=== PATIENT | male | born 1950 | race Caucasian/White ===

== ENCOUNTER 2017-01-23 07:28 | Inpatient (IN) | payer OTHER ==
--- NOTE | 2017-01-08 10:39 | HP ---
DATE OF ADMISSION: 01/23/2017 DATE OF DICTATION: 12/09/2016 Patient to be admitted through the [facility]. HISTORY: This is a 66-year-old man who presents for reduction and repair of a chronically incarcerated ventral hernia, which may or may not require component separation. According to the patient, he noticed the mass several months ago. He is quite overweight and the hernia very likely has been present for quite some time. No underlying GI, , or respiratory complaints to suggest predisposition to hernia formation. Patient's past medical history is significant for GERD, hypertension, hypercholesterolemia, diabetes, and arthritis. Patient also has had diverticulitis in the past. ALLERGIES: None known. Current medications are multiple and include Lipitor, Cozaar, Inderal, baby aspirin, glipizide, amlodipine, Lovaza, Lantus, Victoza injections. SOCIAL HISTORY: Negative tobacco. Patient was a previous smoker. Negative alcohol. FAMILY HISTORY: Nil. REVIEW OF SYSTEMS: Nil. PHYSICAL EXAMINATION: Patient examined in erect, supine position. The abdomen is large, obese, soft and nontender. There is a fist size palpable mass in the supraumbilical midline extending off to the right side of the abdomen. In the supine position, it is partially but not entirely reducible. The groins are unremarkable. IMPRESSION: Chronically incarcerated ventral hernia. PLAN: Reduction and repair of chronically incarcerated ventral hernia with mesh , with or without component separation. Indications, alternatives, possible complications are reviewed. Consent obtained. Patient to be seen preoperatively by Dr. 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 Please refer to those notes for those medical details. ROWNEA ADAMS M.D. CHRIS/[id number] cc: Farhad Maciel MD; Raj Irby MD [facility]
[2017-01-23] MEDS ORDERED: TAMSULOSIN HCL 0.4 MG CAP.ER.24H (FP) ONE (07:52)
[2017-01-23 08:11] VITALS: BMI 36.1
[2017-01-23] MEDS ORDERED: SCOPOLAMINE HYDROBROMIDE 1 PATCH PATCH.TD72 ONE (10:42)
[2017-01-23] MEDS ORDERED: PROPOFOL 20 ML ONE (11:19)
[2017-01-23] MEDS ORDERED: ROCURONIUM BROMIDE 50 MG/5 ML VIAL ONE ×2 (11:20→12:26)
[2017-01-23] MEDS ORDERED: SUCCINYLCHOLINE CHLORIDE 200 MG/10 ML VIAL ONE (11:20)
[2017-01-23] MEDS ORDERED: MIDAZOLAM HCL 2 MG/2 ML SINGLE DOSE VIAL ONE (11:20)
[2017-01-23] MEDS ORDERED: ceFAZolin SODIUM 1 GM VIAL ONE (11:54)
[2017-01-23] MEDS ORDERED: ONDANSETRON 4 MG/2 ML VIAL ONE ×2 (12:06→13:26)
[2017-01-23] MEDS ORDERED: DEXAMETHASONE SOD PHOSPHATE 4 MG/1 ML VIAL ONE (12:06)
[2017-01-23] MEDS ORDERED: GLYCOPYRROLATE 0.2 MG/1 ML VIAL ONE (13:26)
[2017-01-23] MEDS ORDERED: NEOSTIGMINE METHYLSULFATE 0.5 MG/ML - 10 ML MDV ONE (13:26)
[2017-01-23] MEDS ORDERED: ACETAMINOPHEN INJECTION 100 ML IVPB ONE (13:38)
[2017-01-23] MEDS ORDERED: PROMETHAZINE HCL 25 MG/1 ML VIAL IVPUSH PRN (13:51)
[2017-01-23] MEDS ORDERED: ONDANSETRON 4 MG/2 ML VIAL IVPUSH PRN (13:51)
[2017-01-23] MEDS ORDERED: oxyCODONE HCL 5 MG TABLET PO PRN ×2 (13:51→14:45)
[2017-01-23] MEDS: HYDROmorphone HCL CARPU-JECT 1 MG/1 ML DISP.SYRIN IVPUSH PRN ×6 (13:55→14:40)
[2017-01-23] MEDS ORDERED: ACETAMINOPHEN 1000 MG/100 ML VIAL (NON FORMULARY) IVPB ONE (14:00)
[2017-01-23] MEDS ORDERED: LACTATED RINGERS SOLUTION 1,000 ML IV SCH (14:00)
[2017-01-23] MEDS ORDERED: KETOROLAC TROMETHAMINE 15 MG/ML VIAL IVPUSH PRN (14:38)
[2017-01-23] MEDS ORDERED: ONDANSETRON 4 MG/2 ML VIAL IVPB PRN (14:41)
[2017-01-23] MEDS ORDERED: D5-1/2NS+20 MEQ KCL - 1,000 ML IV SCH (14:45)
[2017-01-23] MEDS ORDERED: PROMETHAZINE HCL 25 MG/1 ML VIAL ONE (14:54)
--- NOTE | 2017-01-23 15:42 | OP ---
DATE OF OPERATION: 01/23/2017 PREOPERATIVE DIAGNOSIS: Large chronically incarcerated ventral hernia. POSTOPERATIVE DIAGNOSIS: Complex chronic incarcerated ventral hernia. PROCEDURE: Bilateral component separation repair of complex chronically incarcerated ventral hernia with mesh. OPERATING SURGEON: Froylan Cottrell MD SCIENCE INTERPRETER: Minor Rodriguez MD ANESTHESIA: Quentin Groves MD (general) HISTORY: A 66-year-old man who presented to the office with a very large chronically incarcerated anterior abdominal wall hernia. The hernia was in the supraumbilical midline. At the time of surgery there were multiple defects along the midline approaching the xiphoid process. Indications, alternatives, and possible complications reviewed. Consent obtained. DESCRIPTION OF PROCEDURE: With the patient in supine position, under general anesthesia, the abdomen was prepped and draped in the usual sterile fashion using chlorhexidine. A generous upper abdominal midline incision was made and deepened into the subcutaneous space. The large incarcerated hernia sac was easily encountered. The sac was opened and found to contain small bowel and omentum. Lysis of adhesions ensued, reducing these structures. Evaluation of the abdominal wall revealed a string of multiple small defects approaching the xiphoid process. The bridges between these defects were divided , creating 1 larger defect. First beginning on the right side, the posterior rectus sheath was from the overlying rectus musculature and mobilized in the inferior, lateral, and superior directions approaching the junction with the oblique musculature. The oblique muscles were then from the underlying transversus muscle, allowing the dissection to continue inferiorly, laterally, and medially. Now directing our attention to the contralateral side, again the posterior sheath was from the overlying rectus musculature. Again the juncture of the rectus with the obliques was approached. Separation on the left was performed, again the left oblique muscles from the underlying transversus musculature and again moving in the superior, lateral , and inferior directions. Using 3-0 Maxon, the posterior midline was recreated, approximating the posterior sheath in the midline in a continuous fashion. For the repair, a composite mesh was made at the table which consisted of a piece of Phasix mesh measuring 15 x 20 cm in size. A similar size of ProGrip mesh was sutured to the Phasix using interrupted 3-0 Vicryl sutures. The composite mesh was then placed in the retrorectus space and fanned out along the course of the dissection. The mesh was fixed circumferentially with an AbsorbaTacker and counter palpation. It was also fixed at interrupted sites with [id number] 0 Prolene sutures. Ultimately, the anterior rectus sheath was closed using a continuous No. 1 PDS suture. This was accomplished beginning at each end of the wound was the suture ultimately tied in the wound midpoint, leaving the composite mesh entirely in the retrorectus space. The anterior rectus sheath was of poor quality and very thin. Ultimately, a Chavo-Jones drain was placed in the subcutaneous space and left to exit through a separate stab wound in the inferior aspect of the anterior abdominal wall where it was tacked to the skin with suture material. After adequate hemostasis and irrigation, the wound was closed in layers. The subcutaneous tissues were reapproximated with 3-0 chromic suture. Subcuticular was approximated with 4-0 Biosyn suture. The skin was reapproximated using metallic clips. At the end of the procedure, needle and instrument count correct. ESTIMATED BLOOD LOSS: Minimal. SPECIMENS: None. DRAINS: One MAYKEL. IMPLANT: Phasix mesh (20 x 15 cm)/ProGrip mesh (20 x 15 cm). Patient was transferred to recovery. Alberta [id number] MTDD
[2017-01-23] MEDS ORDERED: PT OWN MED DRAWER 7, Y5N ONE (16:13)
[2017-01-23] MEDS: morphine CARPU-JECT 4 MG/1 ML DISP.SYRIN IVPB PRN ×2 (16:23→21:33)
[2017-01-23] MEDS: CEFAZOLIN (PRE-DOCKED) 50 ML IVPB SCH ×2 (16:24→21:49)
[2017-01-23] MEDS: FAMOTIDINE 20 MG TABLET PO SCH (21:35)
[2017-01-23] MEDS ORDERED: LOSARTAN POTASSIUM 50 MG TABLET (FP) PO SCH (22:00)
[2017-01-24] MEDS: CEFAZOLIN (PRE-DOCKED) 50 ML IVPB SCH (03:28)
[2017-01-24] MEDS: morphine CARPU-JECT 4 MG/1 ML DISP.SYRIN IVPB PRN (05:51)
[2017-01-24 06:31] VITALS: BP 146/85; PULSE 88; TEMP 98.2
[2017-01-24] MEDS ORDERED: INSULIN SLIDING SCALE (NOVOLOG) 1 VIAL SQ SCH (07:00)
[2017-01-24] MEDS: FAMOTIDINE 20 MG TABLET PO SCH (09:23)
[2017-01-24] MEDS ORDERED: ENOXAPARIN NA (PORCINE) 40 MG/0.4 ML DISP.SYRIN SQ SCH (10:00)
--- NOTE | 2017-01-24 10:59 | DS ---
DATE OF ADMISSION: 01/23/2017 DATE OF DISCHARGE: 01/24/2017 ADMITTING DIAGNOSIS: Status post repair of incarcerated ventral hernia with component separation, as well as postoperative pain with preexisting hypertension, hyperlipidemia, diabetes, and arthritis. DISCHARGE DIAGNOSIS: Status post repair of incarcerated ventral hernia with component separation, as well as postoperative pain with preexisting hypertension, hyperlipidemia, diabetes, and arthritis. BRIEF HISTORY: This is a 66-year-old male who was admitted to [facility] on January 23 for surgical management of an incarcerated ventral hernia. He underwent repair of the ventral hernia utilizing mesh as well as component separation and myofascial release. Please reference Dr. Martinez operative notes for more precise details. Postoperatively, he required admission due to postoperative pain, and he received morphine as well as Toradol. Today, January 24, his pain is controlled with oral narcotics. He is also tolerating a diet. He will be discharged to home with a prescription for Percocet. He will take 1 or 2 as needed every 4 to 6 hours, with a maximum dose of 6 a day. He will stay on a light diet until he has a bowel movement, which is not expected to happen for 4 to 5 days. He will go home with his drain, which he will empty daily and record the output or empty when full. He will call for an appointment with Dr. Cottrell on Thursday for next week to be evaluated for drain removal. He will resume his usual home medications. He is okay to walk. He is okay to climb stairs. He will not lift anything more than 20 pounds, and he will only sponge bathe. DO BETTY SILVEIRA/[id number]
== END 2017-01-24 13:37 | disposition home or self-care (01) | DRG 337 ==
LOC: FASU 07:28 → FM/S 13:30
PROVIDERS: ADMIT Surgery; ATTEND Surgery
PROC: 0DNW0ZZ Release Peritoneum, Open Approach (ICD-10-PCS; 2017-01-23)
PROC: 0W9F00Z Drainage of Abdominal Wall with Drainage Device, Open Approach (ICD-10-PCS; 2017-01-23)
PROC: 0WUF0JZ Supplement Abdominal Wall with Synthetic Substitute, Open Approach (ICD-10-PCS; principal; 2017-01-23 09:00)
DX: K43.6 Other and unspecified ventral hernia with obstruction, without gangrene (principal); K66.0 Peritoneal adhesions (postprocedural) (postinfection); K21.9 Gastro-esophageal reflux disease without esophagitis; I10 Essential (primary) hypertension; E78.00 Pure hypercholesterolemia, unspecified; E11.9 Type 2 diabetes mellitus without complications; Z87.891 Personal history of nicotine dependence; I25.10 Atherosclerotic heart disease of native coronary artery without angina pectoris; K76.0 Fatty (change of) liver, not elsewhere classified; E66.9 Obesity, unspecified; Z68.38 Body mass index [BMI] 38.0-38.9, adult; Z79.4 Long term (current) use of insulin
CPT/HCPCS: 94010; 94760

== ENCOUNTER 2017-11-25 22:40 | Inpatient (IN) | payer OTHER ==
--- NOTE | 2017-11-25 22:51 | PDOC ---
History of Present Illness - General Chief Complaint: Cold Symptoms Stated Complaint: FEVER/PAIN UPON URINATION Time Seen by Provider: 11/25/17 22:50 History Source: Patient, Spouse Exam Limitations: No Limitations - History of Present Illness Initial Comments: 11/26/17 00:08 67M PMHx IDDM, HTN, HLD with cc of myalgias, nausea, dizziness and general malaise since this evening after dinner. dx with influenza last week and has recovered. + subjective fever. Also with discomfort when passing urine, no burning nor blood noted in urine. States that "its a little bit difficult to push the urine out". Denies cough, denies abd pain/vomiting. No LE swelling/ pain. Past History - Past Medical History Allergies/Adverse Reactions: Allergies Allergy/AdvReac Type Severity Reaction Status Date / Time No Known Allergies Allergy Verified 01/23/17 08:21 Home Medications: Ambulatory Orders Cholecalciferol (Vitamin D3) [Vitamin D3] 1,000 unit PO DAILY tablet 12/01/13 Glipizide [Glipizide ER] 10 mg PO BID tablet 12/02/16 Aspirin [Ecotrin] 81 mg PO DAILY 01/19/17 Insulin Glargine,Hum.rec.anlog [Lantus Solostar PEN -] 60 units SQ HS 01/19/17 [place]-3 Acid Ethyl Esters [Lovaza] 2 gm PO BID 01/19/17 Anemia: No Asthma: Yes Cancer: No Cardiac Disorders: Yes (CAD,PALPITATIONS,NUCLEAR STRESS 01/26 NEGATIVE) CVA: No COPD: No CHF: No Dementia: No Diabetes: Yes (DX 1997) GI Disorders: Yes (DIVERTICULOSIS/DIVERTICULITIS) Disorders: Yes (KIDNEY STONES-LAST 01/2012) HTN: Yes (DX ) Hypercholesterolemia: Yes (DIET CONTROLLED) Kidney Stones: Yes Liver Disease: No Seizures: No Thyroid Disease: No - Surgical History Abdominal Surgery: No Appendectomy: No Cardiac Surgery: No Cholecystectomy: No Lung Surgery: No Neurologic Surgery: No Orthopedic Surgery: Yes (RIGHT KNEE AND RIGHT ACHILLES TENDON) - Immunization History Immunization Up to Date: Yes - Suicide/Smoking/Psychosocial Hx Smoking Status: Yes Smoking History: Former smoker Have you smoked in the past 12 months: No Number of Cigarettes Smoked Daily: 0 If you are a former smoker, when did you quit?: 2005 Cigars Per Day: 0 Information on smoking cessation initiated: No Hx Alcohol Use: No Drug/Substance Use Hx: No Substance Use Type: None Hx Substance Use Treatment: No Review of Systems - Review of Systems Able to Perform ROS?: Yes Is the patient limited Turkmen proficient: No Constitutional: Yes: Chills Respiratory: Yes: Cough ABD/GI: Yes: Nausea. No: Vomiting Musculoskeletal: Yes: Muscle Pain, Other (generalized feeling of weakness) Neurological: Yes: Dizziness *Physical Exam - Vital Signs Last Vital Signs Temp Pulse Resp BP Pulse Ox 100.8 F H 115 H 14 125/63 95 11/25/17 22:42 11/25/17 22:42 11/25/17 22:42 11/25/17 22:42 11/25/17 22:42 - Physical Exam General Appearance: Yes: Appropriately Dressed, Other (mildly uncomfortable appearing). No: Apparent Distress Neck: positive: Trachea midline Respiratory/Chest: positive: Lungs Clear, Normal Breath Sounds. negative: Respiratory Distress, Accessory Muscle Use, Labored Respiration, Crackles, Rales , Wheezing Cardiovascular: positive: Regular Rhythm, S1, S2, Tachycardia Gastrointestinal/Abdominal: positive: Other (obese, +healed surgical scar superior to umbilicus (hernia repair), nontender/nondistended) Lymphatic: negative: Tenderness Musculoskeletal: negative: CVA Tenderness (R), Decreased Range of Motion Extremity: positive: Normal Capillary Refill, Normal Inspection Neurologic: positive: Fully Oriented, Alert ED Treatment Course - LABORATORY CBC & Chemistry Diagram: 11/25/17 23:05 11/25/17 23:05 - Medications Given in the ED: 11/26/17 00:33 1L IVF ceftriaxone 1000mg IV azithromycin 500mg IV toradol 30mg IV Medical Decision Making - Medical Decision Making 11/26/17 00:12 Pt presenting with myalgias, fever, tachycardia, recent exposure to flu. Overall , most likely dx is influenza though pt's illness has progressed quite rapidly since onset. Based on age, comorbidities and systemic response, I anticipate admission. - IVF, antipyretics - CXR - flu swab - labs including lactate - likely admission 11/26/17 00:26 CXR reviewed - LLL with questionable infiltrate/atelectasis. Will treat for CAP with ceftriaxone/azithromycin. CBC with diff revealed 15% bandemia, WBC 11. Lactate and flu swab pending. EKG with sinus tachycardia. Based on age, comorbidities, likely pna and probable influenza, with high risk for decompensation at home, will admit to hospital. 11/26/17 00:34 Contact info for Anna: H [phone] C [phone] *DC/Admit/Observation/Transfer Diagnosis at time of Disposition: Fever - Discharge Dispostion Condition at time of disposition: Fair Admit: Yes - Referrals - Patient Instructions - Post Discharge Activity
[2017-11-25] MEDS ORDERED: ACETAMINOPHEN 650 MG/20.3 ML ORAL SOLUTION (CUPS) PO ONE (23:01)
[2017-11-25] MEDS ORDERED: SODIUM CHLORIDE 1,000 ML IV STA (23:01)
[2017-11-25] MEDS ORDERED: ONDANSETRON 4 MG/2 ML VIAL IVPUSH ONE (23:02)
[2017-11-25 23:18] LABS: PH,URINE 5.5 (4.5-8); URINE APPEARANCE Clear; URINE BILIRUBIN Negative (NEGATIVE); URINE GLUCOSE (UA) 2+ (NEGATIVE); URINE KETONE Trace (NEGATIVE); URINE NITRITE Negative (NEGATIVE); URINE PROTEIN Negative (NEGATIVE); URINE UROBILINOGEN 0.2 (0.2-1.0)
[2017-11-25] MEDS ORDERED: ONDANSETRON 4 MG/2 ML VIAL ONE (23:20)
[2017-11-25 23:23] LABS: URINE BLOOD Trace-intact (NEGATIVE); URINE COLOR YELLOW; URINE LEUK ESTERASE TRACE (NEGATIVE)
[2017-11-25] MEDS ORDERED: KETOROLAC TROMETHAMINE 30 MG/1 ML VIAL ONE (23:23)
[2017-11-25 23:25] LABS: HEMATOCRIT 42.5 % (35.4-49); HEMOGLOBIN 14.3 GM/dl (11.7-16.9); MCH 28.4 pg (25.7-33.7); MCHC 33.7 g/dl (32.0-35.9); MEAN CELL VOLUME 84.2 fl (80-96); PLATELET COUNT 173 K/MM3 (134-434); RBC 5.05 M/mm3 (4.00-5.60); RDW 13.7 % (11.9-15.9); WHITE BLOOD COUNT 10.9 K/mm3 (4.0-10.8)
[2017-11-25 23:29] LABS: ALBUMIN 3.9 g/dl (3.5-5.0); ALK PHOS 78 U/L (32-92); ANION GAP 10 (8-16); BILIRUBIN,TOTAL 0.5 mg/dl (0.2-1.0); BLOOD UREA NITROGEN 21 mg/dl (7-18); CALCIUM 9.5 mg/dl (8.4-10.2); CHLORIDE 102 mmol/L (98-107); CO2 23 mmol/L (22-28); CREATININE 1.1 mg/dl (0.6-1.3); GLUCOSE,RANDOM 248 mg/dl (74-106); POTASSIUM 4.3 mmol/L (3.5-5.1); SGOT/AST 27 U/L (10-42); SGPT/ALT 37 U/L (10-40); SODIUM 135 mmol/L (136-145); TOT PROT 7.3 g/dl (6.4-8.3)
[2017-11-25 23:43] LABS: PLATELET ESTIMATE ADEQUATE
[2017-11-25] MEDS ORDERED: KETOROLAC TROMETHAMINE 30 MG/1 ML VIAL IVPUSH ONE (23:43)
[2017-11-25 23:44] LABS: URINE BACTERIA FEW /hpf (NEGATIVE)
[2017-11-26] MEDS ORDERED: AZITHROMYCIN IVPB 500 MG in DEXTROSE 5%-WATER - 250 ML IVPB ONE (00:20)
[2017-11-26] MEDS ORDERED: CEFTRIAXONE 1 GM in DEXTROSE 5%-WATER - 50 ML IVPB ONE (00:20)
[2017-11-26] MEDS ORDERED: AZITHROMYCIN 500 MG VIAL IVPB ONE (00:24)
[2017-11-26] MEDS ORDERED: cefTRIAXone SODIUM 1 GM VIAL ONE (00:24)
[2017-11-26] MEDS ORDERED: OSELTAMIVIR PHOSPHATE 75 MG CAPSULE PO ONE (00:39)
[2017-11-26] MEDS ORDERED: OSELTAMIVIR PHOSPHATE 75 MG CAPSULE ONE (00:43)
[2017-11-26 00:51] LABS: LIPASE 546 U/L (73-393)
[2017-11-26] MEDS ORDERED: SODIUM CHLORIDE 1,000 ML IV SCH ×2 (01:15→10:00)
[2017-11-26] MEDS ORDERED: SODIUM CHLORIDE 500 ML IV STA (01:17)
[2017-11-26 02:26] VITALS: BMI 37.1
[2017-11-26] MEDS: METOCLOPRAMIDE HCL INJECTION 10 MG/2 ML VIAL IVPUSH PRN ×2 (02:44→07:50)
[2017-11-26] MEDS: HEPARIN NA (PORCINE) 5,000 UNITS/ML 1ML VIAL SQ SCH ×3 (05:52→21:31)
[2017-11-26] MEDS ORDERED: MAG HYDROX/AL HYDROX/SIMETH 30 ML UNIT-DOSE CUP PO ONE (05:58)
[2017-11-26 07:46] LABS: ANION GAP 7 (8-16); BLOOD UREA NITROGEN 20 mg/dl (7-18); CALCIUM 8.1 mg/dl (8.4-10.2); CHLORIDE 105 mmol/L (98-107); CO2 22 mmol/L (22-28); CREATININE 1.1 mg/dl (0.6-1.3); GLUCOSE,RANDOM 238 mg/dl (74-106); POTASSIUM 3.9 mmol/L (3.5-5.1); SODIUM 134 mmol/L (136-145)
[2017-11-26 07:50] LABS: MAGNESIUM 1.3 mg/dL (1.8-2.4); PHOSPHOROUS 3.2 mg/dl (2.5-4.6)
[2017-11-26 08:09] LABS: BASO % 0.1 % (0-2.0); EOS % 0.3 % (0-4.5); HEMATOCRIT 36.7 % (35.4-49); HEMOGLOBIN 12.7 GM/dl (11.7-16.9); MCH 29.2 pg (25.7-33.7); MCHC 34.6 g/dl (32.0-35.9); MEAN CELL VOLUME 84.3 fl (80-96); MEAN PLT VOLUME 9.3 fl (7.5-11.1); MONO % 6.1 % (3.8-10.2); NEUT % 86.5 % (42.8-82.8); PLATELET COUNT 112 K/MM3 (134-434); RBC 4.36 M/mm3 (4.00-5.60); RDW 13.2 % (11.9-15.9); WHITE BLOOD COUNT 6.9 K/mm3 (4.0-10.8)
[2017-11-26] MEDS ORDERED: MAGNESIUM SULFATE 2 GM in SODIUM CHLORIDE 100 ML IVPB ONE (08:49)
--- NOTE | 2017-11-26 09:20 | HP ---
CHIEF COMPLAINT: nausea PCP: Dr Maciel HISTORY OF PRESENT ILLNESS: patient is a 67 y/o male with a past medical history of DM, HTN, and HLD. Patient reports ongoing general malaise and nausea since yesterday evening. Patient reports his was recently diagnosed with influenza last week. Patient does report subjective fever for the past 24 hours. ER course was notable for: (1) temp 100.8 (2) lactic acid 2.5 (3)chest xray large heart, no infilitrate Recent Travel: none PAST MEDICAL HISTORY: see hpi PAST SURGICAL HISTORY: incarcerated ventral hernia repair Social History: resides at home with Smoking:none Alcohol:none Drugs: none Family History: non contributory to this admission Allergies No Known Allergies Allergy (Verified 01/23/17 08:21) HOME MEDICATIONS: Home Medications Medication Instructions Recorded Cholecalciferol (Vitamin D3) 1,000 unit PO DAILY tablet 12/01/13 [Vitamin D3] Glipizide [Glipizide ER] 10 mg PO BID tablet 12/02/16 Aspirin [Ecotrin] 81 mg PO DAILY 01/19/17 Insulin Glargine,Hum.rec.anlog 60 units SQ HS 01/19/17 [Lantus Solostar PEN -] [place]-3 Acid Ethyl Esters [Lovaza] 2 gm PO BID 01/19/17 REVIEW OF SYSTEMS CONSTITUTIONAL: present: fever, generalized weakness, malaise, loss of appetite, Absent: chills, diaphoresis, weight change HEENT: Absent: rhinorrhea, nasal congestion, throat pain, throat swelling, difficulty swallowing, mouth swelling, ear pain, eye pain, visual changes CARDIOVASCULAR: Absent: chest pain, syncope, palpitations, irregular heart rate, lightheadedness , peripheral edema RESPIRATORY: Absent: cough, shortness of breath, dyspnea with exertion, orthopnea, wheezing, stridor, hemoptysis GASTROINTESTINAL: present: nausea, vomiting Absent: abdominal pain, abdominal distension, diarrhea, constipation, melena, hematochezia GENITOURINARY: Absent: dysuria, frequency, urgency, hesitancy, hematuria, flank pain, genital pain MUSCULOSKELETAL: Absent: myalgia, arthralgia, joint swelling, back pain, neck pain SKIN: Absent: rash, itching, pallor HEMATOLOGIC/IMMUNOLOGIC: Absent: easy bleeding, easy bruising, lymphadenopathy, frequent infections ENDOCRINE: Absent: unexplained weight gain, unexplained weight loss, heat intolerance, cold intolerance NEUROLOGIC: Absent: headache, focal weakness or paresthesias, dizziness, unsteady gait, seizure, mental status changes, bladder or bowel incontinence PSYCHIATRIC: Absent: anxiety, depression, suicidal or homicidal ideation, hallucinations. PHYSICAL EXAMINATION Vital Signs - 24 hr 11/25/17 11/25/17 11/26/17 22:42 23:17 00:54 Temperature 100.8 F H 99.6 F Pulse Rate 115 H 115 H 110 H Respiratory 14 18 Rate Blood Pressure 125/63 136/54 O2 Sat by Pulse 95 96 93 L Oximetry (%) 11/26/17 11/26/17 01:44 06:00 Temperature 99.6 F 99.3 F Pulse Rate 110 H 112 H Respiratory 18 20 Rate Blood Pressure 136/54 158/64 O2 Sat by Pulse 93 L 95 Oximetry (%) GENERAL: Awake, alert, and fully oriented, in no acute distress. HEAD: Normal with no signs of trauma. EYES: Pupils equal, round and reactive to light, extraocular movements intact, sclera anicteric, conjunctiva clear. No lid lag. EARS, NOSE, THROAT: Ears normal, nares patent, oropharynx clear without exudates. Moist mucous membranes. NECK: Normal range of motion, supple without lymphadenopathy, JVD, or masses. LUNGS: Breath sounds equal, clear to auscultation bilaterally. No wheezes, and no crackles. No accessory muscle use. HEART: Regular rate and rhythm, normal S1 and S2 without murmur, rub or gallop. ABDOMEN: Soft, obese, healed lower abd surgical site, nontender, not distended, normoactive bowel sounds, no guarding, no rebound, no masses. No hepatomegaly or splenomegaly. MUSCULOSKELETAL: Normal range of motion at all joints. No bony deformities or tenderness. No CVA tenderness. UPPER EXTREMITIES: 2+ pulses, warm, well-perfused. No cyanosis. No clubbing. No peripheral edema. LOWER EXTREMITIES: 2+ pulses, warm, well-perfused. No calf tenderness. No peripheral edema. NEUROLOGICAL: Cranial nerves II-XII intact. Normal speech. Normal gait. PSYCHIATRIC: Cooperative. Good eye contact. Appropriate mood and affect. SKIN: Warm, dry, normal turgor, no rashes or lesions noted, normal capillary refill. Laboratory Results - last 24 hr 11/25/17 11/25/17 11/25/17 23:05 23:05 23:05 WBC 10.9 H D RBC 5.05 Hgb 14.3 Hct 42.5 MCV 84.2 MCH 28.4 MCHC 33.7 RDW 13.7 Plt Count 173 MPV 9.0 Neutrophils % No Result Required. Neutrophils % (Manual) 67.0 Band Neutrophils % 15.0 H Lymphocytes % No Result Required. Lymphocytes % (Manual) 11.0 Monocytes % Monocytes % (Manual) 5 Eosinophils % Eosinophils % (Manual) 2.0 Basophils % Platelet Estimate Adequate Sodium 135 L Potassium 4.3 Chloride 102 Carbon Dioxide 23 Anion Gap 10 BUN 21 H D Creatinine 1.1 Creat Clearance w eGFR > 60 POC Glucometer Random Glucose 248 H Lactic Acid Calcium 9.5 Phosphorus Magnesium Total Bilirubin 0.5 D AST 27 ALT 37 Alkaline Phosphatase 78 Creatine Kinase 115 Troponin I < 0.03 Total Protein 7.3 Albumin 3.9 Lipase 546 H Urine Color Urine Appearance Urine pH Ur Specific Ruby Urine Protein Urine Glucose (UA) Urine Ketones Urine Blood Urine Nitrite Urine Bilirubin Urine Urobilinogen Ur Leukocyte Esterase Urine RBC Urine WBC Urine Bacteria 11/25/17 11/25/17 11/26/17 23:05 23:10 06:00 WBC RBC Hgb Hct MCV MCH MCHC RDW Plt Count MPV Neutrophils % Neutrophils % (Manual) Band Neutrophils % Lymphocytes % Lymphocytes % (Manual) Monocytes % Monocytes % (Manual) Eosinophils % Eosinophils % (Manual) Basophils % Platelet Estimate Sodium 134 L Potassium 3.9 Chloride 105 Carbon Dioxide 22 Anion Gap 7 L BUN 20 H Creatinine 1.1 Creat Clearance w eGFR POC Glucometer Random Glucose 238 H Lactic Acid 3.8 H* Calcium 8.1 L Phosphorus Magnesium Total Bilirubin AST ALT Alkaline Phosphatase Creatine Kinase Troponin I Total Protein Albumin Lipase Urine Color Yellow Urine Appearance Clear Urine pH 5.5 Ur Specific Ruby 1.015 Urine Protein Negative Urine Glucose (UA) 2+ H Urine Ketones Trace Urine Blood Trace-intact H Urine Nitrite Negative Urine Bilirubin Negative Urine Urobilinogen 0.2 Ur Leukocyte Esterase Trace H Urine RBC 2-4 Urine WBC 10-20 Urine Bacteria Few 11/26/17 11/26/17 11/26/17 06:00 06:00 06:00 WBC 6.9 D RBC 4.36 Hgb 12.7 D Hct 36.7 MCV 84.3 MCH 29.2 MCHC 34.6 RDW 13.2 Plt Count 112 L D MPV 9.3 Neutrophils % 86.5 H D Neutrophils % (Manual) Band Neutrophils % Lymphocytes % 7.0 L D Lymphocytes % (Manual) Monocytes % 6.1 Monocytes % (Manual) Eosinophils % 0.3 D Eosinophils % (Manual) Basophils % 0.1 Platelet Estimate Sodium Potassium Chloride Carbon Dioxide Anion Gap BUN Creatinine Creat Clearance w eGFR POC Glucometer Random Glucose Lactic Acid 2.5 H* Calcium Phosphorus 3.2 Magnesium 1.3 L D Total Bilirubin AST ALT Alkaline Phosphatase Creatine Kinase Troponin I Total Protein Albumin Lipase Urine Color Urine Appearance Urine pH Ur Specific Ruby Urine Protein Urine Glucose (UA) Urine Ketones Urine Blood Urine Nitrite Urine Bilirubin Urine Urobilinogen Ur Leukocyte Esterase Urine RBC Urine WBC Urine Bacteria 11/26/17 06:33 WBC RBC Hgb Hct MCV MCH MCHC RDW Plt Count MPV Neutrophils % Neutrophils % (Manual) Band Neutrophils % Lymphocytes % Lymphocytes % (Manual) Monocytes % Monocytes % (Manual) Eosinophils % Eosinophils % (Manual) Basophils % Platelet Estimate Sodium Potassium Chloride Carbon Dioxide Anion Gap BUN Creatinine Creat Clearance w eGFR POC Glucometer 282 Random Glucose Lactic Acid Calcium Phosphorus Magnesium Total Bilirubin AST ALT Alkaline Phosphatase Creatine Kinase Troponin I Total Protein Albumin Lipase Urine Color Urine Appearance Urine pH Ur Specific Ruby Urine Protein Urine Glucose (UA) Urine Ketones Urine Blood Urine Nitrite Urine Bilirubin Urine Urobilinogen Ur Leukocyte Esterase Urine RBC Urine WBC Urine Bacteria ASSESSMENT/PLAN: f/e/n - low sodium diet - replete magnesium ppx - heparin - protonix - scd - oob Problem List - Problem (1) Lactic acid acidosis Assessment/Plan: - lactic acid 2.5 after 2liter of normal saline, trending downward, continue ns @ 125ml/hr repeat lactic acid at 12pm - pending urine culture and blood cultures ordered Code(s): E87.2 - ACIDOSIS (2) Pancreatitis Assessment/Plan: - elevated lipase, continue to trend, no abdominal pain upon exam, pending ct scan of abd/pelvis Code(s): K85.90 - ACUTE PANCREATITIS WITHOUT NECROSIS OR INFECTION, UNSP Qualifiers: Chronicity: acute (3) Hypertension Assessment/Plan: - continue losartan, b/p at goal Code(s): I10 - ESSENTIAL (PRIMARY) HYPERTENSION Visit type - Emergency Visit Emergency Visit: Yes ED Registration Date: 11/26/17 Care time: The patient presented to the Emergency Department on the above date and was hospitalized for further evaluation of their emergent condition. - New Patient This patient is new to me today: No - Critical Care Critical Care patient: No
[2017-11-26] MEDS ORDERED: MAGNESIUM SULFATE IN WATER 2 GM/50 ML IVPB IVPB ONE (09:30)
[2017-11-26] MEDS: OSELTAMIVIR PHOSPHATE 75 MG CAPSULE PO SCH ×2 (09:56→21:33)
[2017-11-26] MEDS ORDERED: PROPRANOLOL HCL 160 MG PO SCH (10:00)
[2017-11-26] MEDS ORDERED: ONDANSETRON 4 MG/2 ML VIAL IVPB ONE (10:25)
[2017-11-26 10:46] LABS: ALBUMIN 3.6 g/dl (3.5-5.0); ALK PHOS 65 U/L (32-92); BILIRUBIN,DIRECT 0.2 mg/dL (0.0-0.3); BILIRUBIN,TOTAL 0.9 mg/dl (0.2-1.0); SGOT/AST 24 U/L (10-42); SGPT/ALT 32 U/L (10-40); TOT PROT 6.7 g/dl (6.4-8.3)
--- NOTE | 2017-11-26 10:53 | EKG ---
Test Reason : Blood Pressure : / mmHG Vent. Rate : 118 BPM Atrial Rate : 118 BPM P-R Int : 142 ms QRS Dur : 096 ms QT Int : 334 ms P-R-T Axes : 081 -43 087 degrees QTc Int : 468 ms SINUS TACHYCARDIA LEFT AXIS DEVIATION POOR R WAVE PROGRESSION NO PREVIOUS ECGS AVAILABLE Confirmed by DARIUS GLOVER MD ([id number]) on 11/26/2017 10:53:45 AM Referred By: MD GRACE Confirmed By:DARIUS GLOVER MD
[2017-11-26] MEDS ORDERED: PT OWN MED DRAWER 7, Y5N ONE (11:29)
[2017-11-26] MEDS: OMEGA-3 ACID ETHYL ESTERS (FATTY-ACIDS) 1 GM CAPSULE (FP) PO SCH ×2 (11:34→21:32)
[2017-11-26] MEDS: ASPIRIN COATED 81 MG TABLET.EC PO SCH (11:34)
[2017-11-26] MEDS: CHOLECALCIFEROL (VITAMIN D3) 1,000 UNIT TABLET (FP) PO SCH (11:41)
[2017-11-26] MEDS: PANTOPRAZOLE SODIUM 40 MG VIAL IVPUSH SCH (11:42)
[2017-11-26] MEDS ORDERED: INSULIN (NOVOLOG) ASPART 100 UNITS/ML 10ML VIAL ONE ×3 (11:51→21:35)
[2017-11-26] MEDS: INSULIN SLIDING SCALE (NOVOLOG) 1 VIAL SQ SCH ×3 (11:57→21:40)
[2017-11-26 12:37] LABS: CHOLESTEROL 89 mg/dl; HDL CHOLESTEROL 28 mg/dl (29-89); TRIGLYCERIDES 128 mg/dl (35-160)
[2017-11-26 12:39] LABS: LDL CHOLESTEROL (ONLY SJRH) 35 mg/dL (5-100)
[2017-11-26] MEDS: ACETAMINOPHEN 325 MG TABLET (FP) PO PRN (13:38)
[2017-11-26] MEDS: CEFTRIAXONE 1 G/50 ML PREMIX 50 ML IVPB SCH (21:29)
[2017-11-26] MEDS: ATORVASTATIN CA 20 MG TABLET (FP) PO SCH (21:31)
[2017-11-26] MEDS: INSULIN DETEMIR 100 UNITS/ML MDV SQ SCH (21:31)
[2017-11-26] MEDS: LOSARTAN POTASSIUM 50 MG TABLET (FP) PO SCH (21:31)
[2017-11-26] MEDS ORDERED: PATIENT'S OWN MEDICATION (NON-FORMULARY) (Insulin Glargine,Hum.Rec.Anlog 60 UNITS) SQ SCH (22:00)
[2017-11-26] MEDS: MELATONIN 5 MG TABLETS PO PRN (22:25)
[2017-11-26] MEDS: AZITHROMYCIN IVPB 250 ML IVPB SCH (22:25)
[2017-11-27] MEDS: ACETAMINOPHEN 325 MG TABLET (FP) PO PRN ×3 (05:49→21:29)
[2017-11-27] MEDS: HEPARIN NA (PORCINE) 5,000 UNITS/ML 1ML VIAL SQ SCH ×3 (05:50→21:24)
[2017-11-27] MEDS: INSULIN SLIDING SCALE (NOVOLOG) 1 VIAL SQ SCH ×4 (06:18→21:35)
[2017-11-27 08:50] LABS: BASO % 0.4 % (0-2.0); HEMATOCRIT 32.5 % (35.4-49); HEMOGLOBIN 11.2 GM/dl (11.7-16.9); MCH 29.1 pg (25.7-33.7); MCHC 34.3 g/dl (32.0-35.9); MEAN CELL VOLUME 84.8 fl (80-96); MEAN PLT VOLUME 9.1 fl (7.5-11.1); MONO % 9.9 % (3.8-10.2); NEUT % 64.7 % (42.8-82.8); PLATELET COUNT 83 K/MM3 (134-434); RBC 3.84 M/mm3 (4.00-5.60); RDW 13.4 % (11.9-15.9); WHITE BLOOD COUNT 6.1 K/mm3 (4.0-10.8)
[2017-11-27 09:15] LABS: AMYLASE 76 U/L (25-125)
[2017-11-27 09:29] LABS: ALBUMIN 2.9 g/dl (3.5-5.0); BILIRUBIN,TOTAL 0.7 mg/dl (0.2-1.0); BLOOD UREA NITROGEN 13 mg/dl (7-18); MAGNESIUM 1.9 mg/dL (1.8-2.4); SGOT/AST 16 U/L (10-42); SGPT/ALT 23 U/L (10-40); TOT PROT 5.8 g/dl (6.4-8.3)
[2017-11-27] MEDS ORDERED: PT OWN MED DRAWER 7, Y5N ONE ×2 (09:37→21:18)
[2017-11-27 09:55] LABS: ALK PHOS 48 U/L (32-92); ANION GAP 5 (8-16); CALCIUM 7.8 mg/dl (8.4-10.2); CHLORIDE 105 mmol/L (98-107); CO2 24 mmol/L (22-28); GLUCOSE,RANDOM 163 mg/dl (74-106); PHOSPHOROUS 2.6 mg/dl (2.5-4.6); POTASSIUM 3.6 mmol/L (3.5-5.1); SODIUM 134 mmol/L (136-145)
[2017-11-27] MEDS: ASPIRIN COATED 81 MG TABLET.EC PO SCH (10:09)
[2017-11-27] MEDS: OMEGA-3 ACID ETHYL ESTERS (FATTY-ACIDS) 1 GM CAPSULE (FP) PO SCH ×2 (10:10→23:27)
[2017-11-27] MEDS: PANTOPRAZOLE SODIUM 40 MG VIAL IVPUSH SCH (10:10)
[2017-11-27] MEDS: OSELTAMIVIR PHOSPHATE 75 MG CAPSULE PO SCH ×2 (10:10→21:24)
[2017-11-27] MEDS: CHOLECALCIFEROL (VITAMIN D3) 1,000 UNIT TABLET (FP) PO SCH (10:10)
[2017-11-27 10:36] LABS: LIPASE 342 U/L (73-393)
--- NOTE | 2017-11-27 11:23 | PN ---
Physical Exam: SUBJECTIVE: Patient seen and examined, patient is sitting in bedside chair, feeling much improved tolerating diet. OBJECTIVE: patient is a 67 y/o male with a past medical history of DM, HTN, and HLD. patient was admitted from the emergency department for emergent condition. Vital Signs Period Temp Pulse Resp BP Sys/Alaniz Pulse Ox Last 24 Hr 98.4 F-98.8 F 93-105 20-20 102-152/48-72 92-98 GENERAL: The patient is awake, alert, and fully oriented, in no acute distress. HEAD: Normal with no signs of trauma. EYES: PERRL, extraocular movements intact, sclera anicteric, conjunctiva clear. No ptosis. ENT: Ears normal, nares patent, oropharynx clear without exudates, moist mucous membranes. NECK: Trachea midline, full range of motion, supple. LUNGS: Breath sounds equal, clear to auscultation bilaterally, no wheezes, no crackles, no accessory muscle use. HEART: Regular rate and rhythm, S1, S2 without murmur, rub or gallop. ABDOMEN: Soft, nontender, nondistended, normoactive bowel sounds, no guarding, no rebound, no hepatosplenomegaly, no masses. EXTREMITIES: 2+ pulses, warm, well-perfused, no edema. NEUROLOGICAL: Cranial nerves II through XII grossly intact. Normal speech, gait not observed. PSYCH: Normal mood, normal affect. SKIN: Warm, dry, normal turgor, no rashes or lesions noted Laboratory Results - last 24 hr CBC WBC 6.1 K/mm3 (4.0-10.8) 11/27/17 07:00 RBC 3.84 M/mm3 (4.00-5.60) L 11/27/17 07:00 Hgb 11.2 GM/dl (11.7-16.9) L D 11/27/17 07:00 Hct 32.5 % (35.4-49) L 11/27/17 07:00 MCV 84.8 fl (80-96) 11/27/17 07:00 MCH 29.1 pg (25.7-33.7) 11/27/17 07:00 MCHC 34.3 g/dl (32.0-35.9) 11/27/17 07:00 RDW 13.4 % (11.9-15.9) 11/27/17 07:00 Plt Count 83 K/MM3 (134-434) L D 11/27/17 07:00 MPV 9.1 fl (7.5-11.1) 11/27/17 07:00 Neutrophils % 64.7 % (42.8-82.8) D 11/27/17 07:00 Neutrophils % (Manual) 67.0 % (42.8-82.8) 11/25/17 23:05 Band Neutrophils % 15.0 % (0-10) H 11/25/17 23:05 Lymphocytes % 23.0 % (8-40) D 11/27/17 07:00 Lymphocytes % (Manual) 11.0 % (8-40) 11/25/17 23:05 Monocytes % 9.9 % (3.8-10.2) 11/27/17 07:00 Monocytes % (Manual) 5 % (3.8-10.2) 11/25/17 23:05 Eosinophils % 2.0 % (0-4.5) D 11/27/17 07:00 Eosinophils % (Manual) 2.0 % (0-4.5) 11/25/17 23:05 Basophils % 0.4 % (0-2.0) D 11/27/17 07:00 Platelet Estimate Adequate 11/25/17 23:05 CMP Sodium 134 mmol/L (136-145) L 11/27/17 07:00 Potassium 3.6 mmol/L (3.5-5.1) 11/27/17 07:00 Chloride 105 mmol/L (98-107) 11/27/17 07:00 Carbon Dioxide 24 mmol/L (22-28) 11/27/17 07:00 Anion Gap 5 (8-16) L 11/27/17 07:00 BUN 13 mg/dl (7-18) D 11/27/17 07:00 Creatinine 1.0 mg/dl (0.6-1.3) 11/27/17 07:00 Creat Clearance w eGFR > 60 (>60) 11/27/17 07:00 POC Glucometer 144 UNITS (80-120) 11/27/17 05:53 Random Glucose 163 mg/dl (74-106) H D 11/27/17 07:00 Hemoglobin A1c % 8.4 % (4.8-6.0) H D 11/26/17 06:00 Lactic Acid 1.0 mmol/L (0.0-2.0) 11/27/17 07:00 Calcium 7.8 mg/dl (8.4-10.2) L 11/27/17 07:00 Phosphorus 2.6 mg/dl (2.5-4.6) 11/27/17 07:00 Magnesium 1.9 mg/dL (1.8-2.4) D 11/27/17 07:00 Total Bilirubin 0.7 mg/dl (0.2-1.0) D 11/27/17 07:00 Direct Bilirubin 0.2 mg/dL (0.0-0.3) 11/26/17 06:00 AST 16 U/L (10-42) D 11/27/17 07:00 ALT 23 U/L (10-40) D 11/27/17 07:00 Alkaline Phosphatase 48 U/L (32-92) D 11/27/17 07:00 Creatine Kinase 115 IU/L (39-308) 11/25/17 23:05 Troponin I < 0.03 ng/ml (0.00-0.06) 11/25/17 23:05 Total Protein 5.8 g/dl (6.4-8.3) L 11/27/17 07:00 Albumin 2.9 g/dl (3.5-5.0) L 11/27/17 07:00 Triglycerides 128 mg/dl (35-160) 11/26/17 06:00 Cholesterol 89 mg/dl 11/26/17 06:00 Total LDL Cholesterol 35 mg/dL (5-100) 11/26/17 06:00 HDL Cholesterol 28 mg/dl (29-89) L 11/26/17 06:00 Total Amylase 76 U/L (25-125) D 11/27/17 07:00 Lipase 342 U/L (73-393) 11/27/17 07:00 Active Medications Generic Name Dose Route Start Last Admin Trade Name Freq PRN Reason Stop Dose Admin Acetaminophen 650 mg 11/26/17 09:44 11/27/17 05:49 Tylenol - PO 650 mg Q4H PRN Administration PAIN OR FEVER Aspirin 81 mg 11/26/17 10:00 11/27/17 10:09 Ecotrin - PO 81 mg DAILY ADALBERTO Administration Atorvastatin Calcium 20 mg 11/26/17 22:00 11/26/17 21:31 Lipitor - PO 20 mg HS ADALBERTO Administration Cholecalciferol 1,000 unit 11/26/17 10:00 11/27/17 10:10 Vitamin D3 - PO 1,000 unit DAILY ADALBERTO Administration Heparin Sodium (Porcine) 5,000 unit 11/26/17 06:00 11/27/17 05:50 Heparin - SQ 5,000 unit TID ADALBERTO Administration Azithromycin 250 mls @ 250 mls/hr 11/26/17 22:00 11/26/17 22:25 Zithromax 500mg Ivpb (Pre-Docked) IVPB 250 mls/hr HS ADALBERTO Administration CEFTRIAXONE 1 G/50 ML PREMIX 50 mls @ 100 mls/hr 11/26/17 22:00 11/26/17 21: 29 Ceftriaxone 1 Gm-D5w Bag IVPB 100 mls/hr HS ADALBERTO Administration Sodium Chloride 1,000 mls @ 125 mls/hr 11/26/17 10:00 11/26/17 11:34 Normal Saline - IV 125 mls/hr ASDIR ADALBERTO Administration Insulin Aspart 1 vial 11/26/17 11:00 11/27/17 06:18 Novolog Vial Sliding Scale - SQ Not Given ACHS [facility] Protocol Insulin Detemir 60 units 11/26/17 22:00 11/26/17 21:31 Levemir Vial SQ 60 units HS ADALBERTO Administration Losartan Potassium 100 mg 11/26/17 22:00 11/26/17 21:31 Cozaar - PO 100 mg HS ADALBERTO Administration Melatonin 5 mg 11/26/17 22:00 11/26/17 22:25 Melatonin PO 5 mg HS PRN Administration INSOMNIA Edyrk-5-Jdum Ethyl Esters 2 gm 11/26/17 10:00 11/27/17 10:10 Lovaza - PO 2 gm BID ADALBERTO Administration Oseltamivir Phosphate 75 mg 11/26/17 10:00 11/27/17 10:10 Tamiflu - PO 12/01/17 09:59 75 mg BID ADALBERTO Administration Pantoprazole Sodium 40 mg 11/26/17 10:30 11/27/17 10:10 Protonix Iv IVPUSH 40 mg DAILY ADALBERTO Administration Propranolol HCl 160 mg 11/26/17 10:00 11/27/17 10:10 Inderal La - PO 160 mg DAILY ADALBERTO Administration Microbiology 11/26/17 12:23 Blood - Peripheral Venous Blood Culture - Preliminary NO GROWTH OBTAINED AFTER 24 HOURS, INCUBATION TO CONTINUE FOR 4 DAYS. 11/26/17 12:17 Blood - Peripheral Venous Blood Culture - Preliminary NO GROWTH OBTAINED AFTER 24 HOURS, INCUBATION TO CONTINUE FOR 4 DAYS. 11/25/17 23:10 Urine - Urine Clean Catch Urine Culture - Preliminary Lactose Fermenting Neg Bacilli 11/25/17 23:10 Nasopharyngeal Swab Influenza Types A,B Antigen (MILIND) - Preliminary 11/25/17 23:10 Nasopharyngeal Swab - Preliminary IMAGING ct of chest/abd/pelvis w/o contrast: subsolid pulmonary nodules or opacities in upper lobe,measuring up to 9mm inflammatory vs infectious, follow up non contract ct in 3-6months, prostatomeglay ASSESSMENT/PLAN: 1) ID sepsis - likely secondary to uti and PNA, + urine culture prelim, continue rocephin and zithromax, lactic acidosis resolved - leukocytosis resolved, low grade temp noted, monitor cbc and fever curve 2) PULM pna - continue zithromax and rocephin - pending urine antigens - incentive spirometer - ct scan of chest reviewed, patient will require outpatient follow up - appreciate pulmonary input 3) GI pancreatitis - lipase wnl, patient is tolerating regular diet 4) Cardiovascular hypertension - continue losartan and propanolol b/p at goal - strict b/p monitoring q4h f/e/n - low sodium diet - replete magnesium ppx - heparin - protonix - scd - oob Problem List - Problems (1) Lactic acid acidosis Code(s): E87.2 - ACIDOSIS (2) Pancreatitis Code(s): K85.90 - ACUTE PANCREATITIS WITHOUT NECROSIS OR INFECTION, UNSP Qualifiers: Chronicity: acute (3) Hypertension Code(s): I10 - ESSENTIAL (PRIMARY) HYPERTENSION Visit type - Emergency Visit Emergency Visit: Yes ED Registration Date: 11/26/17 Care time: The patient presented to the Emergency Department on the above date and was hospitalized for further evaluation of their emergent condition. - New Patient This patient is new to me today: No - Critical Care Critical Care patient: No - Discharge Referral Referred to [facility] Med P.C.: No
[2017-11-27] MEDS ORDERED: MAGNESIUM SULF 50% (8.12 MEQ/2 ML-1 GM VIAL) IVPB ONE (14:39)
[2017-11-27] MEDS: LACTOBACILLUS ACIDOPHILUS 1 EACH TAB (FP) PO SCH (14:56)
[2017-11-27] MEDS ORDERED: POTASSIUM CHLORIDE TABS 20 MEQ TABLET.ER (FP) PO ONE (15:00)
[2017-11-27] MEDS ORDERED: MAGNESIUM 1GM/D5W - 1 GM/100 ML IVPB IVPB ONE (15:15)
[2017-11-27] MEDS ORDERED: INSULIN (NOVOLOG) ASPART 100 UNITS/ML 10ML VIAL ONE (16:44)
--- NOTE | 2017-11-27 18:22 | CON.PULM ---
Consult Consult Specialty:: PULMONARY Referred by:: RICHIE Reason for Consultation:: ABNORMAL CHEST CT - History of Present Illness Chief Complaint: COUGH/FEVER/WEAKNESS History of Present Illness: 67 M[employer]LY OBESE WHITE MALE FORMER SMOKER WITH RECENT EXPOSURE TO INFLUENZA ( ) PRESENTS TO ER WITH WEAKNESS GENERAL AND MALAISE WITH FEVER. 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: No: Alzheimer's, CVA, Dementia, Migraine, Multiple Sclerosis, Peripheral Neuropathy, Parkinson's, Seizure, Syncope, TIA, Vertigo, Other Cardio/Vascular: Yes: HTN, Hyperlipdemia Pulmonary: Yes: COPD Gastrointestinal: No: Ascites, Cancer, Constipation, Crohn's Disease, Diverticulitis, Diverticulosis, Esophageal Varices, Gastritis, GERD, GI Bleed, Hemorrhoids, Hiatal Hernia, Inflamatory Bowel Disease, Irritable Bowel Disease, Pancreatitis, Peptic Ulcer Disease, Ulcerative Colitis, Other Renal/: No: Renal Failure, Renal Inusuff, BPH, Cancer, Hematuria, Hemodialysis , Neurogenic Bladder, Renal Calculi, UTI, Other Endocrine: Yes: Diabetes Mellitus - Alcohol/Substance Use Hx Alcohol Use: No - Smoking History Smoking history: Former smoker Have you smoked in the past 12 months: No Aproximately how many cigarettes per day: 0 If you are a former smoker, when did you quit?: 2006 - Social History Usual Living Arrangement: With Spouse Place of : [facility] History of Recent Travel: No Home Medications - Allergies Allergies/Adverse Reactions: Allergies Allergy/AdvReac Type Severity Reaction Status Date / Time No Known Allergies Allergy Verified 01/23/17 08:21 - Home Medications Home Medications: Ambulatory Orders Cholecalciferol (Vitamin D3) [Vitamin D3] 1,000 unit PO DAILY tablet 12/01/13 Glipizide [Glipizide ER] 10 mg PO BID tablet 12/02/16 Aspirin [Ecotrin] 81 mg PO DAILY 01/19/17 Insulin Glargine,Hum.rec.anlog [Lantus Solostar PEN -] 60 units SQ HS 01/19/17 Taswell-3 Acid Ethyl Esters [Lovaza] 2 gm PO BID 01/19/17 Family Disease History - Family Disease History Family History: Unremarkable Review of Systems - Review of Systems Constitutional: reports: Fever, Lethargy Gastrointestinal: reports: Nausea Physical Exam Vital Sings: Vital Signs Temperature 99.3 F 11/27/17 14:12 Pulse Rate 79 11/27/17 14:12 Respiratory Rate 18 11/27/17 14:12 Blood Pressure 122/66 11/27/17 14:12 O2 Sat by Pulse Oximetry (%) 95 11/27/17 14:12 Constitutional: Yes: Calm Eyes: Yes: EOM Intact HENT: Yes: Normocephalic, Rhinnorhea Cardiovascular: Yes: S1, S2 Respiratory: Yes: CTA Bilaterally Gastrointestinal: Yes: Soft, Abdomen, Obese Extremities: Yes: WNL Labs: CBC, BMP 11/27/17 07:00 11/27/17 07:00 REST REVIEWED Imaging - Results Chest X-ray: Report Reviewed, Image Reviewed Cat Scan: Report Reviewed, Image Reviewed EKG: Report Reviewed Problem List - Problems (1) Diabetes Code(s): E11.9 - TYPE 2 DIABETES MELLITUS WITHOUT COMPLICATIONS (2) Fever Code(s): R50.9 - FEVER, UNSPECIFIED (3) Hypertension Code(s): I10 - ESSENTIAL (PRIMARY) HYPERTENSION (4) UTI (urinary tract infection) Code(s): N39.0 - URINARY TRACT INFECTION, SITE NOT SPECIFIED Assessment/Plan AGREE WITH CURRENT USE OF ANTIBIOTICS WOULD ADJUST AFTER URINE CULTURE CT CHEST OFFERS NO EVIDENCE OF CABP HOWEVER HE DOES HAVE LUNG NODULES WHICH REQUIRE OUTPATIENT FOLLOW UP (FORMER SMOKER) APPEARS COMFORTABLE ON ROOM AIR WOULD COMPLETE COURSE OF TAMIFLU NEEDS PSG OUTPATIENT TO R/O OSAS GLYCEMIC CONTROL THANK YOU R YESSY HERNANDES
[2017-11-27] MEDS: LOSARTAN POTASSIUM 50 MG TABLET (FP) PO SCH (21:23)
[2017-11-27] MEDS: ATORVASTATIN CA 20 MG TABLET (FP) PO SCH (21:23)
[2017-11-27] MEDS: CEFTRIAXONE 1 G/50 ML PREMIX 50 ML IVPB SCH (21:23)
[2017-11-27] MEDS: MELATONIN 5 MG TABLETS PO PRN (21:29)
[2017-11-27] MEDS: INSULIN DETEMIR 100 UNITS/ML MDV SQ SCH (21:34)
[2017-11-27] MEDS: AZITHROMYCIN IVPB 250 ML IVPB SCH (21:36)
[2017-11-28] MEDS: HEPARIN NA (PORCINE) 5,000 UNITS/ML 1ML VIAL SQ SCH (06:06)
[2017-11-28] MEDS: INSULIN SLIDING SCALE (NOVOLOG) 1 VIAL SQ SCH ×4 (06:26→21:33)
[2017-11-28] MEDS ORDERED: PT OWN MED DRAWER 7, Y5N ONE ×2 (09:28→21:21)
--- NOTE | 2017-11-28 09:33 | PN ---
Physical Exam: SUBJECTIVE: Patient seen and examined. Pt reports weakness , mild nausea and intermittent dry cough,denies cp, sob, palpitations, abdominal pain,vomiting,diarrhea or urinary symptoms. OBJECTIVE: Vital Signs Period Temp Pulse Resp BP Sys/Alaniz Pulse Ox Last 24 Hr 98.4 F-99.3 F 78-79 18-20 122-142/65-66 95-96 GENERAL: The patient is awake, alert, and fully oriented, in no acute distress. HEAD: Normal with no signs of trauma. EYES: PERRL, extraocular movements intact, sclera anicteric, conjunctiva clear. No ptosis. ENT: Ears normal, nares patent, oropharynx clear without exudates, moist mucous membranes. NECK: Trachea midline, full range of motion, supple. LUNGS: Breath sounds equal, clear to auscultation bilaterally, no wheezes, no crackles, no accessory muscle use. HEART: Regular rate and rhythm, S1, S2 without murmur, rub or gallop. ABDOMEN: Soft, nontender, nondistended, normoactive bowel sounds, no guarding, no rebound, no hepatosplenomegaly, no masses. EXTREMITIES: 2+ pulses, warm, well-perfused, no edema. NEUROLOGICAL: Cranial nerves II through XII grossly intact. Normal speech, gait not observed. PSYCH: Normal mood, normal affect. SKIN: Warm, dry, normal turgor, no rashes or lesions noted Laboratory Results - last 24 hr 11/27/17 11/27/17 11/27/17 07:00 07:00 07:00 Sodium 134 L Potassium 3.6 Chloride 105 Carbon Dioxide 24 Anion Gap 5 L BUN 13 D Creatinine 1.0 Creat Clearance w eGFR > 60 POC Glucometer Random Glucose 163 H D Lactic Acid 1.0 Calcium 7.8 L Phosphorus 2.6 Magnesium 1.9 D Total Bilirubin 0.7 D AST 16 D ALT 23 D Alkaline Phosphatase 48 D Total Protein 5.8 L Albumin 2.9 L Lipase 342 11/27/17 11/27/17 11/28/17 16:30 21:32 06:25 Sodium Potassium Chloride Carbon Dioxide Anion Gap BUN Creatinine Creat Clearance w eGFR POC Glucometer 269 336 215 Random Glucose Lactic Acid Calcium Phosphorus Magnesium Total Bilirubin AST ALT Alkaline Phosphatase Total Protein Albumin Lipase Active Medications Generic Name Dose Route Start Last Admin Trade Name Freq PRN Reason Stop Dose Admin Acetaminophen 650 mg 11/26/17 09:44 11/27/17 21:29 Tylenol - PO 650 mg Q4H PRN Administration PAIN OR FEVER Aspirin 81 mg 11/26/17 10:00 11/27/17 10:09 Ecotrin - PO 81 mg DAILY ADALBERTO Administration Atorvastatin Calcium 20 mg 11/26/17 22:00 11/27/17 21:23 Lipitor - PO 20 mg HS ADALBERTO Administration Cholecalciferol 1,000 unit 11/26/17 10:00 11/27/17 10:10 Vitamin D3 - PO 1,000 unit DAILY ADALBERTO Administration Azithromycin 250 mls @ 250 mls/hr 11/26/17 22:00 11/27/17 21:36 Zithromax 500mg Ivpb (Pre-Docked) IVPB 250 mls/hr HS ADALBERTO Administration CEFTRIAXONE 1 G/50 ML PREMIX 50 mls @ 100 mls/hr 11/26/17 22:00 11/27/17 21: 23 Ceftriaxone 1 Gm-D5w Bag IVPB 100 mls/hr HS ADALBERTO Administration Insulin Aspart 1 vial 11/26/17 11:00 11/28/17 06:26 Novolog Vial Sliding Scale - SQ 4 units ACHS ADALBERTO Administration Protocol Insulin Detemir 60 units 11/26/17 22:00 11/27/17 21:34 Levemir Vial SQ 60 units HS ADALBERTO Administration Lactobacillus Acidophilus 1 tab 11/27/17 14:45 11/27/17 14:56 Bacid - PO 1 tab DAILY ADALBERTO Administration Losartan Potassium 100 mg 11/26/17 22:00 11/27/17 21:23 Cozaar - PO 100 mg HS ADALBERTO Administration Melatonin 5 mg 11/26/17 22:00 11/27/17 21:29 Melatonin PO 5 mg HS PRN Administration INSOMNIA Eshna-9-Zcho Ethyl Esters 2 gm 11/26/17 10:00 11/27/17 23:27 Lovaza - PO Not Given BID ADALBERTO Oseltamivir Phosphate 75 mg 11/26/17 10:00 11/27/17 21:24 Tamiflu - PO 12/01/17 09:59 75 mg BID ADALBERTO Administration Pantoprazole Sodium 40 mg 11/26/17 10:30 11/27/17 10:10 Protonix Iv IVPUSH 40 mg DAILY ADALBERTO Administration Propranolol HCl 160 mg 11/26/17 10:00 11/27/17 10:10 Inderal La - PO 160 mg DAILY ADALBERTO Administration 11/26/17 12:23 Blood - Peripheral Venous Blood Culture - Preliminary NO GROWTH OBTAINED AFTER 24 HOURS, INCUBATION TO CONTINUE FOR 4 DAYS. 11/26/17 12:17 Blood - Peripheral Venous Blood Culture - Preliminary NO GROWTH OBTAINED AFTER 24 HOURS, INCUBATION TO CONTINUE FOR 4 DAYS. 11/25/17 23:10 Urine - Urine Clean Catch Urine Culture - Preliminary Lactose Fermenting Neg Bacilli 11/25/17 23:10 Nasopharyngeal Swab Influenza Types A,B Antigen (MILIND) - Preliminary- negative IMAGING CT of chest/abd/pelvis w/o contrast: subsolid pulmonary nodules or opacities in upper lobe,measuring up to 9mm inflammatory vs infectious, follow up non contract ct in 3-6months, prostatomeglay ASSESSMENT/PLAN: The patient is a 67 y/o male with a past medical history of DM, HTN, and HLD. Patient reports ongoing general malaise and nausea since yesterday evening. Patient reports his was recently diagnosed with influenza last week. Patient does report subjective fever for the past 24 hours. 1) ID *sepsis- likely secondary to uti and PNA, + urine culture prelim, continue rocephin and zithromax, lactic acidosis resolved - leukocytosis resolved, - afebrile now - BC preliminary negative 2) PULM *pna - continue Zithromax and Rocephin - pending urine antigens -encouraged to use incentive spirometer - ct scan of chest reviewed, patient will require outpatient follow up - appreciate pulmonary input 3) GI *Pancreatitis- asymptomatic - lipase level normalized -tolerating diet 4) Cardiovascular *Hypertension- BP stable - continue losartan and propanolol 5) * DM- BS elevated - will continue on Lantus and Insulin sliding scale -checked Hgb Alc 8.4 - FS AC& HS - consistent carbohydrate diet 6) * Influenza exposed - will cont on Tamiflu * Anemia - mild drop in H/H likley dilutional - no signs of bleeding noted - will f/u on CBC * Mild hyponatremia- chronic - at baseline * HDL- will cotn on Statin * f/e/n - low sodium diet - replete magnesium ppx - heparin- discontinued, PLT level trending down - protonix - scd - oob Visit type - Emergency Visit Emergency Visit: Yes ED Registration Date: 02/15/18 Care time: The patient presented to the Emergency Department on the above date and was hospitalized for further evaluation of their emergent condition. - New Patient This patient is new to me today: Yes Date on this admission: 11/28/17 - Critical Care Critical Care patient: No - Discharge Referral Referred to [facility] Med P.C.: No
[2017-11-28] MEDS: PANTOPRAZOLE SODIUM 40 MG VIAL IVPUSH SCH (09:37)
[2017-11-28] MEDS: LACTOBACILLUS ACIDOPHILUS 1 EACH TAB (FP) PO SCH (09:39)
[2017-11-28] MEDS: ASPIRIN COATED 81 MG TABLET.EC PO SCH (09:40)
[2017-11-28] MEDS: OMEGA-3 ACID ETHYL ESTERS (FATTY-ACIDS) 1 GM CAPSULE (FP) PO SCH ×2 (09:41→21:25)
[2017-11-28] MEDS: OSELTAMIVIR PHOSPHATE 75 MG CAPSULE PO SCH ×2 (09:41→21:27)
[2017-11-28] MEDS: CHOLECALCIFEROL (VITAMIN D3) 1,000 UNIT TABLET (FP) PO SCH (09:41)
[2017-11-28] MEDS: MELATONIN 5 MG TABLETS PO PRN (21:25)
[2017-11-28] MEDS: ATORVASTATIN CA 20 MG TABLET (FP) PO SCH (21:26)
[2017-11-28] MEDS: LOSARTAN POTASSIUM 50 MG TABLET (FP) PO SCH (21:26)
[2017-11-28] MEDS: ACETAMINOPHEN 325 MG TABLET (FP) PO PRN (21:26)
[2017-11-28] MEDS: INSULIN DETEMIR 100 UNITS/ML MDV SQ SCH (21:28)
[2017-11-28] MEDS: CEFTRIAXONE 1 G/50 ML PREMIX 50 ML IVPB SCH (21:29)
[2017-11-28] MEDS: AZITHROMYCIN IVPB 250 ML IVPB SCH (21:29)
[2017-11-29] MEDS: INSULIN SLIDING SCALE (NOVOLOG) 1 VIAL SQ SCH ×4 (06:59→21:32)
[2017-11-29 08:35] LABS: BASO % 0.8 % (0-2.0); EOS % 5.6 % (0-4.5); HEMATOCRIT 33.2 % (35.4-49); HEMOGLOBIN 11.6 GM/dl (11.7-16.9); LYMPH % 29.9 % (8-40); MCH 29.7 pg (25.7-33.7); MEAN CELL VOLUME 84.9 fl (80-96); MEAN PLT VOLUME 9.9 fl (7.5-11.1); NEUT % 45.7 % (42.8-82.8); PLATELET COUNT 94 K/MM3 (134-434); RBC 3.91 M/mm3 (4.00-5.60); RDW 13.3 % (11.9-15.9); WHITE BLOOD COUNT 5.4 K/mm3 (4.0-10.8)
[2017-11-29] MEDS: PANTOPRAZOLE SODIUM 40 MG VIAL IVPUSH SCH (09:28)
[2017-11-29] MEDS: OSELTAMIVIR PHOSPHATE 75 MG CAPSULE PO SCH ×2 (09:28→21:31)
[2017-11-29] MEDS: CHOLECALCIFEROL (VITAMIN D3) 1,000 UNIT TABLET (FP) PO SCH (09:28)
[2017-11-29] MEDS: ASPIRIN COATED 81 MG TABLET.EC PO SCH (09:28)
[2017-11-29] MEDS: LACTOBACILLUS ACIDOPHILUS 1 EACH TAB (FP) PO SCH (09:29)
[2017-11-29] MEDS: OMEGA-3 ACID ETHYL ESTERS (FATTY-ACIDS) 1 GM CAPSULE (FP) PO SCH ×2 (09:29→21:31)
--- NOTE | 2017-11-29 13:45 | PN ---
Physical Exam: SUBJECTIVE: Patient seen and examined while sitting up in chair. His is at bedside. No current complaints. He said she had wheezing last evening but currently lungs clear. OBJECTIVE: Vital Signs Period Temp Pulse Resp BP Sys/Alaniz Pulse Ox Last 24 Hr 98 F-98.4 F 73-84 18-19 130-139/68-86 96-98 GENERAL: The patient is awake, alert, and fully oriented, in no acute distress. LUNGS: Breath sounds equal, clear to auscultation bilaterally, no wheezes, HEART: Regular rate and rhythm, S1, S2 without murmur, rub or gallop. ABDOMEN: Soft, nontender, nondistended, . EXTREMITIES: 2+ pulses, warm, well-perfused, no edema. NEUROLOGICAL: Cranial nerves II through XII grossly intact. Normal speech, gait not observed. PSYCH: Normal mood, normal affect. SKIN: Warm, dry, normal turgor, no rashes or lesions noted Laboratory Results - last 24 hr 11/28/17 11/28/17 11/29/17 16:09 21:30 06:16 WBC RBC Hgb Hct MCV MCH MCHC RDW Plt Count MPV Neutrophils % Lymphocytes % Monocytes % Eosinophils % Basophils % POC Glucometer 240 265 176 11/29/17 11/29/17 07:00 11:48 WBC 5.4 RBC 3.91 L Hgb 11.6 L Hct 33.2 L MCV 84.9 MCH 29.7 MCHC 35.0 RDW 13.3 Plt Count 94 L MPV 9.9 Neutrophils % 45.7 D Lymphocytes % 29.9 D Monocytes % 18.0 H D Eosinophils % 5.6 H D Basophils % 0.8 POC Glucometer 202 Active Medications Generic Name Dose Route Start Last Admin Trade Name Freq PRN Reason Stop Dose Admin Acetaminophen 650 mg 11/26/17 09:44 11/28/17 21:26 Tylenol - PO 650 mg Q4H PRN Administration PAIN OR FEVER Aspirin 81 mg 11/26/17 10:00 11/29/17 09:28 Ecotrin - PO 81 mg DAILY ADALBERTO Administration Atorvastatin Calcium 20 mg 11/26/17 22:00 11/28/17 21:26 Lipitor - PO 20 mg HS ADALBERTO Administration Cholecalciferol 1,000 unit 11/26/17 10:00 11/29/17 09:28 Vitamin D3 - PO 1,000 unit DAILY ADALBERTO Administration Azithromycin 250 mls @ 250 mls/hr 11/26/17 22:00 11/28/17 21:29 Zithromax 500mg Ivpb (Pre-Docked) IVPB 250 mls/hr HS ADALBERTO Administration CEFTRIAXONE 1 G/50 ML PREMIX 50 mls @ 100 mls/hr 11/26/17 22:00 11/28/17 21: 29 Ceftriaxone 1 Gm-D5w Bag IVPB 100 mls/hr HS ADALBERTO Administration Insulin Aspart 1 vial 11/26/17 11:00 11/29/17 11:50 Novolog Vial Sliding Scale - SQ 2 units ACHS ADALBERTO Administration Protocol Insulin Detemir 60 units 11/26/17 22:00 11/28/17 21:28 Levemir Vial SQ 60 units HS ADALBERTO Administration Lactobacillus Acidophilus 1 tab 11/27/17 14:45 11/29/17 09:29 Bacid - PO 1 tab DAILY ADALBERTO Administration Losartan Potassium 100 mg 11/26/17 22:00 11/28/17 21:26 Cozaar - PO 100 mg HS ADALBERTO Administration Melatonin 5 mg 11/26/17 22:00 11/28/17 21:25 Melatonin PO 5 mg HS PRN Administration INSOMNIA Ruxjt-1-Sxzs Ethyl Esters 2 gm 11/26/17 10:00 11/29/17 09:29 Lovaza - PO 2 gm BID ADALBERTO Administration Oseltamivir Phosphate 75 mg 11/26/17 10:00 11/29/17 09:28 Tamiflu - PO 12/01/17 09:59 75 mg BID ADALBERTO Administration Pantoprazole Sodium 40 mg 11/26/17 10:30 11/29/17 09:28 Protonix Iv IVPUSH 40 mg DAILY ADALBERTO Administration Propranolol HCl 160 mg 11/26/17 10:00 11/29/17 09:28 Inderal La - PO 160 mg DAILY ADALBERTO Administration ASSESSMENT/PLAN: The patient is a 67 y/o male with a past medical history of DM, HTN, and HLD. Patient reports ongoing general malaise and nausea prior to coming in. Patient reports his was recently diagnosed with influenza last week and he was in a crowded area of [place] where he may have contracted illness. Influenza neg on swab. 1) ID *sepsis- likely secondary to uti and PNA, + urine culture prelim, continue rocephin and zithromax, lactic acidosis resolved - leukocytosis resolved, - afebrile now - BC preliminary negative 2) PULM *pna - continue Zithromax (day 4/5) and Rocephin -encouraged to use incentive spirometer - ct scan of chest reviewed, patient will require outpatient follow up - appreciate pulmonary input 3) GI *Pancreatitis- asymptomatic resolving - lipase level normalized -tolerating diet 4) Cardiovascular *Hypertension- BP stable - continue losartan and propanolol 5) * DM- BS elevated - will continue on Lantus and Insulin sliding scale -checked Hgb Alc 8.4 - FS AC& HS 6) * Influenza exposed - tamiflu completed. 7) * UTI -Ecoli in urine -covered by rocephin as well -appreciate ID follow up * Anemia resolved - no signs of bleeding noted - will f/u on CBC * Mild hyponatremia- chronic - at baseline * HDL- will cotn on Statin * f/e/n - low sodium diet ppx - heparin- discontinued, PLT level trending down - protonix - scd - oob Dispo: continues to require inpt admission for IV antibiotics Visit type - Emergency Visit Emergency Visit: Yes ED Registration Date: 11/26/17 Care time: The patient presented to the Emergency Department on the above date and was hospitalized for further evaluation of their emergent condition. - New Patient This patient is new to me today: Yes Date on this admission: 11/29/17 - Critical Care Critical Care patient: No - Discharge Referral Referred to [facility] Med P.C.: No
[2017-11-29] MEDS ORDERED: ALBUTEROL SO4 2.5/IPRATROPIUM 0.5 INH SOL 3 ML VIAL.NEB. NEB PRN (13:54)
[2017-11-29] MEDS: TAMSULOSIN HCL 0.4 MG CAP.ER.24H (FP) PO SCH (15:06)
[2017-11-29] MEDS ORDERED: PT OWN MED DRAWER 7, Y5N ONE ×2 (21:18→21:33)
[2017-11-29] MEDS: LOSARTAN POTASSIUM 50 MG TABLET (FP) PO SCH (21:31)
[2017-11-29] MEDS: CEFTRIAXONE 1 G/50 ML PREMIX 50 ML IVPB SCH (21:31)
[2017-11-29] MEDS: ATORVASTATIN CA 20 MG TABLET (FP) PO SCH (21:31)
[2017-11-29] MEDS: INSULIN DETEMIR 100 UNITS/ML MDV SQ SCH (21:32)
[2017-11-29] MEDS: AZITHROMYCIN IVPB 250 ML IVPB SCH (22:11)
[2017-11-30] MEDS: INSULIN SLIDING SCALE (NOVOLOG) 1 VIAL SQ SCH ×4 (07:23→22:11)
[2017-11-30] MEDS: TAMSULOSIN HCL 0.4 MG CAP.ER.24H (FP) PO SCH (08:51)
[2017-11-30 09:13] LABS: ACTIVATED PTT 27.1 SECONDS (24.0-38.9)
[2017-11-30 09:18] LABS: HEMATOCRIT 36.3 % (35.4-49); HEMOGLOBIN 12.4 GM/dl (11.7-16.9); INR 1.08 (0.82-1.09); MCH 28.7 pg (25.7-33.7); MEAN CELL VOLUME 84.4 fl (80-96); MEAN PLT VOLUME 9.6 fl (7.5-11.1); PLATELET COUNT 135 K/MM3 (134-434); PROTHROMBIN TIME (PATIENT) 12.1 SEC (10.2-13.0); RBC 4.31 M/mm3 (4.00-5.60); RDW 13.3 % (11.9-15.9); WHITE BLOOD COUNT 6.2 K/mm3 (4.0-10.8)
[2017-11-30] MEDS ORDERED: PT OWN MED DRAWER 7, Y5N ONE ×4 (09:18→21:06)
[2017-11-30 09:19] LABS: ALBUMIN 3.1 g/dl (3.5-5.0); ALK PHOS 56 U/L (32-92); ANION GAP 6 (8-16); BLOOD UREA NITROGEN 13 mg/dl (7-18); CALCIUM 8.8 mg/dl (8.4-10.2); CHLORIDE 102 mmol/L (98-107); CO2 26 mmol/L (22-28); CREATININE 1.1 mg/dl (0.6-1.3); GLUCOSE,RANDOM 208 mg/dl (74-106); PHOSPHOROUS 4.2 mg/dl (2.5-4.6); POTASSIUM 4.5 mmol/L (3.5-5.1); SGOT/AST 20 U/L (10-42); SGPT/ALT 27 U/L (10-40); SODIUM 134 mmol/L (136-145); TOT PROT 6.7 g/dl (6.4-8.3)
[2017-11-30] MEDS: PANTOPRAZOLE SODIUM 40 MG VIAL IVPUSH SCH (09:26)
[2017-11-30] MEDS: OMEGA-3 ACID ETHYL ESTERS (FATTY-ACIDS) 1 GM CAPSULE (FP) PO SCH ×2 (09:27→21:28)
[2017-11-30] MEDS: CHOLECALCIFEROL (VITAMIN D3) 1,000 UNIT TABLET (FP) PO SCH (09:28)
[2017-11-30] MEDS: glipiZIDE-XL 10 MG TAB.ER.24 (FP) PO SCH ×2 (09:28→16:43)
[2017-11-30] MEDS: ASPIRIN COATED 81 MG TABLET.EC PO SCH (09:28)
[2017-11-30] MEDS: OSELTAMIVIR PHOSPHATE 75 MG CAPSULE PO SCH ×2 (09:28→21:09)
[2017-11-30] MEDS: ALBUTEROL SO4 2.5/IPRATROPIUM 0.5 INH SOL 3 ML VIAL.NEB. NEB SCH ×4 (09:29→21:08)
[2017-11-30] MEDS: LACTOBACILLUS ACIDOPHILUS 1 EACH TAB (FP) PO SCH (09:29)
[2017-11-30] MEDS: LIRAGLUTIDE 0.6 MG/0.1 ML PEN.INJCTR SQ SCH (09:30)
[2017-11-30 09:38] LABS: BILIRUBIN,TOTAL < 0.5 mg/dl (0.2-1.0)
--- NOTE | 2017-11-30 09:58 | PN ---
Progress Note, Physician History of Present Illness: PULMONARY ALERT,OOB-CHAIR,+OCC COUGH,+WHEEZES - Current Medication List Current Medications: Active Medications Acetaminophen (Tylenol -) 650 mg PO Q4H PRN PRN Reason: PAIN OR FEVER Last Admin: 11/28/17 21:26 Dose: 650 mg Albuterol/Ipratropium (Duoneb -) 1 amp NEB RQID [facility] Last Admin: 11/30/17 09:29 Dose: 1 amp Aspirin (Ecotrin -) 81 mg PO DAILY [facility] Last Admin: 11/30/17 09:28 Dose: 81 mg Atorvastatin Calcium (Lipitor -) 20 mg PO HS [facility] Last Admin: 11/29/17 21:31 Dose: 20 mg Cholecalciferol (Vitamin D3 -) 1,000 unit PO DAILY [facility] Last Admin: 11/30/17 09:28 Dose: 1,000 unit Glipizide (Glucotrol Xl -) 10 mg PO BIDI [facility] Last Admin: 11/30/17 09:28 Dose: 10 mg Azithromycin (Zithromax 500mg Ivpb (Pre-Docked)) 250 mls @ 250 mls/hr IVPB [facility] Last Admin: 11/29/17 22:11 Dose: 250 mls/hr CEFTRIAXONE 1 G/50 ML PREMIX (Ceftriaxone 1 Gm-D5w Bag) 50 mls @ 100 mls/hr IVPB [facility] Last Admin: 11/29/17 21:31 Dose: 100 mls/hr Insulin Aspart (Novolog Vial Sliding Scale -) 1 vial SQ ACHS [facility] PRN Reason: Protocol Last Admin: 11/30/17 07:23 Dose: 4 units Insulin Detemir (Levemir Vial) 60 units SQ HS [facility] Last Admin: 11/29/17 21:32 Dose: 60 units Lactobacillus Acidophilus (Bacid -) 1 tab PO DAILY [facility] Last Admin: 11/30/17 09:29 Dose: 1 tab Liraglutide (Victoza -) 1.8 mg SQ AM [facility] Last Admin: 11/30/17 09:30 Dose: 1.8 mg Losartan Potassium (Cozaar -) 100 mg PO HS [facility] Last Admin: 11/29/17 21:31 Dose: 100 mg Melatonin (Melatonin) 5 mg PO HS PRN PRN Reason: INSOMNIA Last Admin: 11/28/17 21:25 Dose: 5 mg Non-Formulary Medication (Alogliptin Niles/Metformin Hcl [Kazano 12.5-1,000 Mg Tablet]) 1 each PO BID [facility] [place]-[place] Ethyl Esters (Lovaza -) 2 gm PO BID [facility] Last Admin: 11/30/17 09:27 Dose: 2 gm Oseltamivir Phosphate (Tamiflu -) 75 mg PO BID [facility] Stop: 12/01/17 09:59 Last Admin: 11/30/17 09:28 Dose: 75 mg Pantoprazole Sodium (Protonix Iv) 40 mg IVPUSH DAILY [facility] Last Admin: 11/30/17 09:26 Dose: 40 mg Propranolol HCl (Inderal La -) 160 mg PO DAILY [facility] Last Admin: 11/30/17 09:28 Dose: 160 mg Tamsulosin HCl (Flomax -) 0.4 mg PO DAILY@0830 [facility] Last Admin: 11/30/17 08:51 Dose: 0.4 mg - Objective Vital Signs: Vital Signs Temperature 97.8 F 11/30/17 06:00 Pulse Rate 69 11/30/17 06:00 Respiratory Rate 18 11/30/17 07:55 Blood Pressure 158/80 11/30/17 06:00 O2 Sat by Pulse Oximetry (%) 97 11/30/17 07:55 Constitutional: Yes: Well Nourished, Calm Eyes: Yes: WNL HENT: Yes: WNL Neck: Yes: WNL Cardiovascular: Yes: Regular Rate and Rhythm, S1, S2 Respiratory: Yes: Wheezes (FEW SCATTERED WHEEZES) Gastrointestinal: Yes: Normal Bowel Sounds, Soft Extremities: Yes: WNL Edema: No Labs: CBC, BMP 11/30/17 07:15 11/30/17 07:15 INR, PTT INR 1.08 (0.82-1.09) 11/30/17 07:15 Problem List - Problems (1) Lung nodule < 6cm on CT Code(s): R91.1 - SOLITARY PULMONARY NODULE Assessment/Plan Problem List - Problems (1) Diabetes Code(s): E11.9 - TYPE 2 DIABETES MELLITUS WITHOUT COMPLICATIONS (2) Fever Code(s): R50.9 - FEVER, UNSPECIFIED (3) Hypertension Code(s): I10 - ESSENTIAL (PRIMARY) HYPERTENSION (4) UTI (urinary tract infection) Code(s): N39.0 - URINARY TRACT INFECTION, SITE NOT SPECIFIED 6 BRONCHOSPASM Assessment/Plan ANTIBIOTICS CT CHEST OFFERS NO EVIDENCE OF CABP HOWEVER HE DOES HAVE LUNG NODULES WHICH REQUIRE OUTPATIENT FOLLOW UP (FORMER SMOKER) INHALED BRONCHODILATORS WOULD COMPLETE COURSE OF TAMIFLU NEEDS PSG OUTPATIENT TO R/O [facility] GLYCEMIC CONTROL DR ANTONIO
--- NOTE | 2017-11-30 10:19 | PN ---
Physical Exam: SUBJECTIVE: Patient seen and examined, patient reports ongoing cough, denies any chest pain or shortness of breath. OBJECTIVE:patient is a 67 y/o male with a past medical history of DM, HTN, and HLD. patient was admitted from the emergency department for emergent condition. Vital Signs Period Temp Pulse Resp BP Sys/Alaniz Pulse Ox Last 24 Hr 97.6 F-98.3 F 69-71 18-19 141-158/71-80 96-98 GENERAL: The patient is awake, alert, and fully oriented, in no acute distress. LUNGS: Breath sounds equal, course rhonchi bilaterally to apexes, diminished to bases, no wheezes, HEART: Regular rate and rhythm, S1, S2 without murmur, rub or gallop. ABDOMEN: Soft, nontender, nondistended, . EXTREMITIES: 2+ pulses, warm, well-perfused, no edema. NEUROLOGICAL: Cranial nerves II through XII grossly intact. Normal speech, gait not observed. PSYCH: Normal mood, normal affect. SKIN: Warm, dry, normal turgor, no rashes or lesions noted Laboratory Results - last 24 hr 11/29/17 11/29/17 11/29/17 11:48 17:06 21:22 WBC RBC Hgb Hct MCV MCH MCHC RDW Plt Count MPV PT with INR INR PTT (Actin FS) Sodium Potassium Chloride Carbon Dioxide Anion Gap BUN Creatinine Creat Clearance w eGFR POC Glucometer 202 239 311 Random Glucose Calcium Phosphorus Total Bilirubin AST ALT Alkaline Phosphatase Total Protein Albumin 11/30/17 11/30/17 11/30/17 06:27 07:15 07:15 WBC 6.2 RBC 4.31 Hgb 12.4 Hct 36.3 MCV 84.4 MCH 28.7 MCHC 34.0 RDW 13.3 Plt Count 135 D MPV 9.6 PT with INR 12.1 INR 1.08 PTT (Actin FS) 27.1 Sodium Potassium Chloride Carbon Dioxide Anion Gap BUN Creatinine Creat Clearance w eGFR POC Glucometer 230 Random Glucose Calcium Phosphorus Total Bilirubin AST ALT Alkaline Phosphatase Total Protein Albumin 11/30/17 07:15 WBC RBC Hgb Hct MCV MCH MCHC RDW Plt Count MPV PT with INR INR PTT (Actin FS) Sodium 134 L Potassium 4.5 D Chloride 102 Carbon Dioxide 26 Anion Gap 6 L BUN 13 Creatinine 1.1 Creat Clearance w eGFR > 60 POC Glucometer Random Glucose 208 H D Calcium 8.8 Phosphorus 4.2 D Total Bilirubin < 0.5 D AST 20 D ALT 27 Alkaline Phosphatase 56 Total Protein 6.7 Albumin 3.1 L Active Medications Generic Name Dose Route Start Last Admin Trade Name Freq PRN Reason Stop Dose Admin Acetaminophen 650 mg 11/26/17 09:44 11/28/17 21:26 Tylenol - PO 650 mg Q4H PRN Administration PAIN OR FEVER Albuterol/Ipratropium 1 amp 11/30/17 08:45 11/30/17 09:29 Duoneb - NEB 1 amp RQID [facility] Administration Aspirin 81 mg 11/26/17 10:00 11/30/17 09:28 Ecotrin - PO 81 mg DAILY [facility] Administration Atorvastatin Calcium 20 mg 11/26/17 22:00 11/29/17 21:31 Lipitor - PO 20 mg HS [facility]O Administration Budesonide/Formoterol Fumarate 2 puff 11/30/17 10:15 Symbicort 160/4.5mcg - IH BID [facility]O Cholecalciferol 1,000 unit 11/26/17 10:00 11/30/17 09:28 Vitamin D3 - PO 1,000 unit DAILY [facility] Administration Glipizide 10 mg 11/30/17 09:30 11/30/17 09:28 Glucotrol Xl - PO 10 mg BIDI [facility] Administration Azithromycin 250 mls @ 250 mls/hr 11/26/17 22:00 11/29/17 22:11 Zithromax 500mg Ivpb (Pre-Docked) IVPB 250 mls/hr HS [facility] Administration CEFTRIAXONE 1 G/50 ML PREMIX 50 mls @ 100 mls/hr 11/26/17 22:00 11/29/17 21: 31 Ceftriaxone 1 Gm-D5w Bag IVPB 100 mls/hr HS [facility] Administration Insulin Aspart 1 vial 11/26/17 11:00 11/30/17 07:23 Novolog Vial Sliding Scale - SQ 4 units ACHS [facility] Administration Protocol Insulin Detemir 60 units 11/26/17 22:00 11/29/17 21:32 Levemir Vial SQ 60 units HS [facility] Administration Lactobacillus Acidophilus 1 tab 11/27/17 14:45 11/30/17 09:29 Bacid - PO 1 tab DAILY [facility] Administration Liraglutide 1.8 mg 11/30/17 09:30 11/30/17 09:30 Victoza - SQ 1.8 mg AM [facility] Administration Losartan Potassium 100 mg 11/26/17 22:00 11/29/17 21:31 Cozaar - PO 100 mg HS [facility] Administration Melatonin 5 mg 11/26/17 22:00 11/28/17 21:25 Melatonin PO 5 mg HS PRN Administration INSOMNIA Non-Formulary Medication 1 each 11/30/17 10:00 Alogliptin Niles/Metformin Hcl [Kazano 12.5-1,000 Mg Tablet] PO BID [facility] Hvffs-4-Jogb Ethyl Esters 2 gm 11/26/17 10:00 11/30/17 09:27 Lovaza - PO 2 gm BID [facility] Administration Oseltamivir Phosphate 75 mg 11/26/17 10:00 11/30/17 09:28 Tamiflu - PO 12/01/17 09:59 75 mg BID [facility] Administration Pantoprazole Sodium 40 mg 11/26/17 10:30 11/30/17 09:26 Protonix Iv IVPUSH 40 mg DAILY [facility] Administration Propranolol HCl 160 mg 11/26/17 10:00 11/30/17 09:28 Inderal La - PO 160 mg DAILY [facility] Administration Tamsulosin HCl 0.4 mg 11/29/17 14:00 11/30/17 08:51 Flomax - PO 0.4 mg DAILY@0830 [facility] Administration Microbiology 11/26/17 12:23 Blood - Peripheral Venous Blood Culture - Preliminary NO GROWTH OBTAINED AFTER 72 HOURS, INCUBATION TO CONTINUE FOR 2 DAYS. 11/26/17 12:17 Blood - Peripheral Venous Blood Culture - Preliminary NO GROWTH OBTAINED AFTER 72 HOURS, INCUBATION TO CONTINUE FOR 2 DAYS. 11/25/17 23:10 Urine - Urine Clean Catch Urine Culture - Final Escherichia Coli 11/27/17 16:00 Urine - Urine Clean Catch Legionella Antigen - Final, negative 11/27/17 16:00 Urine - Urine Clean Catch Streptococcus pneumoniae Antigen ( M - Final 11/25/17 23:10 Nasopharyngeal Swab Influenza Types A,B Antigen (MILIND) - Preliminary, negative 11/25/17 23:10 Nasopharyngeal Swab - Preliminary IMAGING CT of chest/abd/pelvis w/o contrast: subsolid pulmonary nodules or opacities in upper lobe,measuring up to 9mm inflammatory vs infectious, follow up non contract ct in 3-6months, prostatomeglay ASSESSMENT/PLAN: 1) ID sepsis - secondary to uti and pna, continue rocephin and zithromax - pt reports being exposed to influenza from , continue tamiflu, last dose is tomm. - pt is afebrile, no leukocytosis 2) pulm pna - continue zithromax and rocephin - rhonchin noted on exam will start scheduled combivent nebulizers and symbicort - pt will require outpatient follow in 3months for repeat ct scan - pulmonary (Vernon/Julianne consulted and following) 3) GI Pancreatitis - resolved, tolerating diet 4) Cardiovascular Hypertension - BP stable - continue losartan and propanolol 5)endo DM- BS elevated - will continue on Lantus and Insulin sliding scale, restart victoza, glibiride , and alogitipin - Hgb Alc 8.4, appreciate dietary consult - FS AC& HS 6) acute UTI -Ecoli in urine cultures sensitive to rocephin, continue - prostalomagly noted on ct scan, pt will require outpatient follow up with urologist 7) heme Anemia resolved, secondary to dilution - no signs of bleeding noted thrombocytopenia - resolved, secondary to sepsis f/e/n - low sodium diet ppx - heparin- discontinued, PLT level trending down, mechanical AC only - protonix - scd - oob Dispo: continues to require inpt admission for IV antibiotics Problem List - Problems (1) Lactic acid acidosis Code(s): E87.2 - ACIDOSIS (2) Pancreatitis Code(s): K85.90 - ACUTE PANCREATITIS WITHOUT NECROSIS OR INFECTION, UNSP Qualifiers: Chronicity: acute (3) Hypertension Code(s): I10 - ESSENTIAL (PRIMARY) HYPERTENSION Visit type - Emergency Visit Emergency Visit: Yes ED Registration Date: 11/26/17 Care time: The patient presented to the Emergency Department on the above date and was hospitalized for further evaluation of their emergent condition. - New Patient This patient is new to me today: No - Critical Care Critical Care patient: No - Discharge Referral Referred to [facility] No
[2017-11-30] MEDS: BUDESONIDE/FORMETEROL FUMARATE 160/4.5 mcg INHALER IH SCH ×2 (10:35→22:12)
[2017-11-30] MEDS: ALOGLIPTIN BENZ PO SCH (16:45)
[2017-11-30] MEDS: METFORMIN HCL PO SCH (16:45)
[2017-11-30] MEDS: [UNRECOGNIZED DRUG - OTHER] PO SCH (16:45)
[2017-11-30] MEDS: LOSARTAN POTASSIUM 50 MG TABLET (FP) PO SCH (21:09)
[2017-11-30] MEDS: ATORVASTATIN CA 20 MG TABLET (FP) PO SCH (21:09)
[2017-11-30] MEDS: MELATONIN 5 MG TABLETS PO PRN (22:11)
[2017-11-30] MEDS: INSULIN DETEMIR 100 UNITS/ML MDV SQ SCH (22:11)
[2017-11-30] MEDS: CEFTRIAXONE 1 G/50 ML PREMIX 50 ML IVPB SCH (22:11)
[2017-11-30] MEDS: AZITHROMYCIN IVPB 250 ML IVPB SCH (22:12)
[2017-12-01] MEDS ORDERED: PT OWN MED DRAWER 7, Y5N ONE ×2 (06:09→08:45)
[2017-12-01] MEDS: glipiZIDE-XL 10 MG TAB.ER.24 (FP) PO SCH (06:10)
[2017-12-01] MEDS: INSULIN SLIDING SCALE (NOVOLOG) 1 VIAL SQ SCH (06:10)
[2017-12-01] MEDS: LIRAGLUTIDE 0.6 MG/0.1 ML PEN.INJCTR SQ SCH (06:10)
--- NOTE | 2017-12-01 07:38 | PN ---
Progress Note, Physician History of Present Illness: pulmonary alert,no distress,min cough,-sob,-wheezes - Current Medication List Current Medications: Active Medications Acetaminophen (Tylenol -) 650 mg PO Q4H PRN PRN Reason: PAIN OR FEVER Last Admin: 11/28/17 21:26 Dose: 650 mg Albuterol/Ipratropium (Duoneb -) 1 amp NEB RQID [facility] Last Admin: 11/30/17 21:08 Dose: 1 amp Aspirin (Ecotrin -) 81 mg PO DAILY [facility] Last Admin: 11/30/17 09:28 Dose: 81 mg Atorvastatin Calcium (Lipitor -) 20 mg PO [facility] Last Admin: 11/30/17 21:09 Dose: 20 mg Budesonide/Formoterol Fumarate (Symbicort 160/4.5mcg -) 2 puff IH BID [facility] Last Admin: 11/30/17 22:12 Dose: 2 puff Cholecalciferol (Vitamin D3 -) 1,000 unit PO DAILY [facility] Last Admin: 11/30/17 09:28 Dose: 1,000 unit Glipizide (Glucotrol Xl -) 10 mg PO BIDI [facility] Last Admin: 12/01/17 06:10 Dose: 10 mg Azithromycin (Zithromax 500mg Ivpb (Pre-Docked)) 250 mls @ 250 mls/hr IVPB [facility] Last Admin: 11/30/17 22:12 Dose: 250 mls/hr CEFTRIAXONE 1 G/50 ML PREMIX (Ceftriaxone 1 Gm-D5w Bag) 50 mls @ 100 mls/hr IVPB [facility] Last Admin: 11/30/17 22:11 Dose: 100 mls/hr Insulin Aspart (Novolog Vial Sliding Scale -) 1 vial SQ ACHS [facility] PRN Reason: Protocol Last Admin: 12/01/17 06:10 Dose: 2 units Insulin Detemir (Levemir Vial) 60 units SQ [facility] Last Admin: 11/30/17 22:11 Dose: 60 units Lactobacillus Acidophilus (Bacid -) 1 tab PO DAILY [facility] Last Admin: 11/30/17 09:29 Dose: 1 tab Liraglutide (Victoza -) 1.8 mg SQ AM [facility] Last Admin: 12/01/17 06:10 Dose: 1.8 mg Losartan Potassium (Cozaar -) 100 mg PO [facility] Last Admin: 11/30/17 21:09 Dose: 100 mg Melatonin (Melatonin) 5 mg PO HS PRN PRN Reason: INSOMNIA Last Admin: 11/30/17 22:11 Dose: 5 mg Non-Formulary Medication (Alogliptin Niles/Metformin Hcl [Kazano 12.5-1,000 Mg Tablet]) 1 each PO BIDWM [facility] Last Admin: 11/30/17 16:45 Dose: 1 each Pfivd-5-Asdt Ethyl Esters (Lovaza -) 2 gm PO BID [facility] Last Admin: 11/30/17 21:28 Dose: 2 gm Oseltamivir Phosphate (Tamiflu -) 75 mg PO BID [facility] Stop: 12/01/17 09:59 Last Admin: 11/30/17 21:09 Dose: 75 mg Pantoprazole Sodium (Protonix Iv) 40 mg IVPUSH DAILY [facility] Last Admin: 11/30/17 09:26 Dose: 40 mg Propranolol HCl (Inderal La -) 160 mg PO DAILY [facility] Last Admin: 11/30/17 09:28 Dose: 160 mg Tamsulosin HCl (Flomax -) 0.4 mg PO DAILY@0830 [facility] Last Admin: 11/30/17 08:51 Dose: 0.4 mg - Objective Vital Signs: Vital Signs Temperature 98.1 F 12/01/17 06:12 Pulse Rate 78 12/01/17 06:12 Respiratory Rate 20 12/01/17 06:12 Blood Pressure 134/95 12/01/17 06:12 O2 Sat by Pulse Oximetry (%) 98 12/01/17 06:12 Constitutional: Yes: Well Nourished, Calm Eyes: Yes: WNL HENT: Yes: WNL Neck: Yes: WNL Cardiovascular: Yes: Regular Rate and Rhythm, S1, S2 Respiratory: Yes: CTA Bilaterally Gastrointestinal: Yes: Normal Bowel Sounds, Soft Extremities: Yes: WNL Edema: No Labs: CBC, BMP Problem List - Problems (1) Lung nodule < 6cm on CT Code(s): R91.1 - SOLITARY PULMONARY NODULE Assessment/Plan Problem List - Problems (1) Diabetes Code(s): E11.9 - TYPE 2 DIABETES MELLITUS WITHOUT COMPLICATIONS (2) Fever Code(s): R50.9 - FEVER, UNSPECIFIED (3) Hypertension Code(s): I10 - ESSENTIAL (PRIMARY) HYPERTENSION (4) UTI (urinary tract infection) Code(s): N39.0 - URINARY TRACT INFECTION, SITE NOT SPECIFIED 6 BRONCHOSPASM Assessment/Plan ANTIBIOTICS CT CHEST OUTPATIENT INHALED BRONCHODILATORS NEEDS PSG OUTPATIENT TO R/O [facility] PFTS OUTPATIENT DR ANTONIO
[2017-12-01] MEDS: ALBUTEROL SO4 2.5/IPRATROPIUM 0.5 INH SOL 3 ML VIAL.NEB. NEB SCH (08:46)
[2017-12-01] MEDS: TAMSULOSIN HCL 0.4 MG CAP.ER.24H (FP) PO SCH (08:50)
[2017-12-01] MEDS: ALOGLIPTIN BENZ PO SCH (08:52)
[2017-12-01] MEDS: METFORMIN HCL PO SCH (08:52)
[2017-12-01] MEDS: [UNRECOGNIZED DRUG - OTHER] PO SCH (08:52)
--- NOTE | 2017-12-01 09:49 | DS ---
Physical Examination Vital Signs: Vital Signs Temperature 98.1 F 12/01/17 06:12 Pulse Rate 78 12/01/17 06:12 Respiratory Rate 20 12/01/17 06:12 Blood Pressure 134/95 12/01/17 06:12 O2 Sat by Pulse Oximetry (%) 98 12/01/17 06:12 Labs: CBC, BMP 11/30/17 07:15 11/30/17 07:15 Discharge Summary Reason For Visit: FEVER Current Active Problems Diabetes (Acute) Fever (Acute) Hypertension (Acute) Lactic acid acidosis (Acute) Lung nodule < 6cm on CT (Acute) Pancreatitis (Acute) Hospital Course: Presumed influenza ( with recent influenza) Condition: Improved - Instructions Diet, Activity, Other Instructions: Please return to the ED with new, persistent, or worsening symptoms. Please follow-up with providers as indicated. 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 Maciel within 2-3 days for further evaluation of your prostamegaly and for PSA testing) Rafael Zarate MD [Staff Physician] - (Please follow-up with surgery within 2- 3 weeks for a surgical evaluation of your right inguinal hernia) Jas Garrido MD [Staff Physician] - (Please follow-up with Dr. Garrido within 1 week to schedule your outpatient colonoscopy) Disposition: HOME - Home Medications Comprehensive Discharge Medication List: Ambulatory Orders Cholecalciferol (Vitamin D3) [Vitamin D3] 1,000 unit PO DAILY tablet 12/01/13 Glipizide [Glipizide ER] 10 mg PO BID tablet 12/02/16 Aspirin [Ecotrin] 81 mg PO DAILY 01/19/17 Insulin Glargine,Hum.rec.anlog [Lantus Solostar PEN -] 60 units SQ HS 01/19/17 [place]-3 Acid Ethyl Esters [Lovaza] 2 gm PO BID 01/19/17 Acetaminophen [Tylenol .Regular Strength -] 650 mg PO Q4H PRN tablet 12/01/17 Albuterol 2.5/Ipratropium 0.5 [Duoneb -] 1 amp NEB Q6H PRN #120 amp 12/01/17 Albuterol Sulfate Inhaler - [Ventolin HFA Inhaler -] 1 - 2 inh PO QID PRN #1 inhaler 12/01/17 Budesonide/Formeterol Fumarate [SYMBICORT 160/4.5mcg -] 2 puff IH BID #1 inhaler 12/01/17 Cefuroxime Axetil [Ceftin -] 500 mg PO Q12H #4 tablet 12/01/17 Lactobacillus Acidophilus [Bacid -] 1 tab PO DAILY #30 tab 12/01/17 Nebulizer [Aeroeclipse II] 1 each [facility] ASDIR PRN #1 each 12/01/17 Tamsulosin HCl [Flomax -] 0.4 mg PO DAILY@0830 #30 cap.er.24h 12/01/17 - Discharge Referral Referred to [facility] No
[2017-12-01] MEDS: ASPIRIN COATED 81 MG TABLET.EC PO SCH (10:23)
[2017-12-01] MEDS: PANTOPRAZOLE SODIUM 40 MG VIAL IVPUSH SCH (10:23)
[2017-12-01] MEDS: LACTOBACILLUS ACIDOPHILUS 1 EACH TAB (FP) PO SCH (10:23)
[2017-12-01] MEDS: OMEGA-3 ACID ETHYL ESTERS (FATTY-ACIDS) 1 GM CAPSULE (FP) PO SCH (10:23)
[2017-12-01] MEDS: BUDESONIDE/FORMETEROL FUMARATE 160/4.5 mcg INHALER IH SCH (10:24)
[2017-12-01] MEDS: CHOLECALCIFEROL (VITAMIN D3) 1,000 UNIT TABLET (FP) PO SCH (10:24)
[2017-12-01 10:25] VITALS: BP 143/83; PULSE 94; TEMP 98.3
== END 2017-12-01 11:33 | disposition home or self-care (01) | DRG 871 ==
LOC: FER 22:40 → FM/S 11-26 00:54
PROVIDERS: ADMIT Internal Medicine; ATTEND Registered Nurse
DX: A41.9 Sepsis, unspecified organism (principal); K85.90 Acute pancreatitis without necrosis or infection, unspecified; J18.9 Pneumonia, unspecified organism; J98.11 Atelectasis; E87.2 Acidosis; N39.0 Urinary tract infection, site not specified; E87.1 Hypo-osmolality and hyponatremia; E11.9 Type 2 diabetes mellitus without complications; I10 Essential (primary) hypertension; E78.5 Hyperlipidemia, unspecified; M79.1 Myalgia; I25.10 Atherosclerotic heart disease of native coronary artery without angina pectoris; J45.909 Unspecified asthma, uncomplicated; E66.8 Other obesity; Z68.37 Body mass index [BMI] 37.0-37.9, adult; B96.20 Unspecified Escherichia coli [E. coli] as the cause of diseases classified elsewhere; K57.90 Diverticulosis of intestine, part unspecified, without perforation or abscess without bleeding; D64.9 Anemia, unspecified; D69.6 Thrombocytopenia, unspecified; R91.1 Solitary pulmonary nodule; Z87.891 Personal history of nicotine dependence; Z87.442 Personal history of urinary calculi
CPT/HCPCS: 36415; 71045-TC-FY; 71250-TC; 74176-TC; 80048; 80053; 80061; 80076; 81003; 81015; 82150; 82550; 82962; 83036; 83605; 83690; 83721; 83735; 84100; 84484; 85025; 85027; 85610; 85730; 87040; 87086; 87186; 87804; 87899; 93005; 94010; 94640; 99283-25; J1644

== ENCOUNTER 2018-03-02 20:54 | Inpatient (IN) | payer OTHER ==
[2018-03-02] MEDS ORDERED: HEMOQUE TEST 1 EACH EACH ONE (21:08)
--- NOTE | 2018-03-02 21:18 | PDOC ---
History of Present Illness - General History Source: Patient, Significant Other, Spouse, Old Records Exam Limitations: No Limitations - History of Present Illness Initial Comments: 03/02/18 21:51 The patient is a 67 year old male, accompanied by , with a past medical history of hypertension, diabetes, and diverticulitis who presents to the emergency department with headache, fever, and nausea, since this afternoon. The patient reports that his symptoms began as a headache then progressed to fever and nausea with associated vomiting, weakness, and chills. The patients reports a home temperature of 100.9 and notes that she gave the patient 2 Tylenol at 7:30. The patients states that he started vomiting 15 minutes prior to arrival and has had 3 episodes of vomiting since. In the emergency department, patient was found to have a temperature of 102.9. BRYANT has resolved on ED presentation. He denies abdominal pain, chest pain, shortness of breath, and difficulty breathing He denies sore throat, cough, and recent sick contacts. <Orlin Garcia - Last Filed: 03/02/18 21:50> <Heidy Quintanilla - Last Filed: 03/03/18 02:13> - General Chief Complaint: Nausea/Vomiting Stated Complaint: NAUSEA & VOMITING Time Seen by Provider: 03/02/18 21:00 Past History <Orlin Garcia - Last Filed: 03/02/18 21:50> - Past Medical History Anemia: No Asthma: Yes Cancer: No Cardiac Disorders: Yes (CAD,PALPITATIONS,NUCLEAR STRESS 01/26 NEGATIVE) CVA: No COPD: No CHF: No Dementia: No Diabetes: Yes (DX 1997) GI Disorders: Yes (DIVERTICULOSIS/DIVERTICULITIS) Disorders: Yes (KIDNEY STONES-LAST 01/2012) HTN: Yes (DX ) Hypercholesterolemia: Yes (DIET CONTROLLED) Kidney Stones: Yes Liver Disease: No Seizures: No Thyroid Disease: No - Surgical History Abdominal Surgery: No Appendectomy: No Cardiac Surgery: No Cholecystectomy: No Lung Surgery: No Neurologic Surgery: No Orthopedic Surgery: Yes (RIGHT KNEE AND RIGHT ACHILLES TENDON) - Immunization History Immunization Up to Date: Yes - Suicide/Smoking/Psychosocial Hx Smoking Status: Yes Smoking History: Former smoker Have you smoked in the past 12 months: No Number of Cigarettes Smoked Daily: 0 If you are a former smoker, when did you quit?: 2006 Cigars Per Day: 0 Hx Alcohol Use: No Drug/Substance Use Hx: No Substance Use Type: None Hx Substance Use Treatment: No <Heidy Quintanilla - Last Filed: 03/03/18 02:13> - Past Medical History Allergies/Adverse Reactions: Allergies Allergy/AdvReac Type Severity Reaction Status Date / Time No Known Allergies Allergy Verified 01/23/17 08:21 Home Medications: Ambulatory Orders Cholecalciferol (Vitamin D3) [Vitamin D3] 1,000 unit PO DAILY tablet 12/01/13 Glipizide [Glipizide ER] 10 mg PO BID tablet 12/02/16 Aspirin [Ecotrin] 81 mg PO DAILY 01/19/17 Insulin Glargine,Hum.rec.anlog [Lantus Solostar PEN -] 70 units SQ HS 01/19/17 [place]-3 Acid Ethyl Esters [Lovaza] 2 gm PO BID 01/19/17 Acetaminophen [Tylenol .Regular Strength -] 650 mg PO Q4H PRN tablet 12/01/17 Famotidine 30 mg PO DAILY 03/02/18 Tamsulosin HCl [Flomax -] 0.4 mg PO PRN 03/02/18 Review of Systems - Review of Systems Able to Perform ROS?: Yes Comments:: 03/02/18 21:51 See HPI. All other systems reviewed and unremarkable <Orlin Garcia - Last Filed: 03/02/18 21:50> *Physical Exam - Physical Exam Comments: 03/02/18 21:51 GENERAL: pale, ill-appearing, A&O x 3 HEENT: EOMI, WAYNE MMM, OP WNL NECK: NCAT, no midline cervical tenderness, no meningismus CARDIOVASCULAR: RRR, nl s1/s2, no m/r/g LUNGS: CTABL, no w/r/r ABDOMEN: Soft, NTND, BS WNL EXTREMITIES: No edema, WWP, no rash NEURO: Neuro grossly intact, gait WNL, moving all 4. A&O x 3, mood/affect WNL. SKIN: Warm, Dry, normal turgor, no rashes or lesions noted. <Orlin Garcia - Last Filed: 03/02/18 21:50> Heart Score/ECG Review #1 Compared to previous ECG there are: No significant change 03/02/18 21:57 S.tachy at 109, otherwise nonischemic. <Heidy Quintanilla - Last Filed: 03/03/18 02:13> ED Treatment Course - LABORATORY CBC & Chemistry Diagram: 03/02/18 21:35 03/02/18 21:35 - ADDITIONAL ORDERS Additional order review: 03/03/18 02:10 Laboratory Tests 03/02/18 03/02/18 03/02/18 21:35 21:35 23:20 Lactic Acid 4.3 H* Total Bilirubin 0.6 AST 30 ALT 34 Alkaline Phosphatase 76 Troponin I Lipase 880 H Acetone, Qual Negative 03/03/18 00:50 Lactic Acid Total Bilirubin AST ALT Alkaline Phosphatase Troponin I < 0.02 Lipase Acetone, Qual Elevated lactate w/ normal pH 7.38 Lipase 880 AG neg, ketones neg, no e/o DKA. Trop neg x 2. - RADIOLOGY Chest X-Ray Result: No Infiltrates <Heidy Quintanilla - Last Filed: 03/03/18 02:13> Medical Decision Making - Medical Decision Making 03/02/18 21:51 Documentation prepared by Orlin Garcia, acting as medical technologist hematology for Heidy Quintanilla MD. <Orlin Garcia - Last Filed: 03/02/18 21:50> - Medical Decision Making 03/03/18 02:12 Acute pancreatitis w/ fever, elevated lactate, lipase 880 trop neg x 2, ekg nonischemic symptoms improving w/ abx, temp control, ivf, antiemetics. P: CTAP trend lactate admit <Heidy Quintanilla - Last Filed: 03/03/18 02:13> *DC/Admit/Observation/Transfer <Orlin Garcia - Last Filed: 03/02/18 21:50> - Discharge Dispostion Decision to Admit order: Yes Decision to Admit order Date/Time: 03/02/18 23:52 fever improved 100.3F after IV tylenol no more vomiting, pt persists to feel unwell tachycaridia and mild hypoxia persist. Lactate > 4 given broad spectum abx. pending ua, repeat tn/lactate/vbg. <Heidy Quintanilla - Last Filed: 03/03/18 02:13> - Discharge Dispostion Condition at time of disposition: Good - Referrals Referrals: Farhad Maciel MD [Primary Care Provider] - - Patient Instructions - Post Discharge Activity
[2018-03-02] MEDS ORDERED: SODIUM CHLORIDE 1,000 ML IV STA (21:21)
[2018-03-02] MEDS ORDERED: ONDANSETRON 4 MG/2 ML VIAL IVPUSH ONE (21:21)
[2018-03-02] MEDS ORDERED: ACETAMINOPHEN 1000 MG/100 ML VIAL (NON FORMULARY) IVPB ONE (21:22)
[2018-03-02] MEDS ORDERED: FAMOTIDINE IV 20 MG/12 ML VIAL IVPUSH ONE (21:22)
[2018-03-02] MEDS ORDERED: ONDANSETRON 4 MG/2 ML VIAL ONE (21:24)
[2018-03-02] MEDS ORDERED: ACETAMINOPHEN INJECTION 100 ML IVPB ONE (21:25)
[2018-03-02] MEDS ORDERED: FAMOTIDINE 20 MG/50 ML IVPB 20 MG/50 ML MG IVPB ONE (21:56)
[2018-03-02] MEDS ORDERED: PIPERACILLIN/TAZOB 4.5 GM 4.5 GM in DEXTROSE 5%-WATER 100 ML IVPB ONE (22:18)
[2018-03-02 22:19] LABS: BASO % 0.5 % (0-2.0); EOS % 2.4 % (0-4.5); HEMATOCRIT 45.6 % (35.4-49); HEMOGLOBIN 15.3 GM/dl (11.7-16.9); LYMPH % 8.3 % (8-40); MCH 28.4 pg (25.7-33.7); MCHC 33.5 g/dl (32.0-35.9); MEAN CELL VOLUME 84.7 fl (80-96); MEAN PLT VOLUME 9.8 fl (7.5-11.1); MONO % 0.9 % (3.8-10.2); NEUT % 87.9 % (42.8-82.8); PLATELET COUNT 182 K/MM3 (134-434); RBC 5.39 M/mm3 (4.00-5.60); RDW 13.8 % (11.9-15.9); WHITE BLOOD COUNT 6.8 K/mm3 (4.0-10.8)
[2018-03-02] MEDS ORDERED: VANCOMYCIN 1,000 MG in DEXTROSE 5%-WATER - 250 ML IVPB ONE (22:20)
[2018-03-02 22:30] LABS: ACTIVATED PTT 22.3 SECONDS (24.0-38.9)
[2018-03-02] MEDS ORDERED: SODIUM CHLORIDE 0.9% 500 ML INFUS.BAG IV ONE (22:30)
[2018-03-02 22:34] LABS: ALBUMIN 3.9 g/dl (3.5-5.0); ALK PHOS 76 U/L (32-92); ANION GAP 13 (8-16); BILIRUBIN,TOTAL 0.6 mg/dl (0.2-1.0); BLOOD UREA NITROGEN 17 mg/dl (7-18); CALCIUM 8.4 mg/dl (8.4-10.2); CHLORIDE 99 mmol/L (98-107); CO2 21 mmol/L (22-28); CREATININE 1.1 mg/dl (0.6-1.3); GLUCOSE,RANDOM 225 mg/dl (74-106); INR 1.12 (0.82-1.09); POTASSIUM 4.1 mmol/L (3.5-5.1); PROTHROMBIN TIME (PATIENT) 12.5 SEC (10.2-13.0); SGOT/AST 30 U/L (10-42); SGPT/ALT 34 U/L (10-40); SODIUM 133 mmol/L (136-145); TOT PROT 7.3 g/dl (6.4-8.3)
[2018-03-02] MEDS ORDERED: PIPERACILLIN/TAZOBACTAM 4.5 GM VIAL IVPB ONE (22:39)
[2018-03-02] MEDS ORDERED: VANCOMYCIN 1,000 MG VIAL (RESTRICTED TO ID ONLY) ONE (22:39)
[2018-03-02 22:59] LABS: VENOUS PC02 37.8 mmHg (38-52); VENOUS PH 7.37 (7.32-7.42); VENOUS PO2 34.4 mmHg (28-48)
[2018-03-02 23:01] LABS: ACETONE SERUM NEGATIVE (NEGATIVE)
[2018-03-03] MEDS ORDERED: ONDANSETRON 4 MG/2 ML VIAL IVPUSH PRN (00:04)
[2018-03-03] MEDS ORDERED: ALBUTEROL SO4 0.083% IH SOL 2.5 MG/3 ML VIAL.NEB. NEB ONE (00:20)
[2018-03-03] MEDS: SODIUM CHLORIDE 1,000 ML IV SCH ×2 (01:30→09:11)
[2018-03-03 02:40] LABS: URINE APPEARANCE SLCLOUDY; URINE BILIRUBIN NEGATIVE (<2.0 mg/dL); URINE COLOR LTYELLOW; URINE GLUCOSE (UA) 3+ (NEGATIVE); URINE KETONE TRACE (NEGATIVE); URINE LEUK ESTERASE NEGATIVE (NEGATIVE); URINE NITRITE NEGATIVE (NEGATIVE); URINE PROTEIN NEGATIVE (NEGATIVE); URINE UROBILINOGEN NEGATIVE mg/dL (0.2-1.0)
[2018-03-03] MEDS ORDERED: HEMOQUE TEST 1 EACH EACH ONE (04:06)
[2018-03-03] MEDS ORDERED: INSULIN (NOVOLOG) ASPART 100 UNITS/ML 10ML VIAL ONE ×3 (04:21→16:22)
[2018-03-03] MEDS ORDERED: ACETAMINOPHEN 325 MG TABLET (FP) ONE (05:49)
[2018-03-03 07:37] LABS: ANION GAP 8 (8-16); BLOOD UREA NITROGEN 14 mg/dL (7-18); CALCIUM 7.7 mg/dL (8.5-10.1); CHLORIDE 106 mmol/L (98-107); CO2 24 mmol/L (21-32); CREATININE 1.2 mg/dL (0.7-1.3); GLUCOSE,RANDOM 181 mg/dL (74-106); PHOSPHOROUS 3.6 mg/dL (2.5-4.9); SODIUM 138 mmol/L (136-145)
[2018-03-03 07:54] LABS: LIPASE 432 U/L (73-393); MAGNESIUM 1.7 mg/dL (1.8-2.4); POTASSIUM 4.4 mmol/L (3.5-5.1)
--- NOTE | 2018-03-03 08:01 | HP ---
CHIEF COMPLAINT: nausea vomiting and fever PCP:Dr. Maciel Server Engineer: Dr. Vijay Meier HISTORY OF PRESENT ILLNESS: patient is a 67-year-old obese male, the past medical history of hypertension, coronary artery disease, insulin-dependent diabetes and BPH. Patient reports feeling tired for the past 24 hours with decreased appetite. he reports eating a ham sandwich yesterday early afternoon. He reports by yesterday evening he developed tactile fever and chills and began to vomit. As a result, he sought evaluation in the emergency department. ER course was notable for: (1) oral temperature 102.7 upon arrival to the emergency department. (2) lactic acid 4.6 (3)chest x-ray no infiltrates no effusion (4) CT of abdomen and pelvis with contrast N small hiatus hernia small to moderate fat-containing right inguinal hernia hepatosplenomegaly with fatty infiltration of liver normal-appearing pancreas without CT evidence of pancreatitis, diverticulosis coli with suggestion of thickening of the mid sigmoid colon chronic thickening vs mild diverticulitis Recent Travel:none PAST MEDICAL HISTORY: coronary artery disease, hypertension, insulin dependent diabetes, BPH, diverticulitis. PAST SURGICAL HISTORY:orthopedic surgery Social History: retired resides at home with Smoking: none Alcohol: none Drugs: none Family History: non contributory to this admission Allergies No Known Allergies Allergy (Verified 01/23/17 08:21) HOME MEDICATIONS: Home Medications Medication Instructions Recorded Cholecalciferol (Vitamin D3) 1,000 unit PO DAILY tablet 12/01/13 [Vitamin D3] Glipizide [Glipizide ER] 10 mg PO BID tablet 12/02/16 Aspirin [Ecotrin] 81 mg PO DAILY 01/19/17 Insulin Glargine,Hum.rec.anlog 70 units SQ HS 01/19/17 [Lantus Solostar PEN -] [place]-3 Acid Ethyl Esters [Lovaza] 2 gm PO BID 01/19/17 Acetaminophen [Tylenol .Regular 650 mg PO Q4H PRN tablet 12/01/17 Strength -] Famotidine 30 mg PO DAILY 03/02/18 Tamsulosin HCl [Flomax -] 0.4 mg PO PRN 03/02/18 REVIEW OF SYSTEMS CONSTITUTIONAL: Absent: fever, chills, diaphoresis, generalized weakness, malaise, loss of appetite, weight change HEENT: Absent: rhinorrhea, nasal congestion, throat pain, throat swelling, difficulty swallowing, mouth swelling, ear pain, eye pain, visual changes CARDIOVASCULAR: Absent: chest pain, syncope, palpitations, irregular heart rate, lightheadedness , peripheral edema RESPIRATORY: Absent: cough, shortness of breath, dyspnea with exertion, orthopnea, wheezing, stridor, hemoptysis GASTROINTESTINAL: Present: nausea, vomiting, Absent: abdominal pain, abdominal distension,diarrhea, constipation, melena, hematochezia GENITOURINARY: Absent: dysuria, frequency, urgency, hesitancy, hematuria, flank pain, genital pain MUSCULOSKELETAL: Absent: myalgia, arthralgia, joint swelling, back pain, neck pain SKIN: Absent: rash, itching, pallor HEMATOLOGIC/IMMUNOLOGIC: Absent: easy bleeding, easy bruising, lymphadenopathy, frequent infections ENDOCRINE: Absent: unexplained weight gain, unexplained weight loss, heat intolerance, cold intolerance NEUROLOGIC: Absent: headache, focal weakness or paresthesias, dizziness, unsteady gait, seizure, mental status changes, bladder or bowel incontinence PSYCHIATRIC: Absent: anxiety, depression, suicidal or homicidal ideation, hallucinations. PHYSICAL EXAMINATION Vital Signs - 24 hr 03/02/18 03/02/18 03/02/18 20:55 21:30 22:30 Temperature 102.9 F H Pulse Rate 116 H Pulse Rate [ 114 H 112 H Apical] Respiratory 30 H 28 H 28 H Rate Blood Pressure 143/74 Blood Pressure 157/85 119/73 [Left Arm] O2 Sat by Pulse 97 95 94 L Oximetry (%) 03/02/18 03/03/18 03/03/18 23:30 03:00 03:16 Temperature 100.9 F H 98.9 F Pulse Rate Pulse Rate [ 107 H 97 H Apical] Respiratory 26 H 22 Rate Blood Pressure Blood Pressure 111/64 118/74 [Left Arm] O2 Sat by Pulse 95 94 L Oximetry (%) 03/03/18 03/03/18 03:22 06:57 Temperature 98.9 F 98.7 F Pulse Rate 65 Pulse Rate [ 95 H Apical] Respiratory 22 19 Rate Blood Pressure 114/75 Blood Pressure 118/74 [Left Arm] O2 Sat by Pulse 94 L Oximetry (%) GENERAL: Awake, alert, and fully oriented, in no acute distress. HEAD: Normal with no signs of trauma. EYES: Pupils equal, round and reactive to light, extraocular movements intact, sclera anicteric, conjunctiva clear. No lid lag. EARS, NOSE, THROAT: Ears normal, nares patent, oropharynx clear without exudates. Moist mucous membranes. NECK: Normal range of motion, supple without lymphadenopathy, JVD, or masses. LUNGS: Breath sounds equal, clear to auscultation bilaterally. No wheezes, and no crackles. No accessory muscle use. HEART: Regular rate and rhythm, normal S1 and S2 without murmur, rub or gallop. ABDOMEN: Soft, obese, nontender, not distended, normoactive bowel sounds, no guarding, no rebound, no masses. No hepatomegaly or splenomegaly. MUSCULOSKELETAL: Normal range of motion at all joints. No bony deformities or tenderness. No CVA tenderness. UPPER EXTREMITIES: 2+ pulses, warm, well-perfused. No cyanosis. No clubbing. No peripheral edema. LOWER EXTREMITIES: 2+ pulses, warm, well-perfused. No calf tenderness. No peripheral edema. NEUROLOGICAL: Cranial nerves II-XII intact. Normal speech. Normal gait. PSYCHIATRIC: Cooperative. Good eye contact. Appropriate mood and affect. SKIN: Warm, dry, normal turgor, no rashes or lesions noted, normal capillary refill. Laboratory Results - last 24 hr 03/02/18 03/02/18 03/02/18 21:35 21:35 21:35 WBC 6.8 RBC 5.39 Hgb 15.3 D Hct 45.6 MCV 84.7 MCH 28.4 MCHC 33.5 RDW 13.8 Plt Count 182 MPV 9.8 Neutrophils % 87.9 H D Lymphocytes % 8.3 D Monocytes % 0.9 L D Eosinophils % 2.4 Basophils % 0.5 PT with INR 12.5 INR 1.12 PTT (Actin FS) 22.3 L VBG pH 7.37 POC VBG pCO2 37.8 L POC VBG pO2 34.4 Mixed VBG HCO3 21.4 Sodium Potassium Chloride Carbon Dioxide Anion Gap BUN Creatinine Creat Clearance w eGFR Random Glucose Lactic Acid Calcium Phosphorus Magnesium Total Bilirubin AST ALT Alkaline Phosphatase Creatine Kinase Troponin I Total Protein Albumin Lipase Urine Color Urine Appearance Urine pH Ur Specific [place] Urine Protein Urine Glucose (UA) Urine Ketones Urine Blood Urine Nitrite Urine Bilirubin Urine Urobilinogen Ur Leukocyte Esterase Acetone, Qual 05/22/18 05/22/18 05/22/18 21:35 21:35 21:35 WBC RBC Hgb Hct MCV MCH MCHC RDW Plt Count MPV Neutrophils % Lymphocytes % Monocytes % Eosinophils % Basophils % PT with INR INR PTT (Actin FS) VBG pH POC VBG pCO2 POC VBG pO2 Mixed VBG HCO3 Sodium 133 L Potassium 4.1 Chloride 99 Carbon Dioxide 21 L Anion Gap 13 BUN 17 D Creatinine 1.1 Creat Clearance w eGFR > 60 Random Glucose 225 H D Lactic Acid 4.3 H* Calcium 8.4 Phosphorus Magnesium Total Bilirubin 0.6 AST 30 ALT 34 Alkaline Phosphatase 76 Creatine Kinase 114 Troponin I < 0.03 Total Protein 7.3 Albumin 3.9 Lipase Urine Color Urine Appearance Urine pH Ur Specific [place] Urine Protein Urine Glucose (UA) Urine Ketones Urine Blood Urine Nitrite Urine Bilirubin Urine Urobilinogen Ur Leukocyte Esterase Acetone, Qual Negative 03/02/18 03/03/18 03/03/18 23:20 00:50 00:50 WBC RBC Hgb Hct MCV MCH MCHC RDW Plt Count MPV Neutrophils % Lymphocytes % Monocytes % Eosinophils % Basophils % PT with INR INR PTT (Actin FS) VBG pH POC VBG pCO2 POC VBG pO2 Mixed VBG HCO3 Sodium Potassium Chloride Carbon Dioxide Anion Gap BUN Creatinine Creat Clearance w eGFR Random Glucose Lactic Acid 2.6 H* Calcium Phosphorus Magnesium Total Bilirubin AST ALT Alkaline Phosphatase Creatine Kinase Troponin I < 0.02 Total Protein Albumin Lipase 880 H Urine Color Urine Appearance Urine pH Ur Specific [place] Urine Protein Urine Glucose (UA) Urine Ketones Urine Blood Urine Nitrite Urine Bilirubin Urine Urobilinogen Ur Leukocyte Esterase Acetone, Qual 03/03/18 03/03/18 02:00 06:00 WBC RBC Hgb Hct MCV MCH MCHC RDW Plt Count MPV Neutrophils % Lymphocytes % Monocytes % Eosinophils % Basophils % PT with INR INR PTT (Actin FS) VBG pH POC VBG pCO2 POC VBG pO2 Mixed VBG HCO3 Sodium 138 Potassium 4.4 Chloride 106 Carbon Dioxide 24 Anion Gap 8 BUN 14 Creatinine 1.2 Creat Clearance w eGFR Random Glucose 181 H Lactic Acid Calcium 7.7 L Phosphorus 3.6 Magnesium 1.7 L Total Bilirubin AST ALT Alkaline Phosphatase Creatine Kinase Troponin I Total Protein Albumin Lipase 432 H Urine Color Ltyellow Urine Appearance Slcloudy Urine pH 5.0 Ur Specific [place] 1.025 Urine Protein Negative Urine Glucose (UA) 3+ H Urine Ketones Trace H Urine Blood Negative Urine Nitrite Negative Urine Bilirubin Negative Urine Urobilinogen Negative Ur Leukocyte Esterase Negative Acetone, Qual ASSESSMENT/PLAN: 1) GI pancreatitis - benign abdominal exam, lipase trending downward. Pending final read of CT scan of abdomen and pelvis by radiologist. - unknown etiology, maybe secondary to victoza or kazano, appreciate GI input, Dr Garrido, patient's private social sciences instructor - continue to trend lipase nausea/vomiting - patient denies any vomiting or nausea at this time, will trial clear liquids ? diverticulitis - CT scan of abdomen and pelvis reviewed, patient reports he has a known history of diverticulitis in the past, no leukocytosis noted no abdominal pain elicited on exam 2) cardiology coronary artery diseas - troponin 2 WNL EKG sinus tachycardia nonspecific ST abnormalities unchanged from prior. - Continuous telemetry monitoring Hypertension - Continue Inderal and losartan blood pressure remains at goal strict monitoring 3) fever and lactic acidosis - Secondary to pancreatitis and hypovolemia lactic acidosis is trending downward with IV hydration - Will hold off on IV antibiotics pending urine and blood cultures - Infectious disease input appreciated f/e/n - clear liquid diet - replete magnesium ppx - oob - scd - heparin - pepcid dispo:pt requires telemetry observation Visit type - Emergency Visit Emergency Visit: Yes ED Registration Date: 03/03/18 Care time: The patient presented to the Emergency Department on the above date and was hospitalized for further evaluation of their emergent condition. - New Patient This patient is new to me today: Yes Date on this admission: 03/09/18 - Critical Care Critical Care patient: No Hospitalist Screening - Colonoscopy Questionnaire Colonoscopy Questionnaire: Colonoscopy Questionnaire - Patient: 50 - 75 years old and never had a screening colonoscopy: No History of colon or rectal polyps, or CA: No History of IBD, Crohn's disease or UC: No History of abdominal radiation therapy as a child: No - Relative: 1 with colon or rectal CA, or polyps at age 60 or younger: No Colon or rectal CA diagnosed at age 45 or younger: No Multiple relatives with colon or rectal CA: No - Outcome: Screening Result: Negative Screen
[2018-03-03] MEDS ORDERED: MAGNESIUM SULF 50% (8.12 MEQ/2 ML-1 GM VIAL) IVPB ONE (08:07)
[2018-03-03 08:39] VITALS: BMI 35.3
[2018-03-03] MEDS: INSULIN SLIDING SCALE (NOVOLOG) 1 VIAL SQ SCH ×3 (09:11→16:23)
[2018-03-03 09:24] LABS: BASO % 0.2 % (0-2.0); EOS % 0.2 % (0-4.5); HEMATOCRIT 35.1 % (35.4-49); LYMPH % 7.7 % (8-40); MCH 28.9 pg (25.7-33.7); MCHC 34.1 g/dl (32.0-35.9); MEAN CELL VOLUME 84.6 fl (80-96); MEAN PLT VOLUME 9.7 fl (7.5-11.1); MONO % 7.3 % (3.8-10.2); NEUT % 84.6 % (42.8-82.8); PLATELET COUNT 98 K/MM3 (134-434); RBC 4.16 M/mm3 (4.00-5.60); RDW 13.8 % (11.9-15.9); WHITE BLOOD COUNT 7.5 K/mm3 (4.0-10.8)
[2018-03-03 10:00] LABS: ALBUMIN 3.4 g/dl (3.5-5.0); ALK PHOS 54 U/L (32-92); BILIRUBIN,TOTAL 0.7 mg/dl (0.2-1.0); SGOT/AST 25 U/L (10-42); SGPT/ALT 27 U/L (10-40); TOT PROT 6.3 g/dl (6.4-8.3)
--- NOTE | 2018-03-03 10:03 | PN ---
Progress Note (short form) - Note Progress Note: ID consult dictated High grade fever, chills, N/V , lactic acidosis, elevated lipase ? sepsis secondary to GI focus Await c/s Continue zosyn GI evaluation/ follow up
[2018-03-03 10:15] LABS: BILIRUBIN,DIRECT < 0.2 mg/dL (0.0-0.3)
[2018-03-03] MEDS: PIPERACILLIN/TAZOB 3.375 GM 3.375 GM/50 ML BAG IVPB SCH ×2 (10:55→17:14)
--- NOTE | 2018-03-03 11:13 | EKG ---
Test Reason : Blood Pressure : / mmHG Vent. Rate : 109 BPM Atrial Rate : 109 BPM P-R Int : 150 ms QRS Dur : 092 ms QT Int : 340 ms P-R-T Axes : 066 -35 078 degrees QTc Int : 457 ms SINUS TACHYCARDIA LEFT AXIS DEVIATION NONSPECIFIC T WAVE ABNORMALITY ABNORMAL ECG WHEN COMPARED WITH ECG OF 25-NOV-2017 23:26, NO SIGNIFICANT CHANGE WAS FOUND Confirmed by DOROTEO HERNANDES, SHYAM ([id number]) on 03/03/2018 11:13:28 AM Referred By: SHAUNA Confirmed By:SHYAM SADLER MD
[2018-03-03] MEDS ORDERED: LACTOBACILLUS ACIDOPHILUS 1 TABLET PO SCH (12:00)
[2018-03-03] MEDS ORDERED: ACETAMINOPHEN/CAFFEINE/BUTALBITAL 1 TAB PO ONE (12:00)
[2018-03-03 15:50] LABS: AMYLASE 91 U/L (25-125)
[2018-03-03 16:19] LABS: LIPASE 440 U/L (73-393)
[2018-03-03] MEDS ORDERED: OMEGA-3 ACID ETHYL ESTERS (FATTY-ACIDS) 1 GM CAPSULE (FP) PO SCH (22:00)
[2018-03-03] MEDS ORDERED: INSULIN (LEVEMIR) 100 UNITS/ML UNITS SQ SCH (22:00)
[2018-03-03] MEDS ORDERED: LOSARTAN POTASSIUM 50 MG TABLET (FP) PO SCH (22:00)
[2018-03-03] MEDS ORDERED: INSULIN SLIDING SCALE (NOVOLOG) 1 VIAL SQ SCH (22:00)
--- NOTE | 2018-03-03 22:16 | PN ---
Progress Note (short form) - Note Progress Note: Patient seen and consult dictated. Patient with recent fever ?etiology and labs show elevated serum lipase with normal amylase and LFTs. CT does not show evidence of pancreatitis and patient without abdominal pain. Clinically doubt acute pancreatitis but the elevated lipase is of note and needs to be repeated. Would begin clear liquids PO and will follow.
[2018-03-04] MEDS: PIPERACILLIN/TAZOB 3.375 GM 3.375 GM/50 ML BAG IVPB SCH (01:39)
[2018-03-04] MEDS ORDERED: INSULIN (NOVOLOG) ASPART 100 UNITS/ML 10ML VIAL ONE (06:19)
[2018-03-04] MEDS: INSULIN SLIDING SCALE (NOVOLOG) 1 VIAL SQ SCH (06:21)
[2018-03-04] MEDS ORDERED: TAMSULOSIN HCL 0.4 MG CAP.ER.24H (FP) PO SCH (08:30)
--- NOTE | 2018-03-04 08:44 | CONS ---
DATE OF CONSULTATION: 03/03/2018 REASON FOR CONSULTATION: I was asked to evaluate this 67-year-old gentleman with elevated serum lipase level and possible acute pancreatitis. HISTORY OF PRESENT ILLNESS: The patient is a 67-year-old gentleman with a past history of hypertension, diabetes, and diverticular disease. He was admitted via the emergency room with headache, fever, chills, and nausea, and a temperature at home of 100.9. In the emergency room, he was noted to have a temperature of 102.9. Since his admission, he has not had any fever, although he has been on antibiotics. He had a workup in the emergency room, which showed an elevated serum lipase level of 440 with normal liver chemistries and a normal amylase level. His white count on admission was 6.8 and hemoglobin of 15.3. His electrolytes were normal. Th patients hospital course has been notable for a CT scan of the abdomen and pelvis which did not show evidence of acute pancreatitis. Specifically, the pancreas was described as being within normal limits in size and enhancement, and the peripancreatic fat was clear. The patient has had no abdominal pain prior to or during admission. He has no prior history of pancreatitis and has currently no abdominal complaints at all. His temperature has been normal throughout. PHYSICAL EXAMINATION: General: He is a well-developed, obese gentleman with pink conjunctiva. Lungs: Clear lungs. Cardiac: Regular rate and rhythm. Abdomen: Soft, normoactive bowel sounds, and no tenderness. The patient was seen by Infectious Disease, and in view of his initial fever, chills, and elevated temperature, started on Zosyn. As mentioned, he has had no further fever, and his white count is normal. Repeat serum lipase pending, although as mentioned, his amylase level and LFTs were normal. IMPRESSION: Patient with possible viral illness versus bacterial illness seen for elevated serum lipase. This is in the setting of a normal amylase level, normal liver chemistries, and a normal CT scan with regards to the hepatobiliary system and pancreas. Unclear if this is a lab error and have suggested a repeat lipase level be obtained. In the interim, would begin patient on a clear liquid diet and monitor for any signs of abdominal pain. Will follow as needed. AGATA CONROY M.D. SCOTT/[id number]
[2018-03-04] MEDS ORDERED: PT OWN MED DRAWER 7, Y5N ONE (09:10)
[2018-03-04 09:21] LABS: ALBUMIN 3.2 g/dl (3.5-5.0); BILIRUBIN,DIRECT 0.2 mg/dL (0.0-0.3); BILIRUBIN,TOTAL 0.9 mg/dl (0.2-1.0); TOT PROT 6.4 g/dl (6.4-8.3)
--- NOTE | 2018-03-04 09:31 | PN ---
Progress Note, Physician History of Present Illness: Awake, alert Supine in bed No complaints No abdominal pain No N/V No BM Tolerating liquids Temps down Afebrile BC no growth - Current Medication List Current Medications: Active Medications Aspirin (Ecotrin -) 81 mg PO DAILY [facility] Atorvastatin Calcium (Lipitor -) 20 mg PO HS [facility] Cholecalciferol (Vitamin D3 -) 1,000 unit PO DAILY [facility] Sodium Chloride (Normal Saline -) 1,000 mls @ 125 mls/hr IV ASDIR [facility] Last Admin: 03/03/18 09:11 Dose: Not Given Piperacillin Sod/Tazobactam Sod (Zosyn 3.375gm Ivpb (Pre-Docked)) 3.375 gm in 50 mls @ 100 mls/hr IVPB Q8H-IV [facility]; Protocol Last Admin: 03/04/18 01:39 Dose: 100 mls/hr Insulin Aspart (Novolog Vial Sliding Scale -) 0 vial SQ HS [facility]; Protocol Last Admin: 03/03/18 04:30 Dose: 4 units Insulin Aspart (Novolog Vial Sliding Scale -) 0 vial SQ TIDAC [facility]; Protocol Last Admin: 03/04/18 06:21 Dose: 2 units Insulin Detemir (Levemir Vial) 70 units SQ [facility] Last Admin: 03/03/18 21:48 Dose: 70 units Lactobacillus Acidophilus (Bacid -) 1 tab PO DAILY [facility] Last Admin: 03/03/18 12:47 Dose: 1 tab Losartan Potassium (Cozaar -) 100 mg PO HS [facility] Last Admin: 03/03/18 21:48 Dose: 100 mg [id number] Ethyl Esters (Lovaza -) 2 gm PO BID [facility] Last Admin: 03/03/18 21:51 Dose: Not Given Ondansetron HCl (Zofran Injection) 4 mg IVPUSH Q6H PRN PRN Reason: NAUSEA Propranolol HCl (Inderal La -) 160 mg PO DAILY [facility] Tamsulosin HCl (Flomax -) 0.4 mg PO DAILY@0830 [facility] - Objective Vital Signs: Vital Signs Temperature 98.6 F 03/04/18 05:29 Pulse Rate 88 03/04/18 05:29 Respiratory Rate 18 03/04/18 05:29 Blood Pressure 110/73 03/04/18 05:29 O2 Sat by Pulse Oximetry (%) 95 03/04/18 05:29 Constitutional: Yes: No Distress, Obese Eyes: Yes: Conjunctiva Clear Cardiovascular: Yes: Regular Rate and Rhythm, S1, S2 Respiratory: Yes: CTA Bilaterally Gastrointestinal: Yes: Normal Bowel Sounds, Soft, Abdomen, Obese. No: Tenderness Labs: INR, PTT INR 1.12 (0.82-1.09) 03/02/18 21:35 Assessment/Plan High grade fever/ N/V / Lactic acidosis- resolved Elevated serum lipase- improved ? pancreatitis Presently pain free, afebrile, normal WBC, negative cultures D/C antibiotics, observe GI follow up
[2018-03-04] MEDS ORDERED: ASPIRIN COATED 81 MG TABLET.EC PO SCH (10:00)
[2018-03-04] MEDS ORDERED: CHOLECALCIFEROL (VITAMIN D3) 1,000 UNIT TABLET (FP) PO SCH (10:00)
[2018-03-04] MEDS ORDERED: ATORVASTATIN CA 20 MG TABLET (FP) PO SCH (10:00)
--- NOTE | 2018-03-04 10:04 | PN ---
Progress Note (short form) - Note Progress Note: Patient asymptomatic; no fever or abdominal pain. Tolerating PO liquids. Repeat lipase pending VSS Afebrile Abdomen obese +BS nontender Await repeat serum lipase; if improved/normal would advance diet and consider for discharge
[2018-03-04 10:12] LABS: BASO % 0.6 % (0-2.0); EOS % 1.9 % (0-4.5); HEMOGLOBIN 12.3 GM/dl (11.7-16.9); LYMPH % 28.5 % (8-40); MCH 29.3 pg (25.7-33.7); MEAN CELL VOLUME 83.7 fl (80-96); MEAN PLT VOLUME 9.8 fl (7.5-11.1); MONO % 17.5 % (3.8-10.2); NEUT % 51.5 % (42.8-82.8); PLATELET COUNT 93 K/MM3 (134-434); RBC 4.19 M/mm3 (4.00-5.60); RDW 13.9 % (11.9-15.9)
[2018-03-04 12:09] LABS: BLOOD UREA NITROGEN 10 mg/dl (7-18); CALCIUM 8.2 mg/dl (8.4-10.2); CHLORIDE 104 mmol/L (98-107); CO2 19 mmol/L (22-28); CREATININE 1.1 mg/dl (0.6-1.3); GLUCOSE,RANDOM 147 mg/dl (74-106); POTASSIUM 3.8 mmol/L (3.5-5.1); TOT PROT 6.5 g/dl (6.4-8.3)
[2018-03-04 12:10] LABS: ALBUMIN 3.3 g/dl (3.5-5.0); ALK PHOS 50 U/L (32-92); ANION GAP 11 (8-16); BILIRUBIN,TOTAL 0.9 mg/dl (0.2-1.0); SGOT/AST 29 U/L (10-42); SGPT/ALT 26 U/L (10-40); SODIUM 134 mmol/L (136-145)
[2018-03-04 14:24] VITALS: BP 120/63; PULSE 77; TEMP 98.3
--- NOTE | 2018-03-04 14:36 | DS ---
Physical Exam: SUBJECTIVE: Patient seen and examined OBJECTIVE: Vital Signs Period Temp Pulse Resp BP Sys/Alaniz Pulse Ox Last 24 Hr 98.3 F-98.6 F 77-88 18-19 110-120/63-73 94-95 PHYSICAL EXAM GENERAL: The patient is awake, alert, and fully oriented, in no acute distress. HEAD: Normal with no signs of trauma. EYES: PERRL, extraocular movements intact, sclera anicteric, conjunctiva clear. ENT: Ears normal, nares patent, oropharynx clear without exudates, moist mucous membranes. NECK: Trachea midline, full range of motion, supple. LUNGS: Breath sounds equal, clear to auscultation bilaterally, no wheezes, no crackles, no accessory muscle use. HEART: Regular rate and rhythm, S1, S2 without murmur, rub or gallop. ABDOMEN: Soft, nontender, nondistended, normoactive bowel sounds, no guarding, no rebound, no hepatosplenomegaly, no masses. EXTREMITIES: 2+ pulses, warm, well-perfused, no edema. NEUROLOGICAL: Cranial nerves II through XII grossly intact. Normal speech, gait not observed. PSYCH: Normal mood, normal affect. SKIN: Warm, dry, normal turgor, no rashes or lesions noted. LABS Laboratory Results - last 24 hr 03/03/18 03/03/18 03/03/18 08:00 16:16 21:35 WBC RBC Hgb Hct MCV MCH MCHC RDW Plt Count MPV Neutrophils % Lymphocytes % Monocytes % Eosinophils % Basophils % Sodium Potassium Chloride Carbon Dioxide Anion Gap BUN Creatinine Creat Clearance w eGFR POC Glucometer 166 172 Random Glucose Calcium Total Bilirubin Direct Bilirubin AST ALT Alkaline Phosphatase Total Protein Albumin Total Amylase 91 D Lipase 440 H 03/04/18 03/04/18 03/04/18 06:13 07:30 07:30 WBC 4.0 D RBC 4.19 Hgb 12.3 Hct 35.0 L MCV 83.7 MCH 29.3 MCHC 35.0 RDW 13.9 Plt Count 93 L MPV 9.8 Neutrophils % 51.5 D Lymphocytes % 28.5 D Monocytes % 17.5 H D Eosinophils % 1.9 D Basophils % 0.6 Sodium 134 L Potassium 3.8 Chloride 104 Carbon Dioxide 19 L Anion Gap 11 BUN 10 D Creatinine 1.1 Creat Clearance w eGFR > 60 POC Glucometer 159 Random Glucose 147 H D Calcium 8.2 L Total Bilirubin 0.9 D Direct Bilirubin AST 29 ALT 26 Alkaline Phosphatase 50 Total Protein 6.5 Albumin 3.3 L Total Amylase Lipase 03/04/18 08:27 WBC RBC Hgb Hct MCV MCH MCHC RDW Plt Count MPV Neutrophils % Lymphocytes % Monocytes % Eosinophils % Basophils % Sodium Potassium Chloride Carbon Dioxide Anion Gap BUN Creatinine Creat Clearance w eGFR POC Glucometer Random Glucose Calcium Total Bilirubin 0.9 Direct Bilirubin 0.2 AST 28 ALT 25 Alkaline Phosphatase 48 Total Protein 6.4 Albumin 3.2 L Total Amylase 85 Lipase 456 H HOSPITAL COURSE: Date of Admission:03/03/18 Date of Discharge: 03/04/18 Discharge Summary Reason For Visit: FEVER,SEPSIS,NAUSEA AND VOMITING Condition: Good - Instructions Referrals: Farhad Maciel MD [Staff Physician] - - Home Medications Comprehensive Discharge Medication List: Ambulatory Orders Cholecalciferol (Vitamin D3) [Vitamin D3] 1,000 unit PO DAILY tablet 12/01/13 Glipizide [Glipizide ER] 10 mg PO BID tablet 12/02/16 Aspirin [Ecotrin] 81 mg PO DAILY 01/19/17 Insulin Glargine,Hum.rec.anlog [Lantus Solostar PEN -] 70 units SQ HS 01/19/17 [place]-3 Acid Ethyl Esters [Lovaza] 2 gm PO BID 01/19/17 Acetaminophen [Tylenol .Regular Strength -] 650 mg PO Q4H PRN tablet 12/01/17 Famotidine 30 mg PO DAILY 03/02/18 Tamsulosin HCl [Flomax -] 0.4 mg PO PRN 03/02/18
== END 2018-03-04 04:30 | disposition home or self-care (01) | DRG 392 ==
LOC: FER 20:54 → FM/S 03-03 00:04 → UNDOADMOB 03-03 03:48 → FM/S 03-03 03:48 → OBSVTOIN 03-03 19:00
PROVIDERS: ADMIT Internal Medicine; ATTEND Nurse Practitioner Family
DX: K57.32 Diverticulitis of large intestine without perforation or abscess without bleeding (principal); E87.2 Acidosis; I10 Essential (primary) hypertension; E11.9 Type 2 diabetes mellitus without complications; Z79.4 Long term (current) use of insulin; J45.909 Unspecified asthma, uncomplicated; I25.10 Atherosclerotic heart disease of native coronary artery without angina pectoris; E78.5 Hyperlipidemia, unspecified; Z87.891 Personal history of nicotine dependence; R09.02 Hypoxemia; E66.9 Obesity, unspecified; Z68.35 Body mass index [BMI] 35.0-35.9, adult; N40.0 Benign prostatic hyperplasia without lower urinary tract symptoms; R00.0 Tachycardia, unspecified; K44.9 Diaphragmatic hernia without obstruction or gangrene; K76.0 Fatty (change of) liver, not elsewhere classified; K40.90 Unilateral inguinal hernia, without obstruction or gangrene, not specified as recurrent
CPT/HCPCS: 36415; 71045-TC-FY; 74177-TC; 80048; 80053; 80076; 81003; 82009; 82150; 82550; 82803; 82962; 83036; 83605; 83690; 83735; 84100; 84484; 85025; 85610; 85730; 87040; 87086; 93005; 99285-25; G0378; J0131; J7030

== ENCOUNTER 2018-06-17 12:25 | Emergency (ER) | payer OTHER ==
[2018-06-17] MEDS ORDERED: HEMOQUE CONTROL SOLUTION ONE (12:28)
[2018-06-17] MEDS ORDERED: HEMOQUE TEST 1 EACH EACH ONE (12:32)
[2018-06-17 12:40] VITALS: BP 152/85; PULSE 112; TEMP 99.7; BMI 35.6
[2018-06-17 12:42] LABS: PH,URINE 5.5 (4.5-8); URINE APPEARANCE Cloudy; URINE BILIRUBIN Negative (NEGATIVE); URINE COLOR Yellow; URINE GLUCOSE (UA) Negative (NEGATIVE); URINE KETONE Negative (NEGATIVE); URINE NITRITE Negative (NEGATIVE); URINE UROBILINOGEN 0.2 (0.2-1.0)
--- NOTE | 2018-06-17 12:44 | PDOC ---
History of Present Illness - General Chief Complaint: Lightheaded Stated Complaint: FREQUENT URINATION/FEEL OFF BALANCE Time Seen by Provider: 06/17/18 12:43 History Source: Patient Exam Limitations: No Limitations - History of Present Illness Initial Comments: 06/17/18 13:03 68 year old male with PMH HTN. CAD, diverticulitis, nephrolithiasis, asthma, sciatica presenting to ED for burning with urination since today. He admits to increased urinary frequency, nausea. He denies abdominal pain, vomiting, diarrhea, constipation, chest pain, shortness of breath, lightheadedness, dizziness, headache, blood in stool, hematuria, chills, sweats, fever. He also complains of left hand tremor and shuffling gait x1 month. Family history - mother - [place] - 40-50s Denies other family history of [place] PCP - Dr. Maciel Allergies - NKDA Past History - Past Medical History Allergies/Adverse Reactions: Allergies Allergy/AdvReac Type Severity Reaction Status Date / Time No Known Allergies Allergy Verified 06/17/18 12:26 Home Medications: Ambulatory Orders Cholecalciferol (Vitamin D3) [Vitamin D3] 1,000 unit PO DAILY tablet 12/01/13 Glipizide [Glipizide ER] 10 mg PO BID tablet 12/02/16 Aspirin [Ecotrin] 81 mg PO DAILY 01/19/17 Insulin Glargine,Hum.rec.anlog [Lantus Solostar PEN -] 70 units SQ HS 01/19/17 [place]-3 Acid Ethyl Esters [Lovaza] 2 gm PO BID 01/19/17 Acetaminophen [Tylenol .Regular Strength -] 650 mg PO Q4H PRN tablet 12/01/17 Famotidine 30 mg PO DAILY 03/02/18 Tamsulosin HCl [Flomax -] 0.4 mg PO PRN 03/02/18 Lactobacillus Acidophilus [Bacid -] 1 tab PO DAILY tab 03/04/18 Phenazopyridine HCl [Pyridium] 200 mg PO TID #6 tablet 06/17/18 Sulfamethoxazole/Trimethoprim [Bactrim Ds -] 1 tab PO BID #5 tablet 06/17/18 Anemia: No Asthma: Yes Cancer: No Cardiac Disorders: Yes (CAD,PALPITATIONS,NUCLEAR STRESS 01/26 NEGATIVE) CVA: No COPD: No CHF: No Dementia: No Diabetes: Yes (DX 1997) GI Disorders: Yes (DIVERTICULOSIS/DIVERTICULITIS) Disorders: Yes (KIDNEY STONES-LAST 01/2012) HTN: Yes (DX ) Hypercholesterolemia: Yes (DIET CONTROLLED) Kidney Stones: Yes Liver Disease: No Seizures: No Thyroid Disease: No - Surgical History Abdominal Surgery: Yes Appendectomy: No Cardiac Surgery: No Cholecystectomy: No Lung Surgery: No Neurologic Surgery: No Orthopedic Surgery: Yes (RIGHT KNEE AND RIGHT ACHILLES TENDON) - Immunization History Immunization Up to Date: Yes - Suicide/Smoking/Psychosocial Hx Smoking Status: Yes Smoking History: Former smoker Have you smoked in the past 12 months: No Number of Cigarettes Smoked Daily: 0 If you are a former smoker, when did you quit?: 10 years ago Cigars Per Day: 0 Information on smoking cessation initiated: No Hx Alcohol Use: No Drug/Substance Use Hx: No Substance Use Type: None Hx Substance Use Treatment: No Review of Systems - Review of Systems Able to Perform ROS?: Yes Comments:: 06/17/18 13:02 General: denies fever, chills, night sweats, generalized weakness. HEENT: denies sore throat, rhinorrhea, ear pain. Heart: denies chest pain, palpitations, syncope, lower extremity swelling, diaphoresis. Respiratory: denies shortness of breath, cough, sputum production, hematemesis. Abdomen: aadmits to nausea. denies abdominal pain, vomiting, diarrhea, constipation, blood in stool. : admits to dysuria. denies hematuria, urinary incontinence, flank pain. Musculoskeletal: denies joint pain, muscle pain, joint swelling. Neurological: denies headache, dizziness, numbness, tingling, weakness. Skin: denies rash, laceration, abrasion. Psych: denies suicidal or homicidal ideation. *Physical Exam - Vital Signs Last Vital Signs Temp Pulse Resp BP Pulse Ox 99.7 F H 112 H 19 152/85 97 06/17/18 12:38 06/17/18 12:38 06/17/18 12:38 06/17/18 12:38 06/17/18 12:38 - Physical Exam Comments: 06/17/18 13:00 Appearance: comfortable. obese. HEENT: head is normocephalic, atraumatic. EOMI. PERRLA. Neck: supple. Full ROM. Heart: regular rhythm. no murmurs, rubs or gallops. Lungs: clear to auscultation bilaterally. no crackles, rhonchi or wheezing. no stridor. Abdomen: soft, nontender. normal bowel sounds. no rebound, guarding, masses. CVA tenderness negative bilaterally. Extremities: radial pulse 2+ bilaterally. DSP pulse 1+ bilaterally. No lower extremity edema. Neurological: Alert. Oriented x3. CN 2-12 grossly intact. Moves all four extremities. pt takes small steps. 06/17/18 13:43 : normal external genetalia. no urethral stricture. no penile or testicular lesions. Rectal examination: no external hemorrhoids. good rectal tone. no prostate tenderness to palpation. hard stool palpated. 06/17/18 14:23 Pt ambulating unassisted, normal gait. Heart Score/ECG Review - ECG Impressions Comment:: 06/17/18 13:09 EKG performed at 12:45 06/17/18: rate 109, regular rhythm, no acute ST changes. Medical Decision Making - Medical Decision Making 06/17/18 13:07 68 year old male with PMH HTN. CAD, diverticulitis, nephrolithiasis, asthma, sciatica presenting to ED for burning with urination since today. He admits to increased urinary frequency, nausea. Initial Vital Signs Temp Pulse Resp BP Pulse Ox 99.7 F H 112 H 19 152/85 97 06/17/18 12:38 06/17/18 12:38 06/17/18 12:38 06/17/18 12:38 06/17/18 12:38 Febrile. Tachycardic. Hypertensive. No hypoxia. EKG performed at 12:45 06/17/18: rate 109, regular rhythm, no acute ST changes. Pending UA. 06/17/18 13:44 UA - 2+ LE, 2+ blood, 3+ protein, specific gravity >1.030 Pending micro. 06/17/18 14:14 Urine micro - >100 WBC 06/17/18 14:21 1st dose Bactrim given. I spoke with the patient about the plan for his care, with which he agrees. Pt will be discharged with urology referral, follow up instructions, prescriptions for Bactrim and Pyridium, as well as strict return precautions. *DC/Admit/Observation/Transfer Diagnosis at time of Disposition: Urinary tract infection - Discharge Dispostion Disposition: HOME Condition at time of disposition: Stable Decision to Admit order: No - Prescriptions Prescriptions: Phenazopyridine HCl [Pyridium] 200 mg PO TID #6 tablet Sulfamethoxazole/Trimethoprim [Bactrim Ds -] 1 tab PO BID #5 tablet - Referrals Referrals: Farhad Maciel MD [Primary Care Provider] - Alfredito Paige MD [Staff Physician] - - Patient Instructions Printed Discharge Instructions: DI for Urinary Tract Infection (UTI) Additional Instructions: You were seen today for burning with urination. Your urine analysis revealed a urinary tract infection. You were given the first dose of an antibiotic to treat your infection. I have prescribed you Bactrim (an antibiotic) and sent the prescription to your pharmacy. I ahev sent a prescription for Pyridium to help with the burning with urination. Take all of your pills as instructed, do not miss any doses of your antibiotic. Please follow up with your primary care provider within 7 days. Please bring the paperwork given to you today with you for this appointment. Return to the Emergency Department for increasing pain, blood in urine, flank pain, back pain, abdominal pain, fever, chills, chest pain, shortness of breath , nausea, vomiting or any other new, worsening or concerning symptoms. - Post Discharge Activity
[2018-06-17 12:48] LABS: URINE LEUK ESTERASE 2+ (NEGATIVE); URINE PROTEIN 3+ (NEGATIVE)
[2018-06-17 13:59] LABS: EPI CELLS FEW /HPF; URINE BACTERIA MANY /hpf (NEGATIVE); URINE RBC 20-30 /hpf (0-3); URINE WBC >100 (0-2)
[2018-06-17] MEDS ORDERED: SULFAMETHOXAZOLE/TRIMETHOPRIM 800MG/160MG D.S. TABLET PO ONE (14:13)
[2018-06-17] MEDS ORDERED: SULFAMETHOXAZOLE/TRIMETHOPRIM 800MG/160MG D.S. TABLET ONE (14:18)
--- NOTE | 2018-06-17 15:57 | PDOC ---
Attending Attestation - Resident Resident Name: Leela Odom - ED Attending Attestation I have performed the following: I have examined & evaluated the patient, The case was reviewed & discussed with the resident, I agree w/resident's findings & plan, Exceptions are as noted - HPI HPI: 06/17/18 15:56 Patient appears to have 2 complaints. One is dysuria since this morning described as a burning with urination. The other is a hand tremor and shuffling gait for several months. No history of kidney disease, recurrent UTIs, or prostatic disease. No chest pain, shortness of breath, abdominal pain, nausea, vomiting, diarrhea, visual or focal neurologic symptoms, lightheadedness, dizziness, vertigo 06/17/18 15:58 06/17/18 17:18 - Physicial Exam PE: 06/17/18 17:19 Physical exam: Alert and oriented, moderately obese, no acute distress, cooperative Afebrile, vital signs normal except for mild tachycardia. PERRLA, fundi benign, ENT clear Neck supple without bruit mass or nodes Chest clear CV regular without murmur rub or gallop Abdomen benign Genitalia normal. No urethral irritation or discharge. Prostate mildly enlarged but no nodules no tenderness. Neurological intact. There is a very slight resting tremor in the arms and hands , but shuffling gait was not noted. There was no muscle rigidity. EKG was performed which showed a mild sinus tachycardia 109 bpm. Normal axes and intervals. Mild nonspecific ST-T wave changes, primarily consisting of flattening of the ST segments in leads 1 aVL and V6. These changes were noted to be old upon reviewing prior cardiograms. No acute changes. - Medical Decision Making 06/17/18 17:21 Impression and plan: The patient probably has a UTI based on symptoms and urinalysis. However, culture is pending. Empiric treatment with antibiotics until culture results. The patient may have symptoms of early Parkinson's disease. He was encouraged to schedule an appointment with a neurologist, being advised that this is a clinical diagnosis best made by a neurological specialist. No suggestion of acute cardiac or neurological disease. Fully ambulatory and stable of gait upon discharge to follow-up with his primary physician and neurologist as recommended
--- NOTE | 2018-06-17 15:57 | EKG ---
Test Reason : Blood Pressure : / mmHG Vent. Rate : 109 BPM Atrial Rate : 109 BPM P-R Int : 152 ms QRS Dur : 094 ms QT Int : 348 ms P-R-T Axes : 078 -25 048 degrees QTc Int : 468 ms SINUS TACHYCARDIA NONSPECIFIC T WAVE ABNORMALITY ABNORMAL ECG WHEN COMPARED WITH ECG OF 02-MAR-2018 21:14, NONSPECIFIC T WAVE ABNORMALITY NOW EVIDENT IN INFERIOR LEADS Confirmed by JODI HERNANDES, VEL ([id number]) on 06/17/2018 3:57:09 PM Referred By: DESTIN CHRISTOPHER Confirmed By:VEL ZAPATA MD
== END 2018-06-17 14:27 | disposition home or self-care (01) ==
LOC: FER 12:25
DX: N39.0 Urinary tract infection, site not specified (principal); Z87.891 Personal history of nicotine dependence; E11.9 Type 2 diabetes mellitus without complications; I10 Essential (primary) hypertension; I25.10 Atherosclerotic heart disease of native coronary artery without angina pectoris
CPT/HCPCS: 81003; 81015; 82962; 87086; 87186; 93005; 99281-25

== ENCOUNTER 2018-06-18 22:52 | Inpatient (IN) | payer OTHER ==
[2018-06-18] MEDS ORDERED: SODIUM CHLORIDE 1,000 ML IV STA (23:01)
--- NOTE | 2018-06-18 23:04 | PDOC ---
History of Present Illness - History of Present Illness Initial Comments: 06/18/18 23:27 The patient is a year old male, with a significant past medical history of HTN, HLD, DM, CAD, diverticulitis, nephrolithiasis, asthma, sciatica, who presents to the emergency department with, weakness. As per patient, he was seen in the ED yesterday and diagnosed with a UTI, sent home on Bactrim. Today he reports to the ED with, increased weakness, fevers, diaphoresis, and chills. His Tmax was 102 degrees Fahrenheit. As per patient, he has taken Tylenol for his symptoms, with minimal relief. The patient also endorses increased tremors of the bilateral arms (initial onset 1 month ago). The patient reports similar symptoms in the past when he has had an infection. He denies any recent headache or dizziness. He denies any recent nausea, vomit, diarrhea or constipation. He denies any recent chest pain or shortness of breath. PAST MEDICAL HISTORY: HTN, HLD, DM, CAD, diverticulitis, nephrolithiasis, asthma, sciatica PAST SURGICAL HISTORY: no significant history FAMILY HISTORY: no pertinent history SOCIAL HISTORY: Pt lives with family and is employed. MEDICATIONS: reviewed ALLERGIES: As per nursing notes ROS: General: Weakness, fever, chills. No weight loss HEENT: No change in vision. No sore throat,. No ear pain CardioVascular: No chest pain or shortness of breath Respiratory:No cough, or wheezing. Gastrointestinal: no nausea, vomiting, diarrhea or constipation, No rectal bleeding Genitourinary: No dysuria, hematuria, or frequency Musculoskeletal: No joint or muscle pain or swelling Neurologic: No headache, vertigo, dizziness or loss of consciousness Psychiatric: nor depression +Skin: Diaphoretic. No rashes or easy bruising Endocrine: no increased thirst or abnormal weight change Allergic: no skin or latex allergy All other systems reviewed and normal Physical Exam: General: Well-nourished well-developed individual, no acute distress HEENT: Throat: Normal, tonsils normal, no erythema or exudate Neck: Supple, no meningeal signs, no lymphadenopathy Eyes:Pupils equal reactive and round, extraocular motion intact Chest: Nontender to palpation Cardiac: S1-S2 normal, regular rate and rhythm, no murmurs rubs or gallops Respiratory: Lungs clear to auscultation bilateral Abdomen: Soft, nondistended, normal bowel sounds, nontender to palpation diffusely Extremities: Warm, dry, no cyanosis, clubbing, or edema +Skin: Diaphoretic. No rashes Neuro: Alert and oriented x3, nonfocal exam, grossly intact, normal gait Psych: Normal mood and affect <Tasha Chacko - Last Filed: 06/18/18 23:27> - General History Source: Patient Exam Limitations: No Limitations - History of Present Illness Initial Comments: 06/18/18 23:18 A portion of this note was documented by scribe services under my direction. I have reviewed the details of the note, within reason, and agree with the documentation. The case summary and management plan written by me. Medical decision making: This is a 68-year-old male who is had about 2 weeks of progressive feeling poorly weakness and was here yesterday in the ED diagnosed with a urinary tract infection and sent home on Bactrim. Patient now returns worse complaining of a fever of 102 prior to coming in took some Tylenol and his fever here Y had broke and was 99. Patient has history significant for diabetes and has failed outpatient treatment. A workup was initiated including sepsis protocol order set. I will follow up on the results and patient will be admitted to an inpatient bed <Adenike Coronado I - Last Filed: 06/19/18 00:59> - General Stated Complaint: FEVER/NAUSEA/ Time Seen by Provider: 06/18/18 22:57 Past History <Tasha Chacko - Last Filed: 06/18/18 23:27> - Past Medical History Anemia: No Asthma: Yes Cancer: No Cardiac Disorders: Yes (CAD,PALPITATIONS,NUCLEAR STRESS 01/26 NEGATIVE) CVA: No COPD: No CHF: No Dementia: No Diabetes: Yes (DX 1997) GI Disorders: Yes (DIVERTICULOSIS/DIVERTICULITIS) Disorders: Yes (KIDNEY STONES-LAST 01/2012) HTN: Yes (DX ) Hypercholesterolemia: Yes (DIET CONTROLLED) Kidney Stones: Yes Liver Disease: No Seizures: No Thyroid Disease: No - Surgical History Abdominal Surgery: Yes Appendectomy: No Cardiac Surgery: No Cholecystectomy: No Lung Surgery: No Neurologic Surgery: No Orthopedic Surgery: Yes (RIGHT KNEE AND RIGHT ACHILLES TENDON) - Immunization History Immunization Up to Date: Yes - Suicide/Smoking/Psychosocial Hx Smoking Status: Yes Smoking History: Former smoker Have you smoked in the past 12 months: No Number of Cigarettes Smoked Daily: 0 If you are a former smoker, when did you quit?: 10 years ago Cigars Per Day: 0 Hx Alcohol Use: No Drug/Substance Use Hx: No Substance Use Type: None Hx Substance Use Treatment: No <Adenike Coronado I - Last Filed: 06/19/18 00:59> - Past Medical History Allergies/Adverse Reactions: Allergies Allergy/AdvReac Type Severity Reaction Status Date / Time No Known Allergies Allergy Verified 06/17/18 12:26 Home Medications: Ambulatory Orders Cholecalciferol (Vitamin D3) [Vitamin D3] 1,000 unit PO DAILY tablet 12/01/13 Glipizide [Glipizide ER] 10 mg PO BID tablet 12/02/16 Aspirin [Ecotrin] 81 mg PO DAILY 01/19/17 Insulin Glargine,Hum.rec.anlog [Lantus Solostar PEN -] 70 units SQ HS 01/19/17 [place]-3 Acid Ethyl Esters [Lovaza] 2 gm PO BID 01/19/17 Acetaminophen [Tylenol .Regular Strength -] 650 mg PO Q4H PRN tablet 12/01/17 Famotidine 30 mg PO DAILY 03/02/18 Tamsulosin HCl [Flomax -] 0.4 mg PO PRN 03/02/18 Lactobacillus Acidophilus [Bacid -] 1 tab PO DAILY tab 03/04/18 Phenazopyridine HCl [Pyridium] 200 mg PO TID #6 tablet 06/17/18 Sulfamethoxazole/Trimethoprim [Bactrim Ds -] 1 tab PO BID #5 tablet 06/17/18 *Physical Exam - Vital Signs Last Vital Signs Temp Pulse Resp BP Pulse Ox 99.7 F H 101 H 18 110/80 98 06/18/18 22:59 06/18/18 22:59 06/18/18 22:59 06/18/18 22:59 06/18/18 22:59 <Tasha Chacko - Last Filed: 06/18/18 23:27> ED Treatment Course - LABORATORY CBC & Chemistry Diagram: 06/18/18 23:20 06/18/18 23:20 <Tasha Chacko - Last Filed: 06/18/18 23:27> - LABORATORY CBC & Chemistry Diagram: 06/18/18 23:20 06/18/18 23:20 <Adenike Coronado I - Last Filed: 06/19/18 00:59> *DC/Admit/Observation/Transfer - Attestations Scribe Attestion: 06/18/18 23:27 Documentation prepared by Tasha Chacko, acting as medical dir for Adenike Coronado MD. <Tasha Chacko - Last Filed: 06/18/18 23:27> - Discharge Dispostion Decision to Admit order: Yes <Adenike Coronado I - Last Filed: 06/19/18 00:59> Diagnosis at time of Disposition: Sepsis due to Gram negative bacteria - Referrals Referrals: Farhad Maciel MD [Primary Care Provider] - - Patient Instructions - Post Discharge Activity
[2018-06-18 23:30] LABS: EOS % 0.4 % (0-4.5); HEMATOCRIT 41.8 % (35.4-49); HEMOGLOBIN 13.8 GM/dl (11.7-16.9); LYMPH % 11.1 % (8-40); MCH 28.2 pg (25.7-33.7); MEAN CELL VOLUME 85.5 fl (80-96); MONO % 11.3 % (3.8-10.2); NEUT % 75.2 % (42.8-82.8); PLATELET COUNT 144 K/MM3 (134-434); RBC 4.89 M/mm3 (4.00-5.60); RDW 13.7 % (11.9-15.9); WHITE BLOOD COUNT 10.6 K/mm3 (4.0-10.8)
[2018-06-18 23:42] LABS: ACTIVATED PTT 27.2 SECONDS (25.2-36.5)
[2018-06-18 23:44] LABS: ALBUMIN 3.6 g/dl (3.5-5.0); ALK PHOS 76 U/L (32-92); ANION GAP 14 MMOL/L (8-16); BILIRUBIN,TOTAL 1.2 mg/dl (0.2-1.0); BLOOD UREA NITROGEN 22 mg/dl (7-18); CALCIUM 8.4 mg/dl (8.4-10.2); CHLORIDE 100 mmol/L (98-107); CO2 17 mmol/L (22-28); CREATININE 1.6 mg/dl (0.6-1.3); GLUCOSE,RANDOM 208 mg/dl (74-106); SGOT/AST 24 U/L (10-42); SGPT/ALT 24 U/L (10-40); SODIUM 131 mmol/L (136-145); TOT PROT 7.7 g/dl (6.4-8.3)
[2018-06-18 23:46] LABS: INR 1.28 (0.82-1.09); PROTHROMBIN TIME (PATIENT) 14.3 SEC (10.2-13.0)
[2018-06-18 23:54] LABS: URINE APPEARANCE Slightly; URINE BILIRUBIN 2+ (NEGATIVE); URINE COLOR Orange; URINE GLUCOSE (UA) 1+ (NEGATIVE); URINE KETONE Trace (NEGATIVE); URINE NITRITE Positive (NEGATIVE)
[2018-06-18 23:55] LABS: URINE LEUK ESTERASE TRACE (NEGATIVE); URINE PROTEIN 3+ (NEGATIVE)
[2018-06-18 23:56] LABS: URINE WBC 20-30 (0-2)
[2018-06-18 23:57] LABS: URINE BACTERIA MODERATE /hpf (NEGATIVE)
[2018-06-18] MEDS ORDERED: ONDANSETRON 4 MG/2 ML VIAL IVPB ONE (23:57)
[2018-06-19] MEDS ORDERED: CEFTRIAXONE 1,000 MG in DEXTROSE 5%-WATER - 50 ML IVPB ONE
[2018-06-19] MEDS ORDERED: cefTRIAXone SODIUM 1 GM VIAL ONE (00:01)
[2018-06-19] MEDS ORDERED: ONDANSETRON 4 MG/2 ML VIAL ONE ×2 (00:01→02:52)
[2018-06-19 00:58] LABS: VENOUS PC02 30.8 mmHg (38-52); VENOUS PH 7.42 (7.32-7.42)
[2018-06-19 00:59] LABS: VENOUS PO2 45.6 mmHg (28-48)
[2018-06-19] MEDS ORDERED: ONDANSETRON 4 MG/2 ML VIAL IVPUSH ONE (02:56)
[2018-06-19 04:39] VITALS: BMI 34.7
[2018-06-19] MEDS ORDERED: METOCLOPRAMIDE HCL INJECTION 10 MG/2 ML VIAL IVPUSH ONE (04:58)
[2018-06-19] MEDS ORDERED: MAG HYDROX/AL HYDROX/SIMETH -MYLANTA- ORAL SUSPENSION PO ONE (05:02)
[2018-06-19] MEDS ORDERED: MAG HYDROX/AL HYDROX/SIMETH 30 ML UNIT-DOSE CUP PO ONE (05:15)
[2018-06-19] MEDS ORDERED: ACETAMINOPHEN 325 MG TABLET (FP) PO PRN ×2 (08:59→09:46)
--- NOTE | 2018-06-19 09:01 | HP ---
Admitting History and Physical - Primary Care Physician PCP: Farhad Maciel - Admission Chief Complaint: Fever withAbdominal pain with nause and vomiting History of Present Illness: 68 yrs old man multiple medical co-morbidities h/O HTN, T2DM on Insulin and oral meds, COPD, pulmonary nodule (PET scan as outpt negative as per pt), BPH ( noncompliant with prescribed Flomax), nephrolithiais with hematuria, presenting to ED with c/o feeling weak, dysuria, urinary frequency, initially patient present to Ed on 06/17/2018 with urinary symptoms and discharged home on PO Bactrim and Phenazopyridine, patient symptoms worsened wuth fever, nausea, vomiting and tachycardia, came to Ed for evaluation, patient w/u shows + UA, WElvated TWBC and elevated Lactic acid , received Ceftriaxone admitted for further management, at the time of examination c/o sever nausea, epigastria pain and vomiting, no c/o hemetmesis or bleeding [place] or diarrhea, patient also c/ o of worsening of his base line b/l hands tremors, no c/o chest [pain SOB or Palpitation. - Past Medical History Cardiovascular: Yes: HTN, Hyperlipdemia Pulmonary: Yes: COPD Gastrointestinal: Yes: Pancreatitis Renal/: Yes: BPH, UTI Endocrine: Yes: Diabetes Mellitus - Past Surgical History Past Surgical History: Yes: Joint Replacement - Smoking History Smoking history: Former smoker Have you smoked in the past 12 months: No Aproximately how many cigarettes per day: 0 If you are a former smoker, when did you quit?: 10 years ago - Alcohol/Substance Use Hx Alcohol Use: No - Social History History of Recent Travel: No Home Medications - Allergies Allergies/Adverse Reactions: Allergies Allergy/AdvReac Type Severity Reaction Status Date / Time No Known Allergies Allergy Verified 06/17/18 12:26 - Home Medications Home Medications: Ambulatory Orders Glipizide [Glipizide ER] 10 mg PO BID tablet 12/02/16 Aspirin [Ecotrin] 81 mg PO DAILY 01/19/17 Insulin Glargine,Hum.rec.anlog [Lantus Solostar PEN -] 70 units SQ HS 01/19/17 [place]-3 Acid Ethyl Esters [Lovaza] 2 gm PO BID 01/19/17 Acetaminophen [Tylenol .Regular Strength -] 650 mg PO Q4H PRN tablet 12/01/17 Phenazopyridine HCl [Pyridium] 200 mg PO TID #6 tablet 06/17/18 Family Disease History - Family Disease History Family History: Unremarkable Review of Systems - Review of Systems Constitutional: reports: Chills, Fever, Lethargy, Malaise Eyes: denies: Blind Spots, Blurred Vision, Double Vision HENT: denies: Difficult Swallowing, Ear Discharge Neck: denies: Decreased ROM, Lumps, Pain on Movement Cardiovascular: denies: Chest Pain, Edema, Palpitations, Shortness of Breath Respiratory: denies: Cough, Exercise Intolerance, Hemoptysis, Orthopnea Gastrointestinal: reports: Abdominal Pain, Nausea, Vomiting. denies: Bloating, Constipation, Diarrhea, Melena Genitourinary: reports: Burning, Dysuria, Frequency. denies: Flank Pain Musculoskeletal: denies: Back Pain, Crepitus, Decreased ROM Neurological: denies: Change in LOC, Change in Speech, Confusion, Dizziness Endocrine: denies: Excessive Sweating, Flushing Hematology/Lymphatic: denies: Easily Bruised, Excessive Bleeding Psychiatric: denies: No Symptoms Physical Examination Vital Signs: Vital Signs Temperature 100 F H 06/19/18 08:18 Pulse Rate 88 06/19/18 04:21 Respiratory Rate 18 06/19/18 08:53 Blood Pressure 141/75 06/19/18 04:21 O2 Sat by Pulse Oximetry (%) 97 06/19/18 08:53 Elderly M no new complaints denies any Chest Pain Or SOB: HEENT: Mm dry, no jaundice PERRLA EOMI NECK: No JVd No Bruit CHEST: CTA B/L CVS: S1S2 R no m/g/r ABD: Epigastric Tenderness, Bs + EXT: No edema feet, no calf tenderness, Pulses + [employer]: AOx3 non focal B/l hand tremors Labs: CBC, BMP 06/18/18 23:20 06/18/18 23:20 U culture Prelim ESBL [facility] - Results Chest X-ray: Report Reviewed (No infiltrates) EKG: Report Reviewed (91 NSR WI 144 QRS 96 QTC 447 aaxis -[address] chnages) Problem List - Problems (1) Sepsis due to Gram negative bacteria Assessment/Plan: Admitted with fever, elevated TWBC , Lactic acid and tachycardia + UA and U Culture grew Possible ESBL GNR Id consulted, IV hydration, Comt Invac F/U final culture result Code(s): A41.50 - GRAM-NEGATIVE SEPSIS, UNSPECIFIED (2) Lactic acid acidosis Assessment/Plan: Tue to Sepsis improved after Hydration Code(s): E87.2 - ACIDOSIS (3) UTI (urinary tract infection) Assessment/Plan: Cont current abx F/U Culture will consider CT abd once renal functions improves Code(s): N39.0 - URINARY TRACT INFECTION, SITE NOT SPECIFIED (4) BASIA (acute kidney injury) Assessment/Plan: Due to sepsis and IV Hydration F/U BMP after Hydration Code(s): N17.9 - ACUTE KIDNEY FAILURE, UNSPECIFIED (5) Hyponatremia Assessment/Plan: F/U BMP after Hydration Code(s): E87.1 - HYPO-OSMOLALITY AND HYPONATREMIA (6) Hypertension Assessment/Plan: Resume home medications Code(s): I10 - ESSENTIAL (PRIMARY) HYPERTENSION (7) T2DM (type 2 diabetes mellitus) Assessment/Plan: Will hold Po Meds victoza on Basoglar 70 units will decrese to 1/2 as patient has poor PO intake cont correction dose insulin Code(s): E11.9 - TYPE 2 DIABETES MELLITUS WITHOUT COMPLICATIONS (8) Nausea & vomiting Assessment/Plan: Due to sepsis NPO except meds cont PPI and Zofran PRNH/O Pancreatiatis F/U Lipase level Code(s): R11.2 - NAUSEA WITH VOMITING, UNSPECIFIED (9) BPH (benign prostatic hyperplasia) Assessment/Plan: cont flomax Code(s): N40.0 - BENIGN PROSTATIC HYPERPLASIA WITHOUT LOWER URINRY TRACT SYMP (10) CAD (coronary artery disease) Assessment/Plan: H/O CAd no intervention cont all home meds normal EKG denies any chest pain. Code(s): I25.10 - ATHSCL HEART DISEASE OF [place] CORONARY ARTERY W/O ANG PCTRS (11) Tremors of nervous system Assessment/Plan: Need evaluation as out patient. Code(s): R25.1 - TREMOR, UNSPECIFIED
[2018-06-19] MEDS ORDERED: ONDANSETRON 4 MG/2 ML VIAL IVPUSH PRN (09:45)
[2018-06-19] MEDS: SODIUM CHLORIDE 1,000 ML IV SCH (09:57)
[2018-06-19] MEDS ORDERED: CEFTRIAXONE 1 GM in DEXTROSE 5%-WATER - 50 ML IVPB SCH (10:00)
[2018-06-19] MEDS ORDERED: PROPRANOLOL HCL 160 MG PO SCH (10:00)
[2018-06-19] MEDS: ATORVASTATIN CA 20 MG TABLET (FP) PO SCH (10:52)
[2018-06-19] MEDS: PANTOPRAZOLE SODIUM 40 MG VIAL IVPUSH SCH (10:52)
[2018-06-19] MEDS: ASPIRIN COATED 81 MG TABLET.EC PO SCH (10:53)
[2018-06-19] MEDS ORDERED: INSULIN SLIDING SCALE (NOVOLOG) 1 VIAL SQ SCH (11:00)
[2018-06-19 12:31] LABS: LIPASE 364 U/L (73-393)
[2018-06-19] MEDS ORDERED: PT OWN MED DRAWER 7, Y5N ONE (12:35)
[2018-06-19] MEDS ORDERED: ERTAPENEM SODIUM 1 GM in SODIUM CHLORIDE 50 ML IVPB SCH (13:30)
--- NOTE | 2018-06-19 13:35 | CON.ID ---
Consult - History of Present Illness History of Present Illness: Asked to evaluate this 68 y.o. male with PMH of uncontrolled IDDM (last HgA1C 7.9), COPD, CAD, HTN, HLD, pulmonary nodule (PET scan as outpt negative as per pt), BPH (noncompliant with prescribed Flomax), nephrolithiais with hematuria,, asthma and sciatica presenting with c/o weakness, fever ( 102F) and chills. Pt states weakness began a couple of weeks ago but came to ER 2 days ago and was d/ c home on Bactrim. Pt returned to the ER the following day due to worsening/ persistent symptoms even though he was due to follow up with his PMD. Reports occasional urinary dribbling/discomfort. He also report b/l hand tremors and "shuffling" walk that began over 1 month ago which led to episode of leg weakness and fall (without head trauma/LOC) while climbing the stairs. In the ER he was noted to be febrile, tachycardic, lactic acid elevated (3.6) with elevated BUN and Creatinine. Currently he is fully alert, without acute distress. Has no other specific complaints. - History Source History Provided By: Patient Limitations to Obtaining History: No Limitations - Past Medical History Cardio/Vascular: Yes: HTN, Hyperlipdemia Pulmonary: Yes: COPD Renal/: Yes: BPH, Renal Calculi Endocrine: Yes: Diabetes Mellitus - Alcohol/Substance Use Hx Alcohol Use: No - Smoking History Smoking history: Former smoker Have you smoked in the past 12 months: No Aproximately how many cigarettes per day: 0 If you are a former smoker, when did you quit?: 10 years ago - Social History Usual Living Arrangement: With Spouse History of Recent Travel: No Home Medications - Allergies Allergies/Adverse Reactions: Allergies Allergy/AdvReac Type Severity Reaction Status Date / Time No Known Allergies Allergy Verified 06/17/18 12:26 - Home Medications Home Medications: Ambulatory Orders Glipizide [Glipizide ER] 10 mg PO BID tablet 12/02/16 Aspirin [Ecotrin] 81 mg PO DAILY 01/19/17 Insulin Glargine,Hum.rec.anlog [Lantus Solostar PEN -] 70 units SQ HS 01/19/17 [place]-3 Acid Ethyl Esters [Lovaza] 2 gm PO BID 01/19/17 Acetaminophen [Tylenol .Regular Strength -] 650 mg PO Q4H PRN tablet 12/01/17 Phenazopyridine HCl [Pyridium] 200 mg PO TID #6 tablet 06/17/18 Review of Systems - Review of Systems Constitutional: reports: Chills, Fever, Malaise. denies: No Symptoms, Diaphoresis, Lethargy, Loss of Appetite, Night Sweats, Unintentional Wgt. Loss, Weakness, Other Eyes: reports: No Symptoms. denies: Blind Spots, Blurred Vision, Double Vision , Eye Pain, Floaters, Photophobia, Recent Change in Vision, Other HENT: reports: No Symptoms. denies: Difficult Swallowing, Ear Discharge, Ear Pain, Epistaxis, Gingival Bleeding, Hearing Loss, Mouth Swelling, Nasal Congestion, Ocular Prosthesis, Throat Pain, Toothache, Ringing in Ears, Other Neck: reports: No Symptoms. denies: Decreased ROM, Lumps, Pain on Movement, Stiffness, Swollen Glands, Tenderness, Other Cardiovascular: reports: No Symptoms. denies: Chest Pain, Edema, Palpitations, Shortness of Breath, Other Respiratory: reports: No Symptoms. denies: Cough, Exercise Intolerance, Hemoptysis, Orthopnea, PND, Snoring, SOB, SOB on Exertion, Wheezing, Other Gastrointestinal: reports: No Symptoms. denies: Abdominal Pain, Bloating, Constipation, Diarrhea, Dysphagia, Indigestion, Melena, Nausea, Rectal Bleeding , Vomiting, Vomiting Blood, Other Genitourinary: reports: Other (occasional "dribbling") Musculoskeletal: reports: No Symptoms. denies: Back Pain, Crepitus, Decreased ROM, Extremity Pain, Joint Pain, Joint Swelling, Muscle Pain, Muscle Cramps, Muscle Weakness, Other Integumentary: reports: No Symptoms. denies: Blister, Bruising, Change in Color , Eczema, Erythema, Incision, Lesions, Lump, Pallor, Pruritis, Rash, Wound, Other Neurological: reports: Tremors (b/l hand), Unsteady Gait ("shuffling walk") Endocrine: reports: No Symptoms. denies: Excessive Sweating, Flushing, Increased Hunger, Increased Thirst, Intolerance to Cold, Intolerance to Heat, Unexplained Weight Gain, Unexplained Weight Loss, Other Hematology/Lymphatic: reports: No Symptoms. denies: Easily Bruised, Excessive Bleeding, Swollen Glands, Other Psychiatric: reports: No Symptoms. denies: Altered Sleep Pattern, Anxiety, Depression, Hallucinations, Panic, Paranoia, Suicidal, Other Physical Exam Vital Signs: Vital Signs Temperature 99.6 F 06/19/18 11:00 Pulse Rate 86 06/19/18 11:00 Respiratory Rate 18 06/19/18 11:00 Blood Pressure 127/65 06/19/18 11:00 O2 Sat by Pulse Oximetry (%) 96 06/19/18 11:00 Constitutional: Yes: No Distress, Calm Eyes: Yes: Conjunctiva Clear HENT: Yes: Atraumatic Neck: Yes: Supple, Trachea Midline Cardiovascular: Yes: Regular Rate and Rhythm Respiratory: Yes: CTA Bilaterally Gastrointestinal: Yes: Normal Bowel Sounds, Soft Renal/: Yes: WNL Musculoskeletal: Yes: WNL Extremities: Yes: WNL Integumentary: Yes: WNL Neurological: Yes: Alert, Oriented Psychiatric: Yes: Alert Labs: CBC, BMP 06/18/18 23:20 06/18/18 23:20 Laboratory Tests 06/18/18 06/18/18 06/18/18 23:20 23:20 23:20 WBC 10.6 RBC 4.89 Hgb 13.8 Hct 41.8 D MCV 85.5 MCH 28.2 MCHC 33.0 RDW 13.7 Plt Count 144 D MPV 9.0 Absolute Neuts (auto) 8.0 Neutrophils % 75.2 D Lymphocytes % 11.1 D Monocytes % 11.3 H Eosinophils % 0.4 Basophils % 2.0 D PT with INR 14.3 H INR 1.28 H PTT (Actin FS) 27.2 VBG pH 7.42 POC VBG pCO2 30.8 L POC VBG pO2 45.6 D Mixed VBG HCO3 19.5 Sodium Potassium Chloride Carbon Dioxide Anion Gap BUN Creatinine Creat Clearance w eGFR POC Glucometer Random Glucose Lactic Acid Calcium Total Bilirubin AST ALT Alkaline Phosphatase Total Protein Albumin Lipase Urine Color Urine Appearance Urine pH Ur Specific [place] Urine Protein Urine Glucose (UA) Urine Ketones Urine Blood Urine Nitrite Urine Bilirubin Urine Urobilinogen Ur Leukocyte Esterase Urine RBC Urine WBC Urine Bacteria 06/18/18 06/18/18 06/18/18 23:20 23:20 23:40 WBC RBC Hgb Hct MCV MCH MCHC RDW Plt Count MPV Absolute Neuts (auto) Neutrophils % Lymphocytes % Monocytes % Eosinophils % Basophils % PT with INR INR PTT (Actin FS) VBG pH POC VBG pCO2 POC VBG pO2 Mixed VBG HCO3 Sodium 131 L Potassium 4.0 Chloride 100 Carbon Dioxide 17 L Anion Gap 14 BUN 22 H Creatinine 1.6 H Creat Clearance w eGFR 43.20 POC Glucometer Random Glucose 208 H D Lactic Acid 3.6 H* Calcium 8.4 Total Bilirubin 1.2 H AST 24 ALT 24 Alkaline Phosphatase 76 Total Protein 7.7 Albumin 3.6 Lipase Urine Color [place] Urine Appearance Slightly Urine pH 5.0 Ur Specific [place] >= 1.030 H Urine Protein 3+ H Urine Glucose (UA) 1+ H Urine Ketones Trace Urine Blood 2+ H Urine Nitrite Positive Urine Bilirubin 2+ H Urine Urobilinogen 2.0 Ur Leukocyte Esterase Trace H D Urine RBC 10-20 Urine WBC 20-30 Urine Bacteria Moderate 06/19/18 06/19/18 06/19/18 01:58 05:24 10:30 WBC RBC Hgb Hct MCV MCH MCHC RDW Plt Count MPV Absolute Neuts (auto) Neutrophils % Lymphocytes % Monocytes % Eosinophils % Basophils % PT with INR INR PTT (Actin FS) VBG pH POC VBG pCO2 POC VBG pO2 Mixed VBG HCO3 Sodium Potassium Chloride Carbon Dioxide Anion Gap BUN Creatinine Creat Clearance w eGFR POC Glucometer 197 Random Glucose Lactic Acid 1.7 Calcium Total Bilirubin AST ALT Alkaline Phosphatase Total Protein Albumin Lipase 364 Urine Color Urine Appearance Urine pH Ur Specific [place] Urine Protein Urine Glucose (UA) Urine Ketones Urine Blood Urine Nitrite Urine Bilirubin Urine Urobilinogen Ur Leukocyte Esterase Urine RBC Urine WBC Urine Bacteria 06/19/18 12:13 WBC RBC Hgb Hct MCV MCH MCHC RDW Plt Count MPV Absolute Neuts (auto) Neutrophils % Lymphocytes % Monocytes % Eosinophils % Basophils % PT with INR INR PTT (Actin FS) VBG pH POC VBG pCO2 POC VBG pO2 Mixed VBG HCO3 Sodium Potassium Chloride Carbon Dioxide Anion Gap BUN Creatinine Creat Clearance w eGFR POC Glucometer 191 Random Glucose Lactic Acid Calcium Total Bilirubin AST ALT Alkaline Phosphatase Total Protein Albumin Lipase Urine Color Urine Appearance Urine pH Ur Specific [place] Urine Protein Urine Glucose (UA) Urine Ketones Urine Blood Urine Nitrite Urine Bilirubin Urine Urobilinogen Ur Leukocyte Esterase Urine RBC Urine WBC Urine Bacteria lactic acid - 3.6 --> 1.7 Urine culture: ESBL + E.coli Imaging - Results Chest X-ray: Report Reviewed Problem List - Problems (1) Sepsis due to Gram negative bacteria Code(s): A41.50 - GRAM-NEGATIVE SEPSIS, UNSPECIFIED (2) Diabetes Code(s): E11.9 - TYPE 2 DIABETES MELLITUS WITHOUT COMPLICATIONS (3) Fever Code(s): R50.9 - FEVER, UNSPECIFIED (4) Lactic acid acidosis Code(s): E87.2 - ACIDOSIS (5) UTI (urinary tract infection) Code(s): N39.0 - URINARY TRACT INFECTION, SITE NOT SPECIFIED Assessment/Plan 68 y.o. male with PMH of IDDM uncontrolled, BPH, nephrolithiasis/hematuria, CAD , COPD, HTN, HLD presenting with fever/chills/weakness, elevated lactic acid, elevated BUN and Creatinine ESBL + E. coli UTI Sepsis BASIA (?CKD) Fever BPH Hx of nephrolithiasis Hand tremors/Unsteady gait -- d/c Ceftriaxone -- start Ertapenem IV -- place on contact precautions -- IVF hydration -- suggest renal sonogram -- f/u blood cultures -- needs glycemic control -- suggest neurology evaluation -- monitor renal function, vitals will follow Thank you
[2018-06-19 15:07] LABS: CHOLESTEROL 103 mg/dL (50-200); TRIGLYCERIDES 156 mg/dL (35-160)
[2018-06-19 15:08] LABS: HDL CHOLESTEROL 22 mg/dL (40-60)
[2018-06-19] MEDS: INSULIN SLIDING SCALE (NOVOLOG) 1 VIAL SQ SCH ×2 (17:25→22:10)
[2018-06-19] MEDS ORDERED: PATIENT'S OWN MEDICATION (NON-FORMULARY) (Insulin Glargine,Hum.Rec.Anlog 50 UNITS) SQ SCH (22:00)
[2018-06-19] MEDS ORDERED: PATIENT'S OWN MEDICATION (NON-FORMULARY) (Insulin Glargine,Hum.Rec.Anlog 70 UNITS) SQ SCH (22:00)
[2018-06-19] MEDS ORDERED: PATIENT'S OWN MEDICATION (NON-FORMULARY) (Losartan Potassium [Cozaar] 100 MG) PO SCH (22:00)
[2018-06-19] MEDS: LOSARTAN POTASSIUM 50 MG TABLET (FP) PO SCH (22:08)
[2018-06-19] MEDS: INSULIN (LEVEMIR) 100 UNITS/ML UNITS SQ SCH (22:08)
[2018-06-20] MEDS: INSULIN SLIDING SCALE (NOVOLOG) 1 VIAL SQ SCH ×4 (06:56→21:06)
[2018-06-20 09:21] LABS: ALBUMIN 2.8 g/dl (3.5-5.0); ALK PHOS 54 U/L (32-92); ANION GAP 6 MMOL/L (8-16); BILIRUBIN,TOTAL 0.9 mg/dl (0.2-1.0); BLOOD UREA NITROGEN 16 mg/dl (7-18); CALCIUM 7.6 mg/dl (8.4-10.2); CHLORIDE 108 mmol/L (98-107); CO2 21 mmol/L (22-28); CREATININE 1.2 mg/dl (0.6-1.3); GLUCOSE,RANDOM 124 mg/dl (74-106); SGOT/AST 16 U/L (10-42); SGPT/ALT 20 U/L (10-40); SODIUM 135 mmol/L (136-145); TOT PROT 6.1 g/dl (6.4-8.3)
[2018-06-20] MEDS: PANTOPRAZOLE SODIUM 40 MG VIAL IVPUSH SCH (09:50)
[2018-06-20] MEDS: ATORVASTATIN CA 20 MG TABLET (FP) PO SCH (09:50)
[2018-06-20] MEDS: ASPIRIN COATED 81 MG TABLET.EC PO SCH (09:51)
[2018-06-20] MEDS: ERTAPENEM SODIUM - 1 GRAM 1 GM/50 ML BAG IVPB SCH (09:51)
[2018-06-20] MEDS: SODIUM CHLORIDE 1,000 ML IV SCH (09:57)
--- NOTE | 2018-06-20 11:21 | PN ---
Physical Exam: SUBJECTIVE: Patient seen and examined. Pt reports feeling better, denies chills abdominal pain,cp, sob, palpitations N/V/D or urinary symptoms. OBJECTIVE: Vital Signs Period Temp Pulse Resp BP Sys/Alaniz Pulse Ox Last 24 Hr 98.8 F-99.5 F 78-87 18-19 110-155/54-72 94-98 GENERAL: The patient is awake, alert, and fully oriented, in no acute distress. HEAD: Normal with no signs of trauma. EYES: PERRL, extraocular movements intact, sclera anicteric, conjunctiva clear. No ptosis. ENT: Ears normal, nares patent, oropharynx clear without exudates, moist mucous membranes. NECK: Trachea midline, full range of motion, supple. LUNGS: Breath sounds equal, clear to auscultation bilaterally, no wheezes, no crackles, no accessory muscle use. HEART: Regular rate and rhythm, S1, S2 without murmur, rub or gallop. ABDOMEN: Soft, nontender, nondistended, normoactive bowel sounds, no guarding, no rebound, no hepatosplenomegaly, no masses. EXTREMITIES: 2+ pulses, warm, well-perfused, no edema. NEUROLOGICAL: Cranial nerves II through XII grossly intact. Normal speech, gait not observed. PSYCH: Normal mood, normal affect. SKIN: Warm, dry, normal turgor, no rashes or lesions noted Laboratory Results - last 24 hr 06/19/18 06/19/18 06/19/18 10:30 12:13 17:14 Sodium Potassium Chloride Carbon Dioxide Anion Gap BUN Creatinine Creat Clearance w eGFR POC Glucometer 191 139 Random Glucose Hemoglobin A1c % Calcium Total Bilirubin AST ALT Alkaline Phosphatase Total Protein Albumin Triglycerides 156 D Cholesterol 103 Total LDL Cholesterol 70 HDL Cholesterol 22 L Lipase 364 06/19/18 06/20/18 06/20/18 22:07 06:51 07:00 Sodium 135 L Potassium 4.0 Chloride 108 H Carbon Dioxide 21 L D Anion Gap 6 L BUN 16 Creatinine 1.2 Creat Clearance w eGFR > 60 POC Glucometer 237 126 Random Glucose 124 H D Hemoglobin A1c % Calcium 7.6 L Total Bilirubin 0.9 AST 16 D ALT 20 Alkaline Phosphatase 54 D Total Protein 6.1 L Albumin 2.8 L Triglycerides Cholesterol Total LDL Cholesterol HDL Cholesterol Lipase 06/20/18 07:00 Sodium Potassium Chloride Carbon Dioxide Anion Gap BUN Creatinine Creat Clearance w eGFR POC Glucometer Random Glucose Hemoglobin A1c % 7.6 H D Calcium Total Bilirubin AST ALT Alkaline Phosphatase Total Protein Albumin Triglycerides Cholesterol Total LDL Cholesterol HDL Cholesterol Lipase Active Medications Generic Name Dose Route Start Last Admin Trade Name Freq PRN Reason Stop Dose Admin Acetaminophen 650 mg 06/19/18 08:59 06/19/18 09:46 Tylenol - PO 650 mg Q6H PRN Administration FEVER Acetaminophen 650 mg 06/19/18 09:46 06/19/18 16:51 Tylenol - PO 650 mg Q4H PRN Administration PAIN OR FEVER Aspirin 81 mg 06/19/18 10:00 06/20/18 09:51 Ecotrin - PO 81 mg DAILY ADALBERTO Administration Atorvastatin Calcium 20 mg 06/19/18 10:00 06/20/18 09:50 Lipitor - PO 20 mg DAILY ADALBERTO Administration Sodium Chloride 1,000 mls @ 75 mls/hr 06/19/18 09:45 06/20/18 09:57 Normal Saline - IV 75 mls/hr ASDIR ADALBERTO Administration Ertapenem 1 gm in 50 mls @ 50 mls/hr 06/20/18 09:16 06/20/18 09:51 Invanz (Pre-Docked) IVPB 50 mls/hr DAILY ADALBERTO Administration Protocol Insulin Aspart 1 vial 06/19/18 17:15 06/20/18 06:56 Novolog Vial Sliding Scale - SQ Not Given ACHS ADALBERTO Protocol Insulin Detemir 35 units 06/19/18 22:00 06/19/18 22:08 Levemir Vial SQ 35 units HS ADALBERTO Administration Losartan Potassium 100 mg 06/19/18 22:00 06/19/18 22:08 Cozaar - PO 100 mg HS ADALBERTO Administration Ondansetron HCl 4 mg 06/19/18 09:45 06/19/18 10:52 Zofran Injection IVPUSH 4 mg Q6H PRN Administration NAUSEA Pantoprazole Sodium 40 mg 06/19/18 10:00 06/20/18 09:50 Protonix Iv IVPUSH 40 mg DAILY ADALBERTO Administration Propranolol HCl 160 mg 06/20/18 11:43 Inderal La - PO DAILY ADALBERTO Propranolol HCl 160 mg 06/19/18 12:30 06/19/18 12:24 Inderal La - PO 160 mg ONCE ADALBERTO Administration CXR- No acute chest pathology ASSESSMENT/PLAN: This is a68 yrs old man multiple medical co-morbidities h/O HTN, T2DM on Insulin and oral meds, COPD, pulmonary nodule (PET scan as outpt negative as per pt), BPH (noncompliant with prescribed Flomax), nephrolithiais, admitted with UTI. *Sepsis due to Gram negative bacteria - lactic acidosis - normalized - afebrile with wbc 10.86 -will cont on Ertapenem - ID following * UTI - improving -out pt tx failure on Bactrim -will abx *BASIA -improved - s/p IV hydration *Hyponatremia- Improved -Na 131-135 *Hypertension -will resume home medications * DM type 2 - Lispro sliding scale and Levemir - victoza on Basoglar -NF) - FS monitoring ACs& HS - Hgb 7.6 * Nausea & vomiting- resolved - yola PO intake * BPH -cont flomax * CAD - asymptomatic - will cotn on ASA, Lipitor and Inderal - o *Tremors - stable - out pt f/u * VTE: Heparin SQ Visit type - Emergency Visit Emergency Visit: Yes ED Registration Date: 06/19/18 Care time: The patient presented to the Emergency Department on the above date and was hospitalized for further evaluation of their emergent condition. - New Patient This patient is new to me today: Yes Date on this admission: 06/25/18 - Critical Care Critical Care patient: No
[2018-06-20] MEDS: LACTOBACILLUS ACIDOPHILUS 1 TABLET PO SCH (12:41)
[2018-06-20] MEDS: HEPARIN NA (PORCINE) 5,000 UNITS/ML 1ML VIAL SQ SCH ×2 (14:00→21:06)
[2018-06-20] MEDS ORDERED: INSULIN (NOVOLOG) ASPART 100 UNITS/ML 10ML VIAL ONE (21:01)
[2018-06-20] MEDS: LOSARTAN POTASSIUM 50 MG TABLET (FP) PO SCH (21:05)
[2018-06-20] MEDS: INSULIN (LEVEMIR) 100 UNITS/ML UNITS SQ SCH (21:06)
[2018-06-20] MEDS ORDERED: MELATONIN 5 MG TABLETS PO ONE (22:00)
[2018-06-21] MEDS ORDERED: INSULIN (NOVOLOG) ASPART 100 UNITS/ML 10ML VIAL ONE (06:46)
[2018-06-21] MEDS: HEPARIN NA (PORCINE) 5,000 UNITS/ML 1ML VIAL SQ SCH ×3 (06:48→21:55)
[2018-06-21] MEDS: INSULIN SLIDING SCALE (NOVOLOG) 1 VIAL SQ SCH ×4 (06:48→21:56)
--- NOTE | 2018-06-21 07:52 | PN ---
Physical Exam: SUBJECTIVE: Patient seen and examined, Patient is ambulatory at bedside reports feeling improved denies any pain denies any tactile fever, tolerating diet OBJECTIVE: patient is a68 yrs old man multiple medical co-morbidities h/O HTN, T2DM on Insulin and oral meds, COPD, pulmonary nodule (PET scan as outpt negative as per pt), BPH (noncompliant with prescribed Flomax), nephrolithiais, admitted with UTI. Vital Signs Period Temp Pulse Resp BP Sys/Alaniz Pulse Ox Last 24 Hr 98.8 F-99.5 F 76-87 18-20 116-155/57-78 95-98 GENERAL: The patient is awake, alert, and fully oriented, in no acute distress. HEAD: Normal with no signs of trauma. EYES: PERRL, extraocular movements intact, sclera anicteric, conjunctiva clear. No ptosis. ENT: Ears normal, nares patent, oropharynx clear without exudates, moist mucous membranes. NECK: Trachea midline, full range of motion, supple. LUNGS: Breath sounds equal, clear to auscultation bilaterally, no wheezes, no crackles, no accessory muscle use. HEART: Regular rate and rhythm, S1, S2 without murmur, rub or gallop. ABDOMEN: Soft, nontender, nondistended, normoactive bowel sounds, no guarding, no rebound, no hepatosplenomegaly, no masses. EXTREMITIES: 2+ pulses, warm, well-perfused, no edema. NEUROLOGICAL: Cranial nerves II through XII grossly intact. Normal speech, gait not observed. PSYCH: Normal mood, normal affect. SKIN: Warm, dry, normal turgor, no rashes or lesions noted Laboratory Results - last 24 hr 06/20/18 06/20/18 06/20/18 07:00 07:00 11:28 Sodium 135 L Potassium 4.0 Chloride 108 H Carbon Dioxide 21 L D Anion Gap 6 L BUN 16 Creatinine 1.2 Creat Clearance w eGFR > 60 POC Glucometer 220 Random Glucose 124 H D Hemoglobin A1c % 7.6 H D Calcium 7.6 L Total Bilirubin 0.9 AST 16 D ALT 20 Alkaline Phosphatase 54 D Total Protein 6.1 L Albumin 2.8 L 06/20/18 06/20/18 06/21/18 16:38 20:54 06:23 Sodium Potassium Chloride Carbon Dioxide Anion Gap BUN Creatinine Creat Clearance w eGFR POC Glucometer 227 300 189 Random Glucose Hemoglobin A1c % Calcium Total Bilirubin AST ALT Alkaline Phosphatase Total Protein Albumin Active Medications Generic Name Dose Route Start Last Admin Trade Name Freq PRN Reason Stop Dose Admin Acetaminophen 650 mg 06/19/18 08:59 06/19/18 09:46 Tylenol - PO 650 mg Q6H PRN Administration FEVER Acetaminophen 650 mg 06/19/18 09:46 06/19/18 16:51 Tylenol - PO 650 mg Q4H PRN Administration PAIN OR FEVER Aspirin 81 mg 06/19/18 10:00 06/20/18 09:51 Ecotrin - PO 81 mg DAILY ADALBERTO Administration Atorvastatin Calcium 20 mg 06/19/18 10:00 06/20/18 09:50 Lipitor - PO 20 mg DAILY ADALBERTO Administration Heparin Sodium (Porcine) 5,000 unit 06/20/18 14:00 06/21/18 06:48 Heparin - SQ 5,000 unit TID ADALBERTO Administration Sodium Chloride 1,000 mls @ 75 mls/hr 06/19/18 09:45 06/20/18 09:57 Normal Saline - IV 75 mls/hr ASDIR ADALBERTO Administration Ertapenem 1 gm in 50 mls @ 50 mls/hr 06/20/18 09:16 06/20/18 09:51 Invanz (Pre-Docked) IVPB 50 mls/hr DAILY ADALBERTO Administration Protocol Insulin Aspart 1 vial 06/19/18 17:15 06/21/18 06:48 Novolog Vial Sliding Scale - SQ 2 units ACHS ADALBERTO Administration Protocol Insulin Detemir 35 units 06/19/18 22:00 06/20/18 21:06 Levemir Vial SQ 35 units HS ADALBERTO Administration Lactobacillus Acidophilus 1 tab 06/20/18 12:00 06/20/18 12:41 Bacid - PO 1 tab DAILY ADALBERTO Administration Losartan Potassium 100 mg 06/19/18 22:00 06/20/18 21:05 Cozaar - PO 100 mg HS ADALBERTO Administration Ondansetron HCl 4 mg 06/19/18 09:45 06/19/18 10:52 Zofran Injection IVPUSH 4 mg Q6H PRN Administration NAUSEA Pantoprazole Sodium 40 mg 06/19/18 10:00 06/20/18 09:50 Protonix Iv IVPUSH 40 mg DAILY ADALBERTO Administration Propranolol HCl 160 mg 06/20/18 11:43 06/20/18 12:35 Inderal La - PO 160 mg DAILY ADALBERTO Administration Microbiology 06/18/18 23:40 Urine Culture - Final Urine - Urine Clean Catch Escherichia Coli Esbl Digital [employer]st 06/18/18 23:20 Blood Culture - Preliminary Blood - Peripheral Venous NO GROWTH OBTAINED AFTER 48 HOURS, INCUBATION TO CONTINUE FOR 3 DAYS. 06/18/18 23:20 Blood Culture - Preliminary Blood - Peripheral Venous NO GROWTH OBTAINED AFTER 48 HOURS, INCUBATION TO CONTINUE FOR 3 DAYS. Imaging Ultrasound of kidney/bladder: Left nephrolithiasis, no hydronephrosis mild prostate enlargement mild post void residual ASSESSMENT/PLAN: 1) ID Sepsis due ecoli esbl - - resolved, Patient is afebrile no leukocytosis noted - Infectious disease physician consulted and following discussed with infectious disease physician patient will require 14 days of IV antibiotic PICC line ordered 2) uTI - ultrasound of kidney/bladder reviewed, mild prostate enlargement noted patient reports he is noncompliant with Flomax PSA pending. - urine culture noted Escherichia coli ESBL continue ertapenem, day 2 3) endo DM type 2 - Lispro sliding scale and Levemir - victoza on Basoglar -NF) - FS monitoring ACs& HS - Hgb 7.6 4) cardiovascular CAD - asymptomatic -continue ASA, Lipitor and Inderal * VTE: Heparin SQ Visit type - Emergency Visit Emergency Visit: Yes ED Registration Date: 06/19/18 Care time: The patient presented to the Emergency Department on the above date and was hospitalized for further evaluation of their emergent condition. - New Patient This patient is new to me today: No - Critical Care Critical Care patient: No - Discharge Referral Referred to [facility] No
[2018-06-21 08:07] LABS: HEMATOCRIT 32.7 % (35.4-49); HEMOGLOBIN 10.9 GM/dl (11.7-16.9); MCH 28.6 pg (25.7-33.7); MCHC 33.2 g/dl (32.0-35.9); MEAN PLT VOLUME 8.9 fl (7.5-11.1); PLATELET COUNT 106 K/MM3 (134-434); RBC 3.81 M/mm3 (4.00-5.60); RDW 13.4 % (11.9-15.9); WHITE BLOOD COUNT 4.4 K/mm3 (4.0-10.8)
[2018-06-21] MEDS: ERTAPENEM SODIUM - 1 GRAM 1 GM/50 ML BAG IVPB SCH (10:01)
[2018-06-21] MEDS: SODIUM CHLORIDE 1,000 ML IV SCH (10:02)
[2018-06-21] MEDS: LACTOBACILLUS ACIDOPHILUS 1 TABLET PO SCH (10:02)
[2018-06-21] MEDS: ATORVASTATIN CA 20 MG TABLET (FP) PO SCH (10:03)
[2018-06-21] MEDS: PANTOPRAZOLE SODIUM 40 MG VIAL IVPUSH SCH (10:03)
[2018-06-21] MEDS: ASPIRIN COATED 81 MG TABLET.EC PO SCH (10:03)
--- NOTE | 2018-06-21 11:22 | EKG ---
Test Reason : Blood Pressure : / mmHG Vent. Rate : 091 BPM Atrial Rate : 091 BPM P-R Int : 144 ms QRS Dur : 096 ms QT Int : 364 ms P-R-T Axes : 071 -26 007 degrees QTc Int : 447 ms NORMAL SINUS RHYTHM WITH SINUS ARRHYTHMIA NORMAL ECG WHEN COMPARED WITH ECG OF 17-JUN-2018 12:45, NO SIGNIFICANT CHANGE WAS FOUND Confirmed by ROB PENDLETON MD ([id number] on 06/21/2018 11:21:52 AM Referred By: MD FAM Confirmed By:ROB PENDLETON MD
[2018-06-21 11:25] LABS: PLATELET ESTIMATE DECREASED
--- NOTE | 2018-06-21 12:13 | PN ---
Progress Note, Physician History of Present Illness: Events noted. Pt states he is feeling better, denies dysuria/abd/suprapubic/ flank pain. Tmax 99.5 (yesterday), currently afebrile. Had 2 episodes of loose BMs last night but no abd cramping/discomfort. Has no other specific complaints. - Current Medication List Current Medications: Active Medications Acetaminophen (Tylenol -) 650 mg PO Q6H PRN PRN Reason: FEVER Last Admin: 06/19/18 09:46 Dose: 650 mg Acetaminophen (Tylenol -) 650 mg PO Q4H PRN PRN Reason: PAIN OR FEVER Last Admin: 06/19/18 16:51 Dose: 650 mg Aspirin (Ecotrin -) 81 mg PO DAILY [facility] Last Admin: 06/21/18 10:03 Dose: 81 mg Atorvastatin Calcium (Lipitor -) 20 mg PO DAILY [facility] Last Admin: 06/21/18 10:03 Dose: 20 mg Heparin Sodium (Porcine) (Heparin -) 5,000 unit SQ TID [facility] Last Admin: 06/21/18 06:48 Dose: 5,000 unit Sodium Chloride (Normal Saline -) 1,000 mls @ 75 mls/hr IV ASDIR ADALBERTO Last Admin: 06/21/18 10:02 Dose: 75 mls/hr Ertapenem (Invanz (Pre-Docked)) 1 gm in 50 mls @ 50 mls/hr IVPB DAILY [facility]; Protocol Last Admin: 06/21/18 10:01 Dose: 50 mls/hr Insulin Aspart (Novolog Vial Sliding Scale -) 1 vial SQ ACHS [facility]; Protocol Last Admin: 06/21/18 06:48 Dose: 2 units Insulin Detemir (Levemir Vial) 35 units SQ HS [facility] Last Admin: 06/20/18 21:06 Dose: 35 units Lactobacillus Acidophilus (Bacid -) 1 tab PO DAILY [facility] Last Admin: 06/21/18 10:02 Dose: 1 tab Losartan Potassium (Cozaar -) 100 mg PO HS [facility] Last Admin: 06/20/18 21:05 Dose: 100 mg Ondansetron HCl (Zofran Injection) 4 mg IVPUSH Q6H PRN PRN Reason: NAUSEA Last Admin: 06/19/18 10:52 Dose: 4 mg Pantoprazole Sodium (Protonix Iv) 40 mg IVPUSH DAILY [facility] Last Admin: 06/21/18 10:03 Dose: 40 mg Propranolol HCl (Inderal La -) 160 mg PO DAILY [facility] Last Admin: 06/21/18 10:03 Dose: 160 mg - Objective Vital Signs: Vital Signs Temperature 98.6 F 06/21/18 09:56 Pulse Rate 72 06/21/18 09:56 Respiratory Rate 18 06/21/18 09:56 Blood Pressure 132/58 06/21/18 09:56 O2 Sat by Pulse Oximetry (%) 97 06/21/18 09:00 Constitutional: Yes: No Distress, Calm Cardiovascular: Yes: Regular Rate and Rhythm Respiratory: Yes: Regular Gastrointestinal: Yes: Normal Bowel Sounds, Soft Genitourinary: Yes: WNL Extremities: Yes: WNL Integumentary: Yes: WNL Neurological: Yes: Alert, Oriented Labs: CBC, BMP 06/21/18 07:30 06/20/18 07:00 INR, PTT INR 1.28 (0.82-1.09) H 06/18/18 23:20 Microbiology 06/18/18 23:40 Urine - Urine Clean Catch Urine Culture - Final Escherichia Coli Esbl 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 06/18/18 23:20 Blood - Peripheral Venous Blood Culture - Preliminary NO GROWTH OBTAINED AFTER 48 HOURS, INCUBATION TO CONTINUE FOR 3 DAYS. - ....Imaging Ultrasound: Report Reviewed (renal/bladder US: no hydronephrosis, + nonobstructive stone in left kidney, small amount post-void residual with enlarged prostate) Problem List - Problems (1) Sepsis due to Gram negative bacteria Code(s): A41.50 - GRAM-NEGATIVE SEPSIS, UNSPECIFIED (2) Diabetes Code(s): E11.9 - TYPE 2 DIABETES MELLITUS WITHOUT COMPLICATIONS (3) Fever Code(s): R50.9 - FEVER, UNSPECIFIED (4) Lactic acid acidosis Code(s): E87.2 - ACIDOSIS (5) UTI (urinary tract infection) Code(s): N39.0 - URINARY TRACT INFECTION, SITE NOT SPECIFIED Assessment/Plan 68 y.o. male with PMH of IDDM uncontrolled, BPH, nephrolithiasis/hematuria, CAD , COPD, HTN, HLD presenting with fever/chills/weakness, elevated lactic acid, elevated BUN and Creatinine ESBL + E. 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
[2018-06-21] MEDS ORDERED: PICC LINE 8 ML FLUSH PROTOCOL IVPUSH PRN (13:45)
[2018-06-21] MEDS ORDERED: MELATONIN 5 MG TABLETS PO PRN (21:54)
[2018-06-21] MEDS: LOSARTAN POTASSIUM 50 MG TABLET (FP) PO SCH (21:55)
[2018-06-21] MEDS: INSULIN (LEVEMIR) 100 UNITS/ML UNITS SQ SCH (21:56)
[2018-06-22] MEDS: HEPARIN NA (PORCINE) 5,000 UNITS/ML 1ML VIAL SQ SCH (06:20)
[2018-06-22] MEDS: INSULIN SLIDING SCALE (NOVOLOG) 1 VIAL SQ SCH ×2 (06:20→12:10)
[2018-06-22 06:47] VITALS: TEMP 98.6
--- NOTE | 2018-06-22 10:47 | DS ---
Physical Exam: SUBJECTIVE: Patient seen and examined, the patient is ambulatory at bedside, denies any chest pain shortness of breath, tolerating diet. PICC inserted today OBJECTIVE:68 yrs old man multiple medical co-morbidities h/O HTN, T2DM on Insulin and oral meds, COPD, pulmonary nodule (PET scan as outpt negative as per pt), BPH (noncompliant with prescribed Flomax), nephrolithiais with hematuria, presenting to ED with c/o feeling weak, dysuria, urinary frequency, initially patient present to Ed on 06/17/2018 with urinary symptoms and discharged home on PO Bactrim and Phenazopyridine, patient symptoms worsened wuth fever, nausea, vomiting and tachycardia, came to Ed for evaluation, patient w/u shows + UA, WElvated TWBC and elevated Lactic acid , received Ceftriaxone admitted for further management, at the time of examination c/o sever nausea, epigastria pain and vomiting, no c/o hemetmesis or bleeding DE or diarrhea, patient also c/o of worsening of his base line b/l hands tremors, no c /o chest [pain SOB or Palpitation. Vital Signs Period Temp Pulse Resp BP Sys/Alaniz Pulse Ox Last 24 Hr 98.5 F-98.8 F 65-71 18-20 128-146/57-68 96-96 PHYSICAL EXAM GENERAL: The patient is awake, alert, and fully oriented, in no acute distress. HEAD: Normal with no signs of trauma. EYES: PERRL, extraocular movements intact, sclera anicteric, conjunctiva clear. ENT: Ears normal, nares patent, oropharynx clear without exudates, moist mucous membranes. NECK: Trachea midline, full range of motion, supple. LUNGS: Breath sounds equal, clear to auscultation bilaterally, no wheezes, no crackles, no accessory muscle use. HEART: Regular rate and rhythm, S1, S2 without murmur, rub or gallop. ABDOMEN: Soft, nontender, nondistended, normoactive bowel sounds, no guarding, no rebound, no hepatosplenomegaly, no masses. EXTREMITIES: 2+ pulses, warm, well-perfused, no edema. NEUROLOGICAL: Cranial nerves II through XII grossly intact. Normal speech, gait not observed. PSYCH: Normal mood, normal affect. SKIN: Warm, dry, normal turgor, no rashes or lesions noted, right upper extremity, PICC noted, no erythema, no induration noted LABS Laboratory Results - last 24 hr 06/21/18 06/21/18 06/21/18 07:30 08:00 11:59 Neutrophils % (Manual) 49.0 Band Neutrophils % 6.0 Lymphocytes % (Manual) 26.0 D Monocytes % (Manual) 13 H D Eosinophils % (Manual) 4.0 D Platelet Estimate Decreased Platelet Comment Rare giant plts POC Glucometer 267 Prostate Specific Ag 10.30 H D 06/21/18 06/21/18 06/22/18 17:00 20:58 05:51 Neutrophils % (Manual) Band Neutrophils % Lymphocytes % (Manual) Monocytes % (Manual) Eosinophils % (Manual) Platelet Estimate Platelet Comment POC Glucometer 276 301 259 Prostate Specific Ag Microbiology 06/18/18 23:20 Blood - Peripheral Venous Blood Culture - Final NO GROWTH AFTER 5 DAYS INCUBATION 06/18/18 23:20 Blood - Peripheral Venous Blood Culture - Final NO GROWTH AFTER 5 DAYS INCUBATION 06/18/18 23:40 Urine - Urine Clean Catch Urine Culture - Final Escherichia Coli Esbl 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 - urine culture noted Escherichia coli ESBL continue ertapenem, day 3 3) DM type 2 - Lispro sliding scale and Levemir - victoza on Basoglar -NF) - FS monitoring ACs& HS - Hgb 7.6 4) CAD - asymptomatic -continue ASA, Lipitor and Inderal PLAN - discharge home with PICC line and ertapenem for a total of 14 days Date of Admission:06/19/18 Date of Discharge: 06/22/18 Minutes to complete discharge: 45 Discharge Summary Reason For Visit: SEPSIS Current Active Problems BASIA (acute kidney injury) (Acute) BPH (benign prostatic hyperplasia) (Acute) CAD (coronary artery disease) (Acute) Hyponatremia (Acute) Nausea & vomiting (Acute) Sepsis due to Gram negative bacteria (Acute) T2DM (type 2 diabetes mellitus) (Acute) Tremors of nervous system (Acute) - Instructions Diet, Activity, Other Instructions: -Resume low sodium diabetic diet - Continue all medications as prescribed - Please return to the infusion center tomorrow to start your daily infusions invanz for the next 10 days - please follow-up with the neurologist and urologist within 1 week - please keep your scheduled appointment with Dr Maciel this week - if any new or persistent symptoms develop please return to the emergency department Referrals: Rony Kim MD [Staff Physician] - Farhad Maciel MD [Primary Care Provider] - Alfredito Paige MD [Staff Physician] - Disposition: HOME - Home Medications Comprehensive Discharge Medication List: Ambulatory Orders RX: Glipizide [Glipizide ER] 10 mg PO BID tablet 12/02/16 RX: Aspirin [Ecotrin] 81 mg PO DAILY 01/19/17 RX: Insulin Glargine,Hum.rec.anlog [Lantus Solostar PEN -] 70 units SQ HS RX: [place]-3 Acid Ethyl Esters [Lovaza] 2 gm PO BID 01/19/17 RX: Acetaminophen [Tylenol .Regular Strength -] 650 mg PO Q4H PRN tablet Phenazopyridine HCl [Pyridium] 200 mg PO TID #6 tablet 06/17/18 This patient is new to me today: No Emergency Visit: Yes ED Registration Date: 06/19/18 Care time: The patient presented to the Emergency Department on the above date and was hospitalized for further evaluation of their emergent condition. Critical Care patient: No - Discharge Referral Referred to [facility] Yes Physician Referral: Farhad Maciel MD (Int Med)
[2018-06-22 10:57] VITALS: BP 148/81; PULSE 71
--- NOTE | 2018-06-22 11:16 | PN ---
Progress Note, Physician History of Present Illness: Pt seen and examined. States he feels better, has been afebrile, no dysuria. Tolerating antibiotics. PICC placed. - Current Medication List Current Medications: Active Medications Acetaminophen (Tylenol -) 650 mg PO Q6H PRN PRN Reason: FEVER Last Admin: 06/19/18 09:46 Dose: 650 mg Acetaminophen (Tylenol -) 650 mg PO Q4H PRN PRN Reason: PAIN OR FEVER Last Admin: 06/19/18 16:51 Dose: 650 mg Aspirin (Ecotrin -) 81 mg PO DAILY [facility] Last Admin: 06/21/18 10:03 Dose: 81 mg Atorvastatin Calcium (Lipitor -) 20 mg PO DAILY DAALB[facility] Last Admin: 06/21/18 10:03 Dose: 20 mg Heparin Sodium (Porcine) (Heparin -) 5,000 unit SQ TID [facility] Last Admin: 06/22/18 06:20 Dose: 5,000 unit IV Flush (Picc Line Flush) 8 ml IVPUSH PRN PRN PRN Reason: Protocol Ertapenem (Invanz (Pre-Docked)) 1 gm in 50 mls @ 50 mls/hr IVPB DAILY [facility]; Protocol Last Admin: 06/21/18 10:01 Dose: 50 mls/hr Insulin Aspart (Novolog Vial Sliding Scale -) 1 vial SQ ACHS [facility]; Protocol Last Admin: 06/22/18 06:20 Dose: 8 units Insulin Detemir (Levemir Vial) 35 units SQ HS [facility] Last Admin: 06/21/18 21:56 Dose: 35 units Lactobacillus Acidophilus (Bacid -) 1 tab PO DAILY [facility] Last Admin: 06/21/18 10:02 Dose: 1 tab Losartan Potassium (Cozaar -) 100 mg PO HS [facility] Last Admin: 06/21/18 21:55 Dose: 100 mg Melatonin (Melatonin) 5 mg PO HS PRN PRN Reason: INSOMNIA Last Admin: 06/21/18 22:21 Dose: 5 mg Ondansetron HCl (Zofran Injection) 4 mg IVPUSH Q6H PRN PRN Reason: NAUSEA Last Admin: 06/19/18 10:52 Dose: 4 mg Pantoprazole Sodium (Protonix Iv) 40 mg IVPUSH DAILY [facility] Last Admin: 06/21/18 10:03 Dose: 40 mg Propranolol HCl (Inderal La -) 160 mg PO DAILY [facility] Last Admin: 06/21/18 10:03 Dose: 160 mg - Objective Vital Signs: Vital Signs Temperature 98.6 F 06/22/18 06:46 Pulse Rate 71 06/22/18 10:00 Respiratory Rate 18 06/22/18 10:00 Blood Pressure 148/81 06/22/18 10:00 O2 Sat by Pulse Oximetry (%) 96 06/22/18 09:00 Constitutional: Yes: No Distress, Calm Neck: Yes: Supple Cardiovascular: Yes: Regular Rate and Rhythm Respiratory: Yes: CTA Bilaterally Gastrointestinal: Yes: Normal Bowel Sounds, Soft Genitourinary: Yes: WNL Extremities: Yes: WNL Integumentary: Yes: WNL Neurological: Yes: Alert, Oriented Labs: CBC, BMP 06/21/18 07:30 06/20/18 07:00 INR, PTT INR 1.28 (0.82-1.09) H 06/18/18 23:20 Microbiology 06/18/18 23:20 Blood - Peripheral Venous Blood Culture - Preliminary NO GROWTH OBTAINED AFTER 72 HOURS, INCUBATION TO CONTINUE FOR 2 DAYS. 06/18/18 23:20 Blood - Peripheral Venous Blood Culture - Preliminary NO GROWTH OBTAINED AFTER 72 HOURS, INCUBATION TO CONTINUE FOR 2 DAYS. 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 male with PMH of IDDM uncontrolled, BPH, nephrolithiasis/hematuria, CAD , COPD, HTN, HLD presenting with fever/chills/weakness, elevated lactic acid, elevated BUN and Creatinine ESBL + E. 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
[2018-06-22] MEDS: LACTOBACILLUS ACIDOPHILUS 1 TABLET PO SCH (11:19)
[2018-06-22] MEDS: ERTAPENEM SODIUM - 1 GRAM 1 GM/50 ML BAG IVPB SCH (11:20)
[2018-06-22] MEDS: PANTOPRAZOLE SODIUM 40 MG VIAL IVPUSH SCH (11:20)
[2018-06-22] MEDS: ASPIRIN COATED 81 MG TABLET.EC PO SCH (11:20)
[2018-06-22] MEDS: ATORVASTATIN CA 20 MG TABLET (FP) PO SCH (11:20)
== END 2018-06-22 13:20 | disposition home or self-care (01) | DRG 872 ==
LOC: FER 22:52 → FM/S 06-19 01:41 → OBSVTOIN 06-19 11:29
PROVIDERS: ADMIT Internal Medicine; ATTEND Nurse Practitioner Family
PROC: 02HV33Z Insertion of Infusion Device into Superior Vena Cava, Percutaneous Approach (ICD-10-PCS; principal; 2018-06-22)
DX: A41.51 Sepsis due to Escherichia coli [E. coli] (principal); N39.0 Urinary tract infection, site not specified; E87.1 Hypo-osmolality and hyponatremia; N17.9 Acute kidney failure, unspecified; E87.2 Acidosis; E11.9 Type 2 diabetes mellitus without complications; N20.0 Calculus of kidney; N40.0 Benign prostatic hyperplasia without lower urinary tract symptoms; I25.10 Atherosclerotic heart disease of native coronary artery without angina pectoris; I10 Essential (primary) hypertension; E78.5 Hyperlipidemia, unspecified
CPT/HCPCS: 36415; 36569; 71045-TC-FY; 76775-TC; 76856-TC; 77001-TC-FY; 80048; 80053; 80061; 81003; 81015; 82803; 82962; 83036; 83605; 83690; 83721; 84153; 85025; 85610; 85730; 87040; 87086; 87186; 93005; 99281-25; 99284-25; C1751; G0378; J1644; J7030

== ENCOUNTER 2018-06-23 09:04 | Day surgery (SDC) | payer OTHER ==
[2018-06-23 09:54] VITALS: TEMP 98
[2018-06-23] MEDS ORDERED: ERTAPENEM SODIUM 1 GM/50 ML PRE-DOCKED IVPB ONE (10:00)
[2018-06-23 10:03] VITALS: BMI 34.9
[2018-06-23 10:37] VITALS: BP 148/74; PULSE 70
== END 2018-06-23 10:35 | disposition home or self-care (01) ==
LOC: FINFUSION 09:04 → FM/S 09:06 → FINFUSION 10:35
PROVIDERS: ATTEND Internal Medicine Infectious Disease
DX: N39.0 Urinary tract infection, site not specified (principal); B96.89 Other specified bacterial agents as the cause of diseases classified elsewhere; Z16.12 Extended spectrum beta lactamase (ESBL) resistance
CPT/HCPCS: 96365; 96366

== ENCOUNTER 2018-06-24 10:02 | Day surgery (SDC) | payer OTHER ==
[2018-06-24 10:35] VITALS: BP 134/85; PULSE 100; TEMP 98.4; BMI 34.9
[2018-06-24] MEDS ORDERED: ERTAPENEM SODIUM 1 GM/50 ML PRE-DOCKED IVPB ONE (10:45)
== END 2018-06-24 11:25 | disposition home or self-care (01) ==
LOC: FINFUSION 10:02 → FM/S 10:14 → FINFUSION 11:25
PROVIDERS: ATTEND Internal Medicine Infectious Disease
DX: N39.0 Urinary tract infection, site not specified (principal); B96.89 Other specified bacterial agents as the cause of diseases classified elsewhere; Z16.12 Extended spectrum beta lactamase (ESBL) resistance
CPT/HCPCS: 96365

== ENCOUNTER 2018-06-25 09:04 | Day surgery (SDC) | payer OTHER ==
[2018-06-25 09:23] VITALS: BP 135/75; PULSE 87; TEMP 98.6; BMI 34.9
[2018-06-25] MEDS ORDERED: ERTAPENEM SODIUM 1 GM/50 ML PRE-DOCKED IVPB ONE (10:00)
== END 2018-06-25 10:30 | disposition home or self-care (01) ==
LOC: FINFUSION 09:04 → FM/S 09:05 → FINFUSION 10:30
PROVIDERS: ATTEND Internal Medicine Infectious Disease
PROC: 3E033GC Introduction of Other Therapeutic Substance into Peripheral Vein, Percutaneous Approach (ICD-10-PCS; principal; 2018-06-25)
DX: N39.0 Urinary tract infection, site not specified (principal); B96.89 Other specified bacterial agents as the cause of diseases classified elsewhere; Z16.12 Extended spectrum beta lactamase (ESBL) resistance
CPT/HCPCS: 96365

== ENCOUNTER 2018-06-26 09:08 | Day surgery (SDC) | payer OTHER ==
[2018-06-26] MEDS ORDERED: ERTAPENEM SODIUM 1 GM/50 ML PRE-DOCKED IVPB SCH (09:30)
[2018-06-26 09:41] VITALS: TEMP 97.7
[2018-06-26 10:14] VITALS: BP 142/78; PULSE 92
== END 2018-06-26 10:17 | disposition home or self-care (01) ==
LOC: FINFUSION 09:08 → FM/S 09:09 → FINFUSION 10:17
PROVIDERS: ATTEND Internal Medicine Infectious Disease
DX: N39.0 Urinary tract infection, site not specified (principal); B96.89 Other specified bacterial agents as the cause of diseases classified elsewhere; Z16.12 Extended spectrum beta lactamase (ESBL) resistance
CPT/HCPCS: 96365; 96366

== ENCOUNTER 2018-06-27 09:24 | Day surgery (SDC) | payer OTHER ==
[2018-06-27 09:44] VITALS: TEMP 97.8
[2018-06-27] MEDS ORDERED: ERTAPENEM SODIUM 1 GM in SODIUM CHLORIDE 50 ML IVPB ONE (09:46)
[2018-06-27 10:17] VITALS: BP 128/77; PULSE 88
== END 2018-06-27 10:17 | disposition home or self-care (01) ==
LOC: FINFUSION 09:24
PROVIDERS: ATTEND Internal Medicine Infectious Disease
DX: N39.0 Urinary tract infection, site not specified (principal); Z16.12 Extended spectrum beta lactamase (ESBL) resistance; B96.89 Other specified bacterial agents as the cause of diseases classified elsewhere
CPT/HCPCS: 96365

== ENCOUNTER 2018-06-28 10:53 | Day surgery (SDC) | payer OTHER ==
[2018-06-28 11:15] VITALS: TEMP 98.4
[2018-06-28] MEDS ORDERED: ERTAPENEM SODIUM 1 GM/50 ML PRE-DOCKED IVPB ONE (11:30)
[2018-06-28 11:58] VITALS: BP 140/82; PULSE 90
== END 2018-06-28 11:50 | disposition home or self-care (01) ==
LOC: FINFUSION 10:53 → FM/S 10:54 → FINFUSION 11:50
PROVIDERS: ATTEND Internal Medicine Infectious Disease
DX: N39.0 Urinary tract infection, site not specified (principal); Z16.12 Extended spectrum beta lactamase (ESBL) resistance; B96.89 Other specified bacterial agents as the cause of diseases classified elsewhere
CPT/HCPCS: 96365

== ENCOUNTER 2018-06-29 10:40 | Day surgery (SDC) | payer OTHER ==
[2018-06-29] MEDS ORDERED: ERTAPENEM SODIUM 1 GM/50 ML PRE-DOCKED IVPB ONE (11:30)
[2018-06-29 13:07] VITALS: BP 150/78; PULSE 77
[2018-06-29 13:08] VITALS: TEMP 98.4
== END 2018-06-29 12:30 | disposition home or self-care (01) ==
LOC: FINFUSION 10:40 → FM/S 10:51 → FINFUSION 12:30
PROVIDERS: ATTEND Internal Medicine Infectious Disease
DX: N39.0 Urinary tract infection, site not specified (principal); Z16.12 Extended spectrum beta lactamase (ESBL) resistance; B96.89 Other specified bacterial agents as the cause of diseases classified elsewhere
CPT/HCPCS: 96365

== ENCOUNTER 2018-06-30 10:15 | Day surgery (SDC) | payer OTHER ==
[2018-06-30] MEDS ORDERED: ERTAPENEM SODIUM 1 GM/50 ML PRE-DOCKED IVPB ONE (10:45)
[2018-06-30 10:48] VITALS: TEMP 98.6; BMI 34.9
[2018-06-30 11:54] VITALS: BP 136/74; PULSE 80
== END 2018-06-30 11:50 | disposition home or self-care (01) ==
LOC: FM/S 10:15 → FINFUSION 10:15
PROVIDERS: ATTEND Internal Medicine Infectious Disease
DX: N39.0 Urinary tract infection, site not specified (principal); Z16.12 Extended spectrum beta lactamase (ESBL) resistance; B96.89 Other specified bacterial agents as the cause of diseases classified elsewhere
CPT/HCPCS: 96365; 96366

== ENCOUNTER 2018-07-01 09:37 | Day surgery (SDC) | payer OTHER ==
[2018-07-01] MEDS ORDERED: REFRIGERATED ANITBIOTICS ONE (09:48)
[2018-07-01 10:07] VITALS: TEMP 98.4
[2018-07-01] MEDS ORDERED: ERTAPENEM SODIUM 1 GM/50 ML PRE-DOCKED IVPB ONE (10:15)
[2018-07-01 10:51] VITALS: BP 133/70; PULSE 86
[2018-07-01 10:54] VITALS: BMI 34.2
== END 2018-07-01 10:54 | disposition home or self-care (01) ==
LOC: FM/S 09:37 → FINFUSION 09:37
PROVIDERS: ATTEND Internal Medicine Infectious Disease
DX: N39.0 Urinary tract infection, site not specified (principal); B96.89 Other specified bacterial agents as the cause of diseases classified elsewhere; Z16.12 Extended spectrum beta lactamase (ESBL) resistance
CPT/HCPCS: 96365; 96366

== ENCOUNTER 2018-07-02 09:29 | Day surgery (SDC) | payer OTHER ==
[2018-07-02] MEDS ORDERED: ERTAPENEM SODIUM 1 GM/50 ML PRE-DOCKED IVPB ONE (10:00)
[2018-07-02 11:04] VITALS: BP 149/74; PULSE 88; TEMP 98.3
== END 2018-07-02 11:15 | disposition home or self-care (01) ==
LOC: FINFUSION 09:29 → FM/S 09:29 → FINFUSION 11:15
PROVIDERS: ATTEND Internal Medicine Infectious Disease
DX: N39.0 Urinary tract infection, site not specified (principal); B96.89 Other specified bacterial agents as the cause of diseases classified elsewhere; Z16.12 Extended spectrum beta lactamase (ESBL) resistance
CPT/HCPCS: 96365

== ENCOUNTER 2018-07-10 09:33 | Observation (INO) | payer OTHER ==
[2018-07-10] MEDS ORDERED: SODIUM CHLORIDE 0.9% 500 ML INFUS.BAG IV ONE (10:59)
[2018-07-10] MEDS ORDERED: ACETAMINOPHEN 1000 MG/100 ML VIAL (NON FORMULARY) IVPB ONE (10:59)
--- NOTE | 2018-07-10 11:06 | PDOC ---
History of Present Illness - General Chief Complaint: Pain Stated Complaint: LEFT LOWER ABD PAIN Time Seen by Provider: 07/10/18 10:05 - History of Present Illness Initial Comments: The patient is a 68M w/ a history of HTN, T2DM, and diverticulitis who presents for evaluation of 5days worsening, intermittent, cramping, non-radiating, LLQ abdominal pain. His pain in exacerbated by deep inspiration and alleviated by recumbency. The patient endorses associated nausea and diarrhea. He denies fevers/chills, BRYANT, emesis, chest pain, cough, dyspnea, dysuria, hematuria, or blood in his stool. The patient reports a history of two previous admissions for acute diverticulitis and endorses this pain feeling similar to the pain he had at the time of those incidents. Further, he endorses decreased PO intake nausea. He was seen by Dr. Garrido previously 07/10/18 11:01 Past History - Past Medical History Allergies/Adverse Reactions: Allergies Allergy/AdvReac Type Severity Reaction Status Date / Time No Known Allergies Allergy Verified 06/17/18 12:26 Home Medications: Ambulatory Orders Glipizide [Glipizide ER] 10 mg PO BID tablet 12/02/16 Aspirin [Ecotrin] 81 mg PO DAILY 01/19/17 Insulin Glargine,Hum.rec.anlog [Lantus Solostar PEN -] 70 units SQ HS 01/19/17 [place]-3 Acid Ethyl Esters [Lovaza] 2 gm PO BID 01/19/17 Phenazopyridine HCl [Pyridium] 200 mg PO TID #6 tablet 06/17/18 Acetaminophen [Tylenol .Regular Strength -] 650 mg PO Q4H PRN tablet 06/22/18 Lactobacillus Acidophilus [Bacid -] 1 tab PO DAILY #30 tab 06/22/18 Melatonin 5 mg PO HS PRN tab 06/22/18 Anemia: No Asthma: Yes Cancer: No Cardiac Disorders: Yes (CAD,PALPITATIONS,NUCLEAR STRESS 01/26 NEGATIVE) CVA: No COPD: No CHF: No Dementia: No Diabetes: Yes (DX 1997) GI Disorders: Yes (DIVERTICULOSIS/DIVERTICULITIS) Disorders: Yes (KIDNEY STONES-LAST 01/2012) HTN: Yes (DX ) Hypercholesterolemia: Yes (DIET CONTROLLED) Kidney Stones: Yes Liver Disease: No Seizures: No Thyroid Disease: No - Surgical History Abdominal Surgery: Yes Appendectomy: No Cardiac Surgery: No Cholecystectomy: No Lung Surgery: No Neurologic Surgery: No Orthopedic Surgery: Yes (RIGHT KNEE AND RIGHT ACHILLES TENDON) - Immunization History Immunization Up to Date: Yes - Suicide/Smoking/Psychosocial Hx Smoking Status: Yes Smoking History: Never smoked Have you smoked in the past 12 months: No Number of Cigarettes Smoked Daily: 0 If you are a former smoker, when did you quit?: 10 years ago Cigars Per Day: 0 Information on smoking cessation initiated: No Hx Alcohol Use: No Drug/Substance Use Hx: No Substance Use Type: None Hx Substance Use Treatment: No Review of Systems - Review of Systems Able to Perform ROS?: Yes Comments:: GENERAL/CONSTITUTIONAL: No fever or chills. No weakness HEAD, EYES, EARS, NOSE AND THROAT: No change in vision. No ear pain or discharge. No sore throat CARDIOVASCULAR: No chest pain or shortness of breath RESPIRATORY: No cough, wheezing, or hemoptysis GASTROINTESTINAL: + nausea/diarrhea; denies vomiting GENITOURINARY: No dysuria, frequency, or change in urination MUSCULOSKELETAL: No joint or muscle swelling or pain SKIN: No rash NEUROLOGIC: No headache, loss of consciousness, or change in strength/sensation HEMATOLOGIC/LYMPHATIC: Denies anemia, easy bleeding, or history of blood clots ALLERGIC/IMMUNOLOGIC: No hives or skin allergy 07/10/18 11:06 Is the patient limited Danish proficient: No *Physical Exam - Vital Signs Last Vital Signs Temp Pulse Resp BP Pulse Ox 98.5 F 86 20 149/80 98 07/10/18 09:34 07/10/18 09:34 07/10/18 09:34 07/10/18 09:34 07/10/18 09:34 - Physical Exam Comments: GENERAL: Awake, alert, and fully oriented, in no acute distress HEAD: No signs of trauma, normocephalic, atraumatic EYES: PERRL, EOMI, sclera anicteric, conjunctiva clear ENT: Hearing grossly normal, nares patent, oropharynx clear without exudates. Moist mucosa NECK: Normal ROM, supple, no lymphadenopathy LUNGS: No distress, speaks full sentences, clear to auscultation bilaterally; Abd pain illicited w/ deep inspiration HEART:Regular rate and rhythm, peripheral pulses normal and equal bilaterally ABDOMEN: LLQ TTP without rebound or guarding, soft, non-distended, +BS, -fluid wave; well healed midline incision from previous ventral hernia repair EXTREMITIES : Normal inspection, Normal range of motion, no edema. No clubbing or cyanosis NEUROLOGICAL: Cranial nerves II through XII grossly intact. Normal speech, normal gait, no focal sensorimotor deficits SKIN: Warm, Dry, normal turgor, no rashes or lesions noted 07/10/18 11:08 ED Treatment Course - LABORATORY CBC & Chemistry Diagram: 07/10/18 11:02 07/10/18 11:02 Medical Decision Making - Medical Decision Making The patient is a 68M w/ a history of HTN, T2DM, and diverticulitis who presents for 5d of worsening LLQ abdominal pain w/ associated nausea and diarrhea Ddx: acute diverticulitis v v nephrolithiasis v UTI/pyelo v vascular dz v shingles; considered colitis, perforation ED Course CMP, CBC, Lipase UA ECG UA w/o evidence of UTI CT w/ evidence of acute diverticulitis No leukocytosis Will start Levofloxacin 750 IV once, Flagyl 500 IV once Patient not able to tolerate PO 2/2 abd pain and nausea Plan for Obs admit for IVF, IV abx, bowel rest, and pain control Plan discussed with patient who is in agreement and verbalizes understanding Dispo: Obs Admit 07/10/18 11:14 *DC/Admit/Observation/Transfer Diagnosis at time of Disposition: Acute diverticulitis, LLQ abdominal pain - Discharge Dispostion Condition at time of disposition: Good Decision to Admit order: Yes - Referrals - Patient Instructions - Post Discharge Activity
[2018-07-10] MEDS ORDERED: ACETAMINOPHEN INJECTION 100 ML IVPB ONE (11:13)
[2018-07-10 11:44] LABS: URINE APPEARANCE Clear; URINE BILIRUBIN Negative (NEGATIVE); URINE COLOR Yellow; URINE GLUCOSE (UA) Negative (NEGATIVE); URINE KETONE Negative (NEGATIVE); URINE LEUK ESTERASE Negative (NEGATIVE); URINE NITRITE Negative (NEGATIVE); URINE PROTEIN Trace (NEGATIVE); URINE UROBILINOGEN 0.2 (0.2-1.0)
[2018-07-10 11:59] LABS: ALBUMIN 3.6 g/dl (3.5-5.0); ALK PHOS 72 U/L (32-92); ANION GAP 10 MMOL/L (8-16); BILIRUBIN,TOTAL 1.3 mg/dl (0.2-1.0); BLOOD UREA NITROGEN 12 mg/dl (7-18); CALCIUM 8.7 mg/dl (8.4-10.2); CHLORIDE 101 mmol/L (98-107); CO2 23 mmol/L (22-28); CREATININE 1.1 mg/dl (0.6-1.3); GLUCOSE,RANDOM 135 mg/dl (74-106); SGOT/AST 24 U/L (10-42); SGPT/ALT 32 U/L (10-40); SODIUM 134 mmol/L (136-145); TOT PROT 7.3 g/dl (6.4-8.3)
[2018-07-10 12:03] LABS: HEMATOCRIT 38.6 % (35.4-49); HEMOGLOBIN 12.6 GM/dl (11.7-16.9); MCHC 32.6 g/dl (32.0-35.9); MEAN CELL VOLUME 85.8 fl (80-96); MEAN PLT VOLUME 9.6 fl (7.5-11.1); PLATELET COUNT 140 K/MM3 (134-434); RDW 14.4 % (11.9-15.9); WHITE BLOOD COUNT 8.2 K/mm3 (4.0-10.8)
--- NOTE | 2018-07-10 13:32 | PDOC ---
Attending Attestation - Resident Resident Name: Cristobla Pérez - ED Attending Attestation I have performed the following: I have examined & evaluated the patient, The case was reviewed & discussed with the resident, I agree w/resident's findings & plan - HPI HPI: 07/10/18 13:28 68-year-old man presents complaining of abdominal and left lower quadrant pain for several days. Pain gets worse with eating and he is unable to eat because of the pain. He has nausea but no vomiting. He has diarrhea and soft stools. He denies fever. He has a prior history of diverticulitis, last episode was 8 years ago, 2 prior episodes in the past. - Physicial Exam PE: 07/10/18 13:28 On examination he is awake and alert. He is uncomfortable. Abdominal examination is notable for tenderness in the left lower quadrant. There is no guarding or rebound tenderness. The remainder of his examination is normal. - Medical Decision Making 07/10/18 13:29 CT scan of the abdomen and pelvis was reviewed. In the descending colon there is diverticulitis with pericolonic fat stranding. There is no abscess or perforation. Impression: Acute diverticulitis with abdominal pain and abnormal CT scan. Patient is afebrile with normal white blood cell count (although increased bands ). I discussed the option of outpatient antibiotic treatment with him, however , his pain is too severe and he is unable to tolerate oral intake. He will be placed on observation status for IV Levaquin and Flagyl. Once he is able to tolerate adequate hydration and nutritional intake by mouth, he can potentially be switched to oral therapy.
--- NOTE | 2018-07-10 13:40 | HP ---
CHIEF COMPLAINT: Abdominal pain, nausea and diarrhea. PCP:Raheem Irby HISTORY OF PRESENT ILLNESS: The patient is a 68 year old male with primary medical history significant for HTN,T2DM on Insulin and oral meds, COPD, hx of diverticulitis, pulmonary nodule (PET scan as outpt negative as per pt), BPH, nephrolithiais, obesity and UTI, who presents to ER c/o worsening LLQ abdominal pain. Pt reports crampy intermittent LLQ pain which started 5 days ago, with nausea,diarrhea x1,poor po intake,no hematochezia,denies cp, sob, palpitations, dizziness, weakness, fever ,chills, vomiting or urinary symptoms. ER course was notable for: (1) Afebrile, wbc 8.2 (2) NA 134, Lipase 412, T.B 1.3 (3) CT abdomen/Pelvis: Acute diverticulitis,left mid colon, no evidence of abscess. Recent Travel: No PAST MEDICAL HISTORY: as mentioned above PAST SURGICAL HISTORY: Abdominal Hernia repaired RT meniscus repaired Rt Achilles tendon sx Social History: Smoking: Former, quit 10 yrs ago Alcohol:No Drugs: No Family History: Mother - CAD Maternal grandmother - DM Fraternal grandparents - DM Allergies No Known Allergies Allergy (Verified 06/17/18 12:26) HOME MEDICATIONS: Home Medications Medication Instructions Recorded Glipizide [Glipizide ER] 10 mg PO BID tablet 12/02/16 Aspirin [Ecotrin] 81 mg PO DAILY 01/19/17 Insulin Glargine,Hum.rec.anlog 70 units SQ HS 01/19/17 [Lantus Solostar PEN -] [place]-3 Acid Ethyl Esters [Lovaza] 2 gm PO BID 01/19/17 Phenazopyridine HCl [Pyridium] 200 mg PO TID #6 tablet 06/17/18 Acetaminophen [Tylenol .Regular 650 mg PO Q4H PRN tablet 06/22/18 Strength -] Lactobacillus Acidophilus [Bacid -] 1 tab PO DAILY #30 tab 06/22/18 Melatonin 5 mg PO HS PRN tab 06/22/18 REVIEW OF SYSTEMS CONSTITUTIONAL: Absent: fever, chills, diaphoresis, generalized weakness, malaise, loss of appetite, weight change HEENT: Absent: rhinorrhea, nasal congestion, throat pain, throat swelling, difficulty swallowing, mouth swelling, ear pain, eye pain, visual changes CARDIOVASCULAR: Absent: chest pain, syncope, palpitations, irregular heart rate, lightheadedness , peripheral edema RESPIRATORY: Absent: cough, shortness of breath, dyspnea with exertion, orthopnea, wheezing, stridor, hemoptysis GASTROINTESTINAL:Abdominal pain, + nausea, no abdominal distension, vomiting, diarrhea, constipation, melena, hematochezia GENITOURINARY: Absent: dysuria, frequency, urgency, hesitancy, hematuria, flank pain, genital pain MUSCULOSKELETAL: Absent: myalgia, arthralgia, joint swelling, back pain, neck pain SKIN: Absent: rash, itching, pallor HEMATOLOGIC/IMMUNOLOGIC: Absent: easy bleeding, easy bruising, lymphadenopathy, frequent infections ENDOCRINE: Absent: unexplained weight gain, unexplained weight loss, heat intolerance, cold intolerance NEUROLOGIC: Absent: headache, focal weakness or paresthesias, dizziness, unsteady gait, seizure, mental status changes, bladder or bowel incontinence PSYCHIATRIC: Absent: anxiety, depression, suicidal or homicidal ideation, hallucinations. PHYSICAL EXAMINATION Vital Signs - 24 hr 07/10/18 09:34 Temperature 98.5 F Pulse Rate 86 Respiratory 20 Rate Blood Pressure 149/80 O2 Sat by Pulse 98 Oximetry (%) GENERAL: Awake, alert, and fully oriented, in no acute distress. HEAD: Normal with no signs of trauma. EYES: Pupils equal, round and reactive to light, extraocular movements intact, sclera anicteric, conjunctiva clear. No lid lag. EARS, NOSE, THROAT: Ears normal, nares patent, oropharynx clear without exudates. Moist mucous membranes. NECK: Normal range of motion, supple without lymphadenopathy, JVD, or masses. LUNGS: Breath sounds equal, clear to auscultation bilaterally. No wheezes, and no crackles. No accessory muscle use. HEART: Regular rate and rhythm, normal S1 and S2 without murmur, rub or gallop. ABDOMEN: Soft, + tenderness LLQ, not distended, normoactive bowel sounds, no guarding, no rebound, no masses. No hepatomegaly or splenomegaly. MUSCULOSKELETAL: Normal range of motion at all joints. No bony deformities or tenderness. No CVA tenderness. UPPER EXTREMITIES: 2+ pulses, warm, well-perfused. No cyanosis. No clubbing. No peripheral edema. LOWER EXTREMITIES: 2+ pulses, warm, well-perfused. No calf tenderness. No peripheral edema. NEUROLOGICAL: Cranial nerves II-XII intact. Normal speech. Normal gait. PSYCHIATRIC: Cooperative. Good eye contact. Appropriate mood and affect. SKIN: Warm, dry, normal turgor, no rashes or lesions noted, normal capillary refill. Laboratory Results - last 24 hr 07/10/18 07/10/18 07/10/18 11:02 11:02 11:02 WBC 8.2 RBC 4.50 Hgb 12.6 Hct 38.6 MCV 85.8 MCH 28.0 MCHC 32.6 RDW 14.4 Plt Count 140 D MPV 9.6 Sodium 134 L Potassium 4.0 Chloride 101 Carbon Dioxide 23 Anion Gap 10 BUN 12 Creatinine 1.1 Creat Clearance w eGFR > 60 Random Glucose 135 H Calcium 8.7 Total Bilirubin 1.3 H AST 24 D ALT 32 D Alkaline Phosphatase 72 D Total Protein 7.3 Albumin 3.6 Urine Color Yellow Urine Appearance Clear Urine pH 5.0 Ur Specific [place] <= 1.005 Urine Protein Trace Urine Glucose (UA) Negative Urine Ketones Negative Urine Blood Negative Urine Nitrite Negative Urine Bilirubin Negative Urine Urobilinogen 0.2 Ur Leukocyte Esterase Negative ASSESSMENT/PLAN: This is a68 yrs old man multiple medical co-morbidities h/O HTN, T2DM on Insulin and oral meds, COPD, pulmonary nodule (PET scan as outpt negative as per pt), BPH (noncompliant with prescribed Flomax), nephrolithiais and UTI, who presents to ER c/o abdominal pain, admitted with acute diverticulitis. * Acute diverticulitis - will cont on IV abxs - Levaquin and Flagyl - will start on clears and will advance diet as tolerated - afebrile with no leukocytosis - stool studies if diarrhea recur *Mild Hyponatremia -Na 134 - s/p IVF *Hypertension -will resume home medications * DM type 2 - Lispro sliding scale and Levemir -lower dose while on clears, victoza on Basoglar -NF) - FS monitoring ACs& HS - Hgb recent 7.6 * BPH -cont flomax * CAD - asymptomatic - will cont on ASA, Lipitor and Inderal * VTE: Heparin SQ Visit type - Emergency Visit Emergency Visit: Yes ED Registration Date: 07/10/18 Care time: The patient presented to the Emergency Department on the above date and was hospitalized for further evaluation of their emergent condition. - New Patient This patient is new to me today: Yes Date on this admission: 07/11/18 - Critical Care Critical Care patient: No Hospitalist Screening - Colonoscopy Questionnaire Colonoscopy Questionnaire: Colonoscopy Questionnaire - Patient: 50 - 75 years old and never had a screening colonoscopy: Yes History of colon or rectal polyps, or CA: No History of IBD, Crohn's disease or UC: No History of abdominal radiation therapy as a child: No - Relative: 1 with colon or rectal CA, or polyps at age 60 or younger: No Colon or rectal CA diagnosed at age 45 or younger: No Multiple relatives with colon or rectal CA: No - Outcome: Screening Result: Positive Screen
[2018-07-10 13:48] LABS: LIPASE 412 U/L (73-393)
[2018-07-10] MEDS ORDERED: ACETAMINOPHEN 325 MG TABLET (FP) PO PRN (14:30)
[2018-07-10] MEDS ORDERED: MELATONIN 5 MG TABLETS PO PRN (14:30)
[2018-07-10 15:37] VITALS: BMI 35.2
[2018-07-10] MEDS: HEPARIN NA (PORCINE) 5,000 UNITS/ML 1ML VIAL SQ SCH ×2 (15:48→21:16)
[2018-07-10] MEDS: INSULIN SLIDING SCALE (NOVOLOG) 1 VIAL SQ SCH ×2 (15:49→21:20)
[2018-07-10] MEDS ORDERED: LOSARTAN POTASSIUM 50 MG TABLET (FP) PO SCH (22:00)
[2018-07-10] MEDS ORDERED: INSULIN (LEVEMIR) 100 UNITS/ML UNITS SQ SCH (22:00)
[2018-07-10] MEDS ORDERED: PATIENT'S OWN MEDICATION (NON-FORMULARY) (Insulin Glargine,Hum.Rec.Anlog 70 UNITS) SQ SCH (22:00)
--- NOTE | 2018-07-10 23:22 | EKG ---
Test Reason : Blood Pressure : / mmHG Vent. Rate : 077 BPM Atrial Rate : 077 BPM P-R Int : 148 ms QRS Dur : 096 ms QT Int : 380 ms P-R-T Axes : 074 -18 -03 degrees QTc Int : 430 ms NORMAL SINUS RHYTHM NONSPECIFIC T WAVE ABNORMALITY ABNORMAL ECG WHEN COMPARED WITH ECG OF 18-JUN-2018 23:38, NO SIGNIFICANT CHANGE WAS FOUND Confirmed by VINAY HERNANDES, RAUL ([id number]) on 07/10/2018 11:22:14 PM Referred By: ROJELIO WOODS Confirmed By:RAUL MCLEAN MD
[2018-07-11] MEDS: HEPARIN NA (PORCINE) 5,000 UNITS/ML 1ML VIAL SQ SCH (06:06)
[2018-07-11] MEDS: INSULIN SLIDING SCALE (NOVOLOG) 1 VIAL SQ SCH ×2 (06:06→11:58)
[2018-07-11 06:50] VITALS: BP 103/47; PULSE 89; TEMP 98.3
[2018-07-11] MEDS ORDERED: ASPIRIN COATED 81 MG TABLET.EC PO SCH (10:00)
[2018-07-11] MEDS ORDERED: ATORVASTATIN CA 20 MG TABLET (FP) PO SCH (10:00)
[2018-07-11] MEDS ORDERED: LACTOBACILLUS ACIDOPHILUS 1 TABLET PO SCH ×2 (10:00)
[2018-07-11 12:53] LABS: ANION GAP 11 MMOL/L (8-16); BILIRUBIN,TOTAL 1.3 mg/dl (0.2-1.0); BLOOD UREA NITROGEN 10 mg/dl (7-18); CALCIUM 8.7 mg/dl (8.4-10.2); CHLORIDE 101 mmol/L (98-107); CO2 23 mmol/L (22-28); CREATININE 1.1 mg/dl (0.6-1.3); GLUCOSE,RANDOM 139 mg/dl (74-106); POTASSIUM 4.1 mmol/L (3.5-5.1); SODIUM 135 mmol/L (136-145)
--- NOTE | 2018-07-11 13:35 | DS ---
Physical Exam: SUBJECTIVE: Patient seen and examined. Pt reports feeling better,LLQ pain improved, mild pain with deep breathing, denies N/V/D. OBJECTIVE: Vital Signs Period Temp Pulse Resp BP Sys/Alaniz Pulse Ox Last 24 Hr 98.2 F-98.6 F 80-89 18-18 103-126/47-86 95-96 PHYSICAL EXAM GENERAL: The patient is awake, alert, and fully oriented, in no acute distress. HEAD: Normal with no signs of trauma. EYES: PERRL, extraocular movements intact, sclera anicteric, conjunctiva clear. ENT: Ears normal, nares patent, oropharynx clear without exudates, moist mucous membranes. NECK: Trachea midline, full range of motion, supple. LUNGS: Breath sounds equal, clear to auscultation bilaterally, no wheezes, no crackles, no accessory muscle use. HEART: Regular rate and rhythm, S1, S2 without murmur, rub or gallop. ABDOMEN: Soft, nontender, nondistended, normoactive bowel sounds, no guarding, no rebound, no hepatosplenomegaly, no masses. EXTREMITIES: 2+ pulses, warm, well-perfused, no edema. NEUROLOGICAL: Cranial nerves II through XII grossly intact. Normal speech, gait not observed. PSYCH: Normal mood, normal affect. SKIN: Warm, dry, normal turgor, no rashes or lesions noted. LABS Laboratory Results - last 24 hr 07/10/18 07/10/18 07/10/18 11:02 15:47 21:19 Sodium Potassium Chloride Carbon Dioxide Anion Gap BUN Creatinine Creat Clearance w eGFR POC Glucometer 92 91 Random Glucose Calcium Total Bilirubin Lipase 412 H 07/11/18 07/11/18 07/11/18 05:56 11:34 12:00 Sodium 135 L Potassium 4.1 Chloride 101 Carbon Dioxide 23 Anion Gap 11 BUN 10 Creatinine 1.1 Creat Clearance w eGFR > 60 POC Glucometer 112 141 Random Glucose 139 H Calcium 8.7 Total Bilirubin 1.[address] abdomen/Pelvis: Acute diverticulitis,left mid colon, no evidence of abscess. HOSPITAL COURSE: Date of Admission:07/10/18 Date of Discharge: 07/11/18 This is a68 yrs old man multiple medical co-morbidities h/O HTN, T2DM on Insulin and oral meds, COPD, pulmonary nodule (PET scan as outpt negative as per pt), BPH (noncompliant with prescribed Flomax), nephrolithiais and UTI, who presents to ER c/o abdominal pain, admitted with acute diverticulitis. Pt received Levaquin and Flagyl with improvement. Pt remains afebrile with no leukocytosis, diet tolerated well, rec low fiber, lactose free diet. Will resume on oral Levaquin and Flagyl to complete the course, and out pt GI followup with Dr. Garrido. *Mild Hyponatremia:Na 134>135,s/p IVF *Hypertension:Will resume home medications * DM type 2 : Will resume home dose Levemir and victoza on Basoglar - * BPH :Will cont on flomax * CAD - asymptomatic,will cont on ASA, Lipitor and Inderal Minutes to complete discharge: 40 Discharge Summary Reason For Visit: ACUTE DIVERTICULITIS Current Active Problems Acute diverticulitis (Acute) LLQ abdominal pain (Acute) Condition: Good - Instructions - Home Medications Comprehensive Discharge Medication List: Ambulatory Orders Glipizide [Glipizide ER] 10 mg PO BID tablet 12/02/16 Aspirin [Ecotrin] 81 mg PO DAILY 01/19/17 Insulin Glargine,Hum.rec.anlog [Lantus Solostar PEN -] 70 units SQ HS 01/19/17 [place]-3 Acid Ethyl Esters [Lovaza] 2 gm PO BID 01/19/17 Acetaminophen [Tylenol .Regular Strength -] 650 mg PO Q4H PRN tablet 06/22/18 Lactobacillus Acidophilus [Bacid -] 1 tab PO DAILY #30 tab 06/22/18 Melatonin 5 mg PO HS PRN tab 06/22/18 levoFLOXacin [Levaquin -] 500 mg PO DAILY 8 Days #8 tablet 07/11/18 metroNIDAZOLE [Flagyl -] 500 mg PO Q8H 9 Days #26 tablet 07/11/18 This patient is new to me today: Yes Date on this admission: 07/11/18 Emergency Visit: Yes ED Registration Date: 07/10/18 Care time: The patient presented to the Emergency Department on the above date and was hospitalized for further evaluation of their emergent condition. Critical Care patient: No - Discharge Referral Referred to [facility] Med [facility] No
[2018-07-11 14:40] LABS: LIPASE 411 U/L (73-393)
== END 2018-07-11 14:10 | disposition home or self-care (01) ==
LOC: FER 09:33 → FM/S 13:30
PROVIDERS: ADMIT Hospitalist; ATTEND Nurse Practitioner Family
PROC: 3E03329 Introduction of Other Anti-infective into Peripheral Vein, Percutaneous Approach (ICD-10-PCS; principal; 2018-07-10)
PROC: 3E0337Z Introduction of Electrolytic and Water Balance Substance into Peripheral Vein, Percutaneous Approach (ICD-10-PCS; 2018-07-10)
DX: K57.32 Diverticulitis of large intestine without perforation or abscess without bleeding (principal); E87.1 Hypo-osmolality and hyponatremia; R10.32 Left lower quadrant pain; I10 Essential (primary) hypertension; E11.9 Type 2 diabetes mellitus without complications; I25.10 Atherosclerotic heart disease of native coronary artery without angina pectoris; N40.0 Benign prostatic hyperplasia without lower urinary tract symptoms
CPT/HCPCS: 36415; 74177-TC; 80048; 80053; 81003; 82247; 82962; 83690; 85027; 93005; 96365; 96375; 99283-25; G0378; J0131; J1644

== ENCOUNTER 2018-09-19 22:03 | Emergency (ER) | payer OTHER ==
--- NOTE | 2018-09-19 22:20 | PDOC ---
History of Present Illness - General History Source: Patient, Spouse Exam Limitations: No Limitations - History of Present Illness Initial Comments: 09/19/18 22:22 The patient is a 68 year old male, with a significant past medical history of HTN, HLD, DM, CAD, diverticulitis, nephrolithiasis, asthma, and sciatica, who presents to the emergency department with, fever, diffuse body aches, and urinary frequency. Patient notes a Tmax of 99.6 degrees Fahrenheit. He endorses similar episodes in the past which were due to urinary tract infections, prompting his visit to the ER. He also notes indigestion and that he has not taken his night medications, prior to his arrival. He denies any recent dysuria or hematuria. He denies any palpitations or shortness of breath. He denies any recent headache or dizziness. He denies any recent nausea, vomit, diarrhea or constipation. Allergies: NKDA Social History: Up to date with flu shot. Former smoker. Denies EtOH use and recreational drug use. Primary Care Physician: Dr. Maciel <Tasha Chacko - Last Filed: 09/19/18 22:59> <Skip Clayton - Last Filed: 09/20/18 01:57> - General Chief Complaint: Urinary Catheter Problem Stated Complaint: UTRINARY SYMPTOMS Time Seen by Provider: 09/19/18 22:05 Past History <Tahsa Chacko - Last Filed: 09/19/18 22:59> - Past Medical History Anemia: No Asthma: Yes Cancer: No Cardiac Disorders: Yes (CAD,PALPITATIONS,NUCLEAR STRESS 01/26 NEGATIVE) CVA: No COPD: No CHF: No Dementia: No Diabetes: Yes (DX 1997) GI Disorders: Yes (DIVERTICULOSIS/DIVERTICULITIS) Disorders: Yes (KIDNEY STONES-LAST 01/2012) HTN: Yes (DX ) Hypercholesterolemia: Yes (DIET CONTROLLED) Kidney Stones: Yes Liver Disease: No Seizures: No Thyroid Disease: No - Surgical History Abdominal Surgery: Yes Appendectomy: No Cardiac Surgery: No Cholecystectomy: No Lung Surgery: No Neurologic Surgery: No Orthopedic Surgery: Yes (RIGHT KNEE AND RIGHT ACHILLES TENDON) - Immunization History Immunization Up to Date: Yes - Suicide/Smoking/Psychosocial Hx Smoking Status: Yes Smoking History: Never smoked Have you smoked in the past 12 months: No Number of Cigarettes Smoked Daily: 0 If you are a former smoker, when did you quit?: 10 years ago Cigars Per Day: 0 Hx Alcohol Use: No Drug/Substance Use Hx: No Substance Use Type: None Hx Substance Use Treatment: No <Skip Clayton - Last Filed: 09/20/18 01:57> - Past Medical History Allergies/Adverse Reactions: Allergies Allergy/AdvReac Type Severity Reaction Status Date / Time No Known Allergies Allergy Verified 09/19/18 22:04 Home Medications: Ambulatory Orders Glipizide [Glipizide ER] 10 mg PO BID tablet 12/02/16 Aspirin [Ecotrin] 81 mg PO DAILY 01/19/17 Insulin Glargine,Hum.rec.anlog [Lantus Solostar PEN -] 70 units SQ HS 01/19/17 [place]-3 Acid Ethyl Esters [Lovaza] 2 gm PO BID 01/19/17 Acetaminophen [Tylenol .Regular Strength -] 650 mg PO Q4H PRN tablet 06/22/18 Lactobacillus Acidophilus [Bacid -] 1 tab PO DAILY #30 tab 06/22/18 Melatonin 5 mg PO HS PRN tab 06/22/18 Review of Systems - Review of Systems Able to Perform ROS?: Yes Comments:: 09/19/18 22:23 +GENERAL/CONSTITUTIONAL:Fever. Diffuse body aches. HEAD, EYES, EARS, NOSE AND THROAT: No change in vision. No ear pain or discharge. No sore throat. CARDIOVASCULAR: No chest pain or shortness of breath. RESPIRATORY: No cough, wheezing, or hemoptysis. GASTROINTESTINAL: No nausea, vomiting, diarrhea or constipation. +GENITOURINARY: Frequency. No dysuria or hematuria. MUSCULOSKELETAL: No neck or back pain. SKIN: No rash NEUROLOGIC: No headache, vertigo, loss of consciousness, or change in strength/ sensation. ENDOCRINE: No increased thirst. No abnormal weight change. HEMATOLOGIC/LYMPHATIC: No anemia, easy bleeding, or history of blood clots. ALLERGIC/IMMUNOLOGIC: No hives or skin allergy. All Other Systems: Reviewed and Negative <Tasha Chacko - Last Filed: 09/19/18 22:59> *Physical Exam - Vital Signs Last Vital Signs Temp Pulse Resp BP Pulse Ox 99.9 F H 102 H 20 170/92 98 09/19/18 22:03 09/19/18 22:03 09/19/18 22:03 09/19/18 22:03 09/19/18 22:03 - Physical Exam Comments: 09/19/18 22:23 GENERAL: Awake, alert, and fully oriented, in no acute distress HEAD: No signs of trauma EYES: PERRLA, EOMI, sclera anicteric, conjunctiva clear ENT: Auricles normal inspection, hearing grossly normal, nares patent, oropharynx clear without exudates. Moist mucosa NECK: Normal ROM, supple, no lymphadenopathy, JVD, or masses ABDOMEN: Soft, nontender, normoactive bowel sounds. No guarding, no rebound. No masses EXTREMITIES: Normal range of motion, no edema. No clubbing or cyanosis. No cords, erythema, or tenderness NEUROLOGICAL: Cranial nerves II through XII grossly intact. Normal speech, normal gait SKIN: Warm, Dry, normal turgor, no rashes or lesions noted. <Tasha Chacko - Last Filed: 09/19/18 22:59> Moderate Sedation - Procedure Monitoring Vital Signs: Procedure Monitoring Vital Signs Temperature 99.9 F H 09/19/18 22:03 Pulse Rate 102 H 09/19/18 22:03 Respiratory Rate 20 09/19/18 22:03 Blood Pressure 170/92 09/19/18 22:03 O2 Sat by Pulse Oximetry (%) 98 09/19/18 22:03 <Tasha Chacko - Last Filed: 09/19/18 22:59> Heart Score/ECG Review #1 09/19/18 22:59 Sinus 99 Left axis Normal intervals No acute ischemic findings Unchanged from previous EKG <Tasha Chacko - Last Filed: 09/19/18 22:59> ED Treatment Course - LABORATORY CBC & Chemistry Diagram: 09/19/18 22:53 09/19/18 22:53 <Tasha Chacko - Last Filed: 09/19/18 22:59> - LABORATORY CBC & Chemistry Diagram: 09/19/18 22:53 09/19/18 22:53 <Skip Clayton - Last Filed: 09/20/18 01:57> Medical Decision Making - Medical Decision Making 09/20/18 01:42 CXR: unchanged from normal film 2017, as read by me, referred to radiology for definitive review observed in ED x 3 hours no acute infection identified on PE or ED brown Hyperglycemia treated with IV fluid HR rechecked=86 <Skip Clayton - Last Filed: 09/20/18 01:57> *DC/Admit/Observation/Transfer - Attestations Scribe Attestion: 09/19/18 22:23 Documentation prepared by Tasha Chacko, acting as medical laboratory scientist for Skip Clayton MD. <Tasha Chacko - Last Filed: 09/19/18 22:59> <Skip Clayton - Last Filed: 09/20/18 01:57> Diagnosis at time of Disposition: Hyperglycemia - Discharge Dispostion Disposition: HOME Condition at time of disposition: Good - Patient Instructions Printed Discharge Instructions: DI for Hyperglycemia -- Adult
[2018-09-19 22:21] VITALS: BP 170/92; PULSE 102; BMI 36.0
[2018-09-19] MEDS ORDERED: FAMOTIDINE 20 MG/50 ML IVPB 20 MG/50 ML MG IVPB ONE ×2 (22:22→22:56)
[2018-09-19 22:54] LABS: URINE APPEARANCE Clear; URINE BILIRUBIN Negative (NEGATIVE); URINE COLOR Yellow; URINE GLUCOSE (UA) 3+ (NEGATIVE); URINE KETONE Negative (NEGATIVE); URINE LEUK ESTERASE Negative (NEGATIVE); URINE NITRITE Negative (NEGATIVE); URINE PROTEIN Negative (NEGATIVE); URINE UROBILINOGEN 0.2 (0.2-1.0)
[2018-09-19 23:06] LABS: AMORP URATES 1+ /hpf (NONE SEEN); EPI CELLS 1+ /HPF; URINE BACTERIA 1+ /hpf (NEGATIVE)
[2018-09-19 23:06] LABS: BASO % 1.4 % (0-2.0); EOS % 2.1 % (0-4.5); HEMATOCRIT 42.6 % (35.4-49); LYMPH % 15.2 % (8-40); MCH 28.6 pg (25.7-33.7); MCHC 32.8 g/dl (32.0-35.9); MEAN CELL VOLUME 87.2 fl (80-96); MEAN PLT VOLUME 9.1 fl (7.5-11.1); NEUT % 72.3 % (42.8-82.8); PLATELET COUNT 142 K/MM3 (134-434); RBC 4.89 M/mm3 (4.00-5.60); RDW 14.9 % (11.9-15.9); WHITE BLOOD COUNT 11.2 K/mm3 (4.0-10.8)
[2018-09-19 23:22] LABS: ALBUMIN 4.2 g/dl (3.5-5.0); ALK PHOS 81 U/L (32-92); ANION GAP 11 MMOL/L (8-16); BILIRUBIN,TOTAL 0.8 mg/dl (0.2-1.0); BLOOD UREA NITROGEN 18 mg/dl (7-18); CALCIUM 9.5 mg/dl (8.4-10.2); CHLORIDE 103 mmol/L (98-107); CO2 22 mmol/L (22-28); CREATININE 1.1 mg/dl (0.6-1.3); POTASSIUM 4.6 mmol/L (3.5-5.1); SGOT/AST 31 U/L (10-42); SGPT/ALT 45 U/L (10-40); SODIUM 136 mmol/L (136-145)
[2018-09-19 23:27] LABS: GLUCOSE,RANDOM 330 mg/dl (74-106)
[2018-09-20 00:44] VITALS: TEMP 99
[2018-09-20 01:15] LABS: LIPASE 725 U/L (73-393)
--- NOTE | 2018-09-20 15:23 | EKG ---
Test Reason : Blood Pressure : / mmHG Vent. Rate : 099 BPM Atrial Rate : 099 BPM P-R Int : 146 ms QRS Dur : 104 ms QT Int : 364 ms P-R-T Axes : 071 -32 073 degrees QTc Int : 467 ms NORMAL SINUS RHYTHM LEFT AXIS DEVIATION ABNORMAL ECG WHEN COMPARED WITH ECG OF 10-JUL-2018 11:34, T WAVE VARIATION Confirmed by ROB PENDLETON MD ([id number]) on 09/20/2018 3:23:13 PM Referred By: HEIKE NUNEZ Confirmed By:ROB PENDLETON MD
== END 2018-09-20 00:46 | disposition home or self-care (01) ==
LOC: FER 22:03
PROC: 3E0337Z Introduction of Electrolytic and Water Balance Substance into Peripheral Vein, Percutaneous Approach (ICD-10-PCS; principal; 2018-09-19)
DX: E11.65 Type 2 diabetes mellitus with hyperglycemia (principal); J45.909 Unspecified asthma, uncomplicated; I25.10 Atherosclerotic heart disease of native coronary artery without angina pectoris; Z87.891 Personal history of nicotine dependence; I10 Essential (primary) hypertension
CPT/HCPCS: 36415; 71046-TC-FY; 80053; 81003; 81015; 83690; 84484; 85025; 87040; 87086; 87186; 93005; 99283-25

== ENCOUNTER 2018-09-20 21:42 | Emergency (ER) | payer OTHER ==
--- NOTE | 2018-09-20 21:59 | PDOC ---
History of Present Illness - History of Present Illness Initial Comments: This is a 68 year old male, with a significant past medical history of HTN, HLD , DM, CAD, diverticulitis, nephrolithiasis, asthma, and sciatica, who presents to the emergency department today complaining of subjective fever, diffuse body aches, vomit, and urinary frequency with minimal output for 2 days. Patient was seen in the emergency department yesterday for the same symptoms, but he is not feeling any better and reports feeling weaker. Patient reports throwing up his meals 2 times earlier today, and threw up once in the ED which was primarily flem. He also reports dizziness for 1 month, describing it as rocking on a boat sensation. He reports similar history of symptoms, related to UTIs. The patient denies chest pain, shortness of breath, and headache. Denies chills, diarrhea, and constipation. Denies dysuria and hematuria. PAST MEDICAL HISTORY: no significant history PAST SURGICAL HISTORY: no significant history FAMILY HISTORY: no pertinent history SOCIAL HISTORY: Pt lives with family and is employed. MEDICATIONS: reviewed ALLERGIES: As per nursing notes ROS General: +Subjective fever. +General weakness. No chills, no weight loss. HEENT: No change in vision. No sore throat. No ear pain CardioVascular: No chest pain or shortness of breath. Respiratory:No cough, or wheezing. Gastrointestinal: +Nausea +Vomit No diarrhea or constipation, No rectal bleeding Genitourinary: +Urinary frequency with minimal output. No dysuria, no hematuria. Musculoskeletal: +Diffuse body aches. No joint or muscle swelling. Neurologic: +Dizziness No headache, vertigo, or loss of consciousness Psychiatric: nor depression Skin: No rashes or easy bruising Endocrine: no increased thirst or abnormal weight change Allergic: no skin or latex allergy All other systems reviewed and normal Exam: General: Well-nourished well-developed individual, no acute distress HEENT: Throat: Normal, tonsils normal, no erythema or exudate Neck: Supple, no meningeal signs, no lymphadenopathy Eyes::Pupils equal reactive and round, extraocular motion intact Chest: Nontender to palpation Cardiac: S1-S2 normal, regular rate and rhythm, no murmurs rubs or gallops Respiratory: Lungs clear to auscultation bilateral Abdomen: Soft, nondistended, normal bowel sounds, nontender to palpation diffusely Extremities: Warm, dry, no cyanosis, clubbing, or edema Skin: No rashes Neuro: Alert and oriented x3, nonfocal exam, grossly intact, normal gait Psych: Normal mood and affect 09/20/18 22:40 <Gina Welsh - Last Filed: 09/20/18 22:40> - General History Source: Patient Exam Limitations: No Limitations - History of Present Illness Initial Comments: 09/20/18 22:36 A portion of this note was documented by scribe services under my direction. I have reviewed the details of the note, within reason, and agree with the documentation with the following case summary and management plan written by me. Patient treated in the ED. Nursing notes are reviewed and incorporated into the medical decision-making. Vital signs reviewed. Assessment and plan: This is a 68-year-old male who comes in complaining of multiple somatic complaints including feeling dizzy 1 month, nausea, vomited 2 today and one in the emergency room primarily phlegm, patient denies any chest pain, cough, congestion, shortness of breath. Patient had a workup here yesterday that revealed a glucose of 3:30 however fingerstick glucose here was 230. Patient was afebrile and his vitals were otherwise unremarkable. Basic workup was initiated including CBC, comp and lipase as his lipase yesterday was elevated. Patient has a chronic elevation of his lipase 09/20/18 23:12 Patient's white count is elevated a little bit more at 13.2 over yesterday of 11.2. Patient had a urine culture that was done however the results are still pending however and review of patient's labs from the past his urine usually grows an E coli that is ESBL film producer. The resistance/sensitivity profile on this particular Escherichia coli is sensitive to Macrobid so patient will be started on Macrobid and given first dose here and he sees his primary care doctor in the morning who can determine whether or not he wants him to continue it based upon the sensitivity results of the current culture. <Adenike Coronado I - Last Filed: 09/20/18 23:18> - General Chief Complaint: Lightheaded Stated Complaint: FEVER/DIZZY Time Seen by Provider: 09/20/18 21:59 Past History <Gina Welsh - Last Filed: 09/20/18 22:40> - Past Medical History Anemia: No Asthma: Yes Cancer: No Cardiac Disorders: Yes (CAD,PALPITATIONS,NUCLEAR STRESS 01/26 NEGATIVE) CVA: No COPD: No CHF: No Dementia: No Diabetes: Yes (DX 1997) GI Disorders: Yes (DIVERTICULOSIS/DIVERTICULITIS) Disorders: Yes (KIDNEY STONES-LAST 01/2012) HTN: Yes (DX ) Hypercholesterolemia: Yes (DIET CONTROLLED) Kidney Stones: Yes Liver Disease: No Seizures: No Thyroid Disease: No - Surgical History Abdominal Surgery: Yes Appendectomy: No Cardiac Surgery: No Cholecystectomy: No Lung Surgery: No Neurologic Surgery: No Orthopedic Surgery: Yes (RIGHT KNEE AND RIGHT ACHILLES TENDON) - Immunization History Immunization Up to Date: Yes - Suicide/Smoking/Psychosocial Hx Smoking Status: Yes Smoking History: Never smoked Have you smoked in the past 12 months: No Number of Cigarettes Smoked Daily: 0 If you are a former smoker, when did you quit?: 10 years ago Cigars Per Day: 0 Hx Alcohol Use: No Drug/Substance Use Hx: No Substance Use Type: None Hx Substance Use Treatment: No <Adenike Coronado I - Last Filed: 09/20/18 23:18> - Past Medical History Allergies/Adverse Reactions: Allergies Allergy/AdvReac Type Severity Reaction Status Date / Time No Known Allergies Allergy Verified 09/20/18 22:29 Home Medications: Ambulatory Orders Glipizide [Glipizide ER] 10 mg PO BID tablet 12/02/16 Aspirin [Ecotrin] 81 mg PO DAILY 01/19/17 Insulin Glargine,Hum.rec.anlog [Lantus Solostar PEN -] 70 units SQ HS 01/19/17 [place]-3 Acid Ethyl Esters [Lovaza] 2 gm PO BID 01/19/17 Acetaminophen [Tylenol .Regular Strength -] 650 mg PO Q4H PRN tablet 06/22/18 Lactobacillus Acidophilus [Bacid -] 1 tab PO DAILY #30 tab 06/22/18 Melatonin 5 mg PO HS PRN tab 06/22/18 Nitrofurantoin Macrocrystal [Macrodantin] 100 mg PO BID #14 capsule 09/20/18 Ondansetron [Zofran Odt -] 4 mg SL TID #12 od.tablet 09/20/18 *Physical Exam - Vital Signs Last Vital Signs Temp Pulse Resp BP Pulse Ox 98.9 F 96 H 16 156/93 98 09/20/18 22:30 09/20/18 22:30 09/20/18 22:30 09/20/18 22:30 09/20/18 22:30 <Gina Welsh - Last Filed: 09/20/18 22:40> Moderate Sedation - Procedure Monitoring Vital Signs: Procedure Monitoring Vital Signs Temperature 98.9 F 09/20/18 22:30 Pulse Rate 96 H 09/20/18 22:30 Respiratory Rate 16 09/20/18 22:30 Blood Pressure 156/93 09/20/18 22:30 O2 Sat by Pulse Oximetry (%) 98 09/20/18 22:30 <Gina Welsh - Last Filed: 09/20/18 22:40> ED Treatment Course - Medications Given in the ED: ED Medications Discontinued Medications Generic Name Dose Route Start Last Admin Trade Name Freq PRN Reason Stop Dose Admin Ondansetron HCl 4 mg 09/20/18 22:32 09/20/18 22:40 Zofran Odt - SL 09/20/18 22:33 4 mg ONCE ONE Administration <Gina Welsh - Last Filed: 09/20/18 22:40> - LABORATORY CBC & Chemistry Diagram: 09/20/18 22:30 09/20/18 22:30 <Adenike Coronado I - Last Filed: 09/20/18 23:18> *DC/Admit/Observation/Transfer - Attestations Scribe Attestion: 09/20/18 22:41 Documentation prepared by DANA Kolb, acting as medical authorization specialist for Adenike Coronado MD. <Gina Welsh - Last Filed: 09/20/18 22:40> - Discharge Dispostion Decision to Admit order: No <Adenike Coronado I - Last Filed: 09/20/18 23:18> Diagnosis at time of Disposition: Leukocytosis Qualifiers: Leukocytosis type: unspecified Qualified Code(s): D72.829 - Elevated white blood cell count, unspecified - Discharge Dispostion Disposition: HOME Condition at time of disposition: Stable - Referrals Referrals: Farhad Maciel MD [Primary Care Provider] - - Patient Instructions Additional Instructions: I still don't have the results of your urine culture from yesterday however given the fact her white count is got up since yesterday I am going to start You on treatment for a urinary tract infection as you had similar symptoms in the past with urinary tract infection. I gave your first dose of an antibiotic and you woke get the prescription filled and continue it twice a day for 7 days. When you follow-up with your doctor in the morning that your doctor know that he was started on the antibiotic and discuss whether or not the doctor once she to continue it. For nausea have sent a prescription to her pharmacy for a antinausea medication that you can take 3 times a day it is called Ric. Return to the emergency department immediately with ANY new, persistent or worsening symptoms. Continue any medications as previously prescribed by your physician. You should follow up with your primary doctor as soon as possible regarding today's emergency department visit. . Please make sure your doctor reviews the results of your emergency evaluation. Thank you for coming to the Emergency Department today for your care. It was a pleasure to see you today. Please note that your evaluation is INCOMPLETE until you follow-up with your doctor. - Post Discharge Activity
[2018-09-20] MEDS ORDERED: HEMOQUE TEST 1 EACH EACH ONE (22:15)
[2018-09-20] MEDS ORDERED: HEMOQUE CONTROL SOLUTION ONE (22:20)
[2018-09-20] MEDS ORDERED: ONDANSETRON *ODT* 4 MG TABLET SL ONE (22:32)
[2018-09-20] MEDS ORDERED: ONDANSETRON *ODT* 4 MG TABLET ONE (22:32)
[2018-09-20 22:39] VITALS: BP 156/93; PULSE 96; TEMP 98.9; BMI 34.9
[2018-09-20 22:57] LABS: HEMOGLOBIN 13.9 GM/dl (11.7-16.9); MCHC 33.4 g/dl (32.0-35.9)
[2018-09-20 23:01] LABS: BASO % 2.6 % (0-2.0); HEMATOCRIT 41.6 % (35.4-49); LYMPH % 12.4 % (8-40); MCH 28.9 pg (25.7-33.7); MEAN CELL VOLUME 86.4 fl (80-96); MEAN PLT VOLUME 9.4 fl (7.5-11.1); MONO % 8.1 % (3.8-10.2); NEUT % 75.9 % (42.8-82.8); PLATELET COUNT 136 K/MM3 (134-434); RBC 4.81 M/mm3 (4.00-5.60); RDW 14.6 % (11.9-15.9); WHITE BLOOD COUNT 13.8 K/mm3 (4.0-10.8)
[2018-09-20 23:07] LABS: ALK PHOS 67 U/L (32-92); ANION GAP 14 MMOL/L (8-16); BILIRUBIN,TOTAL 0.9 mg/dl (0.2-1.0); BLOOD UREA NITROGEN 13 mg/dl (7-18); CALCIUM 9.3 mg/dl (8.4-10.2); CHLORIDE 101 mmol/L (98-107); CO2 18 mmol/L (22-28); CREATININE 1.1 mg/dl (0.6-1.3); GLUCOSE,RANDOM 239 mg/dl (74-106); POTASSIUM 4.2 mmol/L (3.5-5.1); SGOT/AST 24 U/L (10-42); SGPT/ALT 35 U/L (10-40); SODIUM 133 mmol/L (136-145)
[2018-09-20] MEDS ORDERED: NITROFURANTOIN MACROCRYSTAL 50 MG CAPSULE (FP) ONE (23:12)
[2018-09-20] MEDS ORDERED: NITROFURANTOIN MACROCRYSTAL 50 MG CAPSULE (FP) PO SCH (23:15)
[2018-09-21 00:17] LABS: LIPASE 306 U/L (73-393)
== END 2018-09-20 23:21 | disposition home or self-care (01) ==
LOC: FER 21:42
DX: D72.829 Elevated white blood cell count, unspecified (principal); I25.10 Atherosclerotic heart disease of native coronary artery without angina pectoris; J45.909 Unspecified asthma, uncomplicated; R00.2 Palpitations; I10 Essential (primary) hypertension; Z87.891 Personal history of nicotine dependence
CPT/HCPCS: 36415; 80053; 82962; 83690; 85025; 99281-25; Q0162

== ENCOUNTER 2018-09-21 13:43 | Emergency (ER) | payer OTHER ==
[2018-09-21 14:03] VITALS: BMI 34.9
[2018-09-21] MEDS ORDERED: SODIUM CHLORIDE 1,000 ML IV STA (14:05)
[2018-09-21] MEDS ORDERED: FAMOTIDINE 20 MG/50 ML IVPB 20 MG/50 ML MG IVPB ONE ×2 (14:05→14:24)
[2018-09-21] MEDS ORDERED: ONDANSETRON 4 MG/2 ML VIAL IVPB ONE (14:05)
[2018-09-21] MEDS ORDERED: ONDANSETRON 4 MG/2 ML VIAL ONE (14:24)
[2018-09-21 14:30] LABS: BASO % 2.2 % (0-2.0); EOS % 0.2 % (0-4.5); HEMOGLOBIN 13.8 GM/dl (11.7-16.9); LYMPH % 14.6 % (8-40); MCH 28.6 pg (25.7-33.7); MCHC 32.8 g/dl (32.0-35.9); MEAN CELL VOLUME 87.4 fl (80-96); MEAN PLT VOLUME 9.4 fl (7.5-11.1); MONO % 10.4 % (3.8-10.2); NEUT % 72.6 % (42.8-82.8); PLATELET COUNT 140 K/MM3 (134-434); RDW 14.7 % (11.9-15.9); WHITE BLOOD COUNT 13.5 K/mm3 (4.0-10.8)
--- NOTE | 2018-09-21 14:49 | PDOC ---
History of Present Illness <Tasha Chacko - Last Filed: 09/21/18 15:59> - History of Present Illness Initial Comments: 09/21/18 14:07 68 M with h/o HTN, T2DM on Insulin, COPD, diverticulitis, presenting with 3 days of malaise and urinary frequency. Pt was seen here yesterday and the day before. Pt had labs done and was diagnosed with a UTI. However, pt states that after he left the ER yesterday he vomited up the antibiotics he was given in the ED. Pt did not fill his nausea meds or abx, and today he returns to ER with persistent generalized malaise and dysuria with urinary frequency. Pt states he is concerned he is dehydrated. Denies any recent F/C. Denies BRYANT/neck pain. Denies abdominal pain. Currently denies any nausea/vomiting/diarrhea. Denies CP/ SOB. <Rafael Nassar - Last Filed: 09/21/18 16:11> - General Chief Complaint: Weakness Stated Complaint: DRIBBLING URINE WEAK Time Seen by Provider: 09/21/18 13:46 Past History <Tasha Chacko - Last Filed: 09/21/18 15:59> - Past Medical History Anemia: No Asthma: Yes Cancer: No Cardiac Disorders: Yes (CAD,PALPITATIONS,NUCLEAR STRESS 01/26 NEGATIVE) CVA: No COPD: No CHF: No Dementia: No Diabetes: Yes (DX 1997) GI Disorders: Yes (DIVERTICULOSIS/DIVERTICULITIS) Disorders: Yes (KIDNEY STONES-LAST 01/2012) HTN: Yes (DX ) Hypercholesterolemia: Yes (DIET CONTROLLED) Kidney Stones: Yes Liver Disease: No Seizures: No Thyroid Disease: No - Surgical History Abdominal Surgery: Yes Appendectomy: No Cardiac Surgery: No Cholecystectomy: No Lung Surgery: No Neurologic Surgery: No Orthopedic Surgery: Yes (RIGHT KNEE AND RIGHT ACHILLES TENDON) - Immunization History Immunization Up to Date: Yes - Suicide/Smoking/Psychosocial Hx Smoking Status: Yes Smoking History: Former smoker Have you smoked in the past 12 months: No Number of Cigarettes Smoked Daily: 0 If you are a former smoker, when did you quit?: 10 YEARS Cigars Per Day: 0 Information on smoking cessation initiated: No Hx Alcohol Use: No Drug/Substance Use Hx: No Substance Use Type: None Hx Substance Use Treatment: No <Ou,Rafael - Last Filed: 09/21/18 16:11> - Past Medical History Allergies/Adverse Reactions: Allergies Allergy/AdvReac Type Severity Reaction Status Date / Time No Known Allergies Allergy Verified 09/21/18 13:45 Home Medications: Ambulatory Orders Glipizide [Glipizide ER] 10 mg PO BID tablet 12/02/16 Aspirin [Ecotrin] 81 mg PO DAILY 01/19/17 Insulin Glargine,Hum.rec.anlog [Lantus Solostar PEN -] 70 units SQ HS 01/19/17 [place]-3 Acid Ethyl Esters [Lovaza] 2 gm PO BID 01/19/17 Acetaminophen [Tylenol .Regular Strength -] 650 mg PO Q4H PRN tablet 06/22/18 Melatonin 5 mg PO HS PRN tab 06/22/18 Nitrofurantoin Macrocrystal [Macrodantin] 100 mg PO BID #14 capsule 09/20/18 Ondansetron [Zofran Odt -] 4 mg SL TID #12 od.tablet 09/20/18 Ondansetron HCl [Zofran] 4 mg PO TID PRN #12 tablet 09/21/18 Review of Systems - Review of Systems Comments:: 09/21/18 14:54 "GENERAL/CONSTITUTIONAL: +malaise, No fever or chills HEAD, EYES, EARS, NOSE AND THROAT: No change in vision. No ear pain or discharge. No sore throat. CARDIOVASCULAR: No chest pain, no shortness of breath, no loss of consciousness RESPIRATORY: No cough, wheezing, or hemoptysis. GASTROINTESTINAL: No nausea, vomiting, diarrhea or constipation. GENITOURINARY: + dysuria, + frequency MUSCULOSKELETAL: No joint or muscle swelling or pain. No neck or back pain. SKIN: No rash NEUROLOGIC: No vertigo, no change in strength/sensation. ENDOCRINE: No increased thirst. No abnormal weight change. HEMATOLOGIC/LYMPHATIC: No anemia, easy bleeding, or history of blood clots. ALLERGIC/IMMUNOLOGIC: No hives or skin allergy. <Rafael Nassar - Last Filed: 09/21/18 16:11> *Physical Exam - Vital Signs Last Vital Signs Temp Pulse Resp BP Pulse Ox 98.9 F 112 H 20 150/93 96 09/21/18 13:45 09/21/18 13:45 09/21/18 13:45 09/21/18 13:45 09/21/18 13:45 <Tasha Chacko - Last Filed: 09/21/18 15:59> - Vital Signs Last Vital Signs Temp Pulse Resp BP Pulse Ox 98.9 F 112 H 20 150/93 96 09/21/18 13:45 09/21/18 13:45 09/21/18 13:45 09/21/18 13:45 09/21/18 13:45 - Physical Exam Comments: 09/21/18 14:55 "GENERAL: Awake, alert, and fully oriented, in no acute distress. HEAD: No signs of trauma EYES: PERRLA, EOMI, sclera anicteric, conjunctiva clear ENT: Auricles normal inspection, hearing grossly normal, nares patent, oropharynx clear without exudates. Moist mucosa NECK: Nontender, no stepoffs, Normal ROM, supple, no lymphadenopathy, JVD, or masses LUNGS: Breath sounds equal, clear to auscultation bilaterally. No wheezes, and no crackles HEART: Regular rate and rhythm, normal S1 and S2, no murmurs, rubs or gallops ABDOMEN: Soft, nontender, normoactive bowel sounds. No guarding, no rebound. No masses EXTREMITIES: Normal range of motion, no edema. No clubbing or cyanosis. No cords, erythema, or tenderness NEUROLOGICAL: Cranial nerves II through XII intact. 5/5 strength and sensation in all extremities, Normal speech, normal gait, normal cerebellar function SKIN: Warm, Dry, normal turgor, no rashes or lesions noted." <Rafael Nassar - Last Filed: 09/21/18 16:11> Moderate Sedation - Procedure Monitoring Vital Signs: Procedure Monitoring Vital Signs Temperature 98.9 F 09/21/18 13:45 Pulse Rate 112 H 09/21/18 13:45 Respiratory Rate 20 09/21/18 13:45 Blood Pressure 150/93 09/21/18 13:45 O2 Sat by Pulse Oximetry (%) 96 09/21/18 13:45 <Tasha Chacko - Last Filed: 09/21/18 15:59> - Procedure Monitoring Vital Signs: Procedure Monitoring Vital Signs Temperature 98.9 F 09/21/18 13:45 Pulse Rate 112 H 09/21/18 13:45 Respiratory Rate 20 09/21/18 13:45 Blood Pressure 150/93 09/21/18 13:45 O2 Sat by Pulse Oximetry (%) 96 09/21/18 13:45 <CesarioRafael - Last Filed: 09/21/18 16:11> ED Treatment Course - LABORATORY CBC & Chemistry Diagram: 09/21/18 14:18 09/21/18 14:18 - ADDITIONAL ORDERS Additional order review: Laboratory Results 09/21/18 09/21/18 14:22 14:18 Sodium 131 L Potassium 4.1 Chloride 98 Carbon Dioxide 22 D Anion Gap 11 BUN 16 Creatinine 1.2 Creat Clearance w eGFR > 60 Random Glucose 213 H Calcium 8.7 Total Bilirubin 1.0 AST 24 ALT 30 Alkaline Phosphatase 62 Total Protein 7.8 Albumin 3.9 Urine Color Cancelled Urine Appearance Cancelled Urine pH Cancelled Ur Specific [place] Cancelled Urine Protein Cancelled Urine Glucose (UA) Cancelled Urine Ketones Cancelled Urine Blood Cancelled Urine Nitrite Cancelled Urine Bilirubin Cancelled Urine Urobilinogen Cancelled Ur Leukocyte Esterase Cancelled 09/21/18 14:18 RBC 4.80 MCV 87.4 MCHC 32.8 RDW 14.7 MPV 9.4 Neutrophils % 72.6 Lymphocytes % 14.6 Monocytes % 10.4 H Eosinophils % 0.2 Basophils % 2.2 H - Medications Given in the ED: ED Medications Discontinued Medications Generic Name Dose Route Start Last Admin Trade Name Freq PRN Reason Stop Dose Admin Famotidine/Sodium Chloride 20 mg in 50 mls @ 100 mls/hr 09/21/18 14:05 14:29 Pepcid 20 Mg Premixed Ivpb - IVPB 09/21/18 14:34 100 mls/hr ONCE ONE Administration Sodium Chloride 1,000 mls @ 1,000 mls/hr 09/21/18 14:05 09/21/18 14:22 Normal Saline - IV 09/21/18 15:04 1,000 mls/hr ASDIR STA Administration Ceftriaxone Sodium 1 gm/ 100 mls @ 200 mls/hr 09/21/18 15:06 09/21/18 15:14 Dextrose IVPB 09/21/18 15:35 200 mls/hr ONCE ONE Administration Protocol Ondansetron HCl 4 mg 09/21/18 14:05 09/21/18 14:25 Zofran Injection IVPB 09/21/18 14:06 4 mg ONCE ONE Administration <Tasha Chacko - Last Filed: 09/21/18 15:59> - LABORATORY CBC & Chemistry Diagram: 09/21/18 14:18 09/21/18 14:18 <Rafael Nassar - Last Filed: 09/21/18 16:11> Medical Decision Making - Medical Decision Making 09/21/18 15:[address] Maciel, patient's PCP, case was discussed, agrees with plan. <Tasha Chacko - Last Filed: 09/21/18 15:59> - Medical Decision Making 09/21/18 15:01 68 M returning for 3rd day in a row with malaise and dysuria. Diagnosed with UTI yesterday. Urine culture grew GNRs (no sensitivities yet). Pt returns to ED because he does not feel any better, but has not been taking prescribed antibiotics. Pt appears well in ED and has benign exam with nontender abdomen. - Labs - IVF, abx 09/21/18 15:45 Labs unremarkable today WBC slightly improved Cr is stable, no evidence of BASIA or dehydration Pt PO challenged in ED and able to tolerate water and ice chips Pt reassessed - reports improvement in malaise with fluids Pt is very well appearing at this time, vitals now normalized 09/21/18 16:08 Discussed case with pt's PMD, Dr. Maciel. Results reviewed, and he is in agreement with plan to DC and f/u in office. Pt is well appearing, with normal vitals. Clinically stable for DC at this time. I discussed the physical exam findings, ancillary test results and final diagnoses with the patient. I answered all of the patient's questions. The patient was satisfied with the care received and felt comfortable with the discharge plan and treatment plan. The patient agrees to follow up with the primary care physician within 24-72 hours. <Rafael Nassar - Last Filed: 09/21/18 16:11> *DC/Admit/Observation/Transfer - Attestations Scribe Attestion: 09/21/18 16:00 Documentation prepared by Tasha Chacko, acting as district medical examiner for Rafael Nassar MD. <Tasha Chacko - Last Filed: 09/21/18 15:59> - Attestations Physician Attestion: 09/21/18 16:11 I, Dr. Rafael Nassar MD, attest that this document has been prepared under my direction and personally reviewed by me in its entirety. I further attest, that it accurately reflects all work, treatment, procedures and medical decision -making performed by me. 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 I have sent a new prescription for nausea medication in tablet form (not the dissolvable form). Take it as needed for nausea. If you experience worsening nausea, vomiting, abdominal pain, fevers, fatigue, or any other concerning symptoms, return to the ER immediately. Otherwise, follow up with your primary doctor within 1 week.
[2018-09-21] MEDS ORDERED: CEFTRIAXONE 1 GM in DEXTROSE 5%-WATER - 100 ML IVPB ONE (15:06)
[2018-09-21] MEDS ORDERED: cefTRIAXone SODIUM 1 GM VIAL ONE (15:08)
[2018-09-21 15:14] LABS: ALBUMIN 3.9 g/dl (3.5-5.0); ALK PHOS 62 U/L (32-92); ANION GAP 11 MMOL/L (8-16); BLOOD UREA NITROGEN 16 mg/dl (7-18); CALCIUM 8.7 mg/dl (8.4-10.2); CHLORIDE 98 mmol/L (98-107); CO2 22 mmol/L (22-28); CREATININE 1.2 mg/dl (0.6-1.3); GLUCOSE,RANDOM 213 mg/dl (74-106); POTASSIUM 4.1 mmol/L (3.5-5.1); SGOT/AST 24 U/L (10-42); SGPT/ALT 30 U/L (10-40); SODIUM 131 mmol/L (136-145); TOT PROT 7.8 g/dl (6.4-8.3)
[2018-09-21 16:07] VITALS: BP 132/76; PULSE 96; TEMP 98.7
== END 2018-09-21 16:38 | disposition home or self-care (01) ==
LOC: FER 13:43
PROC: 3E03329 Introduction of Other Anti-infective into Peripheral Vein, Percutaneous Approach (ICD-10-PCS; principal; 2018-09-21)
PROC: 3E033GC Introduction of Other Therapeutic Substance into Peripheral Vein, Percutaneous Approach (ICD-10-PCS; 2018-09-21)
PROC: 3E0337Z Introduction of Electrolytic and Water Balance Substance into Peripheral Vein, Percutaneous Approach (ICD-10-PCS; 2018-09-21)
DX: N39.0 Urinary tract infection, site not specified (principal)
CPT/HCPCS: 36415; 80053; 85025; 87086; 87186; 87804; 96361; 96365; 96367; 96375; 99282-25; J7030

== ENCOUNTER 2018-10-22 09:58 | Inpatient (IN) | payer OTHER ==
--- NOTE | 2018-10-22 10:01 | PDOC ---
History of Present Illness - General Chief Complaint: Urinary Problem Stated Complaint: KIDNEY STONE Time Seen by Provider: 10/22/18 10:01 - History of Present Illness Initial Comments: 10/22/18 10:02 Mr. Anderson is a 68 yo male w/ pmh of HTN, DMII, COPD, and diverticulitis who presents with complaints of "I think I'm passing a kidney stone." Patient reports pain started this morning and feels similar to his previous kidney stones. He localizes pain to his left flank and reports it has been constant since this morning. Patient also endorses difficulty urinating and reports urine has been coming out at a dribble. Finally, Mr. Anderson reports he feels very cold during interview and is shaking. The patient denies chest pain, shortness of breath, headache and dizziness. Denies fever, chills, nausea, vomit, diarrhea and constipation. Denies dysuria, frequency, urgency and hematuria. Past History - Past Medical History Allergies/Adverse Reactions: Allergies Allergy/AdvReac Type Severity Reaction Status Date / Time No Known Allergies Allergy Verified 09/21/18 13:45 Home Medications: Ambulatory Orders Glipizide [Glipizide ER] 10 mg PO BID tablet 12/02/16 Aspirin [Ecotrin] 81 mg PO DAILY 01/19/17 Insulin Glargine,Hum.rec.anlog [Lantus Solostar PEN -] 74 units SQ HS 01/19/17 [place]-3 Acid Ethyl Esters [Lovaza] 2 gm PO BID 01/19/17 Acetaminophen [Tylenol .Regular Strength -] 650 mg PO Q4H PRN tablet 06/22/18 Melatonin 5 mg PO HS PRN tab 06/22/18 Anemia: No Asthma: Yes Cancer: No Cardiac Disorders: Yes (CAD,PALPITATIONS,NUCLEAR STRESS 01/26 NEGATIVE) CVA: No COPD: No CHF: No Dementia: No Diabetes: Yes (DX 1997) GI Disorders: Yes (DIVERTICULOSIS/DIVERTICULITIS) Disorders: Yes (KIDNEY STONES-LAST 01/2012) HTN: Yes (DX ) Hypercholesterolemia: Yes (DIET CONTROLLED) Kidney Stones: Yes Liver Disease: No Seizures: No Thyroid Disease: No - Surgical History Abdominal Surgery: Yes Appendectomy: No Cardiac Surgery: No Cholecystectomy: No Lung Surgery: No Neurologic Surgery: No Orthopedic Surgery: Yes (RIGHT KNEE AND RIGHT ACHILLES TENDON) - Immunization History Immunization Up to Date: Yes - Suicide/Smoking/Psychosocial Hx Smoking Status: Yes Smoking History: Former smoker Have you smoked in the past 12 months: No Number of Cigarettes Smoked Daily: 0 If you are a former smoker, when did you quit?: 10 YEARS Cigars Per Day: 0 Hx Alcohol Use: No Drug/Substance Use Hx: No Substance Use Type: None Hx Substance Use Treatment: No Review of Systems - Review of Systems Comments:: 10/22/18 10:02 GENERAL/CONSTITUTIONAL: No fever or chills. No weakness. HEAD, EYES, EARS, NOSE AND THROAT: No change in vision. No ear pain or discharge. No sore throat. CARDIOVASCULAR: No chest pain or shortness of breath RESPIRATORY: No cough, wheezing, or hemoptysis. GASTROINTESTINAL: No nausea, vomiting, diarrhea or constipation. GENITOURINARY: No dysuria, frequency, or change in urination. MUSCULOSKELETAL: No joint or muscle swelling or pain. No neck or back pain. SKIN: No rash NEUROLOGIC: No headache, vertigo, loss of consciousness, or change in strength/ sensation. ENDOCRINE: No increased thirst. No abnormal weight change HEMATOLOGIC/LYMPHATIC: No anemia, easy bleeding, or history of blood clots. ALLERGIC/IMMUNOLOGIC: No hives or skin allergy. *Physical Exam - Physical Exam Comments: 10/22/18 10:02 GENERAL: Awake, alert, and fully oriented, in no acute distress HEAD: No signs of trauma, normocephalic, atraumatic EYES: PERRLA, EOMI, sclera anicteric, conjunctiva clear ENT: Auricles normal inspection, hearing grossly normal, nares patent, oropharynx clear without exudates. Moist mucosa NECK: Normal ROM, supple, no lymphadenopathy, JVD, or masses LUNGS: No distress, speaks full sentences, clear to auscultation bilaterally HEART: Regular rate and rhythm, normal S1 and S2, no murmurs, rubs or gallops, peripheral pulses normal and equal bilaterally. ABDOMEN: +Mild left flank TTP. Otherwise soft, nontender, normoactive bowel sounds. No guarding, no rebound. No masses EXTREMITIES: Normal inspection, Normal range of motion, no edema. No clubbing or cyanosis. NEUROLOGICAL: Cranial nerves II through XII grossly intact. Normal speech, normal gait, no focal sensorimotor deficits SKIN: Warm, Dry, normal turgor, no rashes or lesions noted. ED Treatment Course - LABORATORY CBC & Chemistry Diagram: 10/22/18 10:20 10/22/18 10:20 Medical Decision Making - Medical Decision Making 10/22/18 11:28 Mr. Anderson is a 68 yo male w/ pmh as described who presents for evaluation of symptoms concerning for nephrolithiasis vs. pyelo vs. diverticulitis. Patient workup started with laboratory evaluation, UA/Urine culture. Bedside US revealed 7.5 mm stone at region of UVJ. Patient sent for CT spiral for further evaluation and given toradol for pain control. 10/22/18 12:18 Patient noted to have UTI on urine. IV ABX started per previous UTI sensitivities. Patient will be admitted for urology follow-up of infected stone. Discussed with PCP. Urology added. Admitting patient. 10/22/18 12:34 Discussed patient with Urology who will evaluate. Patient admitted to hospitalist. 10/22/18 15:12 Patient rigorous and requiring increased pain / anti-nausea medication. Discussed again with urology who will take to OR today for treatment. 10/22/18 15:15 Patient noted to have vomited PO tylenol. IV given for treatment. Laboratory Results - last 24 hr 10/22/18 10/22/18 10/22/18 10:20 10:20 10:20 WBC 4.4 RBC 4.52 Hgb 13.0 Hct 39.1 MCV 86.5 MCH 28.7 MCHC 33.2 RDW 14.8 Plt Count 151 MPV 9.1 Absolute Neuts (auto) 3.8 Neutrophils % 85.5 H Lymphocytes % 5.6 L D Monocytes % 5.3 Eosinophils % 3.5 D Basophils % 0.1 Sodium 136 Potassium 4.4 Chloride 105 Carbon Dioxide 22 Anion Gap 9 BUN 16 Creatinine 1.3 Creat Clearance w eGFR 54.90 Random Glucose 169 H D Lactic Acid 2.8 H* Calcium 8.8 Total Bilirubin 0.7 AST 29 D ALT 33 Alkaline Phosphatase 76 Total Protein 7.9 Albumin 3.8 Urine Color Urine Appearance Urine pH Ur Specific [place] Urine Protein Urine Glucose (UA) Urine Ketones Urine Blood Urine Nitrite Urine Bilirubin Urine Urobilinogen Ur Leukocyte Esterase Urine RBC Urine WBC Ur Epithelial Cells Urine Bacteria 10/22/18 11:10 WBC RBC Hgb Hct MCV MCH MCHC RDW Plt Count MPV Absolute Neuts (auto) Neutrophils % Lymphocytes % Monocytes % Eosinophils % Basophils % Sodium Potassium Chloride Carbon Dioxide Anion Gap BUN Creatinine Creat Clearance w eGFR Random Glucose Lactic Acid Calcium Total Bilirubin AST ALT Alkaline Phosphatase Total Protein Albumin Urine Color Yellow Urine Appearance Clear Urine pH 5.5 Ur Specific [place] 1.020 Urine Protein 1+ H Urine Glucose (UA) Negative Urine Ketones Negative Urine Blood 3+ H Urine Nitrite Positive Urine Bilirubin Negative Urine Urobilinogen 0.2 Ur Leukocyte Esterase 1+ H Urine RBC 10-20 Urine WBC 40-60 Ur Epithelial Cells Few Urine Bacteria 1+ *DC/Admit/Observation/Transfer Diagnosis at time of Disposition: Kidney stone on left side UTI (urinary tract infection) Qualifiers: Urinary tract infection type: site unspecified Hematuria presence: without hematuria Qualified Code(s): N39.0 - Urinary tract infection, site not specified - Discharge Dispostion Condition at time of disposition: Good Decision to Admit order: Yes - Referrals Referrals: Farhad Maciel MD [Primary Care Provider] - - Patient Instructions - Post Discharge Activity
[2018-10-22] MEDS ORDERED: SODIUM CHLORIDE 1,000 ML IV STA ×3 (10:03→15:06)
[2018-10-22] MEDS ORDERED: ONDANSETRON 4 MG/2 ML VIAL IVPUSH ONE ×3 (10:04→14:52)
[2018-10-22] MEDS ORDERED: ACETAMINOPHEN 1000 MG/100 ML VIAL (NON FORMULARY) IVPB ONE ×2 (10:09→15:14)
[2018-10-22] MEDS ORDERED: ACETAMINOPHEN INJECTION 100 ML IVPB ONE ×2 (10:14→15:14)
[2018-10-22] MEDS ORDERED: ONDANSETRON 4 MG/2 ML VIAL ONE ×4 (10:14→17:11)
[2018-10-22 10:40] VITALS: BMI 34.7
--- NOTE | 2018-10-22 10:49 | PDOC ---
Attending Attestation - Resident Resident Name: [email or web address] - ED Attending Attestation I have performed the following: I have examined & evaluated the patient, The case was reviewed & discussed with the resident, I agree w/resident's findings & plan, Exceptions are as noted - HPI HPI: 10/22/18 10:50 60-year-old male history of diabetes hypertension obesity here today complaining of left flank pain radiating to the groin. Patient states he has a history of prior diverticulitis bouts as well as history of renal colic states he's had difficulty urinating today last urination was earlier this a.m. Does feel chilled no fevers did have episode of vomiting earlier today 2 all nonbloody nonbilious. No change to his stool no moderating factors to his pain no cough no chest pain no other complaints denies hematuria or dysuria does difficulty with urination - Physicial Exam PE: 10/22/18 10:51 Patient is awake alert no acute distress lungs are clear bilaterally heart is regular without any murmurs rubs or gallops. Abdomen is soft obese tender the left lower quadrant no rebound no guarding patient has mild left CVA tenderness extremities are warm and well-perfused skin is warm and dry no rash extremities no edema neurologically A&O 3 - Medical Decision Making 10/22/18 10:52 Differential diagnosis includes diverticulitis, pyelonephritis, UTI, hyperglycemia or DKA, renal colic. Plan focus bedside ultrasound to evaluate for hydronephrosis [place] CT abdomen and pelvis to follow . Pain control, antiemetics IV hydration UA urine cultures will order labs to rule out sepsis 10/22/18 11:23 focused ED ultrasound renal performed, indication: flank pain left bilateral kidneys scanned using phased array transducer. milf left hydronephrosis noted. bladder scanned in two planes, nondistended. noted hyperechoic focus left bladder near uvj, [place] uvj stone measuring 7.5mm impression: left 7.5mm uvj stone and mild left hydronephrosis. 10/22/18 12:[address] dexter of urology . will see in hospital. iv hydration repeat lactate pending. given ertapenem due to h/o esbl. Procedures - Bedside Ultrasound Other: renal us - mild left hydro see mdm
[2018-10-22 10:53] LABS: ALBUMIN 3.8 g/dl (3.5-5.0); ALK PHOS 76 U/L (32-92); ANION GAP 9 MMOL/L (8-16); BILIRUBIN,TOTAL 0.7 mg/dl (0.2-1.0); BLOOD UREA NITROGEN 16 mg/dl (7-18); CALCIUM 8.8 mg/dl (8.4-10.2); CHLORIDE 105 mmol/L (98-107); CO2 22 mmol/L (22-28); CREATININE 1.3 mg/dl (0.6-1.3); GLUCOSE,RANDOM 169 mg/dl (74-106); POTASSIUM 4.4 mmol/L (3.5-5.1); SGOT/AST 29 U/L (10-42); SGPT/ALT 33 U/L (10-40); SODIUM 136 mmol/L (136-145); TOT PROT 7.9 g/dl (6.4-8.3)
[2018-10-22 10:59] LABS: BASO % 0.1 % (0-2.0); EOS % 3.5 % (0-4.5); HEMATOCRIT 39.1 % (35.4-49); LYMPH % 5.6 % (8-40); MCH 28.7 pg (25.7-33.7); MCHC 33.2 g/dl (32.0-35.9); MEAN CELL VOLUME 86.5 fl (80-96); MEAN PLT VOLUME 9.1 fl (7.5-11.1); MONO % 5.3 % (3.8-10.2); NEUT % 85.5 % (42.8-82.8); PLATELET COUNT 151 K/MM3 (134-434); RBC 4.52 M/mm3 (4.00-5.60); RDW 14.8 % (11.9-15.9); WHITE BLOOD COUNT 4.4 K/mm3 (4.0-10.8)
[2018-10-22 11:17] LABS: PH,URINE 5.5 (4.5-8); URINE APPEARANCE Clear; URINE BILIRUBIN Negative (NEGATIVE); URINE COLOR Yellow; URINE GLUCOSE (UA) Negative (NEGATIVE); URINE KETONE Negative (NEGATIVE); URINE LEUK ESTERASE 1+ (NEGATIVE); URINE NITRITE Positive (NEGATIVE); URINE PROTEIN 1+ (NEGATIVE); URINE UROBILINOGEN 0.2 (0.2-1.0)
[2018-10-22] MEDS ORDERED: morphine CARPU-JECT 4 MG/1 ML DISP.SYRIN IVPUSH ONE ×2 (11:27→13:53)
[2018-10-22] MEDS ORDERED: KETOROLAC TROMETHAMINE 30 MG/1 ML VIAL IVPUSH ONE (11:28)
[2018-10-22] MEDS ORDERED: KETOROLAC TROMETHAMINE 30 MG/1 ML VIAL ONE (11:28)
[2018-10-22 11:35] LABS: EPI CELLS FEW /HPF; URINE BACTERIA 1+ /hpf (NEGATIVE); URINE WBC 40-60 (0-2)
[2018-10-22] MEDS ORDERED: ERTAPENEM SODIUM 1 GM/50 ML PRE-DOCKED IVPB ONE (12:02)
[2018-10-22] MEDS ORDERED: ERTAPENEM SODIUM 1 GM VIAL ONE (12:03)
[2018-10-22] MEDS ORDERED: morphine SULFATE 4 MG/ML VIAL ONE (13:55)
[2018-10-22] MEDS ORDERED: ERTAPENEM SODIUM 1 GM in SODIUM CHLORIDE 50 ML IVPB ONE (14:10)
[2018-10-22] MEDS ORDERED: ACETAMINOPHEN 500 MG TABLET (FP) ONE (14:13)
[2018-10-22] MEDS ORDERED: ACETAMINOPHEN 500 MG TABLET (FP) PO ONE (14:14)
--- NOTE | 2018-10-22 15:15 | HP ---
CHIEF COMPLAINT: Left flank pain PCP: Dr. Maciel HISTORY OF PRESENT ILLNESS: Mr. Anderson is a 68 yo male with a PMH significant for HTN, DMII, COPD, diverticulitis, BPH, nephrolithiasis, and recurrent E.coli ESBL UTIs. Presents with complaint of "I think I'm passing a kidney stone." Patient reports pain started this morning and feels similar to his previous kidney stones. He localizes pain to his left flank and reports it has been constant since this morning. Patient also endorses difficulty urinating and reports urine has been coming out at a dribble. Finally, Mr. Anderson reports he feels very cold and has shaking chills. ER course was notable for: (1) T101, p135, pyuria (2) Lactic acid 2.8-->1.6 after NS x 2L (3) UA: 10-20 RBCs, 40-60 WBCs Recent Travel: No PAST MEDICAL HISTORY: Hypertension Type II non-insulin diabetes COPD Diverticulitis BPH Nephrolithiasis Recurrent E.coli ESBL UTIs PAST SURGICAL HISTORY: Abdominal hernia repair Right meniscus repair Right achilles tendon repair Social History: Smoking: former, quit 10 years ago Alcohol: no Drugs: no Family History: Allergies No Known Allergies Allergy (Verified 09/21/18 13:45) HOME MEDICATIONS: Home Medications Medication Instructions Recorded Glipizide [Glipizide ER] 10 mg PO BID tablet 12/02/16 Aspirin [Ecotrin] 81 mg PO DAILY 01/19/17 Insulin Glargine,Hum.rec.anlog 74 units SQ HS 01/19/17 [Lantus Solostar PEN -] [place]-3 Acid Ethyl Esters [Lovaza] 2 gm PO BID 01/19/17 Acetaminophen [Tylenol .Regular 650 mg PO Q4H PRN tablet 06/22/18 Strength -] Melatonin 5 mg PO HS PRN tab 06/22/18 REVIEW OF SYSTEMS CONSTITUTIONAL: Absent: fever, chills, diaphoresis, generalized weakness, malaise, loss of appetite, weight change HEENT: Absent: rhinorrhea, nasal congestion, throat pain, throat swelling, difficulty swallowing, mouth swelling, ear pain, eye pain, visual changes CARDIOVASCULAR: Absent: chest pain, syncope, palpitations, irregular heart rate, lightheadedness , peripheral edema RESPIRATORY: Absent: cough, shortness of breath, dyspnea with exertion, orthopnea, wheezing, stridor, hemoptysis GASTROINTESTINAL: Absent: abdominal pain, abdominal distension, nausea, vomiting, diarrhea, constipation, melena, hematochezia GENITOURINARY: +left flank pain, urinary retention Absent: dysuria, frequency, urgency, hesitancy, hematuria, genital pain MUSCULOSKELETAL: Absent: myalgia, arthralgia, joint swelling, back pain, neck pain SKIN: Absent: rash, itching, pallor HEMATOLOGIC/IMMUNOLOGIC: Absent: easy bleeding, easy bruising, lymphadenopathy, frequent infections ENDOCRINE: Absent: unexplained weight gain, unexplained weight loss, heat intolerance, cold intolerance NEUROLOGIC: Absent: headache, focal weakness or paresthesias, dizziness, unsteady gait, seizure, mental status changes, bladder or bowel incontinence PSYCHIATRIC: Absent: anxiety, depression, suicidal or homicidal ideation, hallucinations. PHYSICAL EXAMINATION Vital Signs - 24 hr 10/22/18 10/22/18 09:59 13:54 Temperature 98.0 F 99.4 F Pulse Rate 90 Pulse Rate [ 103 H Right Radial] Respiratory 20 20 Rate Blood Pressure 170/95 Blood Pressure 130/64 [Right Arm] O2 Sat by Pulse 99 97 Oximetry (%) GENERAL: Awake, alert, and fully oriented, in no acute distress. Diaphoretic. Pale. Ill-appearing. HEAD: Normal with no signs of trauma. EYES: Pupils equal, round and reactive to light, extraocular movements intact, sclera anicteric, conjunctiva clear. No lid lag. EARS, NOSE, THROAT: Ears normal, nares patent, oropharynx clear without exudates. Moist mucous membranes. NECK: Normal range of motion, supple without lymphadenopathy, JVD, or masses. LUNGS: Breath sounds equal, clear to auscultation bilaterally. No wheezes, and no crackles. No accessory muscle use. HEART: Regular rate and rhythm, S1 and S2 ABDOMEN: Soft, nontender, not distended, normoactive bowel sounds, no guarding, no rebound MUSCULOSKELETAL: Normal range of motion at all joints. No bony deformities or tenderness. Mild left CVA tenderness UPPER EXTREMITIES: 2+ pulses, warm, well-perfused. No cyanosis. No clubbing. No peripheral edema. LOWER EXTREMITIES: 2+ pulses, warm, well-perfused. No calf tenderness. No peripheral edema. NEUROLOGICAL: Cranial nerves II-XII intact. SKIN: Warm, dry, normal turgor, no rashes or lesions noted, normal capillary refill. Laboratory Results - last 24 hr 10/22/18 10/22/18 10/22/18 10:20 10:20 10:20 WBC 4.4 RBC 4.52 Hgb 13.0 Hct 39.1 MCV 86.5 MCH 28.7 MCHC 33.2 RDW 14.8 Plt Count 151 MPV 9.1 Absolute Neuts (auto) 3.8 Neutrophils % 85.5 H Lymphocytes % 5.6 L D Monocytes % 5.3 Eosinophils % 3.5 D Basophils % 0.1 Sodium 136 Potassium 4.4 Chloride 105 Carbon Dioxide 22 Anion Gap 9 BUN 16 Creatinine 1.3 Creat Clearance w eGFR 54.90 Random Glucose 169 H D Lactic Acid 2.8 H* Calcium 8.8 Total Bilirubin 0.7 AST 29 D ALT 33 Alkaline Phosphatase 76 Total Protein 7.9 Albumin 3.8 Urine Color Urine Appearance Urine pH Ur Specific [place] Urine Protein Urine Glucose (UA) Urine Ketones Urine Blood Urine Nitrite Urine Bilirubin Urine Urobilinogen Ur Leukocyte Esterase Urine RBC Urine WBC Ur Epithelial Cells Urine Bacteria 10/22/18 10/22/18 11:10 12:16 WBC RBC Hgb Hct MCV MCH MCHC RDW Plt Count MPV Absolute Neuts (auto) Neutrophils % Lymphocytes % Monocytes % Eosinophils % Basophils % Sodium Potassium Chloride Carbon Dioxide Anion Gap BUN Creatinine Creat Clearance w eGFR Random Glucose Lactic Acid 1.6 Calcium Total Bilirubin AST ALT Alkaline Phosphatase Total Protein Albumin Urine Color Yellow Urine Appearance Clear Urine pH 5.5 Ur Specific [place] 1.020 Urine Protein 1+ H Urine Glucose (UA) Negative Urine Ketones Negative Urine Blood 3+ H Urine Nitrite Positive Urine Bilirubin Negative Urine Urobilinogen 0.2 Ur Leukocyte Esterase 1+ H Urine RBC 10-20 Urine WBC 40-60 Ur Epithelial Cells Few Urine Bacteria 1+ ASSESSMENT/PLAN: Mr. Anderson is a 68 yo male with a PMH significant for HTN, CAD, IDDM, COPD, diverticulitis, BPH, nephrolithiasis, and recurrent E.coli ESBL UTIs. Admitted for severe sepsis. Severe sepsis secondary to UTI and left obstructing ureteral stone with left hydronephrosis h/o E.coli ESBL UTIs BPH --T101, p135, UA: 40-60 WBCs, initial lactic acid 2.8 on admission --third litre of NS running, BP stable --urology consulted, emergent surgery planned --ertapenem x 1 dose in ED; discussed with ID, switch to meropenem --cultures pending, esr, crp Hypertension --hold losartan due to sepsis Type II insulin dependent diabetes --Novolog sliding scale coverage --will need to confirm long-acting insulin dose COPD --stable Diverticulitis --no acute issues FEN Fluids: NS @ 125mL/hr Electrolytes: replete as indicated Nutrition: NPO DVT prophylaxis: SCDs, oob, ambulation Physical therapy Dispo: continues to require inpatient care. Full code. (3) Visit type - Emergency Visit Emergency Visit: Yes Care time: The patient presented to the Emergency Department on the above date and was hospitalized for further evaluation of their emergent condition. - New Patient This patient is new to me today: Yes Date on this admission: 10/22/18 - Critical Care Critical Care patient: Yes Total Critical Care Time (in minutes): 60 Critical Care Statement: The care of this patient involved high complexity decision making to prevent further life threatening deterioration of the patient 's condition and/or to evaluate & treat vital organ system(s) failure or risk of failure.
[2018-10-22] MEDS ORDERED: PROPRANOLOL HCL 160 MG PO SCH (15:30)
[2018-10-22] MEDS ORDERED: ROCURONIUM BROMIDE 50 MG/5 ML VIAL ONE (16:12)
[2018-10-22] MEDS ORDERED: PROPOFOL 20 ML ONE (16:12)
[2018-10-22] MEDS ORDERED: SUCCINYLCHOLINE CHLORIDE 200 MG/10 ML VIAL ONE (16:12)
[2018-10-22] MEDS ORDERED: ePHEDrine SULFATE 50 MG/1 ML AMPULE ONE (16:12)
[2018-10-22] MEDS ORDERED: PHENYLEPHRINE HCL 10 MG/1 ML SINGLE DOSE VIAL ONE ×2 (16:12→16:16)
[2018-10-22] MEDS ORDERED: MIDAZOLAM HCL 2 MG/2 ML SINGLE DOSE VIAL ONE (16:12)
[2018-10-22] MEDS ORDERED: DEXAMETHASONE SOD PHOSPHATE 4 MG/1 ML VIAL ONE ×2 (16:13→17:11)
--- NOTE | 2018-10-22 16:31 | CON.GU ---
Consult Consult Specialty:: Urology Reason for Consultation:: Left renal colic - History of Present Illness Chief Complaint: Left flank pain - History Source History Provided By: Patient, Medical Record - Past Medical History Cardio/Vascular: Yes: HTN, Hyperlipdemia Pulmonary: Yes: COPD Gastrointestinal: Yes: Pancreatitis Renal/: Yes: BPH, UTI Endocrine: Yes: Diabetes Mellitus - Past Surgical History Past Surgical History: Yes: Joint Replacement - Alcohol/Substance Use Hx Alcohol Use: No - Smoking History Smoking history: Former smoker Have you smoked in the past 12 months: No Aproximately how many cigarettes per day: 0 If you are a former smoker, when did you quit?: 10 YEARS - Social History Usual Living Arrangement: With Spouse History of Recent Travel: No Home Medications - Allergies Allergies/Adverse Reactions: Allergies Allergy/AdvReac Type Severity Reaction Status Date / Time No Known Allergies Allergy Verified 09/21/18 13:45 - Home Medications Home Medications: Ambulatory Orders Glipizide [Glipizide ER] 10 mg PO BID tablet 12/02/16 Aspirin [Ecotrin] 81 mg PO DAILY 01/19/17 Insulin Glargine,Hum.rec.anlog [Lantus Solostar PEN -] 74 units SQ HS 01/19/17 [place]-3 Acid Ethyl Esters [Lovaza] 2 gm PO BID 01/19/17 Acetaminophen [Tylenol .Regular Strength -] 650 mg PO Q4H PRN tablet 06/22/18 Melatonin 5 mg PO HS PRN tab 06/22/18 Review of Systems - Review of Systems Genitourinary: reports: Flank Pain Physical Exam- Vital Signs: Vital Signs Temperature 101.0 F H 10/22/18 15:09 Pulse Rate 135 H 10/22/18 15:09 Respiratory Rate 18 10/22/18 15:09 Blood Pressure 128/68 10/22/18 15:09 O2 Sat by Pulse Oximetry (%) 97 10/22/18 13:54 Labs: CBC, BMP 10/22/18 10:20 10/22/18 10:20 Imaging - Results Cat Scan: Report Reviewed Problem List - Problems (1) UTI (urinary tract infection) Code(s): N39.0 - URINARY TRACT INFECTION, SITE NOT SPECIFIED Qualifiers: Urinary tract infection type: site unspecified Hematuria presence: without hematuria Qualified Code(s): N39.0 - Urinary tract infection, site not specified (2) Kidney stone on left side Assessment/Plan: 68 yo male w left flank pain found to have 3 mm left ureteral calculus w mod hydro pt initial lactic acid 2.4 now 1.6 Clinically pt dev tacycardia T 101 pt recieved Irtapenim hr currently 130 bp 140/80 Discussed clinical sepsis and need for urgent procedure Pt had pudding at 1230 no other food or drink Will proceed w cysto stent possible ureteroscopy Risks and benefits discussed at length Code(s): N20.0 - CALCULUS OF KIDNEY
[2018-10-22] MEDS ORDERED: METOPROLOL TARTRATE 5 MG/5 ML VIAL ONE ×2 (17:07→18:29)
[2018-10-22] MEDS ORDERED: METOPROLOL TARTRATE 5 MG/5 ML VIAL IVPUSH ONE ×2 (17:31→17:40)
--- NOTE | 2018-10-22 17:56 | OP ---
Operative Note - Note: Operative Date: 10/22/18 Pre-Operative Diagnosis: left ureteral calculus, sepsis Operation: cystoscopy left dj ureteral stent placement Findings: hydro w purulent material draining Post-Operative Diagnosis: Same as Pre-op Surgeon: Adolph Allen MD. Anesthesia: General Operative Report Dictated: Yes
[2018-10-22] MEDS ORDERED: MEROPENEM 1 GM in DEXTROSE 5%-WATER 100 ML IVPB SCH (18:00)
[2018-10-22] MEDS ORDERED: MEROPENEM 1 GM VIAL (RESTRICTED TO ID) IVPB ONE (18:30)
[2018-10-22] MEDS: SODIUM CHLORIDE 1,000 ML IV SCH (18:57)
[2018-10-22 20:21] LABS: BASO % 0.1 % (0-2.0); EOS % 0.2 % (0-4.5); HEMATOCRIT 34.4 % (35.4-49); LYMPH % 4.1 % (8-40); MEAN CELL VOLUME 87.5 fl (80-96); MONO % 7.4 % (3.8-10.2); NEUT % 88.2 % (42.8-82.8); PLATELET COUNT 85 K/MM3 (134-434); RBC 3.93 M/mm3 (4.00-5.60); RDW 14.9 % (11.9-15.9); WHITE BLOOD COUNT 5.1 K/mm3 (4.0-10.8)
[2018-10-22 20:24] LABS: ALK PHOS 57 U/L (32-92); ANION GAP 6 MMOL/L (8-16); BILIRUBIN,TOTAL 0.4 mg/dl (0.2-1.0); BLOOD UREA NITROGEN 17 mg/dl (7-18); CALCIUM 7.6 mg/dl (8.4-10.2); CHLORIDE 111 mmol/L (98-107); CO2 19 mmol/L (22-28); CREATININE 1.4 mg/dl (0.6-1.3); GLUCOSE,RANDOM 166 mg/dl (74-106); PHOSPHOROUS 2.6 mg/dl (2.5-4.6); POTASSIUM 4.1 mmol/L (3.5-5.1); SGOT/AST 35 U/L (10-42); SGPT/ALT 33 U/L (10-40); SODIUM 136 mmol/L (136-145); TOT PROT 6.2 g/dl (6.4-8.3)
[2018-10-22] MEDS ORDERED: MAGNESIUM SULF 50% (8.12 MEQ/2 ML-1 GM VIAL) IVPB ONE ×2 (20:54→22:15)
[2018-10-22] MEDS ORDERED: MAGNESIUM 1GM/D5W - 2 GM/200 ML IVPB IVPB ONE (21:59)
[2018-10-22] MEDS ORDERED: MAGNESIUM SULFATE 20GM/500ML 20 GM/500 ML INFUS.BAG IVPB ONE (22:15)
[2018-10-22] MEDS: ATORVASTATIN CA 20 MG TABLET (FP) PO SCH (23:14)
[2018-10-22] MEDS: INSULIN SLIDING SCALE (NOVOLOG) 1 VIAL SQ SCH (23:16)
[2018-10-22] MEDS: ACETAMINOPHEN 325 MG TABLET (FP) PO PRN (23:18)
[2018-10-23] MEDS ORDERED: FAMOTIDINE 20 MG TABLET PO ONE ×2 (00:56→22:58)
[2018-10-23] MEDS: ONDANSETRON 4 MG/2 ML VIAL IVPUSH PRN (00:58)
[2018-10-23] MEDS ORDERED: MAGNESIUM SULF 50% (8.12 MEQ/2 ML-1 GM VIAL) IVPB ONE (01:00)
[2018-10-23] MEDS: MEROPENEM 1 GM in DEXTROSE 5%-WATER 100 ML IVPB SCH ×3 (02:30→18:58)
[2018-10-23] MEDS ORDERED: MAGNESIUM SULF 50% (8.12 MEQ/2 ML-1 GM VIAL) ONE (03:22)
[2018-10-23] MEDS: ACETAMINOPHEN 325 MG TABLET (FP) PO PRN (05:53)
[2018-10-23] MEDS: INSULIN SLIDING SCALE (NOVOLOG) 1 VIAL SQ SCH ×4 (06:09→21:15)
--- NOTE | 2018-10-23 07:35 | OP ---
DATE OF OPERATION: 10/22/2018 SURGEON: Adolph Allen MD PREOPERATIVE DIAGNOSIS: Left renal calculus. POSTOPERATIVE DIAGNOSIS: Left renal calculus. PROCEDURE: Cystoscopy, left ureteral stent placement. HISTORY: This is a 68-year-old gentleman with prior history of sepsis from urinary tract calculi. He presented initially with lactate 2.4. Patient had eaten approximately 4 hours prior to procedure. However, due to patient development of tachycardia to 130 and initial lactate of 2.4, stent was recommended quite urgently. Patient actually did respond to intravenous antibiotics. His lactate came down to 1.6. He, however, clinically had maximum temperature of 101 and was 100 prior to the procedure. Risks and benefits of treatment and alternative treatment options were discussed in detail. BRIEF OPERATIVE NOTE: The patient was brought to the operating room, placed in supine position. General anesthesia was administered. Another dose of intravenous Ancef was given. At this time, a 22-[place] cystoscope sheath was placed in the bladder under direct vision. There were no urethral strictures. The prostate was status post TUR with residual heap of tissue. The stone was seen at the ureteral orifice. A small amount of purulent material was draining from the kidney. At this time, a 0.038 sensor wire was passed into the renal pelvis, confirmed fluoroscopically. A 6-[place] 22-cm JJ stent was passed over the wire, fluoroscopically confirmed to be in normal position. The bladder was drained, and patient tolerated the procedure well with no complications. ADOLPH ALLEN M.D. [facility]/[id number]
[2018-10-23 09:14] LABS: HEMATOCRIT 32.3 % (35.4-49); HEMOGLOBIN 10.3 GM/dl (11.7-16.9); LYMPH % 7.3 % (8-40); MEAN CELL VOLUME 87.7 fl (80-96); MEAN PLT VOLUME 10.4 fl (7.5-11.1); MONO % 5.8 % (3.8-10.2); NEUT % 86.9 % (42.8-82.8); PLATELET COUNT 79 K/MM3 (134-434); RBC 3.69 M/mm3 (4.00-5.60); RDW 14.4 % (11.9-15.9); WHITE BLOOD COUNT 10.4 K/mm3 (4.0-10.8)
[2018-10-23 09:35] LABS: MAGNESIUM 2.4 mg/dL (1.8-2.4); PHOSPHOROUS 3.3 mg/dl (2.5-4.6)
[2018-10-23 09:50] LABS: ERYTHROCYTE SEDIMENTATION RATE 79 mm/hr (0-20)
[2018-10-23] MEDS ORDERED: oxyCODONE HCL 5 MG TABLET PO PRN (11:53)
[2018-10-23] MEDS ORDERED: PHENAZOPYRIDINE HCL 100 MG TABLET (FP) PO ONE ×2 (11:55→20:32)
--- NOTE | 2018-10-23 13:16 | CON.ID ---
Consult Consult Specialty:: infectious diseases Referred by:: Peg Reason for Consultation:: Sepsis,fever,hydro - History of Present Illness Chief Complaint: abd pain,fevr History of Present Illness: 68 yo male with a PMH significant for HTN, DMII, COPD, diverticulitis, BPH, nephrolithiasis, and recurrent E.coli ESBL UTIs. Presents with complaint of "I think I'm passing a kidney stone." Patient reports pain started this morning and feels similar to his previous kidney stones. He localizes pain to his left flank and reports it has been constant since this morning. Patient also endorses difficulty urinating and reports urine has been coming out at a dribble. Finally, Mr. Anderson reports he feels very cold and has shaking chills. patient was seen by the urology and was taken to the operating and has a stent placed post op now had a fever and also feels drowsy with him - History Source History Provided By: Family Member Limitations to Obtaining History: No Limitations - Past Medical History Cardio/Vascular: Yes: HTN, Hyperlipdemia Pulmonary: Yes: COPD Gastrointestinal: Yes: Pancreatitis Renal/: Yes: BPH, UTI Endocrine: Yes: Diabetes Mellitus - Past Surgical History Past Surgical History: Yes: Joint Replacement - Alcohol/Substance Use Hx Alcohol Use: No - Smoking History Smoking history: Former smoker Have you smoked in the past 12 months: No Aproximately how many cigarettes per day: 0 If you are a former smoker, when did you quit?: 10 YEARS - Social History Usual Living Arrangement: With Spouse History of Recent Travel: No Home Medications - Allergies Allergies/Adverse Reactions: Allergies Allergy/AdvReac Type Severity Reaction Status Date / Time No Known Allergies Allergy Verified 09/21/18 13:45 - Home Medications Home Medications: Ambulatory Orders Glipizide [Glipizide ER] 10 mg PO BID tablet 12/02/16 Aspirin [Ecotrin] 81 mg PO DAILY 01/19/17 Insulin Glargine,Hum.rec.anlog [Lantus Solostar PEN -] 74 units SQ HS 01/19/17 [place]-3 Acid Ethyl Esters [Lovaza] 2 gm PO BID 01/19/17 Acetaminophen [Tylenol .Regular Strength -] 650 mg PO Q4H PRN tablet 06/22/18 Melatonin 5 mg PO HS PRN tab 06/22/18 Review of Systems - Review of Systems Constitutional: reports: Fever Eyes: reports: No Symptoms HENT: reports: No Symptoms Neck: reports: No Symptoms Cardiovascular: reports: No Symptoms Respiratory: reports: No Symptoms Gastrointestinal: reports: No Symptoms Genitourinary: reports: Flank Pain Breasts: reports: No Symptoms Reported Musculoskeletal: reports: No Symptoms Integumentary: reports: No Symptoms Neurological: reports: No Symptoms Endocrine: reports: No Symptoms Hematology/Lymphatic: reports: No Symptoms Psychiatric: reports: No Symptoms Physical Exam Vital Signs: Vital Signs Temperature 98.7 F 10/23/18 10:15 Pulse Rate 91 H 10/23/18 10:15 Respiratory Rate 18 10/23/18 08:42 Blood Pressure 138/77 10/23/18 10:15 O2 Sat by Pulse Oximetry (%) 96 10/23/18 08:42 Constitutional: Yes: Well Nourished, No Distress, Calm, Obese Cardiovascular: Yes: Regular Rate and Rhythm Respiratory: Yes: Regular, CTA Bilaterally Gastrointestinal: Yes: Normal Bowel Sounds, Soft Musculoskeletal: Yes: WNL Extremities: Yes: WNL Neurological: Yes: Alert, Oriented Psychiatric: Yes: Alert, Oriented Labs: CBC, BMP 10/23/18 08:15 10/22/18 19:50 Imaging - Results Chest X-ray: Report Reviewed, Image Reviewed Cat Scan: Report Reviewed, Image Reviewed Assessment/Plan Problem List - Problems (1) UTI (urinary tract infection) Code(s): N39.0 - URINARY TRACT INFECTION, SITE NOT SPECIFIED Qualifiers: Urinary tract infection type: site unspecified Hematuria presence: without hematuria Qualified Code(s): N39.0 - Urinary tract infection, site not specified (2) Kidney stone on left side Code(s): N20.0 - CALCULUS OF KIDNEY obesity hydro plan will start patient on malissa--patient got a dose await for all cx hydration rest as per the team and urology
--- NOTE | 2018-10-23 13:19 | PN ---
Progress Note, Physician History of Present Illness: says he is very uncomfortable dribbling urine according to the patient - Current Medication List Current Medications: Active Medications Acetaminophen (Tylenol -) 650 mg PO Q6H PRN PRN Reason: FEVER Last Admin: 10/23/18 05:53 Dose: 650 mg Atorvastatin Calcium (Lipitor -) 20 mg PO HS [facility] Last Admin: 10/22/18 23:14 Dose: 20 mg Fentanyl (Sublimaze Injection -) 50 mcg IVPUSH [id number] PRN PRN Reason: PAIN-PACU ORDER X 4 DOSES ONLY Sodium Chloride (Normal Saline -) 1,000 mls @ 125 mls/hr IV ASDIR [facility] Last Admin: 10/22/18 18:57 Dose: 125 mls/hr Meropenem 1 gm/ Dextrose 100 mls @ 200 mls/hr IVPB Q8H-IV [facility] Last Admin: 10/23/18 02:30 Dose: 200 mls/hr Insulin Aspart (Novolog Vial Sliding Scale -) 1 vial SQ [facility]; Protocol Last Admin: 10/23/18 06:09 Dose: 4 units Ondansetron HCl (Zofran Injection) 4 mg IVPUSH Q6H PRN PRN Reason: NAUSEA Last Admin: 10/23/18 00:58 Dose: 4 mg Oxycodone HCl (Roxicodone -) 5 mg PO Q6H PRN PRN Reason: PAIN LEVEL 6-10 Stop: 10/26/18 12:05 Propranolol HCl (Inderal La -) 160 mg PO DAILY [facility] - Objective Vital Signs: Vital Signs Temperature 98.7 F 10/23/18 10:15 Pulse Rate 91 H 10/23/18 10:15 Respiratory Rate 18 10/23/18 08:42 Blood Pressure 138/77 10/23/18 10:15 O2 Sat by Pulse Oximetry (%) 96 10/23/18 08:42 Constitutional: Yes: Calm, Moderate Distress, Obese Cardiovascular: Yes: Regular Rate and Rhythm Respiratory: Yes: Regular, CTA Bilaterally Gastrointestinal: Yes: Normal Bowel Sounds, Soft Musculoskeletal: Yes: WNL Extremities: Yes: WNL Neurological: Yes: Alert, Oriented Psychiatric: Yes: Alert, Oriented Labs: CBC, BMP 10/23/18 08:15 10/22/18 19:50 Assessment/Plan Problem List - Problems (1) UTI (urinary tract infection) Code(s): N39.0 - URINARY TRACT INFECTION, SITE NOT SPECIFIED Qualifiers: Urinary tract infection type: site unspecified Hematuria presence: without hematuria Qualified Code(s): N39.0 - Urinary tract infection, site not specified (2) Kidney stone on left side Code(s): N20.0 - CALCULUS OF KIDNEY obesity hydro plan conitnue malissa monitor for urine outpur awaiting identification of the organism rest as per the team
[2018-10-23] MEDS: SODIUM CHLORIDE 1,000 ML IV SCH (18:59)
[2018-10-23] MEDS: oxyCODONE HCL 5 MG TABLET PO PRN (20:19)
[2018-10-23] MEDS ORDERED: MELATONIN 5 MG TABLETS PO PRN (20:30)
[2018-10-23] MEDS ORDERED: MELATONIN 5 MG TABLETS PO ONE (20:31)
--- NOTE | 2018-10-23 20:44 | PN ---
Physical Exam: SUBJECTIVE: Patient seen and examined sitting on edge of bed. Has burning and discomfort with urination. OBJECTIVE: Vital Signs Period Temp Pulse Resp BP Sys/Alaniz Pulse Ox Last 24 Hr 98.5 F-98.7 F 74-110 17-20 114-138/54-90 94-98 GENERAL: The patient is awake, alert, and fully oriented, in no acute distress. LUNGS: Breath sounds equal, clear to auscultation bilaterally, no wheezes, no crackles, no accessory muscle use. HEART: Regular rate and rhythm, S1, S2 ABDOMEN: Soft, nontender, nondistended EXTREMITIES: 2+ pulses, warm, well-perfused, no edema. NEUROLOGICAL: Cranial nerves II through XII grossly intact. Normal speech. Laboratory Results - last 24 hr 10/22/18 10/22/18 10/23/18 19:50 20:25 01:50 WBC RBC Hgb Hct MCV MCH MCHC RDW Plt Count MPV Absolute Neuts (auto) Neutrophils % Lymphocytes % Monocytes % Eosinophils % Basophils % ESR POC Glucometer 171 Lactic Acid 2.0 Phosphorus Magnesium 2.4 10/23/18 10/23/18 10/23/18 05:55 08:15 08:15 WBC 10.4 RBC 3.69 L Hgb 10.3 L Hct 32.3 L MCV 87.7 MCH 28.0 MCHC 32.0 RDW 14.4 Plt Count 79 L MPV 10.4 D Absolute Neuts (auto) 9.0 Neutrophils % 86.9 H Lymphocytes % 7.3 L D Monocytes % 5.8 Eosinophils % 0.0 D Basophils % 0.0 ESR 79 H POC Glucometer 247 Lactic Acid Phosphorus 3.3 D Magnesium 2.4 10/23/18 08:15 WBC RBC Hgb Hct MCV MCH MCHC RDW Plt Count MPV Absolute Neuts (auto) Neutrophils % Lymphocytes % Monocytes % Eosinophils % Basophils % ESR POC Glucometer Lactic Acid 1.4 Phosphorus Magnesium Active Medications Generic Name Dose Route Start Last Admin Trade Name Freq PRN Reason Stop Dose Admin Acetaminophen 650 mg 10/22/18 15:15 10/23/18 05:53 Tylenol - PO 650 mg Q6H PRN Administration FEVER Atorvastatin Calcium 20 mg 10/22/18 22:00 10/22/18 23:14 Lipitor - PO 20 mg HS ADALBERTO Administration Fentanyl 50 mcg 10/22/18 17:31 Sublimaze Injection - IVPUSH [id number] PRN PAIN-PACU ORDER X 4 DOSES ONLY Sodium Chloride 1,000 mls @ 125 mls/hr 10/22/18 17:30 10/23/18 18:59 Normal Saline - IV 125 mls/hr ASDIR ADALBERTO Administration Meropenem 1 gm/ Dextrose 100 mls @ 200 mls/hr 10/22/18 18:00 10/23/18 18:58 IVPB 200 mls/hr Q8H-IV ADALBERTO Administration Insulin Aspart 1 vial 10/22/18 16:30 10/23/18 16:30 Novolog Vial Sliding Scale - SQ Not Given ACHS ADALBERTO Protocol Melatonin 5 mg 10/23/18 20:30 Melatonin PO HS PRN INSOMNIA Ondansetron HCl 4 mg 10/22/18 15:31 10/23/18 00:58 Zofran Injection IVPUSH 4 mg Q6H PRN Administration NAUSEA Oxycodone HCl 5 mg 10/23/18 12:06 10/23/18 20:19 Roxicodone - PO 10/26/18 12:05 5 mg Q6H PRN Administration PAIN LEVEL 6-10 Propranolol HCl 160 mg 10/22/18 15:45 10/23/18 10:05 Inderal La - PO 160 mg DAILY ADALBERTO Administration ASSESSMENT/PLAN: Mr. Anderson is a 68 yo male with a PMH significant for HTN, CAD, IDDM, COPD, diverticulitis, BPH, nephrolithiasis, and recurrent E.coli ESBL UTIs. Admitted for severe sepsis. Severe sepsis secondary to UTI and left obstructing ureteral stone with left hydronephrosis s/p cystoscopy and left ureteral stent placement 10/22/18 h/o E.coli ESBL UTIs BPH --T101, p135, UA: 40-60 WBCs, initial lactic acid 2.8 on admission --purulent drainage from kidney seen during OR procedure --urine culture (+) [id number]; continue meropenem --UOP fallen off during day, positive 7+L since yesterday but BP on low side ; reassess need for Lasix in am Hypertension --hold losartan secondary to sepsis Type II insulin dependent diabetes --Novolog sliding scale coverage --will need to confirm long-acting insulin dose COPD --stable Diverticulitis --no acute issues FEN Fluids: PO intake adequate Electrolytes: replete as indicated Nutrition: low sodium, diabetic DVT prophylaxis: SCDs, oob, ambulation, start subq heparin Physical therapy Dispo: continues to require inpatient care. Full code. Visit type - Emergency Visit Emergency Visit: Yes ED Registration Date: 10/22/18 Care time: The patient presented to the Emergency Department on the above date and was hospitalized for further evaluation of their emergent condition. - New Patient This patient is new to me today: No - Critical Care Critical Care patient: No
[2018-10-23] MEDS ORDERED: FUROSEMIDE 40 MG/4 ML INJECTABLE VIAL IVPUSH ONE (21:07)
[2018-10-23] MEDS: ATORVASTATIN CA 20 MG TABLET (FP) PO SCH (21:15)
[2018-10-23] MEDS: HEPARIN NA (PORCINE) 5,000 UNITS/ML 1ML VIAL SQ SCH (21:45)
[2018-10-23] MEDS: FUROSEMIDE 40 MG/4 ML INJECTABLE VIAL IVPUSH ONE ×2 (21:53→22:00)
[2018-10-24] MEDS: MEROPENEM 1 GM in DEXTROSE 5%-WATER 100 ML IVPB SCH ×3 (01:10→18:30)
[2018-10-24] MEDS: HEPARIN NA (PORCINE) 5,000 UNITS/ML 1ML VIAL SQ SCH ×3 (07:07→21:21)
[2018-10-24] MEDS: INSULIN SLIDING SCALE (NOVOLOG) 1 VIAL SQ SCH ×4 (07:08→21:21)
[2018-10-24] MEDS: oxyCODONE HCL 5 MG TABLET PO PRN (08:21)
[2018-10-24] MEDS ORDERED: PHENAZOPYRIDINE HCL 100 MG TABLET (FP) PO ONE (10:00)
[2018-10-24] MEDS ORDERED: PT OWN MED DRAWER 7, Y5N ONE (10:12)
[2018-10-24] MEDS ORDERED: ALBUTEROL SO4 2.5/IPRATROPIUM 0.5 INH SOL 3 ML VIAL.NEB. NEB PRN (10:32)
--- NOTE | 2018-10-24 10:42 | PN ---
Progress Note (short form) - Note Progress Note: Subjective: The patient was seen and examined at the bedside, he received Oxycodone at 8:21 and denies any pain. He does report that prior to the Oxycodone, he did have some left penile pain. He is also reporting dysuria. Prelim 1 blood culture bottles + for lactose fermenting neg bacilli Current Medications Generic Name Dose Route Start Last Admin Trade Name Freq PRN Reason Stop Dose Admin Acetaminophen 650 mg 10/22/18 15:15 10/23/18 05:53 Tylenol - PO 650 mg Q6H PRN Administration FEVER Albuterol/Ipratropium 1 amp 10/24/18 10:32 10/24/18 10:34 Duoneb - NEB 1 amp Q6H PRN Administration SHORTNESS OF BREATH Atorvastatin Calcium 20 mg 10/22/18 22:00 10/23/18 21:15 Lipitor - PO 20 mg HS ADALBERTO Administration Fentanyl 50 mcg 10/22/18 17:31 Sublimaze Injection - IVPUSH [id number] PRN PAIN-PACU ORDER X 4 DOSES ONLY Heparin Sodium (Porcine) 5,000 unit 10/23/18 22:00 10/24/18 07:07 Heparin - SQ 5,000 unit TID ADALBERTO Administration Sodium Chloride 1,000 mls @ 125 mls/hr 10/22/18 17:30 10/23/18 18:59 Normal Saline - IV 125 mls/hr ASDIR ADALBERTO Administration Meropenem 1 gm/ Dextrose 100 mls @ 200 mls/hr 10/22/18 18:00 10/24/18 10:18 IVPB 200 mls/hr Q8H-IV ADALBERTO Administration Insulin Aspart 1 vial 10/22/18 16:30 10/24/18 07:08 Novolog Vial Sliding Scale - SQ 2 units ACHS ADALBERTO Administration Protocol Melatonin 5 mg 10/23/18 20:30 Melatonin PO HS PRN INSOMNIA Ondansetron HCl 4 mg 10/22/18 15:31 10/23/18 00:58 Zofran Injection IVPUSH 4 mg Q6H PRN Administration NAUSEA Oxycodone HCl 5 mg 10/23/18 12:06 10/24/18 08:21 Roxicodone - PO 10/26/18 12:05 5 mg Q6H PRN Administration PAIN LEVEL 6-10 Propranolol HCl 160 mg 10/22/18 15:45 10/24/18 10:17 Inderal La - PO 160 mg DAILY ADALBERTO Administration Objective: Vital Signs Period Temp Pulse Resp BP Sys/Alaniz Pulse Ox Last 24 Hr 98.2 F-98.6 F 72-79 - 114-128/64-74 94-95 Physical Exam: General: NAD, A&Ox3 Lungs: Mild forced end expiratory wheezing b/l Heart: RRR, S1S2 Abd: Soft, non-tender, non-distended : Ureteral string in place Ext: No edema CBCD WBC 10.4 K/mm3 (4.0-10.8) 10/23/18 08:15 RBC 3.69 M/mm3 (4.00-5.60) L 10/23/18 08:15 Hgb 10.3 GM/dl (11.7-16.9) L 10/23/18 08:15 Hct 32.3 % (35.4-49) L 10/23/18 08:15 MCV 87.7 fl (80-96) 10/23/18 08:15 MCHC 32.0 g/dl (32.0-35.9) 10/23/18 08:15 RDW 14.4 % (11.9-15.9) 10/23/18 08:15 Plt Count 79 K/MM3 (134-434) L 10/23/18 08:15 MPV 10.4 fl (7.5-11.1) D 10/23/18 08:15 CMP Sodium 136 mmol/L (136-145) 10/22/18 19:50 Potassium 4.1 mmol/L (3.5-5.1) 10/22/18 19:50 Chloride 111 mmol/L (98-107) H 10/22/18 19:50 Carbon Dioxide 19 mmol/L (22-28) L 10/22/18 19:50 Anion Gap 6 MMOL/L (8-16) L 10/22/18 19:50 BUN 17 mg/dl (7-18) 10/22/18 19:50 Creatinine 1.4 mg/dl (0.6-1.3) H 10/22/18 19:50 Creat Clearance w eGFR 50.40 (>60) 10/22/18 19:50 Random Glucose 166 mg/dl (74-106) H 10/22/18 19:50 Calcium 7.6 mg/dl (8.4-10.2) L 10/22/18 19:50 Total Bilirubin 0.4 mg/dl (0.2-1.0) 10/22/18 19:50 AST 35 U/L (10-42) D 10/22/18 19:50 ALT 33 U/L (10-40) 10/22/18 19:50 Alkaline Phosphatase 57 U/L (32-92) D 10/22/18 19:50 Total Protein 6.2 g/dl (6.4-8.3) L 10/22/18 19:50 Albumin 3.0 g/dl (3.5-5.0) L 10/22/18 19:50 Microbiology 10/22/18 12:16 Blood - Peripheral Venous Blood Culture - Preliminary Lactose Fermenting Neg Bacilli 10/22/18 11:10 Urine - Urine Clean Catch Urine Culture - Final Escherichia Coli Esbl [facility] 10/22/18 12:00 Blood - Peripheral Venous Blood Culture - Preliminary NO GROWTH OBTAINED AFTER 24 HOURS, INCUBATION TO CONTINUE FOR 4 DAYS. Assessment: This is a 68 year old male with PMHx of HTN, CAD, IDDM, COPD, diverticulitis, BPH, nephrolithiasis, recurrent ESBL UTIs who presented to the ED with flank pain and difficulty urinating and was found to have severe sepsis 2/2 obstructing uretheral stone. Plan: 1) Severe sepsis 2/2 obstructing left uretheral stone and left hydro - S/p Cystoscopy and left ureteral stent placement on 10/22 - Urine culture on 10/22 with ESBL. Continue Meropenem - One blood culture bottle from 10/22 with prelim lactose fermenting neg bacilli. Will repeat blood cultures today - Patient remains afebrile, WBC wnl - Awaiting further recommendations from urology 2) HTN - BP stable - Continue to hold Losartan 3) DM - BGM ACHS - ISS ACHS 4) COPD - No evidence of exacerbation at this time, however patient is requesting nebulizers and has forced end expiratory wheezing on exam 5) F/E/N: - Patient reporting decreased appetite 2/2 pain medications - Continue Diabetic diet - Monitor I&O: has urinated 900cc today so far 6) Prophylaxis: - OOB ambulating - Heparin 5,000u sq tid 7) Dispo: - Requires continued inpatient care and IV abx at this time CODE STATUS: FULL CODE Visit type - Emergency Visit Emergency Visit: Yes ED Registration Date: 10/22/18 Care time: The patient presented to the Emergency Department on the above date and was hospitalized for further evaluation of their emergent condition. - New Patient This patient is new to me today: Yes Date on this admission: 10/24/18 - Critical Care Critical Care patient: No
--- NOTE | 2018-10-24 11:52 | PN ---
Progress Note, Physician History of Present Illness: patient with kidney stone and esbl now with blood cx positive nauseous - Current Medication List Current Medications: Active Medications Acetaminophen (Tylenol -) 650 mg PO Q6H PRN PRN Reason: FEVER Last Admin: 10/23/18 05:53 Dose: 650 mg Albuterol/Ipratropium (Duoneb -) 1 amp NEB Q6H PRN PRN Reason: SHORTNESS OF BREATH Last Admin: 10/24/18 10:34 Dose: 1 amp Atorvastatin Calcium (Lipitor -) 20 mg PO HS [facility] Last Admin: 10/23/18 21:15 Dose: 20 mg Fentanyl (Sublimaze Injection -) 50 mcg IVPUSH [id number] PRN PRN Reason: PAIN-PACU ORDER X 4 DOSES ONLY Heparin Sodium (Porcine) (Heparin -) 5,000 unit SQ TID [facility] Last Admin: 10/24/18 07:07 Dose: 5,000 unit Sodium Chloride (Normal Saline -) 1,000 mls @ 125 mls/hr IV ASDIR [facility] Last Admin: 10/23/18 18:59 Dose: 125 mls/hr Meropenem 1 gm/ Dextrose 100 mls @ 200 mls/hr IVPB Q8H-IV [facility] Last Admin: 10/24/18 10:18 Dose: 200 mls/hr Insulin Aspart (Novolog Vial Sliding Scale -) 1 vial SQ ACHS [facility]; Protocol Last Admin: 10/24/18 07:08 Dose: 2 units Melatonin (Melatonin) 5 mg PO HS PRN PRN Reason: INSOMNIA Ondansetron HCl (Zofran Injection) 4 mg IVPUSH Q6H PRN PRN Reason: NAUSEA Last Admin: 10/23/18 00:58 Dose: 4 mg Oxycodone HCl (Roxicodone -) 5 mg PO Q6H PRN PRN Reason: PAIN LEVEL 6-10 Stop: 10/26/18 12:05 Last Admin: 10/24/18 08:21 Dose: 5 mg Propranolol HCl (Inderal La -) 160 mg PO DAILY [facility] Last Admin: 10/24/18 10:17 Dose: 160 mg - Objective Vital Signs: Vital Signs Temperature 98.2 F 10/24/18 06:00 Pulse Rate 72 10/24/18 06:00 Respiratory Rate 17 10/24/18 06:00 Blood Pressure 122/71 10/24/18 06:00 O2 Sat by Pulse Oximetry (%) 95 10/24/18 06:41 Constitutional: Yes: Calm, Mild Distress Cardiovascular: Yes: Regular Rate and Rhythm Respiratory: Yes: Regular, CTA Bilaterally Gastrointestinal: Yes: Normal Bowel Sounds, Soft Musculoskeletal: Yes: WNL Extremities: Yes: WNL Neurological: Yes: Alert, Oriented Psychiatric: Yes: Alert, Oriented Assessment/Plan Problem List - Problems (1) UTI (urinary tract infection) Code(s): N39.0 - URINARY TRACT INFECTION, SITE NOT SPECIFIED Qualifiers: Urinary tract infection type: site unspecified Hematuria presence: without hematuria Qualified Code(s): N39.0 - Urinary tract infection, site not specified (2) Kidney stone on left side Code(s): N20.0 - CALCULUS OF KIDNEY obesity hydro gm negative bacteremia plan continue malissa await for identification of the organism await for repeat blod cx rest as per the team
[2018-10-24 11:53] LABS: BASO % 0.4 % (0-2.0); HEMATOCRIT 32.6 % (35.4-49); HEMOGLOBIN 10.4 GM/dl (11.7-16.9); LYMPH % 15.6 % (8-40); MCH 27.9 pg (25.7-33.7); MCHC 31.9 g/dl (32.0-35.9); MEAN CELL VOLUME 87.5 fl (80-96); MEAN PLT VOLUME 9.9 fl (7.5-11.1); MONO % 6.5 % (3.8-10.2); NEUT % 75.5 % (42.8-82.8); PLATELET COUNT 98 K/MM3 (134-434); RBC 3.72 M/mm3 (4.00-5.60); RDW 14.9 % (11.9-15.9); WHITE BLOOD COUNT 11.5 K/mm3 (4.0-10.8)
[2018-10-24 11:57] LABS: ANION GAP 9 MMOL/L (8-16); BLOOD UREA NITROGEN 18 mg/dl (7-18); CALCIUM 7.6 mg/dl (8.4-10.2); CHLORIDE 105 mmol/L (98-107); CO2 19 mmol/L (22-28); CREATININE 1.1 mg/dl (0.6-1.3); GLUCOSE,RANDOM 180 mg/dl (74-106); POTASSIUM 4.2 mmol/L (3.5-5.1); SODIUM 133 mmol/L (136-145)
[2018-10-24] MEDS: ONDANSETRON 4 MG/2 ML VIAL IVPUSH PRN (13:05)
[2018-10-24] MEDS ORDERED: INSULIN (NOVOLOG) ASPART 100 UNITS/ML 10ML VIAL ONE (16:35)
[2018-10-24] MEDS: SODIUM CHLORIDE 1,000 ML IV SCH (17:30)
[2018-10-24] MEDS: ACETAMINOPHEN 325 MG TABLET (FP) PO PRN (19:22)
[2018-10-24] MEDS: ATORVASTATIN CA 20 MG TABLET (FP) PO SCH (21:21)
[2018-10-25] MEDS: ONDANSETRON 4 MG/2 ML VIAL IVPUSH PRN ×2 (00:27→06:25)
[2018-10-25] MEDS ORDERED: BISACODYL 5 MG TABLET.DR (FP) PO PRN (01:12)
[2018-10-25] MEDS: MEROPENEM 1 GM in DEXTROSE 5%-WATER 100 ML IVPB SCH ×2 (01:31→10:00)
[2018-10-25] MEDS: HEPARIN NA (PORCINE) 5,000 UNITS/ML 1ML VIAL SQ SCH ×3 (06:10→23:13)
[2018-10-25 07:16] LABS: BASO % 0.5 % (0-2.0); HEMATOCRIT 36.2 % (35.4-49); HEMOGLOBIN 11.9 GM/dl (11.7-16.9); LYMPH % 16.8 % (8-40); MCH 28.4 pg (25.7-33.7); MCHC 32.9 g/dl (32.0-35.9); MEAN CELL VOLUME 86.3 fl (80-96); MEAN PLT VOLUME 9.6 fl (7.5-11.1); MONO % 7.6 % (3.8-10.2); NEUT % 72.1 % (42.8-82.8); PLATELET COUNT 122 K/MM3 (134-434); RDW 14.8 % (11.9-15.9); WHITE BLOOD COUNT 10.1 K/mm3 (4.0-10.8)
[2018-10-25 07:46] LABS: ANION GAP 9 MMOL/L (8-16); BLOOD UREA NITROGEN 15 mg/dl (7-18); CALCIUM 8.2 mg/dl (8.4-10.2); CHLORIDE 103 mmol/L (98-107); CO2 21 mmol/L (22-28); GLUCOSE,RANDOM 196 mg/dl (74-106); MAGNESIUM 1.8 mg/dL (1.8-2.4); POTASSIUM 4.4 mmol/L (3.5-5.1); SODIUM 133 mmol/L (136-145)
[2018-10-25] MEDS ORDERED: SODIUM CHLORIDE 1,000 ML IV SCH (08:57)
[2018-10-25] MEDS: METOCLOPRAMIDE HCL INJECTION 10 MG/2 ML VIAL IVPUSH PRN (09:39)
[2018-10-25] MEDS ORDERED: SODIUM PHOSPHATE/NA BIPHOS 133 ML ENEMA PR ONE (10:19)
[2018-10-25] MEDS ORDERED: diazePAM 2 MG TABLET PO ONE (11:26)
[2018-10-25] MEDS ORDERED: LORazepam 2 MG/ML SDV VIAL IVPUSH ONE (11:29)
--- NOTE | 2018-10-25 11:42 | PN ---
Progress Note, Physician History of Present Illness: very nauseous was all night - Current Medication List Current Medications: Active Medications Acetaminophen (Tylenol -) 650 mg PO Q6H PRN PRN Reason: FEVER Last Admin: 10/24/18 19:22 Dose: 650 mg Albuterol/Ipratropium (Duoneb -) 1 amp NEB Q6H PRN PRN Reason: SHORTNESS OF BREATH Last Admin: 10/24/18 10:34 Dose: 1 amp Atorvastatin Calcium (Lipitor -) 20 mg PO HS ADALBERTO Last Admin: 10/24/18 21:21 Dose: 20 mg Bisacodyl (Dulcolax -) 5 mg PO DAILY PRN PRN Reason: CONSTIPATION Last Admin: 10/25/18 01:32 Dose: 5 mg Docusate Sodium (Colace -) 300 mg PO HS [facility] Heparin Sodium (Porcine) (Heparin -) 5,000 unit SQ TID ADALBERTO Last Admin: 10/25/18 06:10 Dose: 5,000 unit Meropenem 1 gm/ Dextrose 100 mls @ 200 mls/hr IVPB Q8H-IV ADALBERTO Last Admin: 10/25/18 01:31 Dose: 200 mls/hr Sodium Chloride (Normal Saline -) 1,000 mls @ 75 mls/hr IV ASDIR ADALBERTO Last Admin: 10/25/18 09:31 Dose: 75 mls/hr Insulin Aspart (Novolog Vial Sliding Scale -) 1 vial SQ ACHS [facility]; Protocol Last Admin: 10/24/18 21:21 Dose: 2 units Lorazepam (Ativan Injection -) 0.5 mg IVPUSH ONCE ONE Stop: 10/25/18 11:30 Melatonin (Melatonin) 5 mg PO HS PRN PRN Reason: INSOMNIA Last Admin: 10/24/18 21:21 Dose: 5 mg Metoclopramide HCl (Reglan Injection -) 10 mg IVPUSH Q6H PRN PRN Reason: NAUSEA AND/OR VOMITING Last Admin: 10/25/18 09:39 Dose: 10 mg Ondansetron HCl (Zofran Injection) 4 mg IVPUSH Q6H PRN PRN Reason: NAUSEA Last Admin: 10/25/18 06:25 Dose: 4 mg Oxycodone HCl (Roxicodone -) 5 mg PO Q6H PRN PRN Reason: PAIN LEVEL 6-10 Stop: 10/26/18 12:05 Last Admin: 10/24/18 08:21 Dose: 5 mg Polyethylene Glycol (Miralax (For Daily Use) -) 17 gm PO BID [facility] Propranolol HCl (Inderal La -) 160 mg PO DAILY ADALBERTO Last Admin: 10/24/18 10:17 Dose: 160 mg - Objective Vital Signs: Vital Signs Temperature 98.4 F 10/25/18 09:58 Pulse Rate 64 10/25/18 09:58 Respiratory Rate 10/25/18 09:58 Blood Pressure 147/66 10/25/18 09:58 O2 Sat by Pulse Oximetry (%) 94 L 10/25/18 09:58 Constitutional: Yes: Moderate Distress, Obese, Other Cardiovascular: Yes: Regular Rate and Rhythm Respiratory: Yes: Regular, CTA Bilaterally Gastrointestinal: Yes: Soft, Other (nauseous) Musculoskeletal: Yes: WNL Extremities: Yes: WNL Neurological: Yes: Alert, Oriented Psychiatric: Yes: Alert, Oriented Labs: CBC, BMP 10/25/18 07:00 10/25/18 07:00 Assessment/Plan Problem List - Problems (1) UTI (urinary tract infection) Code(s): N39.0 - URINARY TRACT INFECTION, SITE NOT SPECIFIED Qualifiers: Urinary tract infection type: site unspecified Hematuria presence: without hematuria Qualified Code(s): N39.0 - Urinary tract infection, site not specified (2) Kidney stone on left side Code(s): N20.0 - CALCULUS OF KIDNEY obesity hydro gm negative bacteremia blood cx growing esbl plan will need 2- 3 weeks of iv carbapenams hydration monitor urine output rest as per the team
[2018-10-25] MEDS ORDERED: PT OWN MED DRAWER 7, Y5N ONE ×2 (13:09→17:36)
[2018-10-25] MEDS ORDERED: ONDANSETRON *ODT* 4 MG TABLET SL PRN (13:29)
[2018-10-25 14:28] LABS: ALBUMIN 3.2 g/dl (3.5-5.0); BILIRUBIN,TOTAL 0.5 mg/dl (0.2-1.0); TOT PROT 6.6 g/dl (6.4-8.3)
[2018-10-25 14:34] LABS: BILIRUBIN,DIRECT 0.1 mg/dL (0.0-0.3)
[2018-10-25] MEDS: POLYETHYLENE GLYCOL 3350 119 GM BTL PO SCH (15:21)
[2018-10-25] MEDS: INSULIN SLIDING SCALE (NOVOLOG) 1 VIAL SQ SCH ×2 (16:59→17:04)
--- NOTE | 2018-10-25 18:22 | PN ---
Physical Exam: SUBJECTIVE: Patient seen and examined. Complaining of nausea and no appetite. Dysuria has resolved. Feels constipated. OBJECTIVE: Vital Signs Period Temp Pulse Resp BP Sys/Alaniz Pulse Ox Last 24 Hr 98.4 F-99.6 F 64-621 17-19 134-147/65-79 92-95 GENERAL: The patient is awake, alert, and fully oriented, in no acute distress. LUNGS: Breath sounds equal, clear to auscultation bilaterally, no wheezes, no crackles, no accessory muscle use. HEART: Regular rate and rhythm, S1, S2 ABDOMEN: Some firmness, not tender, not distended EXTREMITIES: 2+ pulses, warm, well-perfused, no edema. NEUROLOGICAL: Cranial nerves II through XII grossly intact. Normal speech, gait not observed. PSYCH: Depressed, irritable SKIN: Warm, dry, normal turgor Laboratory Results - last 24 hr 10/24/18 10/25/18 10/25/18 20:34 05:53 07:00 WBC 10.1 RBC 4.20 Hgb 11.9 Hct 36.2 MCV 86.3 MCH 28.4 MCHC 32.9 RDW 14.8 Plt Count 122 L D MPV 9.6 Absolute Neuts (auto) 7.2 Neutrophils % 72.1 Lymphocytes % 16.8 Monocytes % 7.6 Eosinophils % 3.0 Basophils % 0.5 Sodium Potassium Chloride Carbon Dioxide Anion Gap BUN Creatinine Creat Clearance w eGFR POC Glucometer 163 185 Random Glucose Calcium Magnesium Total Bilirubin Direct Bilirubin AST ALT Alkaline Phosphatase Total Protein Albumin 10/25/18 10/25/18 10/25/18 07:00 07:00 12:00 WBC RBC Hgb Hct MCV MCH MCHC RDW Plt Count MPV Absolute Neuts (auto) Neutrophils % Lymphocytes % Monocytes % Eosinophils % Basophils % Sodium 133 L Potassium 4.4 Chloride 103 Carbon Dioxide 21 L Anion Gap 9 BUN 15 Creatinine 1.0 Creat Clearance w eGFR > 60 POC Glucometer 206 Random Glucose 196 H Calcium 8.2 L Magnesium 1.8 Total Bilirubin 0.5 Direct Bilirubin 0.1 D AST 26 D ALT 30 Alkaline Phosphatase 63 Total Protein 6.6 Albumin 3.2 L 10/25/18 16:53 WBC RBC Hgb Hct MCV MCH MCHC RDW Plt Count MPV Absolute Neuts (auto) Neutrophils % Lymphocytes % Monocytes % Eosinophils % Basophils % Sodium Potassium Chloride Carbon Dioxide Anion Gap BUN Creatinine Creat Clearance w eGFR POC Glucometer 208 Random Glucose Calcium Magnesium Total Bilirubin Direct Bilirubin AST ALT Alkaline Phosphatase Total Protein Albumin Active Medications Generic Name Dose Route Start Last Admin Trade Name Qamar PRN Reason Stop Dose Admin Acetaminophen 650 mg 10/22/18 15:15 10/24/18 19:22 Tylenol - PO 650 mg Q6H PRN Administration FEVER Albuterol/Ipratropium 1 amp 10/24/18 10:32 10/24/18 10:34 Duoneb - NEB 1 amp Q6H PRN Administration SHORTNESS OF BREATH Atorvastatin Calcium 20 mg 10/22/18 22:00 10/24/18 21:21 Lipitor - PO 20 mg HS ADALBERTO Administration Bisacodyl 5 mg 10/25/18 01:12 10/25/18 01:32 Dulcolax - PO 5 mg DAILY PRN Administration CONSTIPATION Docusate Sodium 300 mg 10/25/18 22:00 Colace - PO HS ADALBERTO Heparin Sodium (Porcine) 5,000 unit 10/23/18 22:00 10/25/18 14:35 Heparin - SQ 5,000 unit TID ADALBERTO Administration Meropenem 1 gm/ Dextrose 100 mls @ 200 mls/hr 10/22/18 18:00 10/25/18 10:00 IVPB 200 mls/hr Q8H-IV ADALBERTO Administration Sodium Chloride 1,000 mls @ 75 mls/hr 10/25/18 08:57 10/25/18 09:31 Normal Saline - IV 75 mls/hr ASDIR ADALBERTO Administration Insulin Aspart 1 vial 10/22/18 16:30 10/25/18 17:04 Novolog Vial Sliding Scale - SQ Not Given ACHS [facility] Protocol Melatonin 5 mg 10/23/18 20:30 10/24/18 21:21 Melatonin PO 5 mg HS PRN Administration INSOMNIA Metoclopramide HCl 10 mg 10/25/18 08:58 10/25/18 09:39 Reglan Injection - IVPUSH 10 mg Q6H PRN Administration NAUSEA AND/OR VOMITING Ondansetron HCl 4 mg 10/25/18 13:29 Zofran Odt - SL Q6H PRN NAUSEA AND/OR VOMITING Polyethylene Glycol 17 gm 10/25/18 10:30 10/25/18 15:21 Miralax (For Daily Use) - PO 17 grams BID ADALBERTO Administration Propranolol HCl 160 mg 10/22/18 15:45 10/25/18 15:16 Inderal La - PO 160 mg DAILY ADALBERTO Administration ASSESSMENT/PLAN: Mr. Anderson is a 68 yo male with a PMH significant for HTN, CAD, IDDM, COPD, diverticulitis, BPH, nephrolithiasis, and recurrent E.coli ESBL UTIs. Admitted for severe sepsis. Severe sepsis secondary to UTI and left obstructing ureteral stone with left hydronephrosis s/p cystoscopy and left ureteral stent placement 10/22/18 BPH --10/22 Urine culture: E.coli ESBL --10/22 Blood cultures: 1 out of 2 E.coli ESBL --10/24 Blood cultures: NGTD --continue meropenem Nausea --has refused all PO for 24 hours due to nausea; 1-2 episodes of bringing up dark brown fluid --has not had BM --abdominal xray: retained stool (my read) --NGT placed, awaiting CXR verification of placement Hypertension --restart losartan Type II insulin dependent diabetes --Novolog sliding scale coverage --presently NPO, hold long-acting COPD --stable Diverticulitis --no acute issues FEN Fluids: NS Electrolytes: replete as indicated Nutrition: low sodium, diabetic DVT prophylaxis: SCDs, oob, ambulation, start subq heparin Physical therapy Dispo: continues to require inpatient care. Full code. Visit type - Emergency Visit Emergency Visit: Yes ED Registration Date: 10/22/18 Care time: The patient presented to the Emergency Department on the above date and was hospitalized for further evaluation of their emergent condition. - New Patient This patient is new to me today: No - Critical Care Critical Care patient: No
[2018-10-25 18:54] LABS: BASO % 1.3 % (0-2.0); EOS % 0.8 % (0-4.5); HEMATOCRIT 38.4 % (35.4-49); HEMOGLOBIN 12.4 GM/dl (11.7-16.9); LYMPH % 18.1 % (8-40); MCH 28.1 pg (25.7-33.7); MCHC 32.3 g/dl (32.0-35.9); MEAN CELL VOLUME 86.8 fl (80-96); MEAN PLT VOLUME 9.5 fl (7.5-11.1); MONO % 6.3 % (3.8-10.2); NEUT % 73.5 % (42.8-82.8); PLATELET COUNT 153 K/MM3 (134-434); RBC 4.42 M/mm3 (4.00-5.60); RDW 14.4 % (11.9-15.9); WHITE BLOOD COUNT 11.5 K/mm3 (4.0-10.8)
[2018-10-25 19:09] LABS: ALBUMIN 3.2 g/dl (3.5-5.0); ALK PHOS 63 U/L (32-92); ANION GAP 11 MMOL/L (8-16); BILIRUBIN,DIRECT 0.2 mg/dL (0.0-0.3); BILIRUBIN,TOTAL 0.7 mg/dl (0.2-1.0); BLOOD UREA NITROGEN 16 mg/dl (7-18); CALCIUM 8.4 mg/dl (8.4-10.2); CHLORIDE 98 mmol/L (98-107); CO2 22 mmol/L (22-28); GLUCOSE,RANDOM 223 mg/dl (74-106); MAGNESIUM 1.7 mg/dL (1.8-2.4); PHOSPHOROUS 2.9 mg/dl (2.5-4.6); SGOT/AST 24 U/L (10-42); SGPT/ALT 31 U/L (10-40); SODIUM 131 mmol/L (136-145)
[2018-10-25] MEDS ORDERED: DOCUSATE SODIUM 100 MG CAPSULE (FP) PO SCH (22:00)
[2018-10-25] MEDS ORDERED: PATIENT'S OWN MEDICATION (NON-FORMULARY) (Losartan Potassium [Cozaar] 100 MG) PO SCH (22:00)
[2018-10-26] MEDS: INSULIN SLIDING SCALE (NOVOLOG) 1 VIAL SQ SCH ×3 (01:02→21:41)
[2018-10-26] MEDS: ATORVASTATIN CA 20 MG TABLET (FP) PO SCH ×2 (01:14→21:41)
[2018-10-26] MEDS: LOSARTAN POTASSIUM 50 MG TABLET (FP) PO SCH ×2 (01:15→10:28)
[2018-10-26] MEDS: POLYETHYLENE GLYCOL 3350 119 GM BTL PO SCH ×2 (01:15→10:28)
[2018-10-26] MEDS ORDERED: PT OWN MED DRAWER 7, Y5N ONE ×3 (02:45→18:02)
[2018-10-26] MEDS: MEROPENEM 1 GM in DEXTROSE 5%-WATER 100 ML IVPB SCH ×3 (02:53→18:44)
[2018-10-26] MEDS: HEPARIN NA (PORCINE) 5,000 UNITS/ML 1ML VIAL SQ SCH (07:07)
[2018-10-26 07:50] LABS: HEMATOCRIT 38.6 % (35.4-49); HEMOGLOBIN 12.6 GM/dl (11.7-16.9); MCH 28.2 pg (25.7-33.7); MCHC 32.6 g/dl (32.0-35.9); MEAN CELL VOLUME 86.4 fl (80-96); MEAN PLT VOLUME 9.6 fl (7.5-11.1); PLATELET COUNT 159 K/MM3 (134-434); RBC 4.46 M/mm3 (4.00-5.60); RDW 14.3 % (11.9-15.9); WHITE BLOOD COUNT 10.9 K/mm3 (4.0-10.8)
[2018-10-26 08:14] LABS: ALBUMIN 3.2 g/dl (3.5-5.0); ALK PHOS 65 U/L (32-92); ANION GAP 12 MMOL/L (8-16); BILIRUBIN,DIRECT 0.2 mg/dL (0.0-0.3); BILIRUBIN,TOTAL 0.9 mg/dl (0.2-1.0); BLOOD UREA NITROGEN 17 mg/dl (7-18); CALCIUM 8.6 mg/dl (8.4-10.2); CHLORIDE 96 mmol/L (98-107); CO2 24 mmol/L (22-28); CREATININE 0.9 mg/dl (0.6-1.3); GLUCOSE,RANDOM 240 mg/dl (74-106); MAGNESIUM 1.6 mg/dL (1.8-2.4); POTASSIUM 3.8 mmol/L (3.5-5.1); SGOT/AST 22 U/L (10-42); SGPT/ALT 29 U/L (10-40); SODIUM 132 mmol/L (136-145); TOT PROT 6.9 g/dl (6.4-8.3)
[2018-10-26 09:44] LABS: PLATELET ESTIMATE ADEQUATE
--- NOTE | 2018-10-26 12:00 | PN ---
Physical Exam: SUBJECTIVE: Patient seen and examined. Tolerating PO. OBJECTIVE: Vital Signs Period Temp Pulse Resp BP Sys/Alaniz Pulse Ox Last 24 Hr 98.7 F-99.6 F 72-621 17-19 141-158/65-85 95-96 GENERAL: The patient is awake, alert, and fully oriented, in no acute distress. LUNGS: Breath sounds equal, clear to auscultation bilaterally, no wheezes, no crackles, no accessory muscle use. HEART: Regular rate and rhythm, S1, S2 ABDOMEN: Some firmness, not tender, not distended EXTREMITIES: 2+ pulses, warm, well-perfused, no edema. NEUROLOGICAL: Cranial nerves II through XII grossly intact. Normal speech, gait not observed. PSYCH: Depressed, irritable SKIN: Warm, dry, normal turgor Laboratory Results - last 24 hr 10/25/18 10/25/18 10/25/18 07:00 12:00 16:53 WBC RBC Hgb Hct MCV MCH MCHC RDW Plt Count MPV Absolute Neuts (auto) Neutrophils % Neutrophils % (Manual) Band Neutrophils % Lymphocytes % Lymphocytes % (Manual) Monocytes % Monocytes % (Manual) Eosinophils % Basophils % Platelet Estimate Polychromasia Sodium Potassium Chloride Carbon Dioxide Anion Gap BUN Creatinine Creat Clearance w eGFR POC Glucometer 206 208 Random Glucose Calcium Phosphorus Magnesium Total Bilirubin 0.5 Direct Bilirubin 0.1 D AST 26 D ALT 30 Alkaline Phosphatase 63 Total Protein 6.6 Albumin 3.2 L 10/25/18 10/25/18 10/25/18 18:30 18:30 23:10 WBC 11.5 H RBC 4.42 Hgb 12.4 Hct 38.4 MCV 86.8 MCH 28.1 MCHC 32.3 RDW 14.4 Plt Count 153 D MPV 9.5 Absolute Neuts (auto) 8.5 Neutrophils % 73.5 Neutrophils % (Manual) Band Neutrophils % Lymphocytes % 18.1 Lymphocytes % (Manual) Monocytes % 6.3 Monocytes % (Manual) Eosinophils % 0.8 Basophils % 1.3 Platelet Estimate Polychromasia Sodium 131 L Potassium 4.0 Chloride 98 Carbon Dioxide 22 Anion Gap 11 BUN 16 Creatinine 1.0 Creat Clearance w eGFR > 60 POC Glucometer 237 Random Glucose 223 H Calcium 8.4 Phosphorus 2.9 Magnesium 1.7 L Total Bilirubin 0.7 Direct Bilirubin 0.2 D AST 24 ALT 31 Alkaline Phosphatase 63 Total Protein 7.0 Albumin 3.2 L 10/26/18 10/26/18 10/26/18 07:03 07:10 07:10 WBC 10.9 H RBC 4.46 Hgb 12.6 Hct 38.6 MCV 86.4 MCH 28.2 MCHC 32.6 RDW 14.3 Plt Count 159 MPV 9.6 Absolute Neuts (auto) 8.4 Neutrophils % No Result Required. Neutrophils % (Manual) 77.0 Band Neutrophils % 3.0 Lymphocytes % No Result Required. Lymphocytes % (Manual) 15.0 D Monocytes % Monocytes % (Manual) 5 Eosinophils % Basophils % Platelet Estimate Adequate Polychromasia Slight Sodium 132 L Potassium 3.8 Chloride 96 L Carbon Dioxide 24 Anion Gap 12 BUN 17 Creatinine 0.9 Creat Clearance w eGFR > 60 POC Glucometer 227 Random Glucose 240 H Calcium 8.6 Phosphorus Magnesium 1.6 L Total Bilirubin 0.9 Direct Bilirubin 0.2 AST 22 ALT 29 Alkaline Phosphatase 65 Total Protein 6.9 Albumin 3.2 L Active Medications Generic Name Dose Route Start Last Admin Trade Name Freq PRN Reason Stop Dose Admin Acetaminophen 650 mg 10/22/18 15:15 10/24/18 19:22 Tylenol - PO 650 mg Q6H PRN Administration FEVER Albuterol/Ipratropium 1 amp 10/24/18 10:32 10/24/18 10:34 Duoneb - NEB 1 amp Q6H PRN Administration SHORTNESS OF BREATH Atorvastatin Calcium 20 mg 10/22/18 22:00 10/26/18 01:14 Lipitor - PO Not Given HS ADALBERTO Bisacodyl 5 mg 10/25/18 01:12 10/25/18 01:32 Dulcolax - PO 5 mg DAILY PRN Administration CONSTIPATION Docusate Sodium 300 mg 10/25/18 22:00 10/26/18 01:13 Colace - PO Not Given HS ADALBERTO Meropenem 1 gm/ Dextrose 100 mls @ 200 mls/hr 10/22/18 18:00 10/26/18 02:53 IVPB 200 mls/hr Q8H-IV ADALBERTO Administration Sodium Chloride 1,000 mls @ 75 mls/hr 10/25/18 08:57 10/25/18 09:31 Normal Saline - IV 75 mls/hr ASDIR ADALBERTO Administration Insulin Aspart 1 vial 10/22/18 16:30 10/26/18 07:07 Novolog Vial Sliding Scale - SQ Not Given ACHS ADALBERTO Protocol Losartan Potassium 100 mg 10/25/18 18:30 10/26/18 10:28 Cozaar - PO 100 mg DAILY ADALBERTO Administration Melatonin 5 mg 10/23/18 20:30 10/24/18 21:21 Melatonin PO 5 mg HS PRN Administration INSOMNIA Metoclopramide HCl 10 mg 10/25/18 08:58 10/25/18 09:39 Reglan Injection - IVPUSH 10 mg Q6H PRN Administration NAUSEA AND/OR VOMITING Ondansetron HCl 4 mg 10/25/18 13:29 Zofran Odt - SL Q6H PRN NAUSEA AND/OR VOMITING Polyethylene Glycol 17 gm 10/25/18 10:30 10/26/18 10:28 Miralax (For Daily Use) - PO Not Given BID ADALBERTO Propranolol HCl 160 mg 10/22/18 15:45 10/25/18 15:16 Inderal La - PO 160 mg DAILY ADALBERTO Administration Mr. Anderson is a 68 year-old male with a PMH significant for HTN, CAD, IDDM, COPD , diverticulitis, BPH, nephrolithiasis, and recurrent E.coli ESBL UTIs. Admitted for severe sepsis. and found to have a left obstructing ureteral stone. Underwent cystoscopy and left ureteral stent placement on 10/22/18. Post- operative course complicated by nausea, vomiting, anorexia. Workup for SBO negative. Assessment & Plan Mr. Anderson is a 68 year-old male with a PMH significant for HTN, CAD, IDDM, COPD , diverticulitis, BPH, nephrolithiasis, and recurrent E.coli ESBL UTIs. Admitted for severe sepsis. and found to have a left obstructing ureteral stone. Underwent cystoscopy and left ureteral stent placement on 10/22/18. Post- operative course complicated by nausea, vomiting, anorexia. Workup for SBO negative. Severe sepsis secondary to UTI and left obstructing ureteral stone with left hydronephrosis s/p cystoscopy and left ureteral stent placement 10/22/18 BPH --10/22 Urine culture: E.coli ESBL --10/22 Blood cultures: 1 out of 2 E.coli ESBL --10/24 Blood cultures: NGTD --received 6 days of carbapenem therapy; per ID, needs 9 more days of IV treatment; will come to outpatient infusion on second floor at [facility] Nausea --improved --SBO ruled out --advance diet as tolerated --continue protonix Hypertension --continued losartan Type II insulin dependent diabetes --Novolog sliding scale coverage COPD --stable Diverticulitis --no acute issues Visit type - Emergency Visit Emergency Visit: Yes ED Registration Date: 10/22/18 Care time: The patient presented to the Emergency Department on the above date and was hospitalized for further evaluation of their emergent condition. - New Patient This patient is new to me today: No - Critical Care Critical Care patient: No
[2018-10-26] MEDS ORDERED: MAGNESIUM SULF 50% (8.12 MEQ/2 ML-1 GM VIAL) IVPB ONE (12:05)
[2018-10-26] MEDS: SODIUM CHLORIDE 1,000 ML IV SCH (12:21)
[2018-10-26] MEDS: PANTOPRAZOLE SODIUM 40 MG VIAL IVPUSH SCH ×2 (12:23→21:40)
[2018-10-26] MEDS ORDERED: MAGNESIUM SULFATE IN WATER 2 GM/50 ML IVPB IVPB ONE (12:30)
--- NOTE | 2018-10-26 14:16 | CONSULT ---
Consult Consult Specialty:: General Surgeon Reason for Consultation:: SBO? - History of Present Illness Chief Complaint: vomiting History of Present Illness: 68 yo male with a PMH significant for HTN, DMII, COPD, diverticulitis, BPH, nephrolithiasis, and recurrent E.coli ESBL UTIs. Presents with complaint of "I think I'm passing a kidney stone." Patient reports pain started this morning and feels similar to his previous kidney stones. He localizes pain to his left flank and reports it has been constant since this morning. Patient also endorses difficulty urinating and reports urine has been coming out at a dribble. Finally, Mr. Anderson reports he feels very cold and has shaking chills. POD #4 s/p cystoscipy and left double j stent. we were called to assess. - History Source History Provided By: Patient, Medical Record Limitations to Obtaining History: No Limitations - Past Medical History Cardio/Vascular: Yes: HTN, Hyperlipdemia Pulmonary: Yes: COPD Gastrointestinal: Yes: Pancreatitis Renal/: Yes: BPH, UTI Endocrine: Yes: Diabetes Mellitus - Past Surgical History Past Surgical History: Yes: Joint Replacement - Alcohol/Substance Use Hx Alcohol Use: No - Smoking History Smoking history: Former smoker Have you smoked in the past 12 months: No Aproximately how many cigarettes per day: 0 If you are a former smoker, when did you quit?: 10 YEARS - Social History Usual Living Arrangement: With Spouse History of Recent Travel: No Home Medications - Allergies Allergies/Adverse Reactions: Allergies Allergy/AdvReac Type Severity Reaction Status Date / Time No Known Allergies Allergy Verified 09/21/18 13:45 - Home Medications Home Medications: Ambulatory Orders Glipizide [Glipizide ER] 10 mg PO BID tablet 12/02/16 Aspirin [Ecotrin] 81 mg PO DAILY 01/19/17 Insulin Glargine,Hum.rec.anlog [Lantus Solostar PEN -] 74 units SQ HS 01/19/17 Endeavor-3 Acid Ethyl Esters [Lovaza] 2 gm PO BID 01/19/17 Acetaminophen [Tylenol .Regular Strength -] 650 mg PO Q4H PRN tablet 06/22/18 Melatonin 5 mg PO HS PRN tab 06/22/18 Review of Systems - Review of Systems Constitutional: denies: Chills, Fever Eyes: denies: Blind Spots, Recent Change in Vision HENT: denies: Difficult Swallowing, Hearing Loss Neck: denies: Pain on Movement, Tenderness Cardiovascular: denies: Chest Pain, Edema Respiratory: denies: Cough, SOB Gastrointestinal: reports: Nausea, Vomiting. denies: Abdominal Pain Genitourinary: denies: Discharge, Dysuria, Flank Pain Musculoskeletal: denies: Muscle Pain, Muscle Weakness Integumentary: denies: Eczema, Rash Neurological: denies: Confusion, Seizure, Syncope Endocrine: denies: Unexplained Weight Gain, Unexplained Weight Loss Hematology/Lymphatic: denies: Easily Bruised, Excessive Bleeding Psychiatric: denies: Anxiety, Depression Physical Exam Vital Signs: Vital Signs Temperature 98.3 F 10/26/18 14:05 Pulse Rate 82 10/26/18 14:05 Respiratory Rate 10/26/18 14:05 Blood Pressure 164/73 10/26/18 14:05 O2 Sat by Pulse Oximetry (%) 94 L 10/26/18 14:05 Constitutional: Yes: Well Nourished, No Distress, Calm, Obese Eyes: Yes: Conjunctiva Clear, EOM Intact HENT: Yes: Atraumatic, Normocephalic Neck: Yes: Supple, Trachea Midline Cardiovascular: Yes: Regular Rate and Rhythm, S1, S2 Respiratory: Yes: Regular, CTA Bilaterally Gastrointestinal: Yes: Normal Bowel Sounds, Soft, Abdomen, Obese. No: Distention, Tenderness, Tenderness, Epigastrium, Tenderness, Rebound ...Rectal Exam: Yes: Deferred Renal/: No: CVA Tenderness - Left, CVA Tenderness - Right Musculoskeletal: No: Muscle Pain, Muscle Weakness Edema: No Peripheral Pulses WNL: Yes Integumentary: No: Bruising, Erythema, Jaundice, Rash Neurological: Yes: Alert, Oriented Psychiatric: Yes: Alert, Oriented Labs: CBC, BMP 10/26/18 07:10 10/26/18 07:10 Imaging - Results Chest X-ray: Report Reviewed, Image Reviewed X-ray: Report Reviewed (non-specific), Image Reviewed Cat Scan: Report Reviewed, Image Reviewed (no bowel obsstuctive pattern) Problem List - Problems (1) Nausea & vomiting Assessment/Plan: 68 yo male with vomiting, decompressed with NGT put out 500ml brown, non foul smelling gastroenteric fluid. passing flatus and having BM, no SBO identified on imaging. obese, soft, non-tender on abdominal exam. no need for acut surgical intervention. discontinue NGT antiemetic therapy ambulate GI evaluation gylcemic control Thank you for the opportunity to participate in the care of this patient. Code(s): R11.2 - NAUSEA WITH VOMITING, UNSPECIFIED Qualifiers: Vomiting type: unspecified Vomiting Intractability: non-intractable Qualified Code(s): R11.2 - Nausea with vomiting, unspecified (2) Kidney stone on left side Code(s): N20.0 - CALCULUS OF KIDNEY (3) UTI (urinary tract infection) Code(s): N39.0 - URINARY TRACT INFECTION, SITE NOT SPECIFIED Qualifiers: Urinary tract infection type: site unspecified Hematuria presence: without hematuria Qualified Code(s): N39.0 - Urinary tract infection, site not specified (4) BPH (benign prostatic hyperplasia) Code(s): N40.0 - BENIGN PROSTATIC HYPERPLASIA WITHOUT LOWER URINRY TRACT SYMP (5) CAD (coronary artery disease) Code(s): I25.10 - ATHSCL HEART DISEASE OF [place] CORONARY ARTERY W/O ANG PCTRS (6) Diabetes Code(s): E11.9 - TYPE 2 DIABETES MELLITUS WITHOUT COMPLICATIONS
[2018-10-26] MEDS: METOCLOPRAMIDE HCL INJECTION 10 MG/2 ML VIAL IVPUSH PRN (14:17)
--- NOTE | 2018-10-26 18:18 | EKG ---
Test Reason : Blood Pressure : / mmHG Vent. Rate : 089 BPM Atrial Rate : 089 BPM P-R Int : 142 ms QRS Dur : 100 ms QT Int : 392 ms P-R-T Axes : 049 -39 -13 degrees QTc Int : 476 ms NORMAL SINUS RHYTHM LEFT AXIS DEVIATION ABNORMAL ECG Confirmed by MD ALEXEY, PAUL ([id number]) on 10/26/2018 6:18:23 PM Referred By: CLEO HAINES Confirmed By:PAUL BLACKBURN MD
[2018-10-27] MEDS: MEROPENEM 1 GM in DEXTROSE 5%-WATER 100 ML IVPB SCH ×3 (02:53→17:05)
[2018-10-27] MEDS: INSULIN SLIDING SCALE (NOVOLOG) 1 VIAL SQ SCH ×3 (06:41→16:26)
[2018-10-27] MEDS: METOCLOPRAMIDE HCL INJECTION 10 MG/2 ML VIAL IVPUSH PRN (08:00)
[2018-10-27 08:26] LABS: BASO % 0.5 % (0-2.0); EOS % 1.1 % (0-4.5); HEMATOCRIT 37.1 % (35.4-49); HEMOGLOBIN 12.5 GM/dl (11.7-16.9); LYMPH % 14.5 % (8-40); MCH 29.1 pg (25.7-33.7); MCHC 33.7 g/dl (32.0-35.9); MEAN CELL VOLUME 86.3 fl (80-96); MEAN PLT VOLUME 8.9 fl (7.5-11.1); MONO % 8.4 % (3.8-10.2); NEUT % 75.5 % (42.8-82.8); PLATELET COUNT 153 K/MM3 (134-434); RDW 14.3 % (11.9-15.9); WHITE BLOOD COUNT 11.1 K/mm3 (4.0-10.8)
--- NOTE | 2018-10-27 08:39 | PN ---
Progress Note, Physician History of Present Illness: patient still feels a little nauseous says improving - Current Medication List Current Medications: Active Medications Acetaminophen (Tylenol -) 650 mg PO Q6H PRN PRN Reason: FEVER Last Admin: 10/24/18 19:22 Dose: 650 mg Albuterol/Ipratropium (Duoneb -) 1 amp NEB Q6H PRN PRN Reason: SHORTNESS OF BREATH Last Admin: 10/24/18 10:34 Dose: 1 amp Atorvastatin Calcium (Lipitor -) 20 mg PO HS [facility] Last Admin: 10/26/18 21:41 Dose: 20 mg Meropenem 1 gm/ Dextrose 100 mls @ 200 mls/hr IVPB Q8H-IV [facility] Last Admin: 10/27/18 02:53 Dose: 200 mls/hr Sodium Chloride (Normal Saline -) 1,000 mls @ 125 mls/hr IV ASDIR [facility] Last Admin: 10/26/18 12:21 Dose: 125 mls/hr Insulin Aspart (Novolog Vial Sliding Scale -) 1 vial SQ ACHS [facility]; Protocol Last Admin: 10/27/18 06:41 Dose: 4 units Losartan Potassium (Cozaar -) 100 mg PO DAILY [facility] Last Admin: 10/26/18 10:28 Dose: 100 mg Melatonin (Melatonin) 5 mg PO HS PRN PRN Reason: INSOMNIA Last Admin: 10/24/18 21:21 Dose: 5 mg Metoclopramide HCl (Reglan Injection -) 10 mg IVPUSH Q6H PRN PRN Reason: NAUSEA AND/OR VOMITING Last Admin: 10/27/18 08:00 Dose: 10 mg Ondansetron HCl (Zofran Odt -) 4 mg SL Q6H PRN PRN Reason: NAUSEA AND/OR VOMITING Last Admin: 10/26/18 14:17 Dose: 4 mg Pantoprazole Sodium (Protonix Iv) 40 mg IVPUSH BID [facility] Last Admin: 10/26/18 21:40 Dose: 40 mg Propranolol HCl (Inderal La -) 160 mg PO DAILY [facility] Last Admin: 10/25/18 15:16 Dose: 160 mg - Objective Vital Signs: Vital Signs Temperature 99.2 F 10/27/18 06:00 Pulse Rate 72 10/27/18 06:00 Respiratory Rate 10/27/18 06:00 Blood Pressure 151/72 10/27/18 06:00 O2 Sat by Pulse Oximetry (%) 96 10/27/18 06:26 Constitutional: Yes: No Distress, Calm, Obese Cardiovascular: Yes: S1, S2 Respiratory: Yes: Regular, CTA Bilaterally Gastrointestinal: Yes: Normal Bowel Sounds, Soft Musculoskeletal: Yes: WNL Extremities: Yes: WNL Neurological: Yes: Alert, Oriented Psychiatric: Yes: Alert, Oriented Labs: CBC, BMP 10/27/18 07:45 Assessment/Plan Problem List - Problems (1) Nausea & vomiting Code(s): R11.2 - NAUSEA WITH VOMITING, UNSPECIFIED Qualifiers: Vomiting type: unspecified Vomiting Intractability: non-intractable Qualified Code(s): R11.2 - Nausea with vomiting, unspecified (2) Kidney stone on left side Code(s): N20.0 - CALCULUS OF KIDNEY (3) UTI (urinary tract infection) Code(s): N39.0 - URINARY TRACT INFECTION, SITE NOT SPECIFIED Qualifiers: Urinary tract infection type: site unspecified Hematuria presence: without hematuria Qualified Code(s): N39.0 - Urinary tract infection, site not specified (4) BPH (benign prostatic hyperplasia) Code(s): N40.0 - BENIGN PROSTATIC HYPERPLASIA WITHOUT LOWER URINRY TRACT SYMP (5) CAD (coronary artery disease) Code(s): I25.10 - ATHSCL HEART DISEASE OF [place] CORONARY ARTERY W/O ANG PCTRS (6) Diabetes Code(s): E11.9 - TYPE 2 DIABETES MELLITUS WITHOUT COMPLICATIONS plan continue current abx monitor for vomiting hydration rest as per the team
[2018-10-27 09:35] LABS: ALBUMIN 3.1 g/dl (3.5-5.0); ALK PHOS 63 U/L (32-92); ANION GAP 8 MMOL/L (8-16); BILIRUBIN,TOTAL 1.1 mg/dl (0.2-1.0); BLOOD UREA NITROGEN 18 mg/dl (7-18); CALCIUM 8.3 mg/dl (8.4-10.2); CHLORIDE 99 mmol/L (98-107); CO2 26 mmol/L (22-28); GLUCOSE,RANDOM 211 mg/dl (74-106); POTASSIUM 3.6 mmol/L (3.5-5.1); SGOT/AST 24 U/L (10-42); SGPT/ALT 26 U/L (10-40); SODIUM 133 mmol/L (136-145); TOT PROT 6.6 g/dl (6.4-8.3)
[2018-10-27] MEDS ORDERED: PT OWN MED DRAWER 7, Y5N ONE (09:41)
[2018-10-27] MEDS: LOSARTAN POTASSIUM 50 MG TABLET (FP) PO SCH (09:45)
[2018-10-27] MEDS: PANTOPRAZOLE SODIUM 40 MG VIAL IVPUSH SCH (09:45)
--- NOTE | 2018-10-27 10:13 | PN ---
Progress Note (short form) - Note Progress Note: Patient seen and consult to be dictated. Patient without vomiting today but has mild nausea and ?reflux sx. On PPI and is tolerating some clear liquids/water Abdomen soft, obese nontender +BS ?resolving ileus and/or exacerbation of peptic symptoms/reflux Would continue antibiotics, PPI and trial of liquids as tolerated; advance slowly Plans per /Medicine
--- NOTE | 2018-10-27 12:53 | DS ---
Physical Exam: SUBJECTIVE: Patient seen and examined OBJECTIVE: Vital Signs Period Temp Pulse Resp BP Sys/Alaniz Pulse Ox Last 24 Hr 98.2 F-99.2 F 72-82 16-19 132-170/63-85 94-96 PHYSICAL EXAM GENERAL: The patient is awake, alert, and fully oriented, in no acute distress. HEAD: Normal with no signs of trauma. EYES: PERRL, extraocular movements intact, sclera anicteric, conjunctiva clear. ENT: Ears normal, nares patent, oropharynx clear without exudates, moist mucous membranes. NECK: Trachea midline, full range of motion, supple. LUNGS: Breath sounds equal, clear to auscultation bilaterally, no wheezes, no crackles, no accessory muscle use. HEART: Regular rate and rhythm, S1, S2 without murmur, rub or gallop. ABDOMEN: Soft, nontender, nondistended, normoactive bowel sounds, no guarding, no rebound, no hepatosplenomegaly, no masses. EXTREMITIES: 2+ pulses, warm, well-perfused, no edema. NEUROLOGICAL: Cranial nerves II through XII grossly intact. Normal speech, gait not observed. PSYCH: Normal mood, normal affect. SKIN: Warm, dry, normal turgor, no rashes or lesions noted. LABS Laboratory Results - last 24 hr 10/27/18 10/27/18 07:45 07:45 WBC 11.1 H RBC 4.30 Hgb 12.5 Hct 37.1 MCV 86.3 MCH 29.1 MCHC 33.7 RDW 14.3 Plt Count 153 MPV 8.9 Absolute Neuts (auto) 8.4 Neutrophils % 75.5 Lymphocytes % 14.5 Monocytes % 8.4 Eosinophils % 1.1 Basophils % 0.5 Sodium 133 L Potassium 3.6 Chloride 99 Carbon Dioxide 26 Anion Gap 8 BUN 18 Creatinine 1.0 Creat Clearance w eGFR > 60 Random Glucose 211 H Calcium 8.3 L Magnesium 2.0 Total Bilirubin 1.1 H AST 24 ALT 26 Alkaline Phosphatase 63 Total Protein 6.6 Albumin 3.1 L HOSPITAL COURSE: Date of Admission:10/22/18 Date of Discharge: 10/27/18 Hospital course Mr. Anderson is a 68 year-old male with a PMH significant for HTN, CAD, IDDM, COPD , diverticulitis, BPH, nephrolithiasis, and recurrent E.coli ESBL UTIs. Admitted for severe sepsis. and found to have a left obstructing ureteral stone. Underwent cystoscopy and left ureteral stent placement on 10/22/18. Post- operative course complicated by nausea, vomiting, anorexia. Workup for SBO negative. Slow improvement but tolerating PO at time of discharge. PICC line placed for 9 more days of IV therapy. Appointment with urology on 10/28 for followup. Problem List Severe sepsis secondary to UTI and left obstructing ureteral stone with left hydronephrosis s/p cystoscopy and left ureteral stent placement 10/22/18 BPH --10/22 Urine culture: E.coli ESBL --10/22 Blood cultures: 1 out of 2 E.coli ESBL --10/24 Blood cultures: NGTD --received 6 days of carbapenem therapy; per ID, needs 9 more days of IV treatment; will come to outpatient infusion on second floor at [place] --follow up with Dr. Allen on 10/28/18 Nausea --improved --SBO ruled out --advance diet as tolerated --continue protonix Hypertension --continued losartan Type II insulin dependent diabetes --Novolog sliding scale coverage COPD --stable Diverticulitis --no acute issues Minutes to complete discharge: 35 Discharge Summary Reason For Visit: CALCULUS OF LEFT KIDNEY Current Active Problems Kidney stone on left side (Acute) UTI (urinary tract infection) (Acute) Condition: Improved - Instructions Diet, Activity, Other Instructions: You are being discharged today. You have a PICC line. You will need nine (9) more days of IV antibiotic therapy. Arrangements have been made for you to receive this therapy at [facility]. You will come daily to the second floor and receive your infusion. Two prescriptions have been sent to your pharmacy. One is for Protonix to alleviate gastric upset, and one is for Zofran which is for nausea. Take these medications as directed. Referrals: Farhad Maciel MD [Primary Care Provider] - Adolph Allen MD., MD [Staff Physician] - 10/28/18 10:00 am Disposition: HOME - Home Medications Comprehensive Discharge Medication List: Ambulatory Orders Glipizide [Glipizide ER] 10 mg PO BID tablet 12/02/16 Insulin Glargine,Hum.rec.anlog [Lantus Solostar PEN -] 74 units SQ HS 04/10/17 [place]-3 Acid Ethyl Esters [Lovaza] 2 gm PO BID 01/19/17 Acetaminophen [Tylenol .Regular Strength -] 650 mg PO Q4H PRN tablet 06/22/18 Melatonin 5 mg PO HS PRN tab 06/22/18 Ondansetron [Zofran Odt -] 4 mg SL Q6H PRN #30 tab.rapdis 10/27/18 Pantoprazole Sodium [Protonix -] 40 mg PO DAILY #30 tablet.ec 10/27/18 This patient is new to me today: No Emergency Visit: Yes ED Registration Date: 10/22/18 Care time: The patient presented to the Emergency Department on the above date and was hospitalized for further evaluation of their emergent condition. Critical Care patient: No - Discharge Referral Referred to [facility] No
[2018-10-27] MEDS: SODIUM CHLORIDE 1,000 ML IV SCH (15:00)
[2018-10-27 16:59] VITALS: BP 163/70; PULSE 80; TEMP 98.8
--- NOTE | 2018-12-02 15:41 | EKG ---
Test Reason : Blood Pressure : / mmHG Vent. Rate : 102 BPM Atrial Rate : 102 BPM P-R Int : 144 ms QRS Dur : 090 ms QT Int : 342 ms P-R-T Axes : 081 -18 046 degrees QTc Int : 445 ms POOR DATA QUALITY, INTERPRETATION MAY BE ADVERSELY AFFECTED SINUS TACHYCARDIA NONSPECIFIC T WAVE ABNORMALITY ABNORMAL ECG WHEN COMPARED WITH ECG OF 19-SEP-2018 22:59, NO SIGNIFICANT CHANGE WAS FOUND Confirmed by JODI HERNANDES, VEL ([id number]) on 12/02/2018 3:41:34 PM Referred By: STACI Confirmed By:VEL ZAPATA MD
== END 2018-10-27 17:49 | disposition home or self-care (01) | DRG 854 ==
LOC: FER 09:58 → FASU 16:46 → SUATTDRO 16:46 → FM/S 17:45
PROVIDERS: ADMIT Internal Medicine; ATTEND Nurse Practitioner Acute Care
PROC: 0T778DZ Dilation of Left Ureter with Intraluminal Device, Via Natural or Artificial Opening Endoscopic (ICD-10-PCS; principal; 2018-10-22 17:18)
PROC: 02HV33Z Insertion of Infusion Device into Superior Vena Cava, Percutaneous Approach (ICD-10-PCS; 2018-10-27)
PROC: B518YZA Fluoroscopy of Superior Vena Cava using Other Contrast, Guidance (ICD-10-PCS; 2018-10-27)
DX: A41.9 Sepsis, unspecified organism (principal); N39.0 Urinary tract infection, site not specified; N13.2 Hydronephrosis with renal and ureteral calculous obstruction; K57.92 Diverticulitis of intestine, part unspecified, without perforation or abscess without bleeding; K56.7 Ileus, unspecified; I10 Essential (primary) hypertension; E11.9 Type 2 diabetes mellitus without complications; J44.9 Chronic obstructive pulmonary disease, unspecified; N20.0 Calculus of kidney; I25.10 Atherosclerotic heart disease of native coronary artery without angina pectoris; N40.0 Benign prostatic hyperplasia without lower urinary tract symptoms; E66.9 Obesity, unspecified; Z68.34 Body mass index [BMI] 34.0-34.9, adult; R11.2 Nausea with vomiting, unspecified
CPT/HCPCS: 36415; 36569; 71045-TC-FY; 74018-TC-FY; 74176; 74176-TC; 75820-TC-FY; 77001-TC-FY; 80048; 80053; 80076; 81003; 81015; 82271; 82962; 83605; 83735; 84100; 85025; 85651; 87040; 87086; 87186; 93005; 94640; 94760; 99283-25; C1751; J0131; J1644; J7030; Q0162

== ENCOUNTER 2018-10-28 11:47 | Day surgery (SDC) | payer OTHER ==
[2018-10-28] MEDS ORDERED: ERTAPENEM SODIUM 1 GM in SODIUM CHLORIDE 50 ML IVPB ONE (12:00)
[2018-10-28] MEDS ORDERED: ERTAPENEM SODIUM 1 GM VIAL ONE (12:06)
[2018-10-28 12:38] VITALS: TEMP 98.4
[2018-10-28 13:26] VITALS: BP 140/74; PULSE 92
== END 2018-10-28 13:25 | disposition home or self-care (01) ==
LOC: FINFUSION 11:47 → FM/S 11:48 → FINFUSION 13:25
PROVIDERS: ATTEND Nurse Practitioner Acute Care
DX: B99.8 Other infectious disease (principal)
CPT/HCPCS: 96365

== ENCOUNTER 2018-10-29 11:07 | Day surgery (SDC) | payer OTHER ==
[2018-10-29 12:37] VITALS: BP 104/69; PULSE 78; TEMP 98; BMI 32.2
[2018-10-29] MEDS ORDERED: SODIUM CHLORIDE 50 ML IVPB ONE (12:41)
[2018-10-29] MEDS ORDERED: ERTAPENEM SODIUM 1 GM VIAL ONE (12:41)
[2018-10-29] MEDS ORDERED: ERTAPENEM SODIUM 1 GM in SODIUM CHLORIDE 50 ML IVPB ONE (12:45)
== END 2018-10-29 13:32 | disposition home or self-care (01) ==
LOC: FINFUSION 11:07 → FM/S 11:08 → FINFUSION 13:32
PROVIDERS: ATTEND Nurse Practitioner Acute Care
DX: B99.8 Other infectious disease (principal)
CPT/HCPCS: 96365

== ENCOUNTER 2018-10-30 11:03 | Day surgery (SDC) | payer OTHER ==
[2018-10-30] MEDS ORDERED: ERTAPENEM SODIUM 1 GM/50 ML PRE-DOCKED IVPB SCH (11:30)
[2018-10-30 12:40] VITALS: BP 130/74; PULSE 78; TEMP 98.6
== END 2018-10-30 12:33 | disposition home or self-care (01) ==
LOC: FINFUSION 11:03 → FM/S 11:06 → FINFUSION 12:33
PROVIDERS: ATTEND Nurse Practitioner Acute Care
DX: B99.8 Other infectious disease (principal)
CPT/HCPCS: 96365

== ENCOUNTER 2018-10-31 11:28 | Day surgery (SDC) | payer OTHER ==
[2018-10-31 11:56] VITALS: TEMP 98.7
[2018-10-31] MEDS ORDERED: SODIUM CHLORIDE 50 ML IVPB ONE (11:59)
[2018-10-31] MEDS ORDERED: ERTAPENEM SODIUM 1 GM VIAL ONE (11:59)
[2018-10-31] MEDS ORDERED: ERTAPENEM SODIUM 1 GM in SODIUM CHLORIDE 50 ML IVPB ONE (12:00)
[2018-10-31 13:05] VITALS: BP 121/66; PULSE 91
== END 2018-10-31 13:07 | disposition home or self-care (01) ==
LOC: FINFUSION 11:28 → FM/S 11:32 → FINFUSION 13:07
PROVIDERS: ATTEND Nurse Practitioner Acute Care
DX: B99.8 Other infectious disease (principal)
CPT/HCPCS: 96365

== ENCOUNTER 2018-11-01 10:13 | Day surgery (SDC) | payer OTHER ==
[2018-11-01] MEDS ORDERED: ERTAPENEM SODIUM 1 GM in SODIUM CHLORIDE 50 ML IVPB ONE (11:00)
[2018-11-01 11:09] VITALS: TEMP 97.7
[2018-11-01 11:14] VITALS: BP 144/72; PULSE 78
== END 2018-11-01 11:31 | disposition home or self-care (01) ==
LOC: FINFUSION 10:13 → FM/S 10:21 → FINFUSION 11:31
PROVIDERS: ATTEND Nurse Practitioner Acute Care
DX: B99.8 Other infectious disease (principal)
CPT/HCPCS: 96365

== ENCOUNTER 2018-11-02 11:42 | Day surgery (SDC) | payer OTHER ==
[2018-11-02] MEDS ORDERED: SODIUM CHLORIDE 50 ML IVPB ONE (11:57)
[2018-11-02] MEDS ORDERED: ERTAPENEM SODIUM 1 GM VIAL ONE (11:57)
[2018-11-02 12:09] VITALS: TEMP 97.6; BMI 32.2
[2018-11-02] MEDS ORDERED: ERTAPENEM SODIUM 1 GM in SODIUM CHLORIDE 50 ML IVPB ONE (12:15)
[2018-11-02 12:46] VITALS: BP 143/76; PULSE 85
== END 2018-11-02 12:45 | disposition home or self-care (01) ==
LOC: FINFUSION 11:42 → FM/S 11:44 → FINFUSION 12:45
PROVIDERS: ATTEND Nurse Practitioner Acute Care
DX: B99.8 Other infectious disease (principal)
CPT/HCPCS: 96365

== ENCOUNTER 2018-11-03 10:59 | Day surgery (SDC) | payer OTHER ==
[2018-11-03] MEDS ORDERED: ERTAPENEM SODIUM 1 GM in SODIUM CHLORIDE 50 ML IVPB ONE (12:00)
[2018-11-03] MEDS ORDERED: ERTAPENEM SODIUM 1 GM VIAL ONE (12:06)
[2018-11-03] MEDS ORDERED: SODIUM CHLORIDE 50 ML IVPB ONE (12:06)
[2018-11-03 12:20] VITALS: TEMP 98.3; BMI 32.2
[2018-11-03 13:02] VITALS: BP 135/68; PULSE 77
== END 2018-11-03 13:05 | disposition home or self-care (01) ==
LOC: FINFUSION 10:59 → FM/S 11:39 → FINFUSION 13:05
PROVIDERS: ATTEND Nurse Practitioner Acute Care
DX: B99.8 Other infectious disease (principal)
CPT/HCPCS: 96365; 96366

== ENCOUNTER 2018-11-04 11:37 | Day surgery (SDC) | payer OTHER ==
[2018-11-04 12:03] VITALS: BP 144/86; PULSE 83; TEMP 98.2
[2018-11-04] MEDS ORDERED: SODIUM CHLORIDE 50 ML IVPB ONE (12:04)
[2018-11-04] MEDS ORDERED: ERTAPENEM SODIUM 1 GM VIAL ONE (12:04)
[2018-11-04] MEDS ORDERED: ERTAPENEM SODIUM 1 GM in SODIUM CHLORIDE 50 ML IVPB ONE (12:15)
== END 2018-11-04 12:50 | disposition home or self-care (01) ==
LOC: FINFUSION 11:37 → FM/S 11:37 → FINFUSION 12:50
PROVIDERS: ATTEND Nurse Practitioner Acute Care
DX: B99.8 Other infectious disease (principal)
CPT/HCPCS: 96365

== ENCOUNTER 2020-09-09 21:14 | Inpatient (IN) | payer OTHER ==
[2020-09-09] MEDS ORDERED: ONDANSETRON 4 MG/2 ML VIAL IVPB ONE (21:25)
[2020-09-09] MEDS ORDERED: SODIUM CHLORIDE 1,000 ML ONE (21:25)
[2020-09-09] MEDS ORDERED: ACETAMINOPHEN 1000 MG/100 ML VIAL (NON FORMULARY) IVPB ONE (21:26)
[2020-09-09] MEDS ORDERED: ACETAMINOPHEN INJECTION 100 ML IVPB ONE (21:43)
[2020-09-09 22:26] LABS: ALBUMIN 4.3 g/dl (3.4-5.0); BILIRUBIN,TOTAL 0.9 mg/dl (0.2-1); CALCIUM 9.4 mg/dl (8.5-10); CREATININE 1.3 mg/dl (0.55-1.3); POTASSIUM 4.2 mmol/L (3.5-5.1); TOT PROT 7.8 g/dl (6.4-8.2)
[2020-09-09 22:53] LABS: BASO % 0.6 % (0-2.0); EOS % 2.4 % (0-4.5); HEMOGLOBIN 13.2 GM/dL (11.7-16.9); MCH 29.3 pg (25.7-33.7); MCHC 33.9 g/dl (32.0-35.9); MEAN CELL VOLUME 86.5 fl (80-96); MEAN PLT VOLUME 9.6 fl (7.5-11.1); MONO % 7.2 % (3.8-10.2); NEUT % 80.8 % (42.8-82.8); PLATELET COUNT 108 K/MM3 (134-434); RBC 4.51 M/mm3 (4.00-5.60); RDW 14.7 % (11.9-15.9); WHITE BLOOD COUNT 8.1 K/mm3 (4.0-10.0)
[2020-09-09 23:15] LABS: EPITHELIAL CELLS FEW /hpf; URINE MUCUS 1+
[2020-09-09] MEDS ORDERED: PIPERACILLIN/TAZOB 4.5 GM 4.5 GM in DEXTROSE 5%-WATER 100 ML IVPB ONE (23:34)
[2020-09-09] MEDS ORDERED: PIPERACILLIN/TAZOBACTAM 4.5 GM VIAL IVPB ONE (23:35)
[2020-09-10] MEDS ORDERED: SODIUM CHLORIDE 1,000 ML IV STA ×2 (01:20→13:46)
[2020-09-10 02:00] VITALS: BMI 36.1
[2020-09-10] MEDS: ONDANSETRON 4 MG/2 ML VIAL IVPUSH PRN ×2 (02:13→07:21)
[2020-09-10] MEDS: ACETAMINOPHEN 325 MG TABLET (FP) PO PRN ×3 (02:13→17:38)
[2020-09-10] MEDS: SODIUM CHLORIDE 1,000 ML IV SCH (03:00)
[2020-09-10] MEDS: INSULIN SLIDING SCALE (NOVOLOG) 1 VIAL SQ SCH ×4 (06:31→17:44)
[2020-09-10] MEDS ORDERED: PIPERACILLIN/TAZOBACTAM 3.375 GM VIAL IVPB ONE (07:30)
[2020-09-10] MEDS ORDERED: DEXTROSE 5%-WATER - 50 ML IVPB ONE (07:31)
[2020-09-10] MEDS ORDERED: MEROPENEM 1 GM VIAL (RESTRICTED TO ID) IVPB ONE ×2 (08:22→15:59)
[2020-09-10] MEDS ORDERED: DEXTROSE 5%-WATER 100 ML IVPB ONE ×2 (08:22→15:59)
[2020-09-10] MEDS ORDERED: PIPERACILLIN/TAZOB 3.375 GM 3.375 GM in DEXTROSE 5%-WATER - 50 ML IVPB SCH (09:00)
[2020-09-10] MEDS: ENOXAPARIN NA (PORCINE) 40 MG/0.4 ML DISP.SYRIN SQ SCH (09:02)
[2020-09-10] MEDS ORDERED: MEROPENEM 1 GM in SODIUM CHLORIDE 100 ML IVPB SCH (10:00)
[2020-09-10] MEDS ORDERED: MEROPENEM 1 GM in DEXTROSE 5%-WATER 100 ML IVPB SCH (10:00)
[2020-09-10] MEDS ORDERED: MEROPENEM 1 GM in DEXTROSE 5%-WATER 100 ML IVPB ONE (15:30)
[2020-09-10] MEDS: LOSARTAN POTASSIUM 50 MG TABLET PO SCH (21:11)
[2020-09-10] MEDS: ATORVASTATIN CA 20 MG TABLET (FP) PO SCH (21:12)
[2020-09-10] MEDS: OMEGA-3 ACID ETHYL ESTERS (FATTY-ACIDS) 1 GM CAPSULE (FP) PO SCH (21:12)
[2020-09-11] MEDS ORDERED: MEROPENEM 1 GM in DEXTROSE 5%-WATER 100 ML IVPB SCH (02:00)
[2020-09-11] MEDS ORDERED: MEROPENEM 1 GM VIAL (RESTRICTED TO ID) IVPB ONE ×3 (03:06→16:26)
[2020-09-11] MEDS ORDERED: DEXTROSE 5%-WATER 100 ML IVPB ONE ×2 (03:06→08:14)
[2020-09-11] MEDS: INSULIN SLIDING SCALE (NOVOLOG) 1 VIAL SQ SCH ×4 (06:01→17:48)
[2020-09-11] MEDS: SODIUM CHLORIDE 1,000 ML IV SCH (06:02)
[2020-09-11] MEDS ORDERED: MEROPENEM 1 GM in SODIUM CHLORIDE 100 ML IVPB SCH (08:19)
[2020-09-11 08:23] LABS: HEMATOCRIT 32.9 % (35.4-49); HEMOGLOBIN 10.8 GM/dl (11.7-16.9); MCH 28.9 pg (25.7-33.7); MCHC 32.9 g/dl (32.0-35.9); MEAN CELL VOLUME 87.8 fl (80-96); MEAN PLT VOLUME 9.7 fl (7.5-11.1); PLATELET COUNT 86 K/MM3 (134-434); RBC 3.75 M/mm3 (4.00-5.60); RDW 13.8 % (11.9-15.9); WHITE BLOOD COUNT 6.6 K/mm3 (4.0-10.8)
[2020-09-11 08:24] LABS: CALCIUM 7.5 mg/dl (8.5-10); CREATININE 1.2 mg/dl (0.55-1.3); MAGNESIUM 1.3 mg/dL (1.8-2.4); POTASSIUM 3.5 mmol/L (3.5-5.1)
[2020-09-11] MEDS ORDERED: MAGNESIUM SULF 50% (8.12 MEQ/2 ML-1 GM VIAL) IVPB ONE (09:04)
[2020-09-11] MEDS ORDERED: MAGNESIUM SULFATE IN WATER 2 GM/50 ML IVPB IVPB ONE (09:15)
[2020-09-11] MEDS: OMEGA-3 ACID ETHYL ESTERS (FATTY-ACIDS) 1 GM CAPSULE (FP) PO SCH ×2 (09:18→21:16)
[2020-09-11] MEDS: MEROPENEM 1 GM in SODIUM CHLORIDE 100 ML IVPB SCH ×2 (09:18→17:19)
[2020-09-11] MEDS: ENOXAPARIN NA (PORCINE) 40 MG/0.4 ML DISP.SYRIN SQ SCH (09:18)
[2020-09-11] MEDS ORDERED: PIPERACILLIN/TAZOB 3.375 GM 3.375 GM in DEXTROSE 5%-WATER - 50 ML IVPB SCH (10:00)
[2020-09-11] MEDS: ONDANSETRON 4 MG/2 ML VIAL IVPUSH PRN (12:48)
[2020-09-11] MEDS ORDERED: METOCLOPRAMIDE HCL INJECTION 10 MG/2 ML VIAL IVPUSH PRN (14:44)
[2020-09-11] MEDS ORDERED: diazePAM 2 MG TABLET PO ONE (15:00)
[2020-09-11] MEDS ORDERED: SODIUM CHLORIDE 100 ML IVPB ONE (16:26)
[2020-09-11] MEDS ORDERED: PROCHLORPERAZINE MALEATE 25 MG SUPP.RECT PR PRN (18:03)
[2020-09-11] MEDS: LOSARTAN POTASSIUM 50 MG TABLET PO SCH (21:16)
[2020-09-11] MEDS: ATORVASTATIN CA 20 MG TABLET (FP) PO SCH (21:16)
[2020-09-12] MEDS: INSULIN SLIDING SCALE (NOVOLOG) 1 VIAL SQ SCH ×5 (00:14→23:04)
[2020-09-12] MEDS: MEROPENEM 1 GM in SODIUM CHLORIDE 100 ML IVPB SCH ×2 (02:14→09:23)
[2020-09-12] MEDS ORDERED: SODIUM CHLORIDE 100 ML IVPB ONE ×3 (03:10→13:04)
[2020-09-12] MEDS ORDERED: MEROPENEM 1 GM VIAL (RESTRICTED TO ID) IVPB ONE ×2 (03:10→09:01)
[2020-09-12] MEDS ORDERED: LOCK ITEM NR ONE (07:20)
[2020-09-12] MEDS: ACETAMINOPHEN 325 MG TABLET (FP) PO PRN (08:41)
[2020-09-12] MEDS: ENOXAPARIN NA (PORCINE) 40 MG/0.4 ML DISP.SYRIN SQ SCH (09:24)
[2020-09-12] MEDS: OMEGA-3 ACID ETHYL ESTERS (FATTY-ACIDS) 1 GM CAPSULE (FP) PO SCH ×2 (09:24→21:31)
[2020-09-12] MEDS ORDERED: CEFTRIAXONE 2 GM-D5W BAG 2 GM/50 ML BAG IVPB SCH (12:45)
[2020-09-12] MEDS: CEFTRIAXONE 2 GM in SODIUM CHLORIDE 100 ML IVPB SCH (13:06)
[2020-09-12] MEDS: LOSARTAN POTASSIUM 50 MG TABLET PO SCH (21:32)
[2020-09-12] MEDS: ATORVASTATIN CA 20 MG TABLET (FP) PO SCH (21:32)
[2020-09-12] MEDS ORDERED: diazePAM 2 MG TABLET PO ONE (21:47)
[2020-09-12] MEDS ORDERED: diazePAM 2 MG TABLET ONE (22:01)
[2020-09-12] MEDS: MELATONIN 5 MG TABLETS PO PRN (23:04)
[2020-09-13] MEDS: INSULIN SLIDING SCALE (NOVOLOG) 1 VIAL SQ SCH ×4 (05:43→23:53)
[2020-09-13] MEDS ORDERED: SODIUM CHLORIDE 100 ML IVPB ONE (09:37)
[2020-09-13] MEDS: ENOXAPARIN NA (PORCINE) 40 MG/0.4 ML DISP.SYRIN SQ SCH (09:39)
[2020-09-13] MEDS: CEFTRIAXONE 2 GM in SODIUM CHLORIDE 100 ML IVPB SCH (09:39)
[2020-09-13] MEDS: OMEGA-3 ACID ETHYL ESTERS (FATTY-ACIDS) 1 GM CAPSULE (FP) PO SCH ×2 (09:40→21:03)
[2020-09-13] MEDS: PROCHLORPERAZINE MALEATE 5 MG TABLET PO PRN (11:18)
[2020-09-13] MEDS: LOSARTAN POTASSIUM 50 MG TABLET PO SCH (21:04)
[2020-09-13] MEDS: ATORVASTATIN CA 20 MG TABLET (FP) PO SCH (21:04)
[2020-09-13] MEDS: MELATONIN 5 MG TABLETS PO PRN (23:07)
[2020-09-13] MEDS ORDERED: diazePAM 2 MG TABLET PO ONE (23:45)
[2020-09-14] MEDS: PROCHLORPERAZINE MALEATE 5 MG TABLET PO PRN ×2 (05:46→09:27)
[2020-09-14] MEDS: INSULIN SLIDING SCALE (NOVOLOG) 1 VIAL SQ SCH ×4 (05:51→23:18)
[2020-09-14] MEDS ORDERED: SODIUM CHLORIDE 100 ML IVPB ONE (09:24)
[2020-09-14] MEDS: CEFTRIAXONE 2 GM in SODIUM CHLORIDE 100 ML IVPB SCH (09:26)
[2020-09-14] MEDS: OMEGA-3 ACID ETHYL ESTERS (FATTY-ACIDS) 1 GM CAPSULE (FP) PO SCH ×3 (09:27→23:31)
[2020-09-14] MEDS: ENOXAPARIN NA (PORCINE) 40 MG/0.4 ML DISP.SYRIN SQ SCH (09:27)
[2020-09-14] MEDS: ATORVASTATIN CA 20 MG TABLET (FP) PO SCH (21:07)
[2020-09-14] MEDS: LOSARTAN POTASSIUM 50 MG TABLET PO SCH (21:07)
[2020-09-14] MEDS ORDERED: diazePAM 2 MG TABLET PO ONE (22:00)
[2020-09-15] MEDS: INSULIN SLIDING SCALE (NOVOLOG) 1 VIAL SQ SCH ×2 (06:45→12:05)
[2020-09-15] MEDS ORDERED: SODIUM CHLORIDE 100 ML IVPB ONE (09:02)
[2020-09-15 09:27] VITALS: BP 141/61; PULSE 67; TEMP 98.5
[2020-09-15] MEDS: ENOXAPARIN NA (PORCINE) 40 MG/0.4 ML DISP.SYRIN SQ SCH (09:27)
[2020-09-15] MEDS: CEFTRIAXONE 2 GM in SODIUM CHLORIDE 100 ML IVPB SCH (09:27)
[2020-09-15] MEDS: OMEGA-3 ACID ETHYL ESTERS (FATTY-ACIDS) 1 GM CAPSULE (FP) PO SCH (09:29)
== END 2020-09-15 12:50 | disposition home or self-care (01) | DRG 872 ==
LOC: FER 21:14 → FM/S 23:42 → UNDOADMIN 09-10 01:10
PROVIDERS: ADMIT Hospitalist; ATTEND Nurse Practitioner Family
DX: A41.9 Sepsis, unspecified organism (principal); K57.92 Diverticulitis of intestine, part unspecified, without perforation or abscess without bleeding; N39.0 Urinary tract infection, site not specified; D61.9 Aplastic anemia, unspecified; R65.20 Severe sepsis without septic shock; I10 Essential (primary) hypertension; E11.9 Type 2 diabetes mellitus without complications; E03.9 Hypothyroidism, unspecified; R11.2 Nausea with vomiting, unspecified; N40.0 Benign prostatic hyperplasia without lower urinary tract symptoms; E78.00 Pure hypercholesterolemia, unspecified
CPT/HCPCS: 36415; 71045-TC-FY; 74176-TC; 74177-TC; 80048; 80053; 81003; 81015; 82550; 82962; 83605; 83690; 83735; 84484; 85025; 85027; 87040; 87086; 87186; 93005; 97116-GP; 99285-25; C9803; J0131; Q9967; U0003

== ENCOUNTER 2021-09-21 17:14 | Inpatient (IN) | payer OTHER ==
[2021-09-21] MEDS ORDERED: LACTATED RINGERS SOLUTION 1000 ML INFUS.BAG IV ONE (17:23)
[2021-09-21 18:48] LABS: ALBUMIN 4.1 g/dl (3.4-5.0); BILIRUBIN,TOTAL 0.8 mg/dl (0.2-1); CALCIUM 9.3 mg/dl (8.5-10); CREATININE 1.3 mg/dl (0.55-1.3); MAGNESIUM 1.5 mg/dL (1.8-2.4); TOT PROT 7.6 g/dl (6.4-8.2)
[2021-09-21 18:58] LABS: ACTIVATED PTT 27.4 SECONDS (25.2-36.5)
[2021-09-21 19:03] LABS: INR 1.1 (0.82-1.09); PROTHROMBIN TIME (PATIENT) 12.2 SEC (10.2-13.0)
[2021-09-21] MEDS ORDERED: MAGNESIUM SULF 50% (8.12 MEQ/2 ML-1 GM VIAL) IVPB ONE (19:05)
[2021-09-21] MEDS ORDERED: MAGNESIUM 1GM/D5W - 1 GM/100 ML IVPB IVPB ONE ×2 (19:15→20:19)
[2021-09-21 19:21] LABS: EPITHELIAL CELLS FEW /hpf
[2021-09-21] MEDS ORDERED: CIPROFLOXACIN 500 MG TABLET (RESTRICTED TO ID) PO ONE (19:26)
[2021-09-21] MEDS ORDERED: CIPROFLOXACIN 250 MG TABLET (RESTRICTED TO ID) PO ONE (19:38)
[2021-09-21 19:45] LABS: VENOUS BASE EXCESS -4.5 mmol/L (-2-2); VENOUS O2 SATURATION 93.3 % (70-80); VENOUS PCO2 31.2 mmHg (38-52); VENOUS PH 7.412 (7.310-7.410)
[2021-09-21 20:11] LABS: BASO % 1.2 % (0-2.0); HEMATOCRIT 38.5 % (35.4-49); HEMOGLOBIN 12.9 GM/dL (11.7-16.9); LYMPH % 29.5 % (8-40); MCH 27.5 pg (25.7-33.7); MCHC 33.6 g/dl (32.0-35.9); MEAN CELL VOLUME 81.9 fl (80-96); MEAN PLT VOLUME 9.4 fl (7.5-11.1); MONO % 9.8 % (3.8-10.2); NEUT % 53.5 % (42.8-82.8); PLATELET COUNT 133 10^3/uL (134-434); RDW 15.2 % (11.9-15.9); WHITE BLOOD COUNT 8.1 K/mm3 (4.0-10.0)
[2021-09-21 20:19] LABS: LACTIC ACID 2.4 mmol/L (0.4-2.0)
[2021-09-21] MEDS ORDERED: SODIUM CHLORIDE 1,000 ML IV ONE (21:08)
[2021-09-21] MEDS ORDERED: ACETAMINOPHEN 325 MG TABLET (FP) PO PRN (21:18)
[2021-09-21] MEDS ORDERED: POLYETHYLENE GLYCOL (HEALTHYLAX) 3350 17 GM PACKET PO PRN (21:18)
[2021-09-21] MEDS ORDERED: ACETAMINOPHEN 500 MG TABLET (FP) PO ONE (21:29)
[2021-09-21] MEDS ORDERED: ACETAMINOPHEN 500 MG TABLET (FP) ONE (21:31)
[2021-09-21] MEDS ORDERED: ALBUTEROL SO4 HFA INHALER IH PRN (23:54)
[2021-09-22 00:54] VITALS: BMI 36.5
[2021-09-22] MEDS: LOSARTAN POTASSIUM 50 MG TABLET PO SCH ×2 (01:16→21:50)
[2021-09-22] MEDS: CARVEDILOL 25 MG TABLET (FP) PO SCH ×3 (01:17→21:50)
[2021-09-22] MEDS: ATORVASTATIN CA 20 MG TABLET (FP) PO SCH ×2 (01:17→21:50)
[2021-09-22] MEDS: OMEGA-3 ACID ETHYL ESTERS (FATTY-ACIDS) 1 GM CAPSULE (FP) PO SCH ×3 (01:17→21:50)
[2021-09-22] MEDS: INSULIN SLIDING SCALE (NOVOLOG) 1 VIAL SQ SCH ×5 (01:23→21:58)
[2021-09-22 09:11] LABS: CALCIUM 8.8 mg/dl (8.5-10); CREATININE 1.3 mg/dl (0.55-1.3)
[2021-09-22] MEDS ORDERED: CARVEDILOL 25 MG TABLET (FP) PO SCH (10:00)
[2021-09-22 10:01] LABS: EOS % 6.2 % (0-4.5); HEMATOCRIT 34.3 % (35.4-49); HEMOGLOBIN 11.8 GM/dL (11.7-16.9); LYMPH % 38.9 % (8-40); MCH 28.1 pg (25.7-33.7); MCHC 34.3 g/dl (32.0-35.9); MEAN PLT VOLUME 9.1 fl (7.5-11.1); MONO % 12.2 % (3.8-10.2); NEUT % 41.7 % (42.8-82.8); PLATELET COUNT 101 10^3/uL (134-434); RBC 4.18 M/mm3 (4.00-5.60); RDW 15.2 % (11.9-15.9); WHITE BLOOD COUNT 5.4 K/mm3 (4.0-10.0)
[2021-09-22] MEDS: ENOXAPARIN NA (PORCINE) 40 MG/0.4 ML DISP.SYRIN SQ SCH (10:48)
[2021-09-22] MEDS: PANTOPRAZOLE 40 MG TABLET PO SCH (10:49)
[2021-09-22] MEDS: TAMSULOSIN HCL 0.4 MG CAP PO SCH (10:49)
[2021-09-22] MEDS: amLODIPine BESYLATE 5 MG TABLET (FP) PO SCH (10:49)
[2021-09-22] MEDS ORDERED: ERTAPENEM SODIUM 1 GM/50 ML PRE-DOCKED IVPB SCH (11:00)
[2021-09-22] MEDS ORDERED: ERTAPENEM SODIUM 1 GM in SODIUM CHLORIDE 50 ML IVPB SCH (11:15)
[2021-09-22] MEDS ORDERED: CARVEDILOL 6.25 MG TABLET (FP) PO ONE (17:15)
[2021-09-22 17:39] LABS: ARTERIAL BLD GAS O2 SATURATION 98.1 % (95-98); ARTERIAL BLOOD GAS BASE EXCESS -0.5 mmol/L (-2-2); ARTERIAL BLOOD GAS PO2 106.6 mmHg (80-100); ARTERIAL BLOOD GAS pH 7.451 (7.350-7.450)
[2021-09-22 17:42] LABS: PROTHROMBIN TIME (PATIENT) 13.1 SEC (10.2-13.0)
[2021-09-22 17:43] LABS: INR 1.18 (0.82-1.09)
[2021-09-22] MEDS: clonazePAM 0.5 MG TABLET PO PRN (21:51)
[2021-09-23] MEDS: INSULIN SLIDING SCALE (NOVOLOG) 1 VIAL SQ SCH ×4 (07:03→22:49)
[2021-09-23] MEDS ORDERED: ERTAPENEM SODIUM 1 GM in SODIUM CHLORIDE 50 ML IVPB SCH (08:21)
[2021-09-23 08:33] LABS: ALBUMIN 3.6 g/dl (3.4-5.0); BILIRUBIN,TOTAL 0.7 mg/dl (0.2-1); CALCIUM 8.6 mg/dl (8.5-10); CREATININE 1.5 mg/dl (0.55-1.3); MAGNESIUM 1.8 mg/dL (1.8-2.4); PHOSPHOROUS 4.2 mg/dl (2.5-4.9)
[2021-09-23] MEDS ORDERED: ERTAPENEM SODIUM 1 GM VIAL ONE (09:03)
[2021-09-23] MEDS ORDERED: SODIUM CHLORIDE 50 ML IVPB ONE (09:04)
[2021-09-23] MEDS: OMEGA-3 ACID ETHYL ESTERS (FATTY-ACIDS) 1 GM CAPSULE (FP) PO SCH ×2 (09:25→22:01)
[2021-09-23] MEDS: TAMSULOSIN HCL 0.4 MG CAP PO SCH (09:25)
[2021-09-23] MEDS: PANTOPRAZOLE 40 MG TABLET PO SCH (09:25)
[2021-09-23] MEDS: ENOXAPARIN NA (PORCINE) 40 MG/0.4 ML DISP.SYRIN SQ SCH (09:26)
[2021-09-23] MEDS: ASPIRIN COATED 81 MG TABLET.EC PO SCH (09:26)
[2021-09-23] MEDS: amLODIPine BESYLATE 5 MG TABLET (FP) PO SCH (09:26)
[2021-09-23] MEDS: CARVEDILOL 25 MG TABLET (FP) PO SCH ×2 (09:26→22:01)
[2021-09-23 09:58] LABS: BASO % 0.8 % (0-2.0); EOS % 7.1 % (0-4.5); HEMATOCRIT 35.9 % (35.4-49); HEMOGLOBIN 12.2 GM/dL (11.7-16.9); LYMPH % 36.3 % (8-40); MCH 28.1 pg (25.7-33.7); MCHC 34.1 g/dl (32.0-35.9); MEAN CELL VOLUME 82.4 fl (80-96); MEAN PLT VOLUME 9.3 fl (7.5-11.1); MONO % 13.5 % (3.8-10.2); NEUT % 42.3 % (42.8-82.8); PLATELET COUNT 111 10^3/uL (134-434); RBC 4.35 M/mm3 (4.00-5.60); RDW 15.1 % (11.9-15.9); WHITE BLOOD COUNT 4.7 K/mm3 (4.0-10.0)
[2021-09-23] MEDS: glipiZIDE-XL 5 MG TAB.ER.24 PO SCH (16:47)
[2021-09-23] MEDS ORDERED: INSULIN (LEVEMIR) 100 UNITS/ML UNITS SQ SCH (22:00)
[2021-09-23] MEDS ORDERED: PATIENT'S OWN MEDICATION (NON-FORMULARY) (Insulin Glargine,Hum.Rec.Anlog 100 UNITS/ML Ins) SQ SCH (22:00)
[2021-09-23] MEDS: clonazePAM 0.5 MG TABLET PO PRN (22:01)
[2021-09-23] MEDS: LOSARTAN POTASSIUM 50 MG TABLET PO SCH (22:01)
[2021-09-23] MEDS: ATORVASTATIN CA 20 MG TABLET (FP) PO SCH (22:01)
[2021-09-24] MEDS ORDERED: PT OWN MED DRAWER 7, Y5N ONE ×2 (05:55→06:56)
[2021-09-24] MEDS: glipiZIDE-XL 5 MG TAB.ER.24 PO SCH (06:46)
[2021-09-24] MEDS: INSULIN SLIDING SCALE (NOVOLOG) 1 VIAL SQ SCH ×2 (06:50→12:07)
[2021-09-24] MEDS ORDERED: LIRAGLUTIDE 0.6 MG/0.1 ML PEN.INJCTR SQ SCH (07:00)
[2021-09-24 08:33] LABS: ALBUMIN 3.7 g/dl (3.4-5.0); BILIRUBIN,TOTAL 0.8 mg/dl (0.2-1); CALCIUM 8.5 mg/dl (8.5-10); CREATININE 1.5 mg/dl (0.55-1.3); MAGNESIUM 1.9 mg/dL (1.8-2.4); TOT PROT 6.8 g/dl (6.4-8.2)
[2021-09-24] MEDS ORDERED: SODIUM CHLORIDE 50 ML IVPB ONE (08:33)
[2021-09-24] MEDS ORDERED: cefTRIAXone SODIUM 1 GM VIAL ONE (08:33)
[2021-09-24] MEDS: PANTOPRAZOLE 40 MG TABLET PO SCH (09:18)
[2021-09-24] MEDS: OMEGA-3 ACID ETHYL ESTERS (FATTY-ACIDS) 1 GM CAPSULE (FP) PO SCH (09:18)
[2021-09-24] MEDS: TAMSULOSIN HCL 0.4 MG CAP PO SCH (09:18)
[2021-09-24] MEDS: amLODIPine BESYLATE 5 MG TABLET (FP) PO SCH (09:18)
[2021-09-24] MEDS: CARVEDILOL 25 MG TABLET (FP) PO SCH (09:18)
[2021-09-24] MEDS: ENOXAPARIN NA (PORCINE) 40 MG/0.4 ML DISP.SYRIN SQ SCH (09:18)
[2021-09-24] MEDS: ASPIRIN COATED 81 MG TABLET.EC PO SCH (09:19)
[2021-09-24 09:28] VITALS: PULSE 76
[2021-09-24 09:56] VITALS: BP 110/42; TEMP 98.8
[2021-09-24] MEDS ORDERED: CEFTRIAXONE 1 GM in SODIUM CHLORIDE 50 ML IVPB SCH (10:00)
[2021-09-24 10:31] LABS: BASO % 0.7 % (0-2.0); HEMATOCRIT 35.9 % (35.4-49); HEMOGLOBIN 12.1 GM/dL (11.7-16.9); MCH 27.7 pg (25.7-33.7); MCHC 33.7 g/dl (32.0-35.9); MEAN CELL VOLUME 82.3 fl (80-96); MEAN PLT VOLUME 9.4 fl (7.5-11.1); MONO % 11.9 % (3.8-10.2); NEUT % 43.4 % (42.8-82.8); PLATELET COUNT 116 10^3/uL (134-434); RBC 4.37 M/mm3 (4.00-5.60); RDW 14.9 % (11.9-15.9); WHITE BLOOD COUNT 6.2 K/mm3 (4.0-10.0)
== END 2021-09-24 13:00 | disposition home or self-care (01) | DRG 690 ==
LOC: FER 17:14 → INTOOBSV 20:31 → OBSVTOIN 20:31 → UNDOADMOB 20:31 → FM/S 20:31 → UNDOADMOB 09-22 00:18 → OBSVTOIN 09-22 16:04 → FM/S 09-22 16:04
PROVIDERS: ATTEND Nurse Practitioner Acute Care
DX: N39.0 Urinary tract infection, site not specified (principal); E87.2 Acidosis; B96.89 Other specified bacterial agents as the cause of diseases classified elsewhere; I10 Essential (primary) hypertension; E78.5 Hyperlipidemia, unspecified; I25.10 Atherosclerotic heart disease of native coronary artery without angina pectoris; K57.90 Diverticulosis of intestine, part unspecified, without perforation or abscess without bleeding; I45.10 Unspecified right bundle-branch block; N40.0 Benign prostatic hyperplasia without lower urinary tract symptoms; E11.65 Type 2 diabetes mellitus with hyperglycemia; J44.9 Chronic obstructive pulmonary disease, unspecified; R07.89 Other chest pain; N20.0 Calculus of kidney
CPT/HCPCS: 36415; 36600; 71045-TC-FY; 71275-TC; 80048; 80053; 80061; 81003; 81015; 82010; 82550; 82553; 82803; 82962; 83605; 83735; 84100; 84484; 85025; 85379; 85610; 85730; 87086; 87186; 93005; 93306-TC; 97116-GP; 97162-GP; 99285-25; C9803; Q9967; U0003; U0005

== ENCOUNTER 2022-03-07 17:36 | Emergency (ER) | payer OTHER ==
[2022-03-07 17:50] VITALS: BP 163/76; PULSE 99; TEMP 99.6; BMI 35.4
[2022-03-07 18:21] LABS: EPITHELIAL CELLS RARE /hpf
[2022-03-07] MEDS ORDERED: CEFTRIAXONE 1,000 MG in DEXTROSE 5%-WATER - 50 ML IVPB ONE (19:20)
[2022-03-07] MEDS ORDERED: ACETAMINOPHEN 500 MG TABLET (FP) PO ONE (19:20)
[2022-03-07] MEDS ORDERED: SODIUM CHLORIDE 1,000 ML ONE (19:20)
[2022-03-07] MEDS ORDERED: ACETAMINOPHEN 500 MG TABLET (FP) ONE (19:26)
[2022-03-07] MEDS ORDERED: cefTRIAXone SODIUM 1 GM VIAL ONE (19:26)
[2022-03-07 20:22] LABS: HEMATOCRIT 35.1 % (35.4-49); HEMOGLOBIN 12.3 G/dL (11.7-16.9); MCH 29.1 pg (25.7-33.7); MCHC 35.1 g/dl (32.0-35.9); MEAN CELL VOLUME 82.8 fl (80-96); MEAN PLT VOLUME 9.2 fl (7.5-11.1); PLATELET COUNT 112.8 10^3/uL (134-434); RBC 4.24 10^6/uL (4.00-5.60); RDW 15.4 % (11.9-15.9); WHITE BLOOD COUNT 8.1 10^3/uL (4.0-10.8)
[2022-03-07 20:29] LABS: ANISOCYTOSIS FEW
[2022-03-07 20:35] LABS: BILIRUBIN,TOTAL 0.6 mg/dl (0.2-1); CALCIUM 9.3 mg/dl (8.5-10); CREATININE 1.3 mg/dl (0.55-1.3); TOT PROT 7.5 g/dl (6.4-8.2)
== END 2022-03-07 21:51 | disposition home or self-care (01) ==
LOC: FER 17:36
PROC: 3E033GC Introduction of Other Therapeutic Substance into Peripheral Vein, Percutaneous Approach (ICD-10-PCS; principal; 2022-03-07)
DX: N39.0 Urinary tract infection, site not specified (principal)
CPT/HCPCS: 0241U-QW; 36415; 80053; 81003; 81015; 85025; 87040; 87086; 99284-25

== ENCOUNTER 2022-10-11 19:37 | Observation (INO) | payer OTHER ==
[2022-10-11 20:26] LABS: HEMATOCRIT 35.6 % (35.4-49); HEMOGLOBIN 12.1 G/dL (11.7-16.9); MCH 28.3 pg (25.7-33.7); MEAN CELL VOLUME 83.2 fl (80-96); RBC 4.28 10^6/uL (4.00-5.60); RDW 15.2 % (11.9-15.9); WHITE BLOOD COUNT 5.3 10^3/uL (4.0-10.8)
[2022-10-11] MEDS ORDERED: ONDANSETRON 4 MG/2 ML VIAL ONE (20:44)
[2022-10-11] MEDS ORDERED: ONDANSETRON 4 MG/2 ML VIAL IVPB ONE (20:44)
[2022-10-11 20:49] LABS: ALBUMIN 3.9 g/dl (3.4-5.0); BILIRUBIN,TOTAL 0.7 mg/dl (0.2-1); CALCIUM 9.7 mg/dl (8.5-10); CREATININE 1.3 mg/dl (0.55-1.3); TOT PROT 6.9 g/dl (6.4-8.2)
[2022-10-11] MEDS ORDERED: ATORVASTATIN CA 20 MG TABLET (FP) PO SCH (22:00)
[2022-10-11 22:41] LABS: EPITHELIAL CELLS RARE /hpf
[2022-10-11 23:23] VITALS: BMI 35.4
[2022-10-12 09:37] LABS: HEMATOCRIT 33.8 % (35.4-49); HEMOGLOBIN 11.5 G/dL (11.7-16.9); MCH 28.4 pg (25.7-33.7); MEAN CELL VOLUME 83.4 fl (80-96); MEAN PLT VOLUME 9.5 fl (7.5-11.1); PLATELET COUNT 109.3 10^3/uL (134-434); RBC 4.05 10^6/uL (4.00-5.60); RDW 14.8 % (11.9-15.9); WHITE BLOOD COUNT 5.1 10^3/uL (4.0-10.8)
[2022-10-12 09:38] LABS: ALBUMIN 3.6 g/dl (3.4-5.0); BILIRUBIN,TOTAL 0.6 mg/dl (0.2-1); CALCIUM 9.1 mg/dl (8.5-10); CREATININE 1.2 mg/dl (0.55-1.3); MAGNESIUM 1.6 mg/dL (1.8-2.4); TOT PROT 6.4 g/dl (6.4-8.2)
[2022-10-12] MEDS: amLODIPine BESYLATE 5 MG TABLET (FP) PO SCH (10:00)
[2022-10-12] MEDS: LOSARTAN POTASSIUM 50 MG TABLET PO SCH (10:00)
[2022-10-12] MEDS: TAMSULOSIN HCL 0.4 MG CAP PO SCH (10:18)
[2022-10-12] MEDS: PANTOPRAZOLE 40 MG TABLET PO SCH (10:18)
[2022-10-12] MEDS: ASPIRIN COATED 81 MG TABLET.EC PO SCH (16:23)
[2022-10-12] MEDS: ENOXAPARIN NA (PORCINE) 40 MG/0.4 ML DISP.SYRIN SQ SCH (16:23)
[2022-10-12] MEDS: INSULIN SLIDING SCALE (NOVOLOG) 1 VIAL SQ SCH ×2 (16:32→21:14)
[2022-10-12] MEDS: ATORVASTATIN CA 40 MG TABLET (FP) PO SCH (21:12)
[2022-10-13 01:50] VITALS: RESP 18
[2022-10-13] MEDS: INSULIN SLIDING SCALE (NOVOLOG) 1 VIAL SQ SCH ×4 (08:11→21:25)
[2022-10-13 09:34] LABS: ALBUMIN 3.6 g/dl (3.4-5.0); BILIRUBIN,TOTAL 0.7 mg/dl (0.2-1); CALCIUM 8.5 mg/dl (8.5-10); CREATININE 1.3 mg/dl (0.55-1.3); TOT PROT 7.1 g/dl (6.4-8.2)
[2022-10-13] MEDS: amLODIPine BESYLATE 5 MG TABLET (FP) PO SCH (09:38)
[2022-10-13] MEDS: TAMSULOSIN HCL 0.4 MG CAP PO SCH (09:38)
[2022-10-13] MEDS: ASPIRIN COATED 81 MG TABLET.EC PO SCH (09:38)
[2022-10-13] MEDS: ENOXAPARIN NA (PORCINE) 40 MG/0.4 ML DISP.SYRIN SQ SCH (09:39)
[2022-10-13] MEDS: LOSARTAN POTASSIUM 50 MG TABLET PO SCH (09:39)
[2022-10-13] MEDS: PANTOPRAZOLE 40 MG TABLET PO SCH (09:39)
[2022-10-13 11:31] LABS: BASO % 0.7 % (0-2.0); EOS % 5.4 % (0-4.5); HEMATOCRIT 35.1 % (35.4-49); HEMOGLOBIN 11.6 GM/dL (11.7-16.9); LYMPH % 40.7 % (8-40); MCH 27.1 pg (25.7-33.7); MCHC 32.9 g/dl (32.0-35.9); MEAN CELL VOLUME 82.2 fl (80-96); MONO % 14.3 % (3.8-10.2); NEUT % 38.9 % (42.8-82.8); PLATELET COUNT 109 10^3/uL (134-434); RBC 4.27 M/mm3 (4.00-5.60); RDW 15.2 % (11.9-15.9); WHITE BLOOD COUNT 4.2 K/mm3 (4.0-10.0)
[2022-10-13] MEDS: ATORVASTATIN CA 40 MG TABLET (FP) PO SCH (21:25)
[2022-10-14] MEDS ORDERED: ACETAMINOPHEN 325 MG TABLET (FP) PO PRN (00:12)
[2022-10-14] MEDS: INSULIN SLIDING SCALE (NOVOLOG) 1 VIAL SQ SCH ×3 (06:42→16:56)
[2022-10-14 08:26] LABS: ALBUMIN 3.9 g/dl (3.4-5.0); BILIRUBIN,TOTAL 0.7 mg/dl (0.2-1); CALCIUM 8.4 mg/dl (8.5-10); CREATININE 1.3 mg/dl (0.55-1.3); TOT PROT 7.1 g/dl (6.4-8.2)
[2022-10-14] MEDS ORDERED: SENNOSIDES 8.6MG TABLET (FP) PO SCH (10:00)
[2022-10-14] MEDS ORDERED: POLYETHYLENE GLYCOL (HEALTHYLAX) 3350 17 GM PACKET PO SCH (10:00)
[2022-10-14] MEDS: ASPIRIN COATED 81 MG TABLET.EC PO SCH (10:25)
[2022-10-14] MEDS: PANTOPRAZOLE 40 MG TABLET PO SCH (10:25)
[2022-10-14] MEDS: LOSARTAN POTASSIUM 50 MG TABLET PO SCH (10:25)
[2022-10-14] MEDS: amLODIPine BESYLATE 5 MG TABLET (FP) PO SCH (10:25)
[2022-10-14] MEDS: ENOXAPARIN NA (PORCINE) 40 MG/0.4 ML DISP.SYRIN SQ SCH (10:31)
[2022-10-14 10:54] VITALS: TEMP 98.3
[2022-10-14 12:32] LABS: HEMOGLOBIN 12.4 GM/dL (11.7-16.9); MCH 27.3 pg (25.7-33.7); MCHC 33.4 g/dl (32.0-35.9); MEAN CELL VOLUME 81.7 fl (80-96); MEAN PLT VOLUME 9.5 fl (7.5-11.1); PLATELET COUNT 128 10^3/uL (134-434); RBC 4.53 M/mm3 (4.00-5.60); RDW 15.2 % (11.9-15.9); WHITE BLOOD COUNT 5.4 K/mm3 (4.0-10.0)
[2022-10-14 13:55] VITALS: BP 158/62; PULSE 78
[2022-10-14] MEDS ORDERED: DOCUSATE SODIUM 100 MG CAPSULE (FP) PO SCH (14:00)
== END 2022-10-14 18:42 | disposition home or self-care (01) ==
LOC: FER 19:37 → FM/S 21:23
PROVIDERS: ADMIT Internal Medicine
PROC: 3E023GC Introduction of Other Therapeutic Substance into Muscle, Percutaneous Approach (ICD-10-PCS; principal; 2022-10-11)
PROC: 3E013VG Introduction of Insulin into Subcutaneous Tissue, Percutaneous Approach (ICD-10-PCS; 2022-10-11)
PROC: 3E033GC Introduction of Other Therapeutic Substance into Peripheral Vein, Percutaneous Approach (ICD-10-PCS; 2022-10-11)
DX: R55 Syncope and collapse (principal); I25.10 Atherosclerotic heart disease of native coronary artery without angina pectoris; I11.0 Hypertensive heart disease with heart failure; E66.8 Other obesity; Z68.35 Body mass index [BMI] 35.0-35.9, adult; N20.0 Calculus of kidney; R00.2 Palpitations; N40.0 Benign prostatic hyperplasia without lower urinary tract symptoms; K85.90 Acute pancreatitis without necrosis or infection, unspecified; Z87.440 Personal history of urinary (tract) infections; Z87.891 Personal history of nicotine dependence; Z29.8 Encounter for other specified prophylactic measures
CPT/HCPCS: 0241U-QW; 36415; 70450-TC; 71045-TC-FY; 80053; 80061; 81003; 81015; 82550; 82553; 82962; 83036; 83735; 84443; 84484; 85025; 85027; 93005; 93306-TC; 93880-TC; 96372; 96374; 97116-GP; 97161-GP; 99285-25; G0378

== ENCOUNTER 2023-01-25 18:37 | Observation (INO) | payer OTHER ==
[2023-01-25 19:39] LABS: HEMATOCRIT 38.2 % (35.4-49); HEMOGLOBIN 13.2 G/dL (11.7-16.9); MCH 28.9 pg (25.7-33.7); MCHC 34.6 g/dl (32.0-35.9); MEAN CELL VOLUME 83.5 fl (80-96); MEAN PLT VOLUME 9.6 fl (7.5-11.1); PLATELET COUNT 118.9 10^3/uL (134-434); RBC 4.57 10^6/uL (4.00-5.60); RDW 15.3 % (11.9-15.9); WHITE BLOOD COUNT 7.4 10^3/uL (4.0-10.8)
[2023-01-25 19:47] LABS: INR 0.94 (0.83-1.09); PROTHROMBIN TIME (PATIENT) 10.8 SEC (9.7-13.0)
[2023-01-25 19:49] LABS: ACTIVATED PTT 28.3 SECONDS (25.2-36.5)
[2023-01-25 19:56] LABS: ALBUMIN 3.8 g/dl (3.4-5.0); BILIRUBIN,TOTAL 0.8 mg/dl (0.2-1); CALCIUM 8.7 mg/dl (8.5-10); CREATININE 1.3 mg/dl (0.55-1.3); TOT PROT 7.2 g/dl (6.4-8.2)
[2023-01-25] MEDS ORDERED: ASPIRIN 81 MG CHEWABLE TABLETS PO ONE (20:11)
[2023-01-25] MEDS ORDERED: ASPIRIN 81 MG CHEWABLE TABLETS ONE (20:14)
[2023-01-25 20:46] LABS: N-TERMINAL BNP 74.8 pg/ml (5-125)
[2023-01-25] MEDS ORDERED: DOCUSATE SODIUM 100 MG CAPSULE (FP) PO PRN (20:52)
[2023-01-25] MEDS ORDERED: ACETAMINOPHEN 325 MG TABLET (FP) PO PRN (20:52)
[2023-01-25 20:59] LABS: PLATELET ESTIMATE SLT DECREASE
[2023-01-25] MEDS: INSULIN SLIDING SCALE (NOVOLOG) 1 VIAL SQ SCH (21:10)
[2023-01-25] MEDS ORDERED: INSULIN (NOVOLOG) ASPART 100 UNITS/ML 10ML VIAL ONE (21:13)
[2023-01-25 22:28] VITALS: BMI 35.7
[2023-01-26] MEDS ORDERED: ALBUTEROL SO4 HFA INHALER IH PRN (00:14)
[2023-01-26] MEDS ORDERED: PANTOPRAZOLE 40 MG TABLET PO PRN (00:14)
[2023-01-26] MEDS ORDERED: clonazePAM 0.5 MG TABLET ONE (00:34)
[2023-01-26] MEDS: TAMSULOSIN HCL 0.4 MG CAP PO SCH ×2 (00:40→21:11)
[2023-01-26] MEDS: clonazePAM 0.5 MG ODT TABLETS SL SCH ×2 (00:40→21:12)
[2023-01-26] MEDS: ATORVASTATIN CA 20 MG TABLET (FP) PO SCH ×2 (00:40→21:10)
[2023-01-26] MEDS: INSULIN SLIDING SCALE (NOVOLOG) 1 VIAL SQ SCH ×4 (06:46→21:16)
[2023-01-26 08:46] LABS: CALCIUM 8.9 mg/dl (8.5-10); CREATININE 1.2 mg/dl (0.55-1.3); MAGNESIUM 1.8 mg/dL (1.8-2.4); PHOSPHOROUS 3.9 mg/dl (2.5-4.9)
[2023-01-26 09:35] LABS: BASO % 0.4 % (0-2.0); EOS % 3.2 % (0-4.5); HEMOGLOBIN 12.6 GM/dL (11.7-16.9); LYMPH % 29.7 % (8-40); MEAN CELL VOLUME 82.3 fl (80-96); MONO % 10.2 % (3.8-10.2); NEUT % 56.5 % (42.8-82.8); PLATELET COUNT 128 10^3/uL (134-434); RDW 15.5 % (11.9-15.9); WHITE BLOOD COUNT 7.2 K/mm3 (4.0-10.0)
[2023-01-26] MEDS: CARVEDILOL 25 MG TABLET (FP) PO SCH ×2 (09:48→21:12)
[2023-01-26] MEDS: LOSARTAN POTASSIUM 50 MG TABLET PO SCH (09:48)
[2023-01-26] MEDS: amLODIPine BESYLATE 5 MG TABLET (FP) PO SCH (09:48)
[2023-01-26] MEDS: OMEGA-3 ACID ETHYL ESTERS (FATTY-ACIDS) 1 GM CAPSULE (FP) PO SCH ×2 (09:48→21:11)
[2023-01-26 21:39] VITALS: RESP 18
[2023-01-27 06:27] VITALS: TEMP 98
[2023-01-27] MEDS: INSULIN SLIDING SCALE (NOVOLOG) 1 VIAL SQ SCH (06:43)
[2023-01-27 08:36] LABS: ALBUMIN 3.9 g/dl (3.4-5.0); BILIRUBIN,TOTAL 0.6 mg/dl (0.2-1); CALCIUM 8.6 mg/dl (8.5-10); CREATININE 1.3 mg/dl (0.55-1.3); TOT PROT 7.1 g/dl (6.4-8.2)
[2023-01-27 09:24] VITALS: BP 128/70; PULSE 75
[2023-01-27 09:57] LABS: BASO % 0.8 % (0-2.0); EOS % 3.5 % (0-4.5); HEMATOCRIT 37.3 % (35.4-49); HEMOGLOBIN 12.9 GM/dL (11.7-16.9); LYMPH % 28.2 % (8-40); MCH 28.2 pg (25.7-33.7); MCHC 34.5 g/dl (32.0-35.9); MEAN CELL VOLUME 81.7 fl (80-96); MEAN PLT VOLUME 9.3 fl (7.5-11.1); MONO % 8.9 % (3.8-10.2); NEUT % 58.6 % (42.8-82.8); PLATELET COUNT 124 10^3/uL (134-434); RBC 4.57 M/mm3 (4.00-5.60); WHITE BLOOD COUNT 7.1 K/mm3 (4.0-10.0)
[2023-01-27] MEDS ORDERED: ENOXAPARIN NA (PORCINE) 40 MG/0.4 ML DISP.SYRIN SQ SCH (10:00)
[2023-01-27] MEDS: LOSARTAN POTASSIUM 50 MG TABLET PO SCH (10:05)
[2023-01-27] MEDS: amLODIPine BESYLATE 5 MG TABLET (FP) PO SCH (10:05)
[2023-01-27] MEDS: OMEGA-3 ACID ETHYL ESTERS (FATTY-ACIDS) 1 GM CAPSULE (FP) PO SCH (10:05)
[2023-01-27] MEDS: CARVEDILOL 25 MG TABLET (FP) PO SCH (10:05)
== END 2023-01-27 10:47 | disposition home or self-care (01) ==
LOC: FER 18:37 → FM/S 20:53
PROVIDERS: ADMIT Internal Medicine; ATTEND Internal Medicine
PROC: 3E023GC Introduction of Other Therapeutic Substance into Muscle, Percutaneous Approach (ICD-10-PCS; principal; 2023-01-25)
PROC: 3E013VG Introduction of Insulin into Subcutaneous Tissue, Percutaneous Approach (ICD-10-PCS; 2023-01-25)
DX: R07.89 Other chest pain (principal); E78.5 Hyperlipidemia, unspecified; I25.10 Atherosclerotic heart disease of native coronary artery without angina pectoris; I11.9 Hypertensive heart disease without heart failure; I11.0 Hypertensive heart disease with heart failure; I50.9 Heart failure, unspecified; J44.9 Chronic obstructive pulmonary disease, unspecified; F41.9 Anxiety disorder, unspecified; E11.9 Type 2 diabetes mellitus without complications; Z87.891 Personal history of nicotine dependence; N40.0 Benign prostatic hyperplasia without lower urinary tract symptoms; N20.0 Calculus of kidney; K57.90 Diverticulosis of intestine, part unspecified, without perforation or abscess without bleeding
CPT/HCPCS: 0241U-QW; 36415; 71046-TC-FY; 80048; 80053; 82962; 83735; 83880; 84100; 84484; 85025; 85027; 85610; 85730; 93005; 93306-TC; 96372; 99285-25; G0378

== ENCOUNTER 2024-01-02 19:30 | Emergency (ER) | payer OTHER ==
[2024-01-02 19:43] VITALS: BP 156/89; PULSE 88; RESP 16; TEMP 97.8; BMI 36.3
[2024-01-02] MEDS: SODIUM CHLORIDE 1,000 ML IV ONE (19:50)
[2024-01-02] MEDS ORDERED: KETOROLAC TROMETHAMINE 30 MG/1 ML VIAL ONE (19:51)
[2024-01-02] MEDS: KETOROLAC TROMETHAMINE 30 MG/1 ML VIAL IVPUSH ONE (19:52)
[2024-01-02 20:09] LABS: HEMATOCRIT 38.5 % (35.4-49); HEMOGLOBIN 13.1 G/dL (11.7-16.9); MCH 28.2 pg (25.7-33.7); MCHC 34.1 g/dl (32.0-35.9); MEAN CELL VOLUME 82.7 fl (80-96); MEAN PLT VOLUME 9.7 fl (7.5-11.1); PLATELET COUNT 111.3 10^3/uL (134-434); RBC 4.66 10^6/uL (4.00-5.60); RDW 15.3 % (11.9-15.9); WHITE BLOOD COUNT 10.5 10^3/uL (4.0-10.8)
[2024-01-02 20:35] LABS: EPITHELIAL CELLS 0-5 /hpf
[2024-01-02 20:41] LABS: ALBUMIN 3.9 g/dl (3.4-5.0); BILIRUBIN,TOTAL 0.6 mg/dl (0.2-1); CALCIUM 8.6 mg/dl (8.5-10.1); CREATININE 1.4 mg/dl (0.6-1.3); POTASSIUM 4.4 mmol/L (3.5-5.1); TOT PROT 6.3 g/dl (6.4-8.2)
== END 2024-01-02 21:43 | disposition home or self-care (01) ==
LOC: FER 19:30
PROC: 3E033NZ Introduction of Analgesics, Hypnotics, Sedatives into Peripheral Vein, Percutaneous Approach (ICD-10-PCS; principal; 2024-01-02)
PROC: 3E0337Z Introduction of Electrolytic and Water Balance Substance into Peripheral Vein, Percutaneous Approach (ICD-10-PCS; 2024-01-02)
DX: R10.32 Left lower quadrant pain (principal); N20.0 Calculus of kidney
CPT/HCPCS: 36415; 74176-TC; 80053; 81003; 81015; 85027; 87086; 99284-25

== ENCOUNTER 2024-07-28 02:38 | Emergency (ER) | payer OTHER ==
[2024-07-28 02:46] VITALS: BP 178/83; PULSE 84; RESP 18; TEMP 97.3; BMI 36.3
== END 2024-07-28 03:42 | disposition home or self-care (01) ==
LOC: FER 02:38
DX: R04.0 Epistaxis (principal)
CPT/HCPCS: 99283-25